=== PATIENT | female | born 1945 | race Caucasian/White ===

== ENCOUNTER 2017-04-29 | Outpatient (CLI) | payer MEDICARE, OTHER ==
[2017-04-29 18:55] LABS: BASOPHILS # (AUTO) 0.1 10^3/uL (0.0-0.1); BASOPHILS % (AUTO) 1.3 %; EOSINOPHILS # (AUTO) 0.2 10^3/uL (0.0-0.7); EOSINOPHILS % (AUTO) 1.4 %; HGB - HEMOGLOBIN 12.5 g/dL (12.0-16.0); LYMPHOCYTES # (AUTO) 2.3 10^3/uL (1.5-3.5); LYMPHOCYTES % (AUTO) 20.2 %; MEAN CORPUSCULAR HEMOGLOBIN 29.7 pg (27.0-31.0); MEAN CORPUSCULAR VOLUME 90.1 fL (81.0-99.0); MEAN PLATELET VOLUME 9.3 fL (7.9-10.8); MONOCYTES # (AUTO) 0.4 10^3/uL (0.0-1.0); MONOCYTES % (AUTO) 3.9 %; NEUTROPHILS # (AUTO) 8.3 10^3/uL (1.5-6.6); NEUTROPHILS % (AUTO) 73.2 %; RED BLOOD COUNT 4.22 10^6/uL (4.20-5.40); RED CELL DISTRIBUTION WIDTH 13.6 % (12.0-15.0); UNCORRECTED WHITE BLOOD COUNT 11.3 x10^3/uL; WHITE BLOOD COUNT 11.3 x10^3/uL (4.8-10.8)
[2017-04-29 19:56] LABS: ALBUMIN/GLOBULIN RATIO 1.3 (1.0-2.2); BILIRUBIN,TOTAL 0.2 mg/dL (0.2-1.0); BUN - BLOOD UREA NITROGEN 39 mg/dL (6-20); CALCIUM 9.5 mg/dL (8.5-10.3); CARBON DIOXIDE - CO2 23 mmol/L (21-32); CHLORIDE 101 mmol/L (101-111); CHOLESTEROL 291 mg/dL; CREATININE 1.3 mg/dL (0.4-1.0); GFR - MDRD 40 (>89); GLUCOSE 147 mg/dL (70-100); HDL CHOLESTEROL 29 mg/dL; IRON 50 ug/dL (28-170); LDL/HDL RATIO 6.4 (<4.4); POTASSIUM 3.9 mmol/L (3.5-5.0); SODIUM 135 mmol/L (135-145); TOTAL IRON BINDING CAPACITY 272 ug/dL (250-450); TOTAL PROTEIN 6.8 g/dL (6.7-8.2); TRANSFERRIN 194 mg/dL (192-382); TRIGLYCERIDES 375 mg/dL; VLDL CHOLESTEROL 75 mg/dL
[2017-04-29 20:22] LABS: HEMOGLOBIN A1C 0.62 g/dL
== END 2017-04-29 00:01 | disposition home or self-care (01) ==
LOC: LAB.WCP
PROVIDERS: ATTEND Family Medicine
DX: E11.9 Type 2 diabetes mellitus without complications (principal); D50.9 Iron deficiency anemia, unspecified
CPT/HCPCS: 36415; 80053; 80061; 82728; 83036; 83540; 84466; 85025

== ENCOUNTER 2017-05-03 12:52 | Outpatient (CLI) | payer MEDICARE, OTHER ==
--- NOTE | 2017-05-12 16:26 | Mammography Report ---
DIGITAL SCREENING MAMMOGRAM: 05/03/2017 CLINICAL INDICATION: A 71-year-old with history of benign biopsies for screening. COMPARISON: 02/2013, 10/2011, 08/2009, 08/2008, 03/2008, 08/2007. TECHNIQUE: Routine CC and MLO projections were obtained of the breasts. The breasts again demonstrate heterogeneously dense fibroglandular parenchyma bilaterally. Coarse an d punctate, typically benign calcifications are present. No suspicious masses, clustered microcalcif ications, or regions of architectural distortion are identified. IMPRESSION: BENIGN FINDINGS. RECOMMENDATION: ROUTINE ANNUAL SCREENING UNLESS OTHERWISE CLINICALLY INDICATED. BIRADS CATEGORY: 2, BENIGN FINDINGS. STANDARD QUALIFYING STATEMENTS 1. This examination was reviewed with the aid of Computed-Aided Detection (CAD). 2. A negative or benign imaging report should not delay biopsy if clinically suspicious findings are present. Consider surgical consultation if warranted. More than 5% of cancers are not identified b y imaging. 3. Dense breasts may obscure an underlying neoplasm. JOB #: [id number] EXT JOB #:[id number]
== END 2017-05-03 12:53 | disposition home or self-care (01) ==
LOC: DI 12:52
PROVIDERS: ATTEND Family Medicine
DX: Z12.31 Encounter for screening mammogram for malignant neoplasm of breast (principal)
CPT/HCPCS: 77067

== ENCOUNTER 2017-05-03 17:01 | Outpatient (CLI) | payer MEDICARE, OTHER ==
--- NOTE | 2017-05-03 17:08 | XRAY Report ---
THREE VIEW RIGHT KNEE: 05/03/2017 CLINICAL INDICATION: Pain. AP, lateral, sunrise views of the right knee demonstrate moderate osteoarthritis. There is no eviden ce of acute fracture. No effusion is present. IMPRESSION: MODERATE RIGHT KNEE OSTEOARTHRITIS. JOB #: [id number] EXT JOB #:[id number]
--- NOTE | 2017-05-04 06:49 | XRAY Report ---
RIGHT HIP AND PELVIS: 05/03/2017 CLINICAL INDICATION: Hip pain. FINDINGS: Frontal view of the hips and pelvis and frogleg lateral view of the right hip demonstrate severe right hip osteoarthritis, with remodeling of the femoral head and acetabulum. Subchondral scl erosis is present. No definite avascular necrosis is appreciated. There is no evidence of acute fra cture. IMPRESSION: SEVERE OSTEOARTHRITIS OF THE RIGHT HIP JOINT. JOB #: [id number] EXT JOB #:[id number]
== END 2017-05-03 17:02 | disposition home or self-care (01) ==
LOC: DI 17:01
PROVIDERS: ATTEND Family Medicine
DX: M17.11 Unilateral primary osteoarthritis, right knee (principal); M16.11 Unilateral primary osteoarthritis, right hip

== ENCOUNTER 2018-01-04 13:53 | Outpatient (CLI) | payer MEDICARE, OTHER ==
[2018-01-04 19:06] LABS: BASOPHILS # (AUTO) 0.1 10^3/uL (0.0-0.1); BASOPHILS % (AUTO) 0.9 %; EOSINOPHILS # (AUTO) 0.2 10^3/uL (0.0-0.7); EOSINOPHILS % (AUTO) 1.9 %; HGB - HEMOGLOBIN 12.6 g/dL (12.0-16.0); LYMPHOCYTES # (AUTO) 2.6 10^3/uL (1.5-3.5); LYMPHOCYTES % (AUTO) 23.3 %; MEAN CORPUSCULAR HEMOGLOBIN 29.4 pg (27.0-31.0); MEAN CORPUSCULAR HGB CONC 33.5 g/dL (32.0-36.0); MEAN CORPUSCULAR VOLUME 87.8 fL (81.0-99.0); MONOCYTES # (AUTO) 0.5 10^3/uL (0.0-1.0); MONOCYTES % (AUTO) 4.4 %; NEUTROPHILS # (AUTO) 7.7 10^3/uL (1.5-6.6); NEUTROPHILS % (AUTO) 69.5 %; PLT - PLATELET COUNT 391 10^3/uL (130-450); RED CELL DISTRIBUTION WIDTH 12.6 % (12.0-15.0); WHITE BLOOD COUNT 11.1 x10^3/uL (4.8-10.8)
[2018-01-04 19:34] LABS: ALBUMIN/GLOBULIN RATIO 1.4 (1.0-2.2); ALKALINE PHOSPHATASE 53 IU/L (42-121); ALT ALANINE AMINOTRANSFERASE 13 IU/L (10-60); AST ASPARTATE AMINOTRANSFERASE 17 IU/L (10-42); BILIRUBIN,TOTAL 0.4 mg/dL (0.2-1.0); BUN - BLOOD UREA NITROGEN 27 mg/dL (6-20); CALCIUM 9.3 mg/dL (8.5-10.3); CARBON DIOXIDE - CO2 26 mmol/L (21-32); CHLORIDE 99 mmol/L (101-111); CHOL/HDL RATIO 8.9 (<4.4); CHOLESTEROL 277 mg/dL; GFR - MDRD 54 (>89); GLUCOSE 109 mg/dL (70-100); HB2 TOTAL 13.6 g/dL; HDL CHOLESTEROL 31 mg/dL; HEMOGLOBIN A1C 0.58 g/dL; HEMOGLOBIN A1C % 6.1 % (4.6-6.2); LDL CHOLESTEROL,CALCULATED 172 mg/dL; LDL/HDL RATIO 5.5 (<4.4); SODIUM 134 mmol/L (135-145); TOTAL PROTEIN 6.9 g/dL (6.7-8.2); VLDL CHOLESTEROL 74 mg/dL
== END 2018-01-04 13:54 | disposition home or self-care (01) ==
LOC: LAB.WCP 13:53
PROVIDERS: ATTEND Family Medicine
DX: E11.9 Type 2 diabetes mellitus without complications (principal)
CPT/HCPCS: 36415; 80053; 80061; 83036; 83721; 85025

== ENCOUNTER 2018-10-26 07:20 | Day surgery (SDC) | payer MEDICARE, OTHER ==
[~2018-10-26 07:20] MED LIST: BRIMONIDINE 0.2% OPHTH DROPS 5 ML ONE; BSS/LIDOCAINE/EPINEPHRINE 1 ML SYRINGE ONE; EPINEPHrine 1 MG/ML AMP ONE; TIMOLOL 0.5% OPHTH DROPS ONE; TRIAMCIN/MOXIFLOX OPHTHALMIC 0.6 ML VIAL IO ONE; VANCOMYCIN OPHTHALMI 8MG/0.8ML 8 MG/0.8 ML SYRINGE IO ONE
[2018-10-26] MEDS ORDERED: PHENYLEPHRINE 2.5% OPHTH 2 ML DROPS ONE (07:51)
[2018-10-26] MEDS ORDERED: KETOROLAC 0.45% OPHTH DROPS ONE (07:51)
[2018-10-26] MEDS ORDERED: CYCLOPENTOLATE 1% OPHTH DROPS 2 ML ONE (07:51)
[2018-10-26] MEDS ORDERED: PROPARACAINE 0.5% OPHTH DROPS 15 ML ONE (07:51)
[2018-10-26] MEDS ORDERED: LACTATED RINGERS 500 ML IV ONE (07:52)
[2018-10-26] MEDS ORDERED: CYCLOPENTOLATE 1% OPHTH DROPS 2 ML RIGHTEYE ONE (08:06)
[2018-10-26] MEDS ORDERED: KETOROLAC 0.45% OPHTH DROPS RIGHTEYE ONE (08:06)
[2018-10-26] MEDS ORDERED: PHENYLEPHRINE 2.5% OPHTH 2 ML DROPS RIGHTEYE ONE (08:06)
[2018-10-26] MEDS ORDERED: PROPARACAINE 0.5% OPHTH DROPS 15 ML RIGHTEYE ONE ×2 (08:06→08:50)
--- NOTE | 2018-10-26 08:19 | ANESTHESIA ---
Pre-Anesthesia VS, & Labs - Diagnosis R senile combined cataract - Procedure R extraction cataract with IOL Vital Signs: Temp Pulse Resp BP Pulse Ox 36.8 C 102 H 16 150/79 H 99 10/26/18 07:56 10/26/18 07:56 10/26/18 07:56 10/26/18 07:56 10/26/18 07:56 Height 5 ft 3 in Weight (kg) 102 kg Body Mass Index 45.8 - Is Patient ?: No Home Medications and Allergies Cholecalciferol (Vitamin D3) [Vitamin D] 500 unit PO DAILY 06/27/15 Cyanocobalamin (Vitamin B-12) [B-12] 1,000 mcg PO DAILY 06/27/15 HYDROcod/ACETAM 5/325 [Vicodin 5/325] 1 ea PO Q6H PRN 06/27/15 Insulin Detemir [Levemir] 50 units SUBQ QPM 06/27/15 Iron,Carbonyl [Feosol] 65 mg PO DAILY 06/27/15 Latanoprost [Xalatan] 1 ml OP QPM 06/27/15 Levothyroxine Sodium [Synthroid] 125 mcg PO DAILY 06/27/15 Lisinopril 40 mg PO QPM 06/27/15 Metoprolol Succinate [Toprol Xl] 25 mg PO DAILY 06/27/15 Multivitamin [Multivitamins] 1 each PO DAILY 06/27/15 Nifedipine [Nifedipine ER] 60 mg PO DAILY 06/27/15 Omeprazole [PriLOSEC] 20 mg PO QPM 06/27/15 hydroCHLOROthiazide [Hydrochlorothiazide] 25 mg PO DAILY 06/27/15 metFORMIN [Glucophage] 1,000 mg PO BIDWM 06/27/15 Allergies/Adverse Reactions: Allergies Allergy/AdvReac Type Severity Reaction Status Date / Time adhesive Allergy Nausea Verified 06/27/15 10:14 niacin Allergy Rash Verified 06/27/15 10:14 Qxzuoby-Ihh-Sym Reductase AdvReac Cramps Verified 06/27/15 10:14 Inhibitor Anes History & Medical History - Anesthetic History Anesthesia Complications: reports: No previous complications Family history of Anesthesia Complications: Denies Family history of Malignant Hyperthermia: Denies - Medical History Cardiovascular: reports: Hypertension Pulmonary: reports: None Gastrointestinal: reports: GERD, Other Urinary: reports: None Musculoskeletal: reports: Osteoarthritis, Osteopenia Endocrine/Autoimmune: reports: Type 2 diabetes Skin: reports: None - Surgical History General: Colonoscopy Gynecologic:  Orthopedic: Hip replacement, Spine surgery Exam General: Alert, Oriented x3, Cooperative Dental: WNL Mouth Openin Fingerbreadth Neck Mobility: Normal Mallampati classification: II Thyromental Distance: 4-6 cm Respiratory: Lungs clear, Normal breath sounds Cardiovascular: Regular rate Neurological: Normal speech Mental/Cognitive Status: Alert/Oriented X3 Cognitive Status: Within normal limits Plan Anesthesia Type: MAC Consent for Procedure(s) Verified and Reviewed: Yes Code Status: Attempt Resuscitation ASA classification: 2-Mild systemic disease Is this case an emergency?: No
[2018-10-26] MEDS ORDERED: MIDAZOLAM 2 MG/2 ML VIAL IVP ONE (08:45)
[2018-10-26] MEDS ORDERED: BRIMONIDINE 0.2% OPHTH DROPS 5 ML OPTH ONE (08:49)
[2018-10-26] MEDS ORDERED: EPINEPHrine 1 MG/ML AMP IVP ONE (08:49)
[2018-10-26] MEDS ORDERED: CHONDR SULF/HYALURONATE SYRINGE IO ONE (08:50)
[2018-10-26] MEDS ORDERED: BSS/LIDOCAINE/EPINEPHRINE 1 ML SYRINGE IO ONE ×2 (08:50)
[2018-10-26] MEDS ORDERED: TIMOLOL 0.5% OPHTH DROPS OPTH ONE (08:50)
[2018-10-26] MEDS ORDERED: TRIAMCIN/MOXIFLOX OPHTHALMIC 0.6 ML VIAL IO ONE ×2 (08:51)
[2018-10-26 09:15] VITALS: BP 150/49
--- NOTE | 2018-10-26 10:37 | OPERATIVE REPORT ---
DATE OF SERVICE: 10/26/2018 Physician: Cornelio Grady MD PREOPERATIVE DIAGNOSIS: Visually significant cataract, right eye. This was her first cataract surgery. POSTOPERATIVE DIAGNOSIS: Visually significant cataract, right eye. PROCEDURE: Phacoemulsification with posterior chamber intraocular lens implant, right eye. SURGEON: Dr. Cornelio Grady. ANESTHESIA: Monitored anesthesia care. COMPLICATIONS: None. OPERATIVE INDICATIONS: This is a 72-year-old woman with progressive vision loss in the right eye due to 3-4+ nuclear sclerotic and 1+ cortical cataract. Best corrected visual acuity was 20/60 with gla re to count fingers vision at 8 feet. Indications for surgery were overall decrease in vision, difficulty seeing words, closed captions or games scores on TV, difficulty seeing street signs, difficulty driving in low light or at night, diff iculty driving at night because of headlights from other vehicles and/or street lights, and difficult y with glare or bright lights in any situation. She was consented at length concerning the risks and benefits of cataract surgery, after which she expressed a desire to proceed with surgery. OPERATIVE PROCEDURE: Patient was taken into OR #3 and placed under monitored anesthesia care. A anne marie gical timeout was conducted confirming correct patient, correct procedure, and correct surgical site. She was given topical anesthesia, then prepped and draped in the usual sterile fashion. The eye was entered at the 12 and 9 o'clock positions. Intracameral Shugarcaine was injected into th e anterior chamber, followed by Viscoat. A continuous-tear curvilinear capsulorrhexis was performed. The nucleus was hydrodissected and phacoemulsified. The cortex was evacuated using automated infus ion and aspiration. Provisc was injected in the capsular bag, and a 24.5 diopter intraocular lens in serted in the bag. Approximately 0.8 mL of a mixture of triamcinolone, moxifloxacin, and vancomycin was injected subconjunctivally in the superior quadrant for infection and inflammation prophylaxis. I and A was used to evacuate the viscoelastic materials. The eye was inflated to physiologic pressur e using a balanced salt solution and found to be watertight. Patient was taken from the operating ro om in good condition and given postoperative instructions. TD: 10/26/2018 09:45
== END 2018-10-26 07:21 | disposition home or self-care (01) ==
LOC: SDS 07:20
PROVIDERS: ATTEND Ophthalmology
PROC: 08RJ3JZ Replacement of Right Lens with Synthetic Substitute, Percutaneous Approach (ICD-10-PCS; principal; 2018-10-26 08:30)
DX: H25.811 Combined forms of age-related cataract, right eye (principal); I10 Essential (primary) hypertension; E11.9 Type 2 diabetes mellitus without complications; E03.9 Hypothyroidism, unspecified; E78.00 Pure hypercholesterolemia, unspecified; K21.9 Gastro-esophageal reflux disease without esophagitis
CPT/HCPCS: 66984; A9270; J3490; V2632

== ENCOUNTER 2018-11-30 06:09 | Day surgery (SDC) | payer MEDICARE, OTHER ==
[2018-11-30] MEDS ORDERED: PROPARACAINE 0.5% OPHTH DROPS 15 ML ONE (06:28)
[2018-11-30] MEDS ORDERED: CYCLOPENTOLATE 1% OPHTH DROPS 2 ML ONE (06:28)
[2018-11-30] MEDS ORDERED: KETOROLAC 0.45% OPHTH DROPS ONE (06:28)
[2018-11-30] MEDS ORDERED: PHENYLEPHRINE 2.5% OPHTH 2 ML DROPS ONE ×2 (06:28→06:51)
[2018-11-30] MEDS ORDERED: PHENYLEPHRINE 2.5% OPHTH 2 ML DROPS LEFTEYE ONE (06:50)
[2018-11-30] MEDS ORDERED: KETOROLAC 0.45% OPHTH DROPS LEFTEYE ONE (06:50)
[2018-11-30] MEDS ORDERED: PROPARACAINE 0.5% OPHTH DROPS 15 ML LEFTEYE ONE (06:50)
[2018-11-30] MEDS ORDERED: CYCLOPENTOLATE 1% OPHTH DROPS 2 ML LEFTEYE ONE (06:50)
[2018-11-30] MEDS ORDERED: EPINEPHrine 1 MG/ML AMP ONE (06:57)
[2018-11-30] MEDS ORDERED: TRIAMCIN/MOXIFLOX OPHTHALMIC 0.6 ML VIAL IO ONE ×2 (06:57→07:39)
[2018-11-30] MEDS ORDERED: BRIMONIDINE 0.2% OPHTH DROPS 5 ML ONE (06:57)
[2018-11-30] MEDS ORDERED: TIMOLOL 0.5% OPHTH DROPS ONE (06:57)
[2018-11-30] MEDS ORDERED: BSS/LIDOCAINE/EPINEPHRINE 1 ML SYRINGE ONE (06:58)
[2018-11-30] MEDS ORDERED: VANCOMYCIN OPHTHALMI 8MG/0.8ML 8 MG/0.8 ML SYRINGE IO ONE ×2 (06:59→07:39)
--- NOTE | 2018-11-30 07:08 | ANESTHESIA ---
Pre-Anesthesia VS, & Labs - Diagnosis left senile cataract - Procedure left cataract extraction with intraocular lens Vital Signs: Temp Pulse Resp BP Pulse Ox 36.9 C 69 16 184/75 H 98 11/30/18 06:33 11/30/18 06:33 11/30/18 06:33 11/30/18 06:33 11/30/18 06:33 Height 5 ft 3 in Weight (kg) 104.7 kg Body Mass Index 45.8 - NPO >8 hours - Is Patient ?: No - Lab Results Current Lab Results: Laboratory Tests 11/30/18 06:56: POC Whole Bld Glucose 99 Lab results reviewed: Yes Home Medications and Allergies Cholecalciferol (Vitamin D3) [Vitamin D] 500 unit PO DAILY 06/27/15 Cyanocobalamin (Vitamin B-12) [B-12] 1,000 mcg PO DAILY 06/27/15 HYDROcod/ACETAM 5/325 [Vicodin 5/325] 1 ea PO Q6H PRN 06/27/15 Insulin Detemir [Levemir] 50 units SUBQ QPM 06/27/15 Iron,Carbonyl [Feosol] 65 mg PO DAILY 06/27/15 Latanoprost [Xalatan] 1 ml OP QPM 06/27/15 Levothyroxine Sodium [Synthroid] 125 mcg PO DAILY 06/27/15 Lisinopril 40 mg PO QPM 06/27/15 Metoprolol Succinate [Toprol Xl] 25 mg PO DAILY 06/27/15 Multivitamin [Multivitamins] 1 each PO DAILY 06/27/15 Nifedipine [Nifedipine ER] 60 mg PO DAILY 06/27/15 Omeprazole [PriLOSEC] 20 mg PO QPM 06/27/15 hydroCHLOROthiazide [Hydrochlorothiazide] 25 mg PO DAILY 06/27/15 metFORMIN [Glucophage] 1,000 mg PO BIDWM 06/27/15 Allergies/Adverse Reactions: Allergies Allergy/AdvReac Type Severity Reaction Status Date / Time adhesive Allergy Rash Verified 11/30/18 06:38 niacin Allergy Rash Verified 06/27/15 10:14 Krvwydx-Ydn-Ipm Reductase AdvReac increased Verified 11/30/18 06:38 Inhibitor liver enzymes Anes History & Medical History - Anesthetic History Anesthesia Complications: reports: No previous complications Family history of Anesthesia Complications: Denies - Medical History Cardiovascular: reports: Hypertension Pulmonary: reports: None Gastrointestinal: reports: GERD, Other Urinary: reports: None Musculoskeletal: reports: Osteoarthritis, Osteopenia Endocrine/Autoimmune: reports: Type 2 diabetes Skin: reports: None - Surgical History General: Colonoscopy Gynecologic:  Orthopedic: Hip replacement, Spine surgery Exam General: Alert Dental: WNL Mouth Opening: Greater than 4 Fingerbreadths Neck Mobility: Normal Mallampati classification: II Thyromental Distance: greater than 6 cm Respiratory: Lungs clear Cardiovascular: Regular rate, Normal S1, Normal S2, No murmurs Mental/Cognitive Status: Alert/Oriented X3 Plan Anesthesia Type: MAC Consent for Procedure(s) Verified and Reviewed: No Code Status: Attempt Resuscitation ASA classification: 2-Mild systemic disease Is this case an emergency?: No
[2018-11-30] MEDS ORDERED: LACTATED RINGERS 500 ML IV ONE (07:16)
[2018-11-30] MEDS ORDERED: fentaNYL 100 MCG/2 ML VIAL IVP ONE (07:35)
[2018-11-30] MEDS ORDERED: MIDAZOLAM 2 MG/2 ML VIAL IVP ONE (07:35)
[2018-11-30] MEDS ORDERED: CHONDR SULF/HYALURONATE SYRINGE IO ONE (07:37)
[2018-11-30] MEDS ORDERED: EPINEPHrine 1 MG/ML AMP IVP ONE (07:37)
[2018-11-30] MEDS ORDERED: BRIMONIDINE 0.2% OPHTH DROPS 5 ML OPTH ONE (07:37)
[2018-11-30] MEDS ORDERED: TIMOLOL 0.5% OPHTH DROPS OPTH ONE (07:38)
[2018-11-30] MEDS ORDERED: BSS/LIDOCAINE/EPINEPHRINE 1 ML SYRINGE IO ONE (07:39)
[2018-11-30 08:17] VITALS: BP 187/63
--- NOTE | 2018-11-30 10:07 | OPERATIVE REPORT ---
DATE OF SERVICE: 11/30/2018 Physician: Cornelio Grady MD PREOPERATIVE DIAGNOSIS: Visually significant cataract, left eye. Cataract surgery was performed on the right eye on 10/26/2018. POSTOPERATIVE DIAGNOSIS: Visually significant cataract, left eye. Cataract surgery was performed on the right eye on 10/26/2018. PROCEDURE: Phacoemulsification with posterior chamber intraocular lens implant, left eye. SURGEON: Cornelio Grady MD ANESTHESIA: Monitored anesthesia care. COMPLICATIONS: None. OPERATIVE INDICATIONS: This is a 72-year-old woman with progressive vision loss in the left eye due to 3-4+ nuclear sclerotic and 1-2+ cortical cataract. Best corrected visual acuity was 20/40 with gl are to 26/30 in the left eye. Indications for surgery are overall decrease in vision, difficulty see ing words on a computer screen, difficulty reading, difficulty seeing words closed caption and game s cores on TV, difficulty seeing street signs, difficulty driving in low light or night, difficulty dri ving at night because of headlights from other vehicles, difficulty with glare or bright lights in an y situation, difficulty tracking a golf ball and decreased acuity with arms. She was consented at [facility] concerning risks and benefits of cataract surgery, after which Afterward she expressed a desire to proceed with surgery. OPERATIVE PROCEDURE: The patient was taken to OR #3 and placed under monitored anesthesia care. A s urgical timeout was conducted confirming correct patient, correct procedure, and correct surgical sit e. She was given topical anesthesia, then prepped and draped in the usual sterile fashion. The eye was entered at the 6 and 3 o'clock positions. Intracameral Shugarcaine was injected into the anterior chamber, followed by Viscoat. A continuous-tear curvilinear capsulorrhexis was performed. The nucleus was hydrodissected and phacoemulsified. The cortex was evacuated using automated infusi on and aspiration. Provisc was injected in the capsular bag, and a 24.5 diopter intraocular lens ins erted in the bag. Approximately 0.8 mL of a mixture of triamcinolone, moxifloxacin, and vancomycin w as injected subconjunctivally in the superior quadrant for infection and inflammation prophylaxis. I and A, was used to evacuate the viscoelastic materials. The eye was inflated to physiologic pressur e using balanced salt solution and found to be watertight. Patient was taken from the operating room in good condition and given postoperative instructions. TD: 11/30/2018 07:59
== END 2018-11-30 06:10 | disposition home or self-care (01) ==
LOC: SDS 06:09
PROVIDERS: ATTEND Ophthalmology
PROC: 08RK3JZ Replacement of Left Lens with Synthetic Substitute, Percutaneous Approach (ICD-10-PCS; principal; 2018-11-30 07:30)
DX: H25.812 Combined forms of age-related cataract, left eye (principal); E11.9 Type 2 diabetes mellitus without complications; I10 Essential (primary) hypertension; E78.5 Hyperlipidemia, unspecified; E03.9 Hypothyroidism, unspecified; Z79.84 Long term (current) use of oral hypoglycemic drugs
CPT/HCPCS: 66984; A9270; J3490; V2632

== ENCOUNTER 2021-01-16 12:04 | Outpatient (CLI) | payer MEDICARE, OTHER | END 2021-01-16 12:05 | disposition critical access hospital (66) | LOC: EMS 12:04 | DX: R53.1 Weakness (principal) | CPT/HCPCS: A0425; A0429 ==

== ENCOUNTER 2021-01-16 12:20 | Emergency (ER) | payer MEDICARE, OTHER ==
--- NOTE | 2021-01-16 12:46 | ED Physician Documentation ---
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 She also has a remote history of L4-L5 and L5-S1 laminectomies done at [facility]. Over the last week she has developed progressive low back pain with bilateral lower extremity weakness. It is not associate with incontinence or saddle anesthesia. No fevers. The weakness has been progressive and at this point she is unable to walk. She fell without injury last night due to this. Review of Systems Ten Systems: 10 systems reviewed and negative Constitutional: reports: Reviewed and negative Eyes: reports: Reviewed and negative Ears: reports: Reviewed and negative Nose: reports: Reviewed and negative Throat: reports: Reviewed and negative Cardiac: reports: Reviewed and negative Respiratory: reports: Reviewed and negative PD PAST MEDICAL HISTORY - Past Medical History Past Medical History: Yes Cardiovascular: Hypertension Respiratory: None Endocrine/Autoimmune: Type 2 diabetes GI: GERD, Other : None HEENT: None Psych: Depression Musculoskeletal: Osteoarthritis, Osteopenia Derm: None - Past Surgical History General: Colonoscopy Ortho: Hip replacement, Spine surgery /[employer]:  - Present Medications Home Medications: Ambulatory Orders Medication Instructions Recorded Confirmed Insulin Detemir [Levemir] 16 units SUBQ QPM 06/27/15 01/16/21 Latanoprost [Xalatan] 1 drops OP QPM 06/27/15 01/16/21 Levothyroxine Sodium [Synthroid] 125 mcg PO DAILY 06/27/15 01/16/21 Metoprolol Succinate [Toprol Xl] 50 mg PO DAILY 06/27/15 01/16/21 Multivitamin [Multivitamins] 1 each PO DAILY 06/27/15 01/16/21 NIFEdipine [Nifedipine ER] 60 mg PO DAILY 06/27/15 01/16/21 Omeprazole [PriLOSEC] 20 mg PO QPM 06/27/15 01/16/21 hydroCHLOROthiazide 25 mg PO DAILY 06/27/15 01/16/21 [Hydrochlorothiazide] lisinopriL [Lisinopril] 40 mg PO QPM 06/27/15 01/16/21 metFORMIN [Glucophage] 1,000 mg PO BIDWM 06/27/15 01/16/21 - Allergies Allergies/Adverse Reactions: Allergies Allergy/AdvReac Type Severity Reaction Status Date / Time adhesive Allergy Rash Verified 01/16/21 12:26 manganese Allergy Rash Verified 01/16/21 12:26 niacin Allergy Rash Verified 01/16/21 12:26 Ylrcadk-Tcw-Ann Reductase AdvReac increased Verified 01/16/21 12:26 Inhibitor liver enzymes - Social History Does the pt smoke?: No Smoking Status: Never smoker PD ED PE NORMAL - Vitals Vital signs reviewed: Yes - General General: Alert and oriented X 3, No acute distress - HEENT HEENT: PERRL, EOMI - Neck Neck: Supple, no meningeal sign, No bony TTP - Cardiac Cardiac: RRR, No murmur - Respiratory Respiratory: No respiratory distress, Clear bilaterally - Abdomen Abdomen: Normal bowel sounds, Soft, Non tender - Back Back: No CVA TTP, No spinal TTP - Derm Derm: Normal color, Warm and dry - Extremities Extremities: Other (She is quite weak in the lower extremities, especially in hip flexion. She cannot lift the right leg off the bed, she has some effort against gravity with the left leg. Flexion extension at the ankles is relatively normal as is sensation throughout the lower extremities.) - Neuro Neuro: Alert and oriented X 3, No sensory deficit, Normal speech Eye Opening: Spontaneous Motor: Obeys Commands Verbal: Oriented GCS Score: 15 Results - Vitals Vitals: Vital Signs - 24 hr 01/16/21 01/16/21 01/16/21 12:28 14:32 16:00 Temperature 36.7 C Heart Rate 95 94 89 Respiratory 18 20 22 Rate Blood Pressure 137/106 H 178/78 H 163/70 H O2 Saturation 100 98 97 Oxygen O2 Source Room air - EKG (time done) 1246 Rate: Rate (enter#) (87) Rhythm: NSR (w frequent PACs) Riley: Normal Intervals: Normal [place] QRS: Normal Ischemia: Non specific changes. No: ST elevation c/w ischemia Computer interpretation: Disagree with computer (computer reads flutter, but NSR with freq pacs) - Labs Labs: Laboratory Tests 01/16/21 01/16/21 01/16/21 12:55 12:55 14:15 WBC 10.4 RBC 3.91 L Hgb 11.1 L Hct 34.8 L MCV 89.0 MCH 28.4 MCHC 31.9 L RDW 13.2 Plt Count 408 MPV 10.0 Neut # (Auto) 8.1 H Lymph # (Auto) 1.6 [place] # (Auto) 0.5 Eos # (Auto) 0.1 Baso # (Auto) 0.1 Absolute Nucleated RBC 0.00 Nucleated RBC % 0.0 Sodium 137 Potassium 3.9 Chloride 101 Carbon Dioxide 23 Anion Gap 13.0 BUN 25 H Creatinine 1.0 Estimated GFR (MDRD) 54 L Glucose 142 H Calcium 9.6 Magnesium 1.6 L Total Bilirubin 0.4 AST 17 ALT 17 Alkaline Phosphatase 75 Total Protein 7.0 Albumin 4.0 Globulin 3.0 Albumin/Globulin Ratio 1.3 Nasal Adenovirus (PCR) NOT DETECTED Nasal B. parapertussis DNA (PCR) NOT DETECTED Nasal Coronavir 229E PCR NOT DETECTED Nasal Coronavir HKU1 PCR NOT DETECTED Nasal Coronavir NL63 PCR NOT DETECTED Nasal Coronavir OC43 PCR NOT DETECTED Nasal Enterovir/Rhinovir PCR NOT DETECTED Nasal Influenza B PCR NOT DETECTED Nasal Influenza A PCR NOT DETECTED Nasal Parainfluen 1 PCR NOT DETECTED Nasal Parainfluen 2 PCR NOT DETECTED Nasal Parainfluen 3 PCR NOT DETECTED Nasal Parainfluen 4 PCR NOT DETECTED Nasal RSV (PCR) NOT DETECTED Nasal B.pertussis DNA PCR NOT DETECTED Nasal C.pneumoniae (PCR) NOT DETECTED Willie Human Metapneumo PCR NOT DETECTED Nasal M.pneumoniae (PCR) NOT DETECTED Nasal SARS-CoV-2 (PCR) NOT DETECTED - Rads (name of study) CT L spine Radiology: EMP read contemporaneously (Acute comminuted inferior endplate compression fracture of L2 with mild bony retropulsion contributing to moderate multifactorial canal stenosis. Moderate stenosis at L3-L4, remote right hemilaminectomy at L4-L5 with moderate to severe left foraminal narrowing at that level. Also had multilevel fo) PD MEDICAL DECISION MAKING - ED course ED course: 75-year-old woman with an acute back pain and severe weakness especially of hip flexion which corresponds to CT findings of a compression fracture of L2 with retropulsion contributing to moderate multifactorial canal stenosis at that level with also severe right foraminal narrowing at that level. Given the profundity of her weakness will consult neurosurgery, previous surgery done by Dr. Reid at [facility] in [place] and they were called at approximately 1:45 PM for consultation. Approximately 2:30 PM I spoke with Dr. Antoine Ledesma, Ns[facility] at [facility], will consult but defers to medicine for xfer; but called back and notes their OR is closed over the weekend and recommends xfer to another facility. However there was miscommunication and it turned out that there OR is not going down this weekend, this was clarified with Dr. Ledesma and hospitalist was paged for admission. Subsequently a 4:14 PM I discussed the case by phone with Dr. Janay Grady, the on-call hospitalist in [place] and she accepts to her service and cobras were completed. She is stable for transport. Departure - Departure Disposition: 02 Transfer Acute Care Hosp Clinical Impression: Weakness Compression fracture of L2 Qualifiers: Encounter type: initial encounter Qualified Code(s): S32.020A - Wedge compression fracture of second lumbar vertebra, initial encounter for closed fracture Spinal stenosis Qualifiers: Spinal region: lumbar Neurogenic claudication status: with neurogenic claudication Qualified Code(s): M48.062 - Spinal stenosis, lumbar region with neurogenic claudication Condition: Stable
[2021-01-16 12:57] LABS: BASOPHILS # (AUTO) 0.1 10^3/uL (0.0-0.1); BASOPHILS % (AUTO) 0.6 %; EOSINOPHILS # (AUTO) 0.1 10^3/uL (0.0-0.7); HGB - HEMOGLOBIN 11.1 g/dL (12.0-16.0); LYMPHOCYTES # (AUTO) 1.6 10^3/uL (1.5-3.5); LYMPHOCYTES % (AUTO) 15.6 %; MEAN CORPUSCULAR HEMOGLOBIN 28.4 pg (27.0-31.0); MEAN CORPUSCULAR HGB CONC 31.9 g/dL (32.0-36.0); MONOCYTES # (AUTO) 0.5 10^3/uL (0.0-1.0); MONOCYTES % (AUTO) 4.4 %; NEUTROPHILS # (AUTO) 8.1 10^3/uL (1.5-6.6); NEUTROPHILS % (AUTO) 78.1 %; PLT - PLATELET COUNT 408 10^3/uL (130-450); RED BLOOD COUNT 3.91 10^6/uL (4.20-5.40); RED CELL DISTRIBUTION WIDTH 13.2 % (12.0-15.0); WHITE BLOOD COUNT 10.4 x10^3/uL (4.8-10.8)
[2021-01-16 13:10] LABS: ALBUMIN/GLOBULIN RATIO 1.3 (1.0-2.2); BILIRUBIN,TOTAL 0.4 mg/dL (0.2-1.0); CALCIUM 9.6 mg/dL (8.5-10.3); MAGNESIUM 1.6 mg/dL (1.7-2.8)
--- NOTE | 2021-01-16 13:40 | CT Report ---
PROCEDURE: LUMBAR SPINE WO INDICATIONS: back pain, weak TECHNIQUE: Noncontrast 3 mm thick sections acquired from the T12 level to the sacrum. Sagittal and coronal refo rmats were constructed. For radiation dose reduction, the following was used: automated exposure co ntrol, adjustment of mA and/or kV according to patient size. COMPARISON: None. FINDINGS: Image quality: Excellent. Bones: Remote right hemilaminectomy at L4-L5. Mild anterolisthesis of L4 on L5, measuring approximate ly 5 mm. The other vertebral bodies are normally aligned. There is an acute comminuted inferior endpl ate compression fracture of L2 with approximately 25% vertebral body height loss. There is mild poste rior bony retropulsion contributes to moderate canal stenosis. No other acute compression fractures. No suspicious lytic or blastic bony lesions. Central spinal caliber is of normal overall caliber. N o pars defects. T9-T10: No canal stenosis or foraminal stenosis. T10-T11: No canal stenosis or foraminal stenosis. T11-T12: No canal stenosis or foraminal stenosis. T12-L1: No canal stenosis or foraminal stenosis. L1-L2: Bilateral facet hypertrophy. Mild canal stenosis. Moderate right foraminal narrowing with f lattening deformity on the exiting right L1 nerve root. L2-L3: Comminuted inferior endplate compression of L2 with mild posterior bony retropulsion measur ing approximately 4 mm. There is moderate multifactorial canal stenosis. There is facet and ligament hypertrophy. There is severe right foraminal narrowing with right foraminal L2 nerve root impingement . L3-L4: Moderate multifactorial canal stenosis secondary to disc bulge and facet and ligament hypert rophy. Mild bilateral foraminal narrowing. L4-L5: There is large diffuse disc bulge. There is anterolisthesis of L4 on L5 measuring approximat javier 5 mm. There is evidence of remote right hemilaminectomy. There is mild right foraminal narrowing and moderate to severe left foraminal narrowing with flattening deformity on the exiting left L4 nerv e root. L5-S1: Disc bulge. Mild right and moderate left foraminal narrowing. Soft tissues: No retroperitoneal masses or hematomas. Visualized aorta is normal in caliber. IMPRESSION: 1. Acute comminuted inferior endplate compression fracture of L2. There is associated mild bony retro pulsion. This contributes to moderate multifactorial canal stenosis. 2. There is moderate canal stenosis at L3-L4. 3. Remote right hemilaminectomy at L4-L5. There is moderate to severe left foraminal narrowing at thi s level. 4. Multilevel foraminal narrowing as described above. Reviewed by: Cheikh Lux MD on 01/16/2021 1:39 PM PST Approved by: Cheikh Lux MD on 01/16/2021 1:39 PM PST Station ID: [id number]
[2021-01-16 15:15] LABS: C. PNEUMONIAE- RESP PCR PANEL NOT DETECTED
[2021-01-16] MEDS ORDERED: ACETAMINOPHEN 325 MG TABLET PO STA (17:14)
[2021-01-16] MEDS ORDERED: MORPHINE 2 MG/ML CARPUJECT IVP STA (17:48)
[2021-01-16 17:54] VITALS: BP 170/82
== END 2021-01-16 18:02 | disposition short-term general hospital (02) ==
LOC: EDUNIT# → ED 12:20
DX: S32.020A Wedge compression fracture of second lumbar vertebra, initial encounter for closed fracture (principal); W18.30XA Fall on same level, unspecified, initial encounter; M48.062 Spinal stenosis, lumbar region with neurogenic claudication; R53.1 Weakness; I10 Essential (primary) hypertension; E11.9 Type 2 diabetes mellitus without complications; Z79.84 Long term (current) use of oral hypoglycemic drugs; Z20.822 Contact with and (suspected) exposure to COVID-19
CPT/HCPCS: 72131; 80053; 83735; 85025; 87631; 93005; 96374; 99285; A9270; 0202U

== ENCOUNTER 2021-01-16 18:04 | Outpatient (CLI) | payer MEDICARE, OTHER | END 2021-01-16 18:05 | disposition short-term general hospital (02) | LOC: EMS 18:04 | DX: S32.020A Wedge compression fracture of second lumbar vertebra, initial encounter for closed fracture (principal); W18.30XA Fall on same level, unspecified, initial encounter | CPT/HCPCS: A0425; A0426 ==

== ENCOUNTER 2021-02-02 18:28 | Outpatient (CLI) | payer MEDICARE, OTHER | END 2021-02-02 18:29 | disposition critical access hospital (66) | LOC: EMS 18:28 | PROVIDERS: ATTEND Emergency Medicine | DX: M54.9 Dorsalgia, unspecified (principal); R53.1 Weakness | CPT/HCPCS: A0425; A0429 ==

== ENCOUNTER 2021-02-02 18:47 | Emergency (ER) | payer MEDICARE, OTHER ==
[2021-02-02] MEDS ORDERED: oxyCODONE 5 MG TABLET PO STA ×2 (18:56→21:45)
--- NOTE | 2021-02-02 18:59 | ED Physician Documentation ---
PD HPI BACK PAIN - Stated complaint Stated Complaint: LOW BACK PX - History obtained from History obtained from: Patient - Additional information Additional information: 75-year-old woman with chronic back problems. I saw her about a month ago, she had a lot of weakness in her hip flexors and subsequently went up to [place] where she says she was hospitalized for 5 days on bedrest but no intervention was done in her spine. After getting home she says she was doing pretty well with regard to her back. She would take Tylenol as needed and maybe an oxycodone at night. About 4 to 5 days ago she bent forward and started having increasing back pain which was getting better again but worse today. It is in the mid lumbar spine. She is weak in the legs but not as weak as when I saw her a month ago. 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:  - Present Medications Home Medications: Ambulatory Orders Medication Instructions Recorded Confirmed Insulin Detemir [Levemir] 16 units SUBQ QPM 06/27/15 02/02/21 Latanoprost [Xalatan] 1 drops OP QPM 06/27/15 02/02/21 Levothyroxine Sodium [Synthroid] 125 mcg PO DAILY 06/27/15 02/02/21 Metoprolol Succinate [Toprol Xl] 50 mg PO DAILY 06/27/15 02/02/21 Multivitamin [Multivitamins] 1 each PO DAILY 06/27/15 02/02/21 NIFEdipine [Nifedipine ER] 60 mg PO DAILY 06/27/15 02/02/21 Omeprazole [PriLOSEC] 20 mg PO QPM 06/27/15 02/02/21 hydroCHLOROthiazide 25 mg PO DAILY 06/27/15 02/02/21 [Hydrochlorothiazide] lisinopriL [Lisinopril] 40 mg PO QPM 06/27/15 02/02/21 metFORMIN [Glucophage] 1,000 mg PO BIDWM 06/27/15 02/02/21 Gabapentin [Neurontin] 200 mg PO DAILY 02/02/21 02/02/21 Oxycodone HCl/Acetaminophen 1 - 2 each PO Q6H PRN #20 tablet 02/02/21 [Percocet 5-325 mg Tablet] - Allergies Allergies/Adverse Reactions: Allergies Allergy/AdvReac Type Severity Reaction Status Date / Time adhesive Allergy Rash Verified 02/02/21 18:52 manganese Allergy Rash Verified 02/02/21 18:52 niacin Allergy Rash Verified 02/02/21 18:52 [id number] Reductase AdvReac increased Verified 02/02/21 18:52 Inhibitor liver enzymes - Social History Does the pt smoke?: No Smoking Status: Never smoker PD ED PE NORMAL - Vitals Vital signs reviewed: Yes - General General: Alert and oriented X 3, No acute distress - HEENT HEENT: PERRL, EOMI - Neck Neck: Supple, no meningeal sign, No bony TTP - Cardiac Cardiac: RRR, No murmur - Respiratory Respiratory: No respiratory distress, Clear bilaterally - Abdomen Abdomen: Normal bowel sounds, Soft, Non tender - Back Back: Other (She is tender in the mid lumbar spine, she is able to sit up unassisted.) - Derm Derm: Normal color, Warm and dry - Extremities Extremities: No edema, No calf tenderness / cord, Other (Mild weakness in hip flexion on the right. Otherwise sensation and strength throughout the legs is grossly normal.) - Neuro Neuro: Alert and oriented X 3, No motor deficit, No sensory deficit, Normal speech Results - Vitals Vitals: Vital Signs - 24 hr 02/02/21 02/02/21 02/02/21 18:53 19:04 21:12 Temperature 36.7 C Heart Rate 85 87 86 Respiratory 16 16 14 Rate Blood Pressure 194/81 H 162/94 H 157/83 H O2 Saturation 100 99 98 Oxygen O2 Source Room air - Rads (name of study) CT L Spine Radiology: EMP read contemporaneously PD MEDICAL DECISION MAKING - ED course Complexity details: reviewed old records ED course: She was able to pull up the MRI results from when she was hospitalized in [place]: 1. Inferior endplate compression fracture deformity with up to 50% height loss, no marrow edema suggesting it was subacute to chronic. 2. Progression of multilevel lumbar spondylosis. Increased disc height loss and new grade 1 anterolisthesis of L4 on L5 results in increased to moderate spinal canal stenosis along with increased moderate to severe left and mild to moderate right neuroforaminal narrowing. Disc osteophyte complex and ligamentum flavum hypertrophy at L2-L3 also moderately narrows the spinal canal. 3. Postoperative change status post right hemilaminectomies at L4-L5 and L5-S1 75-year-old woman recently seen for back pain and sent to [place], was told there is really no surgical option for her. Pain is not as bad today as it was then and her function is better but still not safe for her to go home alone. She will board in the emergency department pending her son's arrival from [place] tomorrow morning. Departure - Departure Clinical Impression: Weakness Compression fracture of L2 Qualifiers: Encounter type: initial encounter Qualified Code(s): S32.020A - Wedge compression fracture of second lumbar vertebra, initial encounter for closed fracture Spinal stenosis Qualifiers: Spinal region: lumbar Neurogenic claudication status: with neurogenic claudication Qualified Code(s): M48.062 - Spinal stenosis, lumbar region with neurogenic claudication Condition: Stable Record reviewed to determine appropriate education?: Yes Instructions: ED Fx Comp Vertebral Prescriptions: Oxycodone HCl/Acetaminophen [Percocet 5-325 mg Tablet] 1 - 2 each PO Q6H PRN #20 tablet PRN Reason: pain Comments: Call your doctor to arrange a follow-up appointment, make the next available appointment. In the interim, return anytime if worse or if new symptoms deve lop. Do not drink or drive while taking narcotic pain medication. Note that many narcotic pain relievers also contain Tylenol/acetaminophen. Please ensure that your total dose of acetaminophen from all sources does not exceed 3 g (3000 mg) per day. You may get constipated while on this medication. Take a stool softener such as Colace twice a day while you are on it. Also add an xowc-fci-[id number] laxative such as senna or MiraLAX on any day that you do not have a bowel movement. If you received a narcotic pain medication or sedative while in the emergency department, do not drive for the next 24 hours.
--- NOTE | 2021-02-02 20:13 | CT Report ---
PROCEDURE: LUMBAR SPINE WO INDICATIONS: back inj TECHNIQUE: Noncontrast 3 mm thick sections acquired from the T12 level to the sacrum. Sagittal and coronal refo rmats were constructed. For radiation dose reduction, the following was used: automated exposure co ntrol, adjustment of mA and/or kV according to patient size. COMPARISON: 01/16/2021. FINDINGS: Image quality: Excellent. Bones: Again noted is grade 1 anterolisthesis of L4 on L5, unchanged from previous study. Prior right hemilaminectomy at L4-5 level is again seen and unchanged from prior study. No acute vertebral body compression fractures. Subacute comminuted fracture involving inferior endplate of L2 vertebral body with up to 25% vertebral body height loss is seen, unchanged from 01/16/2021 study. No new compression fracture is seen. No suspicious lytic or blastic bony lesions. Central spinal caliber is of normal overall caliber. T12-L1: No significant canal stenosis or neural foraminal narrowing.. L1-L2: Degenerative endplate changes are seen. Bilateral facet arthrosis is noted. Mild central ca nal stenosis and right-sided neural foraminal narrowing is again noted unchanged from previous study. L2-L3: Vacuum disc phenomenon is noted. Mild posterior bony retropulsion involving inferior portio n of L2 vertebral body is again seen causing moderate central canal stenosis at this level unchanged from prior study. Bilateral facet arthrosis is also seen causing severe right neural foraminal narrow ing. This is also unchanged from previous study. L3-L4: Vacuum disc phenomenon and degenerative endplate changes are seen. Broad-based disc bulge an d bilateral facet arthrosis is again seen causing moderate central canal stenosis and mild bilateral neural foraminal narrowing unchanged from prior study. L4-L5: Vacuum disc phenomenon and loss of disc height is again seen. There is prior right laminecto my. Bilateral facet arthrosis is seen. No significant canal stenosis. Left worse than right bilateral neural foraminal narrowing is again seen and unchanged. L5-S1: Vacuum disc phenomenon and loss of disc height is again seen. Broad-based disc bulge and merle ateral facet arthrosis is seen, with mild bilateral neural foraminal narrowing. No significant centra l canal stenosis. Soft tissues: No retroperitoneal masses or hematomas. Visualized aorta is normal in caliber. Athero sclerotic calcifications throughout the abdominal aorta is seen. IMPRESSION: 1. Overall appearance of lumbar spine is not significantly changed from 01/16/2021 study. Subacute william earing compression comminuted fracture involving inferior endplate of L2 vertebral body and slight re tropulsion of inferior posterior wall is again seen at L2 level with up to 25% loss of L2 vertebral b shadi height. No acute compression fracture is seen. Stable 5 mm anterolisthesis of L4 on L5. 2. Degenerative disc disease and bilateral facet arthrosis throughout lumbar spine causing mild-to-mo derate central canal stenosis and bilateral neural foraminal narrowing unchanged from prior study. 3. Prior right hemilaminectomy at L4-5 level with post surgical changes. Reviewed by: Isma Carranza MD on 02/02/2021 8:12 PM PST Approved by: Isma Carranza MD on 02/02/2021 8:12 PM PST Station ID: [id number]
[2021-02-02] MEDS ORDERED: INSULIN GLARGINE 300 UNIT/3 ML PEN SUBQ SCH (21:00)
[2021-02-02] MEDS ORDERED: LATANOPROST 0.005% OPHTH DROPS EACHEYE SCH (21:00)
[2021-02-02] MEDS ORDERED: lisinopriL 5 MG TABLET PO SCH (21:00)
[2021-02-02] MEDS: metFORMIN 500 MG TABLET PO SCH (21:47)
[2021-02-02] MEDS: GABAPENTIN 100 MG CAPSULE PO SCH (21:47)
[2021-02-03] MEDS ORDERED: oxyCODONE 5 MG TABLET PO STA ×2 (06:11→12:57)
[2021-02-03] MEDS ORDERED: NIFEdipine ER 30 MG TABLET PO SCH (09:00)
[2021-02-03] MEDS ORDERED: METOPROLOL SUCCINATE 50 MG TABLET PO SCH (09:00)
[2021-02-03] MEDS ORDERED: PANTOPRAZOLE 40 MG TABLET PO SCH (09:00)
[2021-02-03] MEDS ORDERED: hydroCHLOROthiazide 25 MG TABLET PO SCH (09:00)
[2021-02-03] MEDS: metFORMIN 500 MG TABLET PO SCH (12:39)
[2021-02-03] MEDS: GABAPENTIN 100 MG CAPSULE PO SCH (12:42)
[2021-02-03 13:06] VITALS: BP 128/55
== END 2021-02-03 13:23 | disposition home or self-care (01) ==
LOC: EDUNIT# → ED 18:47
DX: S32.020A Wedge compression fracture of second lumbar vertebra, initial encounter for closed fracture (principal); X50.9XXA Other and unspecified overexertion or strenuous movements or postures, initial encounter; M48.062 Spinal stenosis, lumbar region with neurogenic claudication; M47.816 Spondylosis without myelopathy or radiculopathy, lumbar region; R53.1 Weakness; I10 Essential (primary) hypertension; E11.9 Type 2 diabetes mellitus without complications; Z79.4 Long term (current) use of insulin
CPT/HCPCS: 72131; 99284; A9270; J1815

== ENCOUNTER 2021-02-15 12:38 | Outpatient (CLI) | payer MEDICARE, OTHER | END 2021-02-15 12:39 | disposition critical access hospital (66) | LOC: EMS 12:38 | PROVIDERS: ATTEND Emergency Medicine | DX: R10.9 Unspecified abdominal pain (principal); R53.1 Weakness; R42 Dizziness and giddiness | CPT/HCPCS: A0425; A0427 ==

== ENCOUNTER 2021-02-15 12:54 | Inpatient (IN) | payer MEDICARE, OTHER ==
[2021-02-15] MEDS ORDERED: SODIUM CHLORIDE 0.9% 1,000 ML IV STA ×2 (13:03→15:24)
[2021-02-15] MEDS ORDERED: HYOSCYAMINE SL 0.125 MG TABLET SL STA ×2 (13:04→15:24)
--- NOTE | 2021-02-15 13:04 | ED Physician Documentation ---
PD HPI ABD PAIN - Stated complaint Stated Complaint: ABD PX - Chief complaint Chief Complaint: Abd Pain - History obtained from History obtained from: Patient - History of Present Illness Timing - onset: Yesterday Timing - duration: Days (2) Timing - details: Intermittant Pain level max: 5 Pain level now: 0 Quality: Cramping, Pain Location: All over / everywhere Radiation: No: Chest, , Lower back, Left flank, Left shoulder, Right flank, Right shoulder, Upper back Improved by: No: Eating, Laying still, Vomiting, BM, Position, Meds Worsened by: No: Eating, Moving, Breathing, Position, Palpation - Additional information Additional information: Patient is a 75-year-old female who presents to the emergency department with intermittent abdominal pain since yesterday. Last for 1 to 2 minutes at a time. Described as sharp and cramping. Generalized. Nothing seems to make it better or worse. She states she has been on narcotics for a compression fracture in her back. She states she has had diarrhea recently. Has had nausea, vomited x1. No fevers. No chills. No blood in the stool. Review of Systems Ten Systems: 10 systems reviewed and negative Constitutional: denies: Fever, Chills Throat: denies: Sore throat Cardiac: denies: Chest pain / pressure Respiratory: denies: Cough GI: denies: Hematemesis, Bloody / black stool : denies: Dysuria Skin: denies: Rash Musculoskeletal: denies: Neck pain, Back pain Neurologic: denies: Focal weakness, Numbness, Headache PD PAST MEDICAL HISTORY - Past Medical History Cardiovascular: Hypertension Respiratory: None Endocrine/Autoimmune: Type 2 diabetes GI: GERD, Other : None HEENT: None Psych: Depression Musculoskeletal: Osteoarthritis, Osteopenia Derm: None - Past Surgical History Past Surgical History: Yes General: Colonoscopy 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: Hip replacement, 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:  HEENT: Cataracts - Present Medications Home Medications: Ambulatory Orders Medication Instructions Recorded Confirmed Insulin Detemir [Levemir] 16 units SUBQ QPM 06/27/15 02/02/21 Latanoprost [Xalatan] 1 drops OP QPM 06/27/15 02/02/21 Levothyroxine Sodium [Synthroid] 125 mcg PO DAILY 06/27/15 02/02/21 Metoprolol Succinate [Toprol Xl] 50 mg PO DAILY 06/27/15 02/02/21 Multivitamin [Multivitamins] 1 each PO DAILY 06/27/15 02/02/21 NIFEdipine [Nifedipine ER] 60 mg PO DAILY 06/27/15 02/02/21 Omeprazole [PriLOSEC] 20 mg PO QPM 06/27/15 02/02/21 hydroCHLOROthiazide 25 mg PO DAILY 06/27/15 02/02/21 [Hydrochlorothiazide] lisinopriL [Lisinopril] 40 mg PO QPM 06/27/15 02/02/21 metFORMIN [Glucophage] 1,000 mg PO BIDWM 06/27/15 02/02/21 Gabapentin [Neurontin] 200 mg PO DAILY 02/02/21 02/02/21 Oxycodone HCl/Acetaminophen 1 - 2 each PO Q6H PRN #20 tablet 02/02/21 [Percocet 5-325 mg Tablet] - Allergies Allergies/Adverse Reactions: Allergies Allergy/AdvReac Type Severity Reaction Status Date / Time adhesive Allergy Rash Verified 02/02/21 18:52 manganese Allergy Rash Verified 02/02/21 18:52 niacin Allergy Rash Verified 02/02/21 18:52 [id number]-Mvm-[id number] Reductase AdvReac increased Verified 02/02/21 18:52 Inhibitor liver enzymes - Social History Does the pt smoke?: No Smoking Status: Never smoker Does the pt drink ETOH?: No Does the pt have substance abuse?: No - Immunizations Immunizations are current?: Yes - POLST Patient has POLST: No PD ED PE NORMAL - Vitals Vital signs reviewed: Yes - General General: Alert and oriented X 3, No acute distress - HEENT HEENT: Moist mucous membranes - Neck Neck: Supple, no meningeal sign - Cardiac Cardiac: RRR, Strong equal pulses - Respiratory Respiratory: No respiratory distress, Clear bilaterally - Abdomen Abdomen: Soft, Non tender, Other (Distended abdomen, nontender) - Back Back: No CVA TTP, No spinal TTP - Derm Derm: Warm and dry - Extremities Extremities: No edema - Neuro Neuro: Alert and oriented X 3 - Psych Psych: Normal mood, Normal affect Results - Vitals Vitals: Vital Signs - 24 hr 02/15/21 02/15/21 02/15/21 12:57 14:14 15:01 Temperature 36.6 C Heart Rate 83 85 84 Respiratory 15 18 15 Rate Blood Pressure 189/85 H 203/75 H 188/95 H O2 Saturation 97 99 100 02/15/21 17:24 Temperature Heart Rate 93 Respiratory 16 Rate Blood Pressure 186/71 H O2 Saturation 98 Oxygen O2 Source Room air - Labs Labs: Laboratory Tests 02/15/21 02/15/21 02/15/21 13:17 13:17 16:44 WBC 7.7 RBC 4.29 Hgb 12.3 Hct 37.8 MCV 88.1 MCH 28.7 MCHC 32.5 RDW 13.3 Plt Count 327 MPV 10.2 Neut # (Auto) 5.6 Lymph # (Auto) 1.6 Bibb # (Auto) 0.3 Eos # (Auto) 0.1 Baso # (Auto) 0.1 Absolute Nucleated RBC 0.00 Nucleated RBC % 0.0 Sodium 134 L Potassium 4.1 Chloride 97 L Carbon Dioxide 22 Anion Gap 15.0 H BUN 31 H Creatinine 1.3 H Estimated GFR (MDRD) 40 L Glucose 165 H Calcium 9.3 Total Bilirubin 0.8 AST 14 ALT 22 Alkaline Phosphatase 89 Total Protein 6.7 Albumin 3.8 Globulin 2.9 Albumin/Globulin Ratio 1.3 Lipase 22 Urine Color YELLOW Urine Clarity CLEAR Urine pH 5.0 Ur Specific [place] 1.010 Urine Protein NEGATIVE Urine Glucose (UA) NEGATIVE Urine Ketones 15 H Urine Occult Blood TRACE-LYSE Urine Nitrite NEGATIVE Urine Bilirubin NEGATIVE Urine Urobilinogen 0.2 (NORMAL) Ur Leukocyte Esterase NEGATIVE Ur Microscopic Review NOT INDICATED Urine Culture Comments NOT INDICATED Nasal Adenovirus (PCR) Nasal B. parapertussis DNA (PCR) Nasal Coronavir 229E PCR Nasal Coronavir HKU1 PCR Nasal Coronavir NL63 PCR Nasal Coronavir OC43 PCR Nasal Enterovir/Rhinovir PCR Nasal Influenza B PCR Nasal Influenza A PCR Nasal Parainfluen 1 PCR Nasal Parainfluen 2 PCR Nasal Parainfluen 3 PCR Nasal Parainfluen 4 PCR Nasal RSV (PCR) Nasal B.pertussis DNA PCR Nasal C.pneumoniae (PCR) Willie Human Metapneumo PCR Nasal M.pneumoniae (PCR) Nasal SARS-CoV-2 (PCR) 02/15/21 18:55 WBC RBC Hgb Hct MCV MCH MCHC RDW Plt Count MPV Neut # (Auto) Lymph # (Auto) Bibb # (Auto) Eos # (Auto) Baso # (Auto) Absolute Nucleated RBC Nucleated RBC % Sodium Potassium Chloride Carbon Dioxide Anion Gap BUN Creatinine Estimated GFR (MDRD) Glucose Calcium Total Bilirubin AST ALT Alkaline Phosphatase Total Protein Albumin Globulin Albumin/Globulin Ratio Lipase Urine Color Urine Clarity Urine pH Ur Specific [place] Urine Protein Urine Glucose (UA) Urine Ketones Urine Occult Blood Urine Nitrite Urine Bilirubin Urine Urobilinogen Ur Leukocyte Esterase Ur Microscopic Review Urine Culture Comments Nasal Adenovirus (PCR) NOT DETECTED Nasal B. parapertussis DNA (PCR) NOT DETECTED Nasal Coronavir 229E PCR NOT DETECTED Nasal Coronavir HKU1 PCR NOT DETECTED Nasal Coronavir NL63 PCR NOT DETECTED Nasal Coronavir OC43 PCR NOT DETECTED Nasal Enterovir/Rhinovir PCR NOT DETECTED Nasal Influenza B PCR NOT DETECTED Nasal Influenza A PCR NOT DETECTED Nasal Parainfluen 1 PCR NOT DETECTED Nasal Parainfluen 2 PCR NOT DETECTED Nasal Parainfluen 3 PCR NOT DETECTED Nasal Parainfluen 4 PCR NOT DETECTED Nasal RSV (PCR) NOT DETECTED Nasal B.pertussis DNA PCR NOT DETECTED Nasal C.pneumoniae (PCR) NOT DETECTED Willie Human Metapneumo PCR NOT DETECTED Nasal M.pneumoniae (PCR) NOT DETECTED Nasal SARS-CoV-2 (PCR) NOT DETECTED - Rads (name of study) CT abd/pelvis Radiology: Prelim report reviewed, EMP read contemporaneously, See rad report PD MEDICAL DECISION MAKING - ED course Complexity details: reviewed old records, reviewed results, re-evaluated patient, considered differential, d/w patient, d/w family, d/w portrait consultant ED course: 75-year-old female presents to the emergency department with abdominal pain today. Does have a possible mild colitis versus diverticulitis. No fever. No leukocytosis. Discussed antibiotics versus watchful waiting, we will monitor without antibiotics. Patient also has an L2 compression fracture. This is been making it difficult for her to take care of herself at home. She states that she does not have any family or friends willing to help take care of her anymore. Social work was consulted, social work spoke with the son as well as the patient. They do not feel that she is safe to go home at this time. She is unable to stand or walk by herself in the ED. The patient will be placed in observation. Discussed the case with Dr. Guo, hospitalist who accepts. This document was made in part using voice recognition software. While efforts are made to proofread this document, sound alike and grammatical errors may occur. IMPRESSION: 1. Question of mild inflammatory change adjacent to the ascending colon. There are a few scattered diverticuli nearby. Findings could be seen in diverticulitis or colitis. 2. Normal appendix. No small bowel obstruction. No free fluid. 3. Severely atrophic right kidney. Departure - Departure Disposition: ED Place in Observation Clinical Impression: Compression fracture, Colitis, Weakness Compression fracture of L2 Qualifiers: Encounter type: initial encounter Qualified Code(s): S32.020A - Wedge compression fracture of second lumbar vertebra, initial encounter for closed fracture Condition: Stable Discharge Date/Time: 02/15/21 19:36
[2021-02-15] MEDS ORDERED: IOVERSOL 320 100 ML VIAL IVP ONE ×2 (13:19→14:09)
[2021-02-15 13:22] LABS: BASOPHILS # (AUTO) 0.1 10^3/uL (0.0-0.1); BASOPHILS % (AUTO) 0.6 %; EOSINOPHILS # (AUTO) 0.1 10^3/uL (0.0-0.7); EOSINOPHILS % (AUTO) 0.9 %; HCT - HEMATOCRIT 37.8 % (37.0-47.0); HGB - HEMOGLOBIN 12.3 g/dL (12.0-16.0); LYMPHOCYTES # (AUTO) 1.6 10^3/uL (1.5-3.5); LYMPHOCYTES % (AUTO) 21.3 %; MEAN CORPUSCULAR HEMOGLOBIN 28.7 pg (27.0-31.0); MEAN CORPUSCULAR HGB CONC 32.5 g/dL (32.0-36.0); MEAN CORPUSCULAR VOLUME 88.1 fL (81.0-99.0); MEAN PLATELET VOLUME 10.2 fL (7.9-10.8); MONOCYTES # (AUTO) 0.3 10^3/uL (0.0-1.0); MONOCYTES % (AUTO) 3.9 %; NEUTROPHILS # (AUTO) 5.6 10^3/uL (1.5-6.6); PLT - PLATELET COUNT 327 10^3/uL (130-450); RED BLOOD COUNT 4.29 10^6/uL (4.20-5.40); RED CELL DISTRIBUTION WIDTH 13.3 % (12.0-15.0); WHITE BLOOD COUNT 7.7 x10^3/uL (4.8-10.8)
[2021-02-15 13:35] LABS: ALBUMIN 3.8 g/dL (3.2-5.5); ALBUMIN/GLOBULIN RATIO 1.3 (1.0-2.2); BILIRUBIN,TOTAL 0.8 mg/dL (0.2-1.0); CALCIUM 9.3 mg/dL (8.5-10.3); CREATININE 1.3 mg/dL (0.4-1.0); POTASSIUM 4.1 mmol/L (3.5-5.0); TOTAL PROTEIN 6.7 g/dL (6.7-8.2)
--- NOTE | 2021-02-15 14:30 | CT Report ---
PROCEDURE: Abdomen/Pelvis W INDICATIONS: Abdominal pain, acute, nonlocalized CONTRAST: IV CONTRAST: Optiray 320 ml: 100 PO CONTRAST: *NO PO CONTRAST TECHNIQUE: After the administration of intravenous contrast, 5 mm thick sections acquired from the diaphragms to the symphysis. 5 mm thick coronal and sagittal reformats were acquired. For radiation dose reducti on, the following was used: automated exposure control, adjustment of mA and/or kV according to ciara ent size. COMPARISON: None. FINDINGS: Image quality: Excellent. ABDOMEN: Lung bases: Right lower lobe pulmonary nodule measuring 4 mm, (4/6). Heart size is normal. Aortic sheyla vular calcification. Small hiatal hernia. Solid organs: Liver and spleen are normal in size and enhancement. Gallbladder is absent. CBD is wi thin normal limits in this postcholecystectomy patient. Pancreas is atrophic. No adrenal nodules. Ri ght kidney is severely atrophic. No hydronephrosis. Peritoneum and bowel: No bowel obstruction. Question of mild pericolonic stranding in adjacent to the ascending colon, (3/40). Appendix is normal. A few colonic diverticuli. No diverticulitis. No free fluid or air. Nodes and vessels: No retroperitoneal or mesenteric adenopathy by size criteria. Aorta and inferior vena cava are normal in size. Circumferential calcified metastatic plaque. Miscellaneous: Tiny fat-containing periumbilical hernia. PELVIS: Genitourinary: Bladder is unremarkable. Uterus is absent. Miscellaneous: No inguinal hernias or adenopathy. Bones: Right hip arthroplasty. No suspicious bony lesions. Multilevel degenerative change and DDD. P rominent Schmorl's nodes at L2. Anterolisthesis of L4 on L5 measuring 6 mm. IMPRESSION: 1. Question of mild inflammatory change adjacent to the ascending colon. There are a few scattered di verticuli nearby. Findings could be seen in diverticulitis or colitis. 2. Normal appendix. No small bowel obstruction. No free fluid. 3. Severely atrophic right kidney. Reviewed by: Zenon Faye MD on 02/15/2021 1:28 PM ARABELLA Approved by: Zenon Faye MD on 02/15/2021 1:28 PM ARABELLA Station ID: [id number]
[2021-02-15 16:53] LABS: BILIRUBIN,URINE NEGATIVE (NEGATIVE); GLUCOSE, URINE (UA) NEGATIVE (NEGATIVE); KETONES,URINE (UA) 15 mg/dL (NEGATIVE); LEUKOCYTE ESTERASE, URINE NEGATIVE (NEGATIVE); NITRITE,URINE NEGATIVE (NEGATIVE); OCCULT BLOOD,URINE TRACE-LYSE (NEGATIVE); PROTEIN,URINE NEGATIVE (NEGATIVE); UROBILINOGEN,URINE 0.2 (NORMAL) E.U./dL (NORMAL)
[2021-02-15 16:58] LABS: CLARITY,URINE CLEAR (CLEAR)
[2021-02-15] MEDS ORDERED: MORPHINE 2 MG/ML CARPUJECT IVP STA ×2 (18:38→21:23)
[2021-02-15] MEDS ORDERED: oxyCODONE 5 MG TABLET PO STA (18:53)
[2021-02-15] MEDS ORDERED: SODIUM CHLORIDE FLUSH 0.9% 10 ML SYRINGE IVP PRN (19:00)
--- NOTE | 2021-02-15 20:15 | HISTORY & PHYSICAL EXAMINATION ---
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 She has a history of L4-5 and L5 1 laminectomies in the past. In mid December she developed progressive low back pain and it made her legs tried to get weak. There was no incontinence, radicular component. She presented to the emergency room on January 16 and was diagnosed as having a vertebral compression fracture. She had already fallen once because of this pain. CT scan showed compression fracture of L2 with retropulsion contributing to moderate multifactorial canal stenosis at that level with severe right foraminal narrowing at that level. Because she was so weak, neurosurgery was melissa lu and they accepted her to [facility]. She was there for approximately 5 days. No procedure was done. She then returned February 02 to our emergency room. approximately January 28 she had bent forward and started having increasing back pain and her pain had increased to the point that she felt weak in her legs again. In the emergency room her pain was managed and she was discharged home. She has some home help. Her son is staying with her and she has a girl come in 1 hour, 4 times a week. She states that she is burning out her friends and family. She is unable to take care of herself because of the pain and immobility. She then started developing intermittent abdominal pain that was described as sharp and cramping and caused diarrhea at night. her son has had to wipe her down and he is emotionally overhwhelmed with that responsibility. So she came to the emergency room. No blood, no fever, no chills. She is very hungry and would like to eat something tonight because she hasn't eaten much in the last 3 days. Temperature was 36.6, heart rate 83, respirations 15, blood pressure 189/85. On examination the belly was soft, nontender but was slightly distended. A CT of abdomen and pelvis had a question of mild inflammatory changes in the ascending colon. Few scattered diverticuli. Normal appendix. Severely atrophic right kidney. Her white cell count was normal at 7.7. Hemoglobin stable at 12.3. Sodium slightly low at 134. Creatinine slightly elevated at 1.3. Baseline is 1.0 for her. Liver enzymes normal. She is now placed in observation for control of her back pain. She also is requesting help finding caregivers for her at home. History - Past Medical History Cardiovascular: reports: Hypertension, High cholesterol, Murmur (systolic) Respiratory: reports: None Endocrine/Autoimmune: reports: Type 2 diabetes (with fci use of insulin), HyPOthyroidism GI: reports: GERD (w Kitchen's esophagus on EGD 09/2010, 08/2018. Repeat 5 yrs.), Ulcers (Or gastritis with H. pylori on EGD September 2010), Other (FAtty liver disease) BILINGUAL HR GENERALIST: reports: Other ( w one adopted son as well) : reports: None HEENT: reports: Glaucoma ("only elevated eye pressure" but not nati glaucoma), Chronic sinusitis, Chronic hearing loss, Other (Chronic allergies with eustachian tube dysfunction, myringotomy June 2017) Psych: reports: Depression Musculoskeletal: reports: Osteoarthritis (hips), Osteopenia, Chronic back pain (lower back) Derm: reports: Other (Contact dermatitis with metals. Seen by allergy immunology January 2018) MRSA Hx?: Yes Other Past Medical History: Chronic iron deficiency anemia requiring transfus ions in spite of EGD confirming Kitchen's, C-scope negative, CT colonoscopy negative, pill endoscopy negative. - Past Surgical History General: reports: Cholecystectomy (1979), Colonoscopy (Virtual colonoscopy 09/2010. Pill endoscopy 12/2010.), EGD (2009, 2014) Ortho: reports: Hip replacement (03/15/2018 (R)), Spine surgery (Compression laminectomy 2015) /BILINGUAL HR GENERALIST: reports: Hysterectomy (1975), Other (Breast biopsy 2003) HEENT: reports: Cataracts, Myringotomy (tubes), Other (glaucoma) - Family & Social History Living arrangement: At home Living Situation: Alone Social History Notes: Lived in the [facility] for 73 years. Prior to that she lived in [place]. She is with her dying in 2019. Never smoked. Rarely drinks alcohol. - Substance History Use: Uses substance without health or social issues: NONE Abuse: Recurrent use of substance despite neg consequences: NONE Dependence: Experiences withdrawal or developed tolerances: NONE - POLST Patient has POLST: No POLST Status: DNR (While she wants all things done to treat reversible illness, if she is not responding to treatment and is at the moment of her , DO NOT RESUSCITATE) Meds/Allgy - Home Medications Home Medications: Ambulatory Orders Medication Instructions Recorded Confirmed Insulin Detemir [Levemir] 16 units SUBQ QPM 06/27/15 02/02/21 Latanoprost [Xalatan] 1 drops OP QPM 06/27/15 02/02/21 Levothyroxine Sodium [Synthroid] 125 mcg PO DAILY 06/27/15 02/02/21 Metoprolol Succinate [Toprol Xl] 50 mg PO DAILY 06/27/15 02/02/21 Multivitamin [Multivitamins] 1 each PO DAILY 06/27/15 02/02/21 NIFEdipine [Nifedipine ER] 60 mg PO DAILY 06/27/15 02/02/21 Omeprazole [PriLOSEC] 20 mg PO QPM 06/27/15 02/02/21 hydroCHLOROthiazide 25 mg PO DAILY 06/27/15 02/02/21 [Hydrochlorothiazide] lisinopriL [Lisinopril] 40 mg PO QPM 06/27/15 02/02/21 metFORMIN [Glucophage] 1,000 mg PO BIDWM 06/27/15 02/02/21 Gabapentin [Neurontin] 200 mg PO DAILY 02/02/21 02/02/21 Oxycodone HCl/Acetaminophen 1 - 2 each PO Q6H PRN #20 tablet 02/02/21 [Percocet 5-325 mg Tablet] - Allergies Allergies/Adverse Reactions: Allergies Allergy/AdvReac Type Severity Reaction Status Date / Time adhesive Allergy Rash Verified 02/02/21 18:52 manganese Allergy Rash Verified 02/02/21 18:52 niacin Allergy Rash Verified 02/02/21 18:52 Jkvfweg-Lcc-Qlh Reductase AdvReac increased Verified 02/02/21 18:52 Inhibitor liver enzymes Review of Systems - Constitutional Constitutional: reports: Poor appetite. denies: Fatigue, Fever, Chills, Ma laise, Weakness, Diaphoresis, Night sweats - Eyes Eyes: reports: Vision loss. denies: Pain, Irritation, Amaurosis, Blurred vision - Ears, Nose & Throat Ears, Nose & Throat: reports: Hearing loss, Nasal discharge, Nasal obstruction, Nasal congestion, Postnasal drainage. denies: Ear pain, Hearing aids, Tinnitus, Vertigo - Cardiovascular Cariovascular: denies: Irregular heart rate, Palpitations, Chest pain, Edema, Lightheadedness, Syncope, Exertional dyspnea, Decr. exercise tolerance - Respiratory Respiratory: denies: Cough, Sputum production, Wheezing, Snoring, Hemoptysis, Orthopnea, SOB at rest - Gastrointestinal Gastrointestinal: reports: Abdominal pain (more like cramping), Abdominal distention, Diarrhea (the last few nights), Nausea, Bloating. denies: Rectal bleeding, Black stools, Bloody stools, Vomiting, Bile emesis, Hesham blood emesis, Coffee grounds emesis, Reflux/heartburn - Genitourinary Genitourinary: reports: Incontinence. denies: Dysuria, Frequency, Urgency, Hematuria - Musculoskeletal Musculoskeletal: reports: Back pain, Joint pain. denies: Muscle pain, Muscle aches, Stiffness - Integumentary Integumentary: denies: Rash, Pruritis, Lesions, Dryness - Neurological Neurological: denies: General weakness, Focal weakness, Headache, Dizziness, Numbness, Memory problems, Pre-existing deficit - Psychiatric Psychiatric: reports: Depression (still grieving the loss of her who last year after close to 54 yrs of marriage) - Endocrine Endocrine: denies: Polyuria, Polydypsia, Polyphagia - Hematologic/Lymphatic Hematologic/Lymphatic: reports: Anemia. denies: Bruising, Petechiae Prior Level of Functionality: Before this incident with her back, she was completely independent with activities of daily living. She cleaned her house with light coverstitch binder. 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 She drove. She paid her own bills. She dressed herself, cook, grocery shop. Since her vertebral compression fracture she is dependent another people to help her do simple things. She now has a walker and a cane. In October of last year she did leave her house to move across the street to a single level "55 and over" [facility] Exam - Vital Signs Reviewed Vital Signs: Yes Vital Signs: Vital Signs x48h Temp Pulse Pulse Resp BP BP Pulse Ox 02/15/21 19:49 36.7 C 74 16 168/64 H 100 02/15/21 19:00 75 16 177/85 H 99 02/15/21 17:24 93 16 186/71 H 98 02/15/21 15:01 84 15 188/95 H 100 02/15/21 14:14 85 18 203/75 H 99 02/15/21 12:57 36.6 C 83 15 189/85 H 97 - Physical Exam General Appearance: positive: No acute distress, Alert, Other (Fatigued appearing, pleasant white female who is comfortable as long she does not have to sit up or move) Eyes Bilateral: positive: PERRL, EOMI ENT: positive: Dry mucous membranes Neck: positive: No JVD. negative: Stiff neck Respiratory: positive: No respiratory distress. negative: Wheezes, Rales, Rho nchi Cardiovascular: positive: Regular rate & rhythm, Systolic murmur. negative: Gallop/S4, Friction rub Peripheral Pulses: positive: 1+ Abdomen: positive: No organomegaly, Nml bowel sounds, Tenderness (with mild distension). negative: Guarding, Rebound Skin: positive: Warm, Dry, Pallor Extremities: positive: Full ROM, No pedal edema. negative: Sascha's sign/cords Neurologic/Psychiatric: positive: Oriented x3, CN's nml (2-12), Motor nml Conclusion/Plan - Problem List (1) Colitis Conclusion/Plan: Nonspecific. Mild diarrhea as a result of it. Resulting in increasing need to get up out of bed, increasing her back pain. Even though she has some minimal caregivers in place, those resources are currently overwhelmed with her care. Plan: Regular diet. I do not think any to put her on clears. Kaopectate or Imodium C. difficile not needed since stool is described as brown, runny, normal IV hydration (2) Acute kidney injury Conclusion/Plan: Mild, due to dehydration. I anticipate that her creatinine will go back to normal by tomorrow with aggressive IV fluid hydration tonight. (3) Acute low back pain due to spinal disorder Conclusion/Plan: Pain is controlled with Tylenol or oxycodone. However her mobility continues to be limited. We have ordered Tylenol for mild pain, oxycodone for moderate pain, and morphine for severe pain. Gabapentin 100 mg p.o. 3 times daily will be resumed. Plan: Her son that lives on [address] [place] will be coming here tomorrow morning. She and that son will discuss her options. She hopes that social work will be there. The son that currently is staying with her may be out of the picture since he is overwhelmed with her care. The intimate nature of taking care of his mom's stool incontinence is too much for him. (4) Vertebral compression fracture Conclusion/Plan: Her previous diagnosis was that of osteopenia. However with confirmed fracture, she now slides into the diagnosis of osteoporosis. She has Kitchen's esophagus and would not be a candidate for Fosamax, Actonel, or Boniva. She is already on calcitonin nose spray. Plan: IV zoledronic acid once a year Calcium 500 mg p.o. 3 times daily with vitamin D 1000 units daily Check vitamin D levels in a.m. Qualifiers: Encounter type: subsequent encounter Lumbar vertebra fracture level: L2 (5) Type 2 diabetes mellitus without complication, with supervisor intermediates current use of insulin pump Conclusion/Plan: She states that her A1c's were excellently controlled until her 's . Between the grief of losing her , and the isolation from [place] [id number], she is gained about 20 pounds in the last year. Plan: A1c in the morning Lantus 10 units tonight Sliding scale insulin Consider stopping Metformin since it may be contributing to her diarrhea She is really hungry tonight so we will speak to her cutting room supervisor about finding her some sandwich food, pudding, Jell-O, etc. (6) HTN (hypertension) Conclusion/Plan: Resume metoprolol. Right now we will hold off on lisinopril and hydrochlorothiazide so she has been hydrated. I just want to avoid rebound tachycardia. Qualifiers: Hypertension type: essential hypertension Qualified Code(s): I10 - Essential (primary) hypertension - Lab Results Lab results reviewed: Yes Fish Bones: 02/15/21 13:17 02/15/21 13:17 - Diagnostic Imaging Results Diagnostic Imaging Results: positive: Final report reviewed Core Measures - Anticipated LOS I expect patient to be DC'd or transferred within 96 hours.: Yes - DVT/VTE - Prophylaxis VTE/DVT Device ordered at admit?: Yes
[2021-02-15 20:22] LABS: B. PARAPERTUSSIS- RESP PCR PAN NOT DETECTED; B. PERTUSSIS- RESP PCR PANEL NOT DETECTED; C. PNEUMONIAE- RESP PCR PANEL NOT DETECTED; CORONAVIRUS 229E-RESP PCR NOT DETECTED; CORONAVIRUS HKU1-RESP PCR NOT DETECTED; CORONAVIRUS NL63-RESP PCR NOT DETECTED; CORONAVIRUS OC43-RESP PCR NOT DETECTED; HUMAN METAPNEUMOVIRUS NOT DETECTED; INFLUENZA A- RESP PCR PANEL NOT DETECTED; INFLUENZA B - RESP PCR PANEL NOT DETECTED; M. PNEUMONIAE- RESP PCR PANEL NOT DETECTED; PARAINFLUENZA VIRUS 1 NOT DETECTED; PARAINFLUENZA VIRUS 2 NOT DETECTED; PARAINFLUENZA VIRUS 3 NOT DETECTED; PARAINFLUENZA VIRUS 4 NOT DETECTED; RHINOVIRUS/ENTEROVIRUS NOT DETECTED; RSV- RESP PCR PANEL NOT DETECTED; SARS-CoV-2 -RESP PCR PANEL NOT DETECTED
[2021-02-15] MEDS: ACETAMINOPHEN 500 MG TABLET PO SCH (22:13)
[2021-02-15] MEDS ORDERED: INSULIN GLARGINE 300 UNIT/3 ML PEN SUBQ SCH (22:19)
[2021-02-15] MEDS ORDERED: GABAPENTIN 100 MG CAPSULE PO SCH (23:00)
[2021-02-15] MEDS: INSULIN ASPART 300 UNIT/3 ML PEN SUBQ SCH (23:06)
[2021-02-16] MEDS: oxyCODONE 5 MG TABLET PO PRN ×4 (00:34→16:02)
[2021-02-16] MEDS: SODIUM CHLORIDE FLUSH 0.9% 10 ML SYRINGE IVP SCH ×3 (00:34→17:07)
[2021-02-16 06:34] LABS: CALCIUM 8.6 mg/dL (8.5-10.3); CREATININE 1.1 mg/dL (0.4-1.0); POTASSIUM 3.5 mmol/L (3.5-5.0)
[2021-02-16] MEDS: ACETAMINOPHEN 500 MG TABLET PO SCH ×3 (06:49→21:42)
[2021-02-16] MEDS ORDERED: INSULIN ASPART 300 UNIT/3 ML PEN SUBQ SCH (08:00)
[2021-02-16] MEDS: INSULIN ASPART 300 UNIT/3 ML PEN SUBQ SCH ×4 (08:07→21:50)
[2021-02-16] MEDS: ENOXAPARIN 40 MG/0.4 ML SYRINGE SUBQ SCH (08:57)
[2021-02-16] MEDS ORDERED: METOPROLOL SUCCINATE 25 MG TABLET PO SCH ×2 (09:00→21:00)
--- NOTE | 2021-02-16 10:15 | Discharge Plan ---
Discharge Plan Problem Reviewed?: Yes Disposition: Home, Self Care Condition: Stable Diet: Diabetic Activity Restrictions: Activity as Tolerated Assistance Devices: Walker Health Concerns: You were seen in the hospital because of abdominal pain. A CT scan of your abdomen suggested the possibility of mild colitis although clinically you not appear to have this diagnosis. You have had no further diarrhea since you have been hospitalized. We gave you some IV fluids for hydration. You were seen by the oncology social work to help provide you with resources for caregivers at home. Plan of Treatment: I recommend taking 1000 mg of Tylenol 3 times a day and continue with the oxycodone 5 mg as needed for your back pain. Is recommended that you drink plenty of fluids to stay hydrated. Continue with physical therapy. If you develop worsening diarrhea or abdominal pain then please contact your primary care provider or return to the emergency department. It is recommended that you follow-up with your primary care provider and possibly neurosurgery with regards to your compression fracture. Care Goals: The goal is to treat your back pain and increase your activity/mobility. Assessment: The patient expressed understanding of the treatment plan. Additional Instructions or Follow Up instructions: Please follow-up with your primary care provider in about 1 week. No Smoking: If you smoke, Please STOP! Call for help. Follow-up with: Rivera Freitas DO [Primary Care Provider] -
--- NOTE | 2021-02-16 11:36 | PHARMACY PROGRESS NOTE ---
- Best Possible Medication History Admit Date and Time: 02/15/21 1900 Processed by: Pharmacy Medication History completed: Yes Patient Interview: Completed Secondary Source(s): Pharmacy records, Insurance records As the person ultimately responsible for medication therapy, providers are able to order a medication from an existing home medication list in [facility] via the "Reconcile Routine" prior to Confirmation of that medication by account support rep. Such practice is discouraged except when the physician, in their clinical judgment, deems that a medical need exists for a medication without regard to previous use.
[2021-02-16 11:57] LABS: ESTIMATED AVERAGE GLUCOSE 169 mg/dL (70-100); HEMOGLOBIN A1c% 7.5 % (4.27-6.07)
--- NOTE | 2021-02-16 18:47 | PROVIDER PROGRESS NOTE ---
Subjective - Prog Note Date Prog Note Date: 02/16/21 - Subjective Subjective: No further diarrhea since being hospitalized. She reports minimal abdominal pain at this point in time. She is agreeable to going to a penitentiary facility. Current Medications - Current Medications Current Medications: Active Medications Acetaminophen (Acetaminophen 500 Mg Tablet) 1,000 mg PO TID [facility], [facility] Last Admin: 02/16/21 14:24 Dose: 1,000 mg Documented by: Enoxaparin Sodium (Enoxaparin 40 Mg/0.4 Ml Syringe) 40 mg SUBQ DAILY [facility], [facility] Last Admin: 02/16/21 08:57 Dose: 40 mg Documented by: Insulin Aspart (Insulin Aspart 300 Unit/3 Ml Pen) 1 - 5 unit SUBQ 0800,1200,1700,2100 [facility], [facility]; Protocol Last Admin: 02/16/21 17:07 Dose: 1 unit Documented by: Insulin Glargine (Insulin Glargine 300 Unit/3 Ml Pen) 20 unit SUBQ QPM [facility], [facility] Latanoprost (Latanoprost 0.005% Ophth Drops) 1 drops EACHEYE QPM [facility] Levothyroxine Sodium (Levothyroxine 125 Mcg Tablet) 125 mcg PO QDAC [facility]1983 Lisinopril (Lisinopril 20 Mg Tablet) 40 mg PO QPM [facility] Metoprolol Succinate (Metoprolol Succinate 25 Mg Tablet) 50 mg PO QPM [facility] Multivitamins (Multivitamin Tablet) 1 tab PO DAILYWM [facility] Nifedipine (Nifedipine Er 30 Mg Tablet) 60 mg PO DAILY [facility] Oxycodone HCl (Oxycodone 5 Mg Tablet) 5 mg PO Q4HR PRN PRN Reason: Pain 8 to 10 Last Admin: 02/16/21 16:02 Dose: 5 mg Documented by: Pantoprazole Sodium (Pantoprazole 40 Mg Tablet) 40 mg PO QPM [facility] Sodium Chloride (Sodium Chloride Flush 0.9% 10 Ml Syringe) 10 ml IVP PRN PRN PRN Reason: NEEDED PER PROVIDER ORDERS Sodium Chloride (Sodium Chloride Flush 0.9% 10 Ml Syringe) 10 ml IVP 0100,0900,1700 [facility] Last Admin: 02/16/21 17:07 Dose: 10 ml Documented by: Insulin Detemir [Levemir] 20 units SUBQ QPM 06/27/15 Latanoprost [Xalatan] 1 drops EACHEYE QPM 06/27/15 Levothyroxine Sodium [Synthroid] 125 mcg PO QDAC 06/27/15 Metoprolol Succinate [Toprol Xl] 50 mg PO QPM 06/27/15 Multivitamin [Multivitamins] 1 each PO DAILY 06/27/15 NIFEdipine [Nifedipine ER] 60 mg PO DAILY 06/27/15 Omeprazole [PriLOSEC] 20 mg PO QPM 06/27/15 lisinopriL [Lisinopril] 40 mg PO QPM 06/27/15 metFORMIN [Glucophage] 1,000 mg PO BIDWM 06/27/15 oxyCODONE [Roxicodone] 5 mg PO Q4-6H PRN 02/16/21 Objective - Vital Signs/Intake & Output Reviewed Vital Signs: Yes Vital Signs: Vital Signs x48h Temp Pulse Resp BP Pulse Ox 02/16/21 15:43 36.9 C 63 16 152/59 H 98 Intake & Output: Intake & Output 02/13/21 02/14/21 02/15/21 02/16/21 23:59 23:59 23:59 23:59 Intake Total 2500 480 Output Total 600 Balance 2500 -120 - Objective General Appearance: positive: No acute distress, Alert Eyes Bilateral: positive: Normal inspection, Conjunctivae nml ENT: positive: ENT inspection nml Neck: positive: Nml inspection Respiratory: positive: No respiratory distress. negative: Wheezes, Rales Cardiovascular: positive: Regular rate & rhythm. negative: Tachycardia Abdomen: positive: Non-tender, No distention. negative: Tenderness, Guarding, Rebound Back: positive: Other (She does have lumbar spine tenderness.) Skin: positive: Warm, Dry Extremities: positive: No pedal edema Neurologic/Psychiatric: negative: Disoriented to person, Disoriented to place - Lab Results Fish Bones: 02/15/21 13:17 02/16/21 05:04 Other Labs: Lab Results x24hrs 02/16/21 02/16/21 02/15/21 Range/Units 05:04 05:01 18:55 Sodium 133 L (135-145) mmol/L Potassium 3.5 (3.5-5.0) mmol/L Chloride 102 (101-111) mmol/L Carbon Dioxide 23 (21-32) mmol/L Anion Gap 8.0 (6-13) BUN 24 H (6-20) mg/dL Creatinine 1.1 H (0.4-1.0) mg/dL Estimated GFR (MDRD) 48 L (>89) Glucose 179 H (70-100) mg/dL Estimat Average Glucose 169 H (70-100) mg/dL Hemoglobin A1c % 7.5 H (4.27-6.07) % Calcium 8.6 (8.5-10.3) mg/dL Nasal Adenovirus (PCR) NOT DETECTED Nasal B. parapertussis DNA (PCR) NOT DETECTED Nasal Coronavir 229E PCR NOT DETECTED Nasal Coronavir HKU1 PCR NOT DETECTED Nasal Coronavir NL63 PCR NOT DETECTED Nasal Coronavir OC43 PCR NOT DETECTED Nasal Enterovir/Rhinovir PCR NOT DETECTED Nasal Influenza B PCR NOT DETECTED Nasal Influenza A PCR NOT DETECTED Nasal Parainfluen 1 PCR NOT DETECTED Nasal Parainfluen 2 PCR NOT DETECTED Nasal Parainfluen 3 PCR NOT DETECTED Nasal Parainfluen 4 PCR NOT DETECTED Nasal RSV (PCR) NOT DETECTED Nasal B.pertussis DNA PCR NOT DETECTED Nasal C.pneumoniae (PCR) NOT DETECTED Willie Human Metapneumo PCR NOT DETECTED Nasal M.pneumoniae (PCR) NOT DETECTED Nasal SARS-CoV-2 (PCR) NOT DETECTED Assessment/Plan - Problem List (1) Compression fracture of L2 Impression: This is a cause of her back pain which has limited her mobility. She does not feel safe at home and her family is unable to care for her. She was evaluated by physical therapy today and a skilled nurse facility is recommended. The patient is agreeable to this and has been accepted to SNF in [place] tomorrow. The plan is to discharge her tomorrow to a penitentiary facility. We will continue current pain management with oxycodone as needed. Continue standing Tylenol 1000 mg 3 times daily. Qualifiers: Encounter type: initial encounter Qualified Code(s): S32.020A - Wedge compression fracture of second lumbar vertebra, initial encounter for closed fracture (2) Colitis Impression: CT was suggestive of possible colitis but clinically this does not appear to be evident. She has no abdominal pain and splinting time and no further episodes of diarrhea. IV fluids have been discontinued. (3) HTN (hypertension) Impression: She is hypertensive today with systolic in the 150s. We have resumed her home antihypertensives. Qualifiers: Hypertension type: essential hypertension Qualified Code(s): I10 - Essential (primary) hypertension (4) Type 2 diabetes mellitus without complication, with retirement current use of insulin pump Impression: Her blood glucose has been well controlled. We will continue her home insulin regimen. Carb controlled diet. (5) Acute kidney injury Impression: This has resolved after receiving IV fluids.
[2021-02-16] MEDS ORDERED: PANTOPRAZOLE 40 MG TABLET PO SCH (21:00)
[2021-02-16] MEDS ORDERED: lisinopriL 20 MG TABLET PO SCH (21:00)
[2021-02-16] MEDS ORDERED: INSULIN GLARGINE 300 UNIT/3 ML PEN SUBQ SCH (21:00)
[2021-02-16] MEDS ORDERED: LATANOPROST 0.005% OPHTH DROPS EACHEYE SCH (21:00)
[2021-02-17] MEDS: SODIUM CHLORIDE FLUSH 0.9% 10 ML SYRINGE IVP SCH ×2 (00:27→08:55)
[2021-02-17] MEDS: oxyCODONE 5 MG TABLET PO PRN ×2 (00:38→09:19)
[2021-02-17] MEDS ORDERED: LEVOTHYROXINE 125 MCG TABLET PO SCH (07:00)
[2021-02-17 07:57] LABS: BASOPHILS # (AUTO) 0.1 10^3/uL (0.0-0.1); BASOPHILS % (AUTO) 0.8 %; EOSINOPHILS # (AUTO) 0.2 10^3/uL (0.0-0.7); EOSINOPHILS % (AUTO) 2.6 %; HCT - HEMATOCRIT 33.8 % (37.0-47.0); LYMPHOCYTES # (AUTO) 1.5 10^3/uL (1.5-3.5); LYMPHOCYTES % (AUTO) 18.7 %; MEAN CORPUSCULAR HEMOGLOBIN 28.6 pg (27.0-31.0); MEAN CORPUSCULAR HGB CONC 32.5 g/dL (32.0-36.0); MEAN PLATELET VOLUME 10.1 fL (7.9-10.8); MONOCYTES # (AUTO) 0.4 10^3/uL (0.0-1.0); NEUTROPHILS # (AUTO) 5.6 10^3/uL (1.5-6.6); NEUTROPHILS % (AUTO) 72.6 %; PLT - PLATELET COUNT 283 10^3/uL (130-450); RED BLOOD COUNT 3.84 10^6/uL (4.20-5.40); RED CELL DISTRIBUTION WIDTH 13.5 % (12.0-15.0); WHITE BLOOD COUNT 7.8 x10^3/uL (4.8-10.8)
[2021-02-17] MEDS ORDERED: MULTIVITAMIN TABLET PO SCH (08:00)
[2021-02-17 08:06] LABS: POTASSIUM 3.6 mmol/L (3.5-5.0)
[2021-02-17] MEDS ORDERED: ONDANSETRON 4 MG/2 ML VIAL IVP PRN (08:44)
[2021-02-17] MEDS: INSULIN ASPART 300 UNIT/3 ML PEN SUBQ SCH ×2 (08:55→11:42)
[2021-02-17] MEDS ORDERED: NIFEdipine ER 30 MG TABLET PO SCH (09:00)
[2021-02-17] MEDS: ACETAMINOPHEN 500 MG TABLET PO SCH (09:23)
[2021-02-17] MEDS: ENOXAPARIN 40 MG/0.4 ML SYRINGE SUBQ SCH (09:24)
[2021-02-17 09:25] VITALS: BP 150/73
--- NOTE | 2021-02-17 10:32 | Discharge Plan ---
"Discharge Plan for SNF / JUANITA - Discharge Plan And Transition Orders Problem Reviewed?: Yes Disposition: 03 [facility] DC/Xfer Condition: Stable Allergies and Adverse Reactions: Allergies Allergy/AdvReac Type Severity Reaction Status Date / Time adhesive Allergy Rash Verified 02/02/21 18:52 manganese Allergy Rash Verified 02/02/21 18:52 niacin Allergy Rash Verified 02/02/21 18:52 Fvhucgv-Qpo-Zny Reductase AdvReac increased Verified 02/02/21 18:52 Inhibitor liver enzymes Health Concerns: You were seen in the hospital because of abdominal pain. A CT scan of your abdomen suggested the possibility of mild colitis although clinically you not appear to have this diagnosis. You have had no further diarrhea since you have been hospitalized. We gave you some IV fluids for hydration. You were seen by the social service agency director to help provide you with discharge to [facility]. Discussed the pain management with you, you believe your home pain medication Oxycodon Plus Tylenol are good for your pain control. Plan of Treatment: I recommend taking 1000 mg of Tylenol 3 times a day PRN and continue with the oxycodone 5 mg as needed for your back pain. Is recommended that you drink plenty of fluids to stay hydrated. Continue with physical therapy. If you develop worsening diarrhea or abdominal pain then please contact your primary care provider or return to the emergency department. It is recommended that you follow-up with your primary care provider and possibly neurosurgery with regards to your compression fracture. Care Goals: The goal is to treat your back pain and increase your activity/mobility. Assessment: The patient expressed understanding of the treatment plan. - SNF / LONG TERM Transition Orders Admit to (Facility): [facility] Under the care of (Name): Dr. Shaq Brewer Discharge Diagnosis: compression fracture of L2, colitis, HTN, DM2, ROSLYN Medicare Certification Statement: I certify that [facility] halfway care is medically necessary on a continuing basis for any of the conditions for which she/he is receiving care during hospitalization. Notify PCP of admission and forward orders to primary provider for signature. Weight on admission and: Daily Call PCP immediately if weight increases by: 2 kg Other Notification Orders: Call PCP immediately if patient develops dyspnea, chest pain/tightness or edema. House Bowel Program: Yes Additional Bowel Program Orders: If no BM after 2 days, nurse may give M.O.M. 30ml PO PRN and/or ducolax Supp 1 OK and/or NIRANJAN 250mg P.O., and/or senna 1-2 tabs PO. On day 3 nurse may give repeat above order until residents constipation is resolved. Annual Influenza Vaccine (between Jul 29 and February 25): Yes Two-step PPD per [employer] [id number] or approved exception documents: Yes Treatments & Other Orders: I recommend taking 1000 mg of Tylenol 3 times a day PRN and continue with the oxycodone 5 mg as needed for your back pain. Is recommended that you drink plenty of fluids to stay hydrated. Continue with physical therapy. If you develop worsening diarrhea or abdominal pain then please contact your primary care provider or return to the emergency department. It is recommended that you follow-up with your primary care provider and possibly neurosurgery with regards to your compression fracture. Medication Orders: PLEASE REFER TO THE DISCHARGE MEDICATION LIST. Insulin Orders?: No - Medications New Prescriptions: Acetaminophen [Tylenol] 1,000 mg PO TID PRN #60 tablet PRN Reason: Pain - Diet Type: Geriatric Texture: Regular (pt is diabetes with carb-controlled diet) Liquids: Thin May have monthly special meal: Yes - Therapies | Activity Therapy: Evaluation | Treat if indicated: PT, OT Rehabilitation Potential: Maximize functional status Activity: Activity as Tolerated Additional Instructions: Please follow-up with your primary care provider in 1-2 weeks."
--- NOTE | 2021-02-17 10:52 | DISCHARGE SUMMARY ---
Discharge Summary Admit Date: 02/15/21 Discharge Date: 02/17/21 Discharging Provider: Anders Lee Primary Care Provider: Dr. Sloane Freitas Condition at Discharge: Stable Discharge Disposition: SNF DC/Xfer Discharge Facility Name: [facility] - DIAGNOSES Discharge Diagnoses with Status of Each Condition: (1) Compression fracture of L2 pt was evaluated by physical therapy, a skilled nurse facility is recommended. The patient is agreeable to the plan, and D/C to [facility] today. pt agreed the pain management with oxycodone as needed and Tylenol 1000 mg 3 times daily PRN, continue PT in SNF. pt has no incontinence issue at this time. (2) Colitis CT was suggestive of possible colitis but clinically this does not appear to be evident. She has no abdominal pain and splinting time and no further episodes of diarrhea. pt tolerated the diet as well. 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 - HPI History of Present Illness: refer from Dr. 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 She has a history of L4-5 and L5 1 laminectomies in the past. In mid December she developed progressive low back pain and it made her legs tried to get weak. There was no incontinence, radicular component. She presented to the emergency room on January 16 and was diagnosed as having a vertebral compression fracture. She had already fallen once because of this pain. CT scan showed compression fracture of L2 with retropulsion contributing to moderate multifactorial canal stenosis at that level with severe right foraminal narrowing at that level. Because she was so weak, neurosurgery was called and they accepted her to [facility]. She was there for approximately 5 days. No procedure was done. She then returned February 02 to our emergency room. approximately January 28 she had bent forward and started having increasing back pain and her pain had increased to the point that she felt weak in her legs again. In the emergency room her pain was managed and she was discharged home. She has some home help. Her son is staying with her and she has a girl come in 1 hour, 4 times a week. She states that she is burning out her friends and family. She is unable to take care of herself because of the pain and immobility. She then started developing intermittent abdominal pain that was described as sharp and cramping and caused diarrhea at night. her son has had to wipe her down and he is emotionally overhwhelmed with that responsibility. So she came to the emergency room. No blood, no fever, no chills. She is very hungry and would like to eat something tonight because she hasn't eaten much in the last 3 days. Temperature was 36.6, heart rate 83, respirations 15, blood pressure 189/85. On examination the belly was soft, nontender but was slightly distended. A CT of abdomen and pelvis had a question of mild inflammatory changes in the ascending colon. Few scattered diverticuli. Normal appendix. Severely atrophic right kidney. Her white cell count was normal at 7.7. Hemoglobin stable at 12.3. Sodium slightly low at 134. Creatinine slightly elevated at 1.3. Baseline is 1.0 for her. Liver enzymes normal. She is now placed in observation for control of her back pain. She also is requesting help finding caregivers for her at home. - HOSPITAL COURSE Hospital Course: pt was admitted for She is unable to take care of herself because of the pain and immobility, also she started developing intermittent abdominal pain. CT of abdomen/pelvis found she had mild inflammatory change to Ascending colon, but clinic she did not present evidence to indicate colitis or diverticulitis. pt tolerate diet without diarrhea, or any more abdominal pain. pt has no fever, and WBC is at normal arrange. PT evaluated and treated the patient, recommend patient DC to SNF, patient agreed The discharge plan. She also agree to pain management With home Oxygen PRN and Tylenol 1 gram 3 times per day as needed - ALLERGIES Allergies/Adverse Reactions: Allergies Allergy/AdvReac Type Severity Reaction Status Date / Time adhesive Allergy Rash Verified 02/02/21 18:52 manganese Allergy Rash Verified 02/02/21 18:52 niacin Allergy Rash Verified 02/02/21 18:52 Qzjgonr-Fot-Oil Reductase AdvReac increased Verified 02/02/21 18:52 Inhibitor liver enzymes - MEDICATIONS Home Medications: Ambulatory Orders Medication Instructions Recorded Confirmed Insulin Detemir [Levemir] 20 units SUBQ QPM 06/27/15 02/16/21 Latanoprost [Xalatan] 1 drops EACHEYE QPM 06/27/15 02/16/21 Levothyroxine Sodium [Synthroid] 125 mcg PO QDAC 06/27/15 02/16/21 Metoprolol Succinate [Toprol Xl] 50 mg PO QPM 06/27/15 02/16/21 Multivitamin [Multivitamins] 1 each PO DAILY 06/27/15 02/16/21 NIFEdipine [Nifedipine ER] 60 mg PO DAILY 06/27/15 02/16/21 Omeprazole [PriLOSEC] 20 mg PO QPM 06/27/15 02/16/21 lisinopriL [Lisinopril] 40 mg PO QPM 06/27/15 02/16/21 metFORMIN [Glucophage] 1,000 mg PO BIDWM 06/27/15 02/16/21 oxyCODONE [Roxicodone] 5 mg PO Q4-6H PRN 02/16/21 02/16/21 Acetaminophen [Tylenol] 1,000 mg PO TID PRN #60 tablet 02/17/21 - PHYSICAL EXAM AT DISCHARGE General Appearance: positive: No acute distress, Alert. negative: Lethargic Eyes Bilateral: positive: Normal inspection, PERRL, No lid inflammation ENT: positive: ENT inspection nml, No signs of dehydration. negative: Purulent nasal drainage Neck: positive: Nml inspection, Trachea midline. negative: Thyromegaly, Tracheal deviation Respiratory: positive: Chest non-tender, No respiratory distress, Breath sounds nml. negative: Wheezes, Rales, Rhonchi Cardiovascular: positive: Regular rate & rhythm, No murmur. negative: Tachycardia, Bradycardia, Systolic murmur, Diastolic murmur Peripheral Pulses: positive: 2+ Abdomen: positive: Non-tender, Nml bowel sounds, No distention. negative: Tenderness, Guarding, Rebound Back: positive: Nml inspection. negative: CVA tenderness (R), CVA tenderness (L) Skin: positive: Color nml, Warm, Dry. negative: Cyanosis, Diaphoresis, Pallor Extremities: positive: Non-tender, Full ROM, Nml appearance. negative: Calf tenderness Neurologic/Psychiatric: positive: Oriented x3, Sensation nml, Mood/affect nml. negative: Weakness, Sensory loss, Facial droop, Slurred/abnml speech, Depressed mood/affect - LABS Result Diagrams: 02/17/21 07:54 02/17/21 07:54 - FOLLOW UP Follow Up: I recommend taking 1000 mg of Tylenol 3 times a day PRN and continue with the oxycodone 5 mg as needed for your back pain. Is recommended that you drink plenty of fluids to stay hydrated. Continue with physical therapy. If you develop worsening diarrhea or abdominal pain then please contact your primary care provider or return to the emergency department. It is recommended that you follow-up with your primary care provider and possib ly neurosurgery with regards to your compression fracture. - TIME SPENT Time Spent in Discharge (Minutes): 30
--- OUTSIDE RECORDS SUMMARY | 2021-03-03 14:35 | EXTERNAL MEDICAL SUMMARY RPT | Continuity of Care Document ---
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 [facility] [id number] Essential (primary) hypertension [facility] [id number] Hyperlipidemia, unspecified [facility] [id number] Hypothyroidism, unspecified [facility] [id number] Morbid (severe) obesity due to excess [facility] calories [id number] Type 2 diabetes mellitus without [facility] complications [id number] Unspecified osteoarthritis, unspecified [facility] site [id number] Unspecified sprain of left foot, [facility] subsequent encounter [id number] Wedge compression fracture of second [facility] lumbar vertebra, subsequent encounter for fracture with routine healing Social History date description facility [id number]
== END 2021-02-17 12:00 | DRG 552 ==
LOC: EDUNIT# → ED 12:54 → MS2 19:00 → OBSVTOIN 02-16 16:22
PROVIDERS: ADMIT Internal Medicine; ATTEND Nurse Practitioner Gerontology
DX: M54.5 Low back pain (principal); M80.88XD Other osteoporosis with current pathological fracture, vertebra(e), subsequent encounter for fracture with routine healing; N17.9 Acute kidney failure, unspecified; R53.1 Weakness; K52.9 Noninfective gastroenteritis and colitis, unspecified; M48.56XD Collapsed vertebra, not elsewhere classified, lumbar region, subsequent encounter for fracture with routine healing; I10 Essential (primary) hypertension; E11.9 Type 2 diabetes mellitus without complications; Z79.4 Long term (current) use of insulin; Z91.81 History of falling; M81.0 Age-related osteoporosis without current pathological fracture; E03.9 Hypothyroidism, unspecified; Z66 Do not resuscitate; K22.70 Barrett's esophagus without dysplasia; F32.9 Major depressive disorder, single episode, unspecified; Z20.822 Contact with and (suspected) exposure to COVID-19
CPT/HCPCS: 36415; 51701; 74177; 80048; 80053; 81003; 83036; 83690; 84443; 85025; 87631; 96372; 97161; 99284; 99285; A9270; G0378; J1650; J1815; Q9967; 0202U; 81001; 87086

== ENCOUNTER 2021-03-10 07:50 | Outpatient (CLI) | payer MEDICARE, OTHER ==
[2021-03-10 10:59] LABS: CALCIUM 9.5 mg/dL (8.5-10.3); CREATININE 0.9 mg/dL (0.4-1.0); POTASSIUM 4.5 mmol/L (3.5-5.0)
== END 2021-03-10 23:59 | disposition home or self-care (01) ==
LOC: LAB.R 07:50
PROVIDERS: ATTEND Family Medicine
DX: I10 Essential (primary) hypertension (principal)
CPT/HCPCS: 80048

== ENCOUNTER 2021-04-01 12:42 | Outpatient (CLI) | payer MEDICARE, OTHER | END 2021-04-01 12:43 | disposition critical access hospital (66) | LOC: EMS 12:42 | DX: R42 Dizziness and giddiness (principal); R51.9 Headache, unspecified | CPT/HCPCS: A0425; A0429 ==

== ENCOUNTER 2021-04-01 12:59 | Inpatient (IN) | payer MEDICARE, OTHER ==
[2021-04-01] MEDS ORDERED: lisinopriL 5 MG TABLET PO STA (13:15)
--- OUTSIDE RECORDS SUMMARY | 2021-04-01 13:38 | EXTERNAL MEDICAL SUMMARY RPT | Continuity of Care Document ---
:1945 Demographics Phone Unavailable Preferred Language Unknown Marital Status Unknown Scientology Affiliation Unknown Race Unknown Ethnic Group Unknown Author Organization [place] Address [address] [phone] Phone Problems date description facility [id number] Wedge compression fracture of second [facility] lumbar vertebra, subsequent encounter for fracture with routine healing [id number] Unspecified sprain of left foot, [facility] subsequent encounter [id number] Unspecified osteoarthritis, unspecified [facility] site [id number] Type 2 diabetes mellitus without [facility] complications [id number] Morbid (severe) obesity due to excess [facility] calories [id number] Hypothyroidism, unspecified [facility] [id number] Hyperlipidemia, unspecified [facility] [id number] Essential (primary) hypertension [facility] [id number] 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
--- NOTE | 2021-04-01 13:44 | XRAY Report ---
PROCEDURE: Chest 1 View X-Ray INDICATIONS: Chest Pain TECHNIQUE: One view of the chest was acquired. COMPARISON: 03/21/2017 FINDINGS: Surgical changes and devices: None. Lungs and pleura: No pleural effusions or pneumothorax. Lungs are clear. Mediastinum: Mediastinal contours appear normal. Heart size is normal. Bones and chest wall: No suspicious bony lesions. Overlying soft tissues appear unremarkable. IMPRESSION: No acute cardiopulmonary disease process. Reviewed by: Mara Nelson MD, PhD on 04/01/2021 1:42 PM PDT Approved by: Mara Nelson MD, PhD on 04/01/2021 1:42 PM PDT Station ID: [id number]
[2021-04-01 14:18] LABS: ALBUMIN 4.4 g/dL (3.2-5.5); ALBUMIN/GLOBULIN RATIO 1.5 (1.0-2.2); BILIRUBIN,TOTAL 0.7 mg/dL (0.2-1.0); CALCIUM 9.7 mg/dL (8.5-10.3); POTASSIUM 4.2 mmol/L (3.5-5.0); TOTAL PROTEIN 7.4 g/dL (6.7-8.2)
[2021-04-01] MEDS ORDERED: METOPROLOL SUCCINATE 50 MG TABLET PO SCH (14:40)
[2021-04-01 14:41] LABS: HCT - HEMATOCRIT 39.8 % (37.0-47.0); HGB - HEMOGLOBIN 12.8 g/dL (12.0-16.0); MEAN CORPUSCULAR HEMOGLOBIN 28.3 pg (27.0-31.0); MEAN CORPUSCULAR HGB CONC 32.2 g/dL (32.0-36.0); MEAN CORPUSCULAR VOLUME 87.9 fL (81.0-99.0); MEAN PLATELET VOLUME 10.1 fL (7.9-10.8); NEUTROPHILS % (AUTO) 79.2 %; PLT - PLATELET COUNT 498 10^3/uL (130-450); RED BLOOD COUNT 4.53 10^6/uL (4.20-5.40); RED CELL DISTRIBUTION WIDTH 14.1 % (12.0-15.0); WHITE BLOOD COUNT 10.8 x10^3/uL (4.8-10.8)
[2021-04-01 14:42] LABS: BASOPHILS # (AUTO) 0.1 10^3/uL (0.0-0.1); BASOPHILS % (AUTO) 0.7 %; EOSINOPHILS % (AUTO) 0.3 %; LYMPHOCYTES # (AUTO) 1.8 10^3/uL (1.5-3.5); LYMPHOCYTES % (AUTO) 16.5 %; MONOCYTES # (AUTO) 0.3 10^3/uL (0.0-1.0); MONOCYTES % (AUTO) 2.7 %; NEUTROPHILS # (AUTO) 8.5 10^3/uL (1.5-6.6)
[2021-04-01] MEDS ORDERED: LACTATED RINGERS 1,000 ML IV STA (15:08)
--- NOTE | 2021-04-01 17:17 | ED Physician Documentation ---
History of Present Illness - Stated complaint Stated Complaint: DIZZY - Chief complaint Chief Complaint: Neuro - History obtained from History obtained from: Patient - Additonal information Additional information: 75-year-old woman with history of high blood pressure, hyperlipidemia, diabetes, and 1 episode of isolated A. fib, not on medications presents with lightheadedness starting around 7:20 AM when she woke up and sat up suddenly, having sensation of the room spinning. She went about her day and then slowly developed a gradual onset bilateral frontal headache around 9 AM that has progressed throughout the day. She is getting physical therapy and became dizzy again when getting out of her wheelchair, so her PT sent her to the ED. denies CP, SOB, vomiting, back pain. +nausea. patient did take her AM BP meds. Review of Systems Ten Systems: 10 systems reviewed and negative Constitutional: denies: Fever, Chills Cardiac: denies: Chest pain / pressure Respiratory: denies: Dyspnea GI: reports: Nausea. denies: Abdominal Pain, Vomiting Neurologic: reports: Headache PD PAST MEDICAL HISTORY - Past Medical History Past Medical History: Yes Cardiovascular: Hypertension, High cholesterol, Murmur Respiratory: None Endocrine/Autoimmune: Type 2 diabetes, HyPOthyroidism GI: GERD, Ulcers, Other VP ORGANIZATIONAL DEVELOPMENT: Other : None HEENT: Glaucoma, Chronic sinusitis, Chronic hearing loss, Other Psych: Depression Musculoskeletal: Osteoarthritis, Osteoporosis, Osteopenia, Chronic back pain Derm: Other - Past Surgical History Past Surgical History: Yes General: Cholecystectomy, Colonoscopy, EGD Ortho: Hip replacement, Spine surgery /VP ORGANIZATIONAL DEVELOPMENT: Hysterectomy, Other HEENT: Cataracts, Myringotomy (tubes), Other - Present Medications Home Medications: Ambulatory Orders Medication Instructions Recorded Confirmed Insulin Detemir [Levemir] 20 units SUBQ QPM 06/27/15 02/16/21 Latanoprost [Xalatan] 1 drops EACHEYE QPM 06/27/15 02/16/21 Levothyroxine Sodium [Synthroid] 125 mcg PO QDAC 06/27/15 02/16/21 Metoprolol Succinate [Toprol Xl] 50 mg PO QPM 06/27/15 02/16/21 Multivitamin [Multivitamins] 1 each PO DAILY 06/27/15 02/16/21 NIFEdipine [Nifedipine ER] 60 mg PO DAILY 06/27/15 02/16/21 Omeprazole [PriLOSEC] 20 mg PO QPM 06/27/15 02/16/21 lisinopriL [Lisinopril] 40 mg PO QPM 06/27/15 02/16/21 metFORMIN [Glucophage] 1,000 mg PO BIDWM 06/27/15 02/16/21 oxyCODONE [Roxicodone] 5 mg PO Q4-6H PRN 02/16/21 02/16/21 Acetaminophen [Tylenol] 1,000 mg PO TID PRN #60 tablet 02/17/21 - Allergies Allergies/Adverse Reactions: Allergies Allergy/AdvReac Type Severity Reaction Status Date / Time adhesive Allergy Rash Verified 04/01/21 13:07 manganese Allergy Rash Verified 04/01/21 13:07 niacin Allergy Rash Verified 04/01/21 13:07 Imcjhse-Fmx-Ugg Reductase AdvReac increased Verified 04/01/21 13:07 Inhibitor liver enzymes - Social History Does the pt smoke?: No Smoking Status: Never smoker Does the pt drink ETOH?: No Does the pt have substance abuse?: No - Immunizations Immunizations are current?: Yes - POLST Patient has POLST: No POLST Status: DNR PD ED PE NORMAL - Vitals Vital signs reviewed: Yes - General General: Alert and oriented X 3, No acute distress, Well developed/nourished - HEENT HEENT: Atraumatic, PERRL, EOMI - Neck Neck: Supple, no meningeal sign - Cardiac Cardiac: RRR - Respiratory Respiratory: No respiratory distress, Clear bilaterally - Abdomen Abdomen: Non tender, Non distended - Derm Derm: Normal color, Warm and dry - Extremities Extremities: No deformity - Neuro Neuro: Alert and oriented X 3, technical administrator 2-12 intact, No motor deficit, No sensory deficit, Normal speech, Other (dizzy when sitting up in bed. unable to ambulate 2/2 dizziness) - Psych Psych: Normal mood, Normal affect Results - Vitals Vitals: Vital Signs - 24 hr 04/01/21 04/01/21 04/01/21 13:09 13:36 15:00 Temperature 36.8 C Heart Rate 80 93 96 Respiratory 19 20 18 Rate Blood Pressure 159/101 H 166/88 H 169/82 H O2 Saturation 100 97 96 04/01/21 16:40 Temperature Heart Rate 91 Respiratory 20 Rate Blood Pressure 204/94 H O2 Saturation 97 Oxygen O2 Source Room air - Labs Labs: Laboratory Tests 04/01/21 04/01/21 04/01/21 13:25 13:25 13:25 WBC 10.8 RBC 4.53 Hgb 12.8 Hct 39.8 MCV 87.9 MCH 28.3 MCHC 32.2 RDW 14.1 Plt Count 498 H MPV 10.1 Neut # (Auto) 8.5 H Lymph # (Auto) 1.8 [place] # (Auto) 0.3 Eos # (Auto) 0.0 Baso # (Auto) 0.1 Absolute Nucleated RBC 0.00 Nucleated RBC % 0.0 Sodium 135 Potassium 4.2 Chloride 100 L Carbon Dioxide 23 Anion Gap 12.0 BUN 34 H Creatinine 1.0 Estimated GFR (MDRD) 54 L Glucose 246 H Calcium 9.7 Total Bilirubin 0.7 AST 16 ALT 15 Alkaline Phosphatase 80 Troponin I High Sens 6.9 Total Protein 7.4 Albumin 4.4 Globulin 3.0 Albumin/Globulin Ratio 1.5 Lipase 32 PD MEDICAL DECISION MAKING - ED course ED course: 75yF p/w dizziness, nausea, LYNCH, and elevated BP refractory to oral antihypertensives. endorsed to Dr. Bonilla for further management and care.
[2021-04-01] MEDS ORDERED: MECLIZINE 12.5 MG TABLET PO STA (17:19)
[2021-04-01] MEDS ORDERED: IOPAMIDOL-300 100 ML VIAL ONE (17:41)
--- NOTE | 2021-04-01 19:03 | CT Report ---
PROCEDURE: ANGIO HEAD W/WO INDICATIONS: dizziness, trouble walking CONTRAST: IV CONTRAST: Isovue 300 ml: 80 PO CONTRAST: *NO PO CONTRAST TECHNIQUE: Precontrast 4.5 mm thick angled axial sections acquired from the foramen magnum to the vertex. Afte r the administration of intravenous contrast, 1 mm thick sections acquired through the [place] of Will is. Postcontrast 4.5 mm thick sections then re-acquired from the foramen magnum to the vertex. 3-di mensional uzwkibz-igqisjxvh-lethumhkmb (MIP) and/or volume rendering reformats were acquired of the c entral intracranial vasculature. For radiation dose reduction, the following was used: automated ex posure control, adjustment of mA and/or kV according to patient size. COMPARISON: None FINDINGS: Image quality: Excellent. Anterior circulation: Intracranial internal carotid arteries are normal in size and flow. The descr ibed vascular calcification noted involving the cavernous portions of both internal carotid arteries. The flow within the paired anterior cerebral arteries is normal and symmetric. The flow within the middle cerebral arteries is normal and symmetric. The anterior communicating artery is seen. No ane urysms are seen. Posterior circulation: Visualized portions of the vertebral arteries demonstrate normal caliber, and join to form a normal appearing basilar artery. 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 The P2 segment is supplied by a widely patent posterior communicating artery. Remainder of the distal vascul ature unremarkable. Flow within the posterior cerebral arteries is normal and symmetric. No aneurysm s are seen. CSF spaces: Ventricles are normal in size and shape. Basal cisterns are patent. No extra-axial flu id collections. Brain: No midline shift. No intracranial bleeds or masses. Nunez-white matter interface appears int act. Moderate atrophy and multifocal chronic ischemic change noted. Enlarged perivascular space noted adjacent to the left anterior commissure Skull and face: Calvarium and facial bones appear intact, without suspicious lesions. Sinuses: Visualized sinuses and mastoids are clear. IMPRESSION: 1. Unremarkable intracranial CTA without evidence of large vessel occlusion, aneurysm or vascular mal formation. 2. Moderate atrophy and chronic ischemic change. No intracranial hemorrhage. Reviewed by: Emile Zaldivar MD on 04/01/2021 6:02 PM [id number] Approved by: Emile Zaldivar MD on 04/01/2021 6:02 PM AKDT Station ID: [id number]
[2021-04-01 19:10] LABS: BILIRUBIN,URINE NEGATIVE (NEGATIVE); GLUCOSE, URINE (UA) 100 mg/dL (NEGATIVE); KETONES,URINE (UA) NEGATIVE (NEGATIVE); LEUKOCYTE ESTERASE, URINE TRACE (NEGATIVE); NITRITE,URINE NEGATIVE (NEGATIVE); OCCULT BLOOD,URINE NEGATIVE (NEGATIVE); PROTEIN,URINE NEGATIVE (NEGATIVE); UROBILINOGEN,URINE 0.2 (NORMAL) E.U./dL (NORMAL)
--- NOTE | 2021-04-01 19:12 | CT Report ---
PROCEDURE: ANGIO NECK W INDICATIONS: dizziness, trouble walking CONTRAST: IV CONTRAST: Isovue 300 ml: 80 PO CONTRAST: *NO PO CONTRAST TECHNIQUE: After the administration of intravenous contrast, 1.5 mm axial sections acquired from the aortic arch to the [place]. Coronal 3-D maximum intensity projection (MIP) and/or volume rendering ref ormats were then performed. For radiation dose reduction, the following was used: automated exposur e control, adjustment of mA and/or kV according to patient size. COMPARISON: None. FINDINGS: Image quality: Excellent. Carotid system: The great vessels demonstrate a conventional anatomy as they arise from the aortic a [facility]. The origins of the common carotid arteries appear patent. The common carotid arteries demonstr ate normal calibers and courses. The bifurcation regions appear normal bilaterally. Both internal ca rotid arteries are tortuous, and there is calcified and noncalcified sclerotic plaque in both proxima l internal carotid arteries resulting in 40% stenosis on the left and no stenosis on the right utiliz ing NASCET criteria Posterior circulation: The origins of the vertebral arteries appear patent. The more superior porti ons of the vertebral arteries demonstrate normal course and caliber. They join to form a normal appe aring basilar artery. Soft tissues: Visualized neck soft tissues demonstrate no suspicious abnormalities. The thyroid gla nd is normal in size. Bones: No suspicious bony lesions. Visualized cervical spine appears normally aligned. There is s traightening of the normal cervical lordosis as well as multilevel degenerative disc disease and arth ropathy noted particularly lower cervical spine. IMPRESSION: 1. Calcified and noncalcified screw plaque results in 40% left proximal ICA stenosis utilizing NASCET criteria. 2. Multilevel degenerative disc disease and arthropathy predominantly in the lower cervical spine spi ne The estimate of stenosis included in the report of the imaging study was calculated using the NASCET method Reviewed by: Emile Zaldivar MD on 04/01/2021 6:11 PM ARABELLA Approved by: Emile Zaldivar MD on 04/01/2021 6:11 PM AKIVETT Station ID: [id number]
[2021-04-01 19:13] LABS: CLARITY,URINE CLEAR (CLEAR)
[2021-04-01 19:27] LABS: BACTERIA,URINE Few /HPF (None Seen); RBC,URINE 0-5 /HPF (0-5); SQUAMOUS EPITHELIAL CELL,UR FEW Squamous (<= Few)
[2021-04-01] MEDS ORDERED: ACETAMINOPHEN 325 MG TABLET PO STA ×2 (19:54→20:03)
--- NOTE | 2021-04-01 19:57 | ED Physician Documentation ---
ED Addendum - Addendum Addendum: 04/01/21 22:54 75-year-old female was signed out to me by Dr. Barragan. Please see her note for full history and physical. The patient appears to have vertigo. She does feel better after Zofran and meclizine. Less dizzy, but is still ataxic and unable to walk. Given her age and comorbidities, concern for possible cerebellar infarct. No significant findings on CT angiogram of the head and/or neck. We will place her in observation for further care and MRI of the cerebellum in the morning. discussed the case with the hospitalist, Dr. Gutierrez who accepts. This document was made in part using voice recognition software. While efforts are made to proofread this document, sound alike and grammatical errors may occur. Departure - Departure Disposition: ED Place in Observation Clinical Impression: Vertigo, Ataxia Compression fracture of L2 Qualifiers: Encounter type: initial encounter Qualified Code(s): S32.020A - Wedge compression fracture of second lumbar vertebra, initial encounter for closed fracture Condition: Stable Discharge Date/Time: 04/01/21 21:20
[2021-04-01] MEDS ORDERED: ACETAMINOPHEN 325 MG TABLET PO PRN (20:22)
[2021-04-01] MEDS ORDERED: SODIUM CHLORIDE FLUSH 0.9% 10 ML SYRINGE IVP PRN (20:22)
[2021-04-01] MEDS ORDERED: PROCHLORPERAZINE 10 MG/2 ML VIAL IVP PRN (20:22)
[2021-04-01] MEDS ORDERED: ONDANSETRON 4 MG/2 ML VIAL IVP PRN (20:22)
[2021-04-01] MEDS ORDERED: hydrALAZINE INJ 20 MG/ML VIAL IVP PRN (20:29)
--- NOTE | 2021-04-01 20:38 | HISTORY & PHYSICAL EXAMINATION ---
Chief Complaint - Chief Complaint Chief Complaint: Dizziness History of Present Illness - Admitted From Admitted From:: ED - History Obtained From Records Reviewed: ED History obtained from: Patient and Dr Joseph Exam Limitations: None - History of Present Illness HPI Comment/Other: Loly lackey 75-year-old female with a history of type 2 diabetes mellitus, hypertension, compression fracture of lumbar spine December 2020, hypothyroidism, obesity, who presents to the emergency room having had sudden onset of significant dizziness when she woke up this morning. Patient was in her usual state of health up until this morning when she woke up and got out of bed and suddenly started to feel very dizzy. A few hours later after trying to ambulate and resume her normal activities at home she also developed significant headache. This persisted so she decided to come to the ER for further evaluation. ED course: In the ED she was evaluated appropriately for the symptoms, with lab work being relatively unremarkable with no evidence of infection or other metabolic disturbance to explain the symptoms. Her vital signs however did demonstrate significant hypertension with blood pressures in the 160s to 110 range, and partially responded to resuming her home medications. CT angiogram of head and neck were performed without evidence of acute abnormality though did show 40% stenosis of the MCA. Given that the patient's symptoms were most likely suggestive of BPV, attempt was made to ambulate the patient for possible discharge home however she was unable to ambulate and was demonstrating ataxia prompting concerns for the unlikely but not impossible concern for a cerebellar stroke so hospitalist admission was requested. 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: Other : reports: None HEENT: reports: Glaucoma, Chronic sinusitis, Chronic hearing loss, Other Psych: reports: Depression Musculoskeletal: reports: Osteoarthritis, Osteoporosis, Osteopenia, Chronic back pain Derm: reports: Other MRSA Hx?: Yes - Past Surgical History General: reports: Cholecystectomy, Colonoscopy, EGD Ortho: reports: Hip replacement, Spine surgery /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 Prior to that she lived in [place]. She is with her dying in 2019. Never smoked. Rarely drinks alcohol. - Substance History Use: Uses substance without health or social issues: NONE - POLST Patient has POLST: No POLST Status: DNR Meds/Allgy - Home Medications Home Medications: Ambulatory Orders Medication Instructions Recorded Confirmed Insulin Detemir [Levemir] 20 units SUBQ QPM 06/27/15 02/16/21 Latanoprost [Xalatan] 1 drops EACHEYE QPM 06/27/15 02/16/21 Levothyroxine Sodium [Synthroid] 125 mcg PO QDAC 06/27/15 02/16/21 Metoprolol Succinate [Toprol Xl] 50 mg PO QPM 06/27/15 02/16/21 Multivitamin [Multivitamins] 1 each PO DAILY 06/27/15 02/16/21 NIFEdipine [Nifedipine ER] 60 mg PO DAILY 06/27/15 02/16/21 Omeprazole [PriLOSEC] 20 mg PO QPM 06/27/15 02/16/21 lisinopriL [Lisinopril] 40 mg PO QPM 06/27/15 02/16/21 metFORMIN [Glucophage] 1,000 mg PO BIDWM 06/27/15 02/16/21 oxyCODONE [Roxicodone] 5 mg PO Q4-6H PRN 02/16/21 02/16/21 Acetaminophen [Tylenol] 1,000 mg PO TID PRN #60 tablet 02/17/21 - Allergies Allergies/Adverse Reactions: Allergies Allergy/AdvReac Type Severity Reaction Status Date / Time adhesive Allergy Rash Verified 04/01/21 13:07 manganese Allergy Rash Verified 04/01/21 13:07 niacin Allergy Rash Verified 04/01/21 13:07 [id number] Reductase AdvReac increased Verified 04/01/21 13:07 Inhibitor liver enzymes Review of Systems - Constitutional Constitutional: denies: Fatigue, Fever, Chills, Malaise, Weakness, Poor a ppetite, Diaphoresis - Eyes Eyes: denies: Pain, Blurred vision, Spots in vision, Dipolpia - Cardiovascular Cariovascular: reports: Lightheadedness. denies: Irregular heart rate, Palpitations, Chest pain, Syncope, Exertional dyspnea - Respiratory Respiratory: denies: Cough, SOB at rest - Gastrointestinal Gastrointestinal: denies: Abdominal pain - Genitourinary Genitourinary: denies: Dysuria, Frequency - Musculoskeletal Musculoskeletal: reports: Back pain - Neurological Neurological: reports: Headache, Dizziness, Abnormal gait. denies: General weakness, Focal weakness, Numbness, Pre-existing deficit, Incoordination, Slu rred speech - Psychiatric Psychiatric: denies: Depression, Anxiety - All Other Systems All Other Systems: reports: Reviewed and negative Prior Level of Functionality: Independent Exam - Vital Signs Reviewed Vital Signs: Yes Vital Signs: Vital Signs x48h Temp Pulse Resp BP Pulse Ox 04/01/21 19:20 100 145/114 H 97 04/01/21 17:00 86 16 129/88 H 98 04/01/21 16:40 91 20 204/94 H 97 04/01/21 15:00 96 18 169/82 H 96 04/01/21 13:36 93 20 166/88 H 97 04/01/21 13:09 36.8 C 80 19 159/101 H 100 - Physical Exam General Appearance: positive: No acute distress, Alert Eyes Bilateral: positive: Normal inspection, PERRL, EOMI (Bilateral Saccade at midline) Neck: positive: Nml inspection, Thyroid nml, No JVD Respiratory: positive: Chest non-tender, No respiratory distress, Wheezes Cardiovascular: positive: Regular rate & rhythm, No gallop, Systolic murmur Peripheral Pulses: positive: 1+ Abdomen: positive: Non-tender, No organomegaly, Nml bowel sounds, No distention. negative: Guarding, Rebound, Hepatomegaly, Splenomegaly, Abnml bowel sounds, Bruit Back: positive: Nml inspection Skin: positive: Color nml Extremities: positive: Full ROM (No weakness) Neurologic/Psychiatric: positive: Oriented x3, CN's nml (2-12), Motor nml, Sensation nml, Mood/affect nml. negative: Facial droop, Slurred/abnml speech Conclusion/Plan - Problem List (1) Ataxia Conclusion/Plan: Symptoms are most consistent with BPV Given patient's risk factors, cannot rule out cerebellar stroke Placed in observation with telemetry overnight Have reviewed imaging Check Echocardiogram We will check MRI tomorrow We will request PT/OT eval's in the morning If MRI negative, can likely discharge home with outpatient referrals if she can ambulate (2) Vertigo Conclusion/Plan: As above symptoms likely represents BPV Did not respond to Cherise maneuver Plan as above (3) HTN (hypertension) Conclusion/Plan: Blood pressure not well controlled At the time of admission, blood pressure is 150/110 Resume home medications Add hydralazine as needed Increase home medications as needed Qualifiers: Hypertension type: essential hypertension (4) Type 2 diabetes mellitus without complication, 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 Conclusion/Plan: No evidence of DKA or acute hyperglycemia Patient states our medical record is inaccurate and that she does not take 20 but rather 35 units of Levemir at home We will resume Basal insulin at slightly reduced dose Diabetic diet Sliding-scale (5) Hypothyroidism Conclusion/Plan: Resume home levothyroxine - Lab Results Fish Bones: 04/01/21 13:25 04/01/21 13:25 - Diagnostic Imaging Results Diagnostic Imaging Results: positive: Prelim report reviewed, Final report revi ewed - EKG Results EKG Interpreted Independently: Yes EKG Comparison: Unchanged from prior EKG Core Measures - Anticipated LOS I expect patient to be DC'd or transferred within 96 hours.: Yes - DVT/VTE - Prophylaxis VTE/DVT Device ordered at admit?: Yes - Stroke - Rehab Assessment Rehab services assessment to be ordered?: Yes
[2021-04-01 20:42] LABS: B. PARAPERTUSSIS- RESP PCR PAN NOT DETECTED; B. PERTUSSIS- RESP PCR PANEL NOT DETECTED; C. PNEUMONIAE- RESP PCR PANEL NOT DETECTED; CORONAVIRUS 229E-RESP PCR NOT DETECTED; CORONAVIRUS HKU1-RESP PCR NOT DETECTED; CORONAVIRUS NL63-RESP PCR NOT DETECTED; CORONAVIRUS OC43-RESP PCR NOT DETECTED; HUMAN METAPNEUMOVIRUS NOT DETECTED; INFLUENZA A- RESP PCR PANEL NOT DETECTED; INFLUENZA B - RESP PCR PANEL NOT DETECTED; M. PNEUMONIAE- RESP PCR PANEL NOT DETECTED; PARAINFLUENZA VIRUS 1 NOT DETECTED; PARAINFLUENZA VIRUS 2 NOT DETECTED; PARAINFLUENZA VIRUS 3 NOT DETECTED; PARAINFLUENZA VIRUS 4 NOT DETECTED; RHINOVIRUS/ENTEROVIRUS NOT DETECTED; RSV- RESP PCR PANEL NOT DETECTED; SARS-CoV-2 -RESP PCR PANEL NOT DETECTED
--- OUTSIDE RECORDS SUMMARY | 2021-04-01 20:59 | EXTERNAL MEDICAL SUMMARY RPT | Continuity of Care Document ---
:1945 Demographics Phone Unavailable Preferred Language Unknown Marital Status Unknown Yazidi Affiliation Unknown Race Unknown Ethnic Group Unknown Author Organization [place] Address [address] [phone] Phone Problems date description facility [id number] Wedge compression fracture of second [facility] lumbar vertebra, subsequent encounter for fracture with routine healing [id number] Unspecified sprain of left foot, [facility] subsequent encounter [id number] Unspecified osteoarthritis, unspecified [facility] site [id number] Type 2 diabetes mellitus without [facility] complications [id number] Morbid (severe) obesity due to excess [facility] calories [id number] Hypothyroidism, unspecified [facility] [id number] Hyperlipidemia, unspecified [facility] [id number] Essential (primary) hypertension [facility] [id number] 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
[2021-04-01] MEDS ORDERED: IOPAMIDOL-300 100 ML VIAL IVP ONE (21:23)
[2021-04-01] MEDS: METOPROLOL SUCCINATE 25 MG TABLET PO SCH (21:47)
[2021-04-01] MEDS: LATANOPROST 0.005% OPHTH DROPS EACHEYE SCH (21:49)
[2021-04-01] MEDS: INSULIN ASPART 300 UNIT/3 ML PEN SUBQ SCH (21:49)
[2021-04-01] MEDS: oxyCODONE 5 MG TABLET PO PRN (21:49)
[2021-04-01] MEDS ORDERED: LORazepam 1 MG TABLET PO PRN (22:48)
[2021-04-01] MEDS: SODIUM CHLORIDE FLUSH 0.9% 10 ML SYRINGE IVP SCH (23:38)
[2021-04-02] MEDS: IBUPROFEN 400 MG TABLET PO PRN ×3 (00:44→21:51)
[2021-04-02] MEDS: oxyCODONE 5 MG TABLET PO PRN ×3 (03:04→19:58)
[2021-04-02] MEDS: PANTOPRAZOLE 40 MG TABLET PO SCH (06:08)
[2021-04-02] MEDS: LEVOTHYROXINE 125 MCG TABLET PO SCH (06:08)
[2021-04-02] MEDS: INSULIN ASPART 300 UNIT/3 ML PEN SUBQ SCH ×4 (07:39→21:40)
[2021-04-02] MEDS: SODIUM CHLORIDE FLUSH 0.9% 10 ML SYRINGE IVP SCH ×3 (08:27→23:24)
[2021-04-02 08:46] LABS: BASOPHILS # (AUTO) 0.1 10^3/uL (0.0-0.1); BASOPHILS % (AUTO) 0.7 %; EOSINOPHILS # (AUTO) 0.1 10^3/uL (0.0-0.7); EOSINOPHILS % (AUTO) 1.2 %; HCT - HEMATOCRIT 34.6 % (37.0-47.0); HGB - HEMOGLOBIN 11.3 g/dL (12.0-16.0); LYMPHOCYTES # (AUTO) 2.3 10^3/uL (1.5-3.5); LYMPHOCYTES % (AUTO) 20.8 %; MEAN CORPUSCULAR HEMOGLOBIN 28.5 pg (27.0-31.0); MEAN CORPUSCULAR HGB CONC 32.7 g/dL (32.0-36.0); MEAN CORPUSCULAR VOLUME 87.2 fL (81.0-99.0); MEAN PLATELET VOLUME 9.2 fL (7.9-10.8); MONOCYTES # (AUTO) 0.6 10^3/uL (0.0-1.0); MONOCYTES % (AUTO) 5.6 %; NEUTROPHILS # (AUTO) 7.7 10^3/uL (1.5-6.6); NEUTROPHILS % (AUTO) 71.4 %; PLT - PLATELET COUNT 394 10^3/uL (130-450); RED BLOOD COUNT 3.97 10^6/uL (4.20-5.40); RED CELL DISTRIBUTION WIDTH 13.9 % (12.0-15.0); WHITE BLOOD COUNT 10.8 x10^3/uL (4.8-10.8)
[2021-04-02 08:55] LABS: CALCIUM 9.3 mg/dL (8.5-10.3); CREATININE 0.9 mg/dL (0.4-1.0); POTASSIUM 3.7 mmol/L (3.5-5.0)
[2021-04-02] MEDS ORDERED: NIFEdipine ER 30 MG TABLET PO SCH (09:00)
[2021-04-02] MEDS ORDERED: METOPROLOL SUCCINATE 50 MG TABLET PO SCH (09:00)
[2021-04-02 09:44] LABS: ESTIMATED AVERAGE GLUCOSE 166 mg/dL (70-100); HEMOGLOBIN A1c% 7.4 % (4.27-6.07)
[2021-04-02] MEDS ORDERED: INSULIN GLARGINE 300 UNIT/3 ML PEN SUBQ SCH ×3 (10:00→21:00)
--- NOTE | 2021-04-02 10:19 | MRI Report ---
PROCEDURE: Brain W/O INDICATIONS: Dizziness, HTN, r/o cerebellar stroke TECHNIQUE: Noncontrast axial T1 spin echo, axial T2 fast spin echo, sagittal and axial FLAIR, coronal T2 fast sp in echo, axial gradient echo, axial diffusion and ADC through the brain. COMPARISON: CT examinations dated 04/01/2021 FINDINGS: Image quality: Excellent. CSF Spaces: Basal cisterns are patent. No extra-axial fluid collections. Ventricles are normal in size and shape. Brain: No intracranial masses or hemorrhage. Mild diffuse cerebral volume loss. Mild degree of patch y high FLAIR signal within the periventricular and subcortical white matter.Nunez/white matter interfa ce is normal. Brainstem appears normal. Diffusion-weighted images demonstrate no acute ischemic ins ult. No chronic ischemic insults. Normal intravascular flow voids are present. Skull and face: Calvarium has normal marrow signal. Orbits appear normal. Sinuses: Sinuses and mastoids are clear. IMPRESSION: 1. No acute process. No recent infarct. 2. Mild volume loss and small vessel ischemic disease. Reviewed by: Patrice Recinos MD on 04/02/2021 10:17 AM PDT Approved by: Patrice Recinos MD on 04/02/2021 10:17 AM PDT Station ID: [id number]
--- NOTE | 2021-04-02 11:20 | PHARMACY PROGRESS NOTE ---
- Best Possible Medication History Admit Date and Time: 04/01/212021 Processed by: Pharmacy Medication History completed: Yes Patient Interview: Completed Secondary Source(s): Pharmacy records, Insurance records As the person ultimately responsible for medication therapy, providers are able to order a medication from an existing home medication list in [facility] via the "Reconcile Routine" prior to Confirmation of that medication by senior office support assistant sosa. Such practice is discouraged except when the physician, in their clinical judgment, deems that a medical need exists for a medication without regard to previous use.
[2021-04-02] MEDS: MECLIZINE 12.5 MG TABLET PO PRN (12:06)
[2021-04-02] MEDS: SODIUM CHLORIDE 0.9% 1,000 ML IV SCH (12:07)
--- NOTE | 2021-04-02 13:58 | PROVIDER PROGRESS NOTE ---
Assessment/Plan - Problem List (1) Ataxia Assessment/Plan: MRI reveals No acute process, no recent infarct. Patient denying shortness breathing, patient had 97% on room air. We will hold echo at this point. We will continue physical therapist and occupational therapist for evaluation and treatment. Symptoms are most consistent with BPV Given patient's risk factors, cannot rule out cerebellar stroke Placed in observation with telemetry overnight Have reviewed imaging Check Echocardiogram We will check MRI tomorrow We will request PT/OT eval's in the morning If MRI negative, can likely discharge home with outpatient referrals if she can ambulate (2)orthostatic intolerance Patient show orthostatic intolerance, Patient blood pressure drop after she stand up. order for patient hydration, Fall precaution, Continue PT and OT (3)UTI Patient Complain burning sensation and urgency on urination. UA culture show positive for Proteus, will order Rocephin and probiotics for pt, Follow-up with UA sensitivity study. (4) Vertigo Patient still complaining vertigo and the feeling of spinning in the room. CTA a of the head, neck and MRI of the brain were unremarkable. We will order Antivert PRN for pt. Resume home medication HCTZ. Fall precautions. 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 We will check A1c, give patient Lantus, sliding scale for short acting insult (7) Hypothyroidism We will check TSH, continue home levothyroxine - Current Meds Current Meds: Current Medications Generic Name Dose Route Start Last Admin Trade Name Freq PRN Reason Stop Dose Admin Sodium Chloride 1,000 mls @ 75 mls/hr 04/02/21 12:00 04/02/21 12:07 Normal Saline 0.9% IV 75 mls/hr .[id number] ADELA Administration Ibuprofen 400 mg 04/01/21 20:22 04/02/21 12:06 Ibuprofen 400 Mg Tablet PO 400 mg Q4HR PRN Administration Pain 1 to 4 Insulin Aspart 1 - 9 unit 04/01/21 21:00 04/02/21 12:04 Insulin Aspart 300 Unit/3 Ml Pen SUBQ 5 unit 0800,1200,1700,2100 ADELA Administration Protocol Latanoprost 1 drops 04/01/21 21:00 04/01/21 21:49 Latanoprost 0.005% Ophth Drops EACHEYE 1 drops QPM ADELA Administration Levothyroxine Sodium 125 mcg 04/02/21 07:00 04/02/21 06:08 Levothyroxine 125 Mcg Tablet PO 125 mcg QDAC ADELA Administration Lorazepam 1 mg 04/01/21 22:48 04/02/21 08:33 Lorazepam 1 Mg Tablet PO 04/02/21 22:47 1 mg ONCE PRN Administration Anxiety Meclizine HCl 12.5 mg 04/02/21 11:10 04/02/21 12:06 Meclizine 12.5 Mg Tablet PO 12.5 mg Q6HR PRN Administration Dizziness Metoprolol Succinate 50 mg 04/01/21 21:00 04/01/21 21:47 Metoprolol Succinate 25 Mg Tablet PO Not Given QPM ADELA Nifedipine 60 mg 04/02/21 09:00 04/02/21 08:27 Nifedipine Er 30 Mg Tablet PO 60 mg DAILY ADELA Administration Oxycodone HCl 5 mg 04/01/21 20:22 04/02/21 07:47 Oxycodone 5 Mg Tablet PO 5 mg Q4HR PRN Administration Pain 5 to 7 Pantoprazole Sodium 40 mg 04/02/21 07:00 04/02/21 06:08 Pantoprazole 40 Mg Tablet PO 40 mg QDAC ADELA Administration Sodium Chloride 10 ml 04/02/21 01:00 04/02/21 08:27 Sodium Chloride Flush 0.9% 10 Ml Syringe IVP 10 ml 0100,0900,1700 ADELA Administration - Lab Result Fish Bone Diagrams: 04/02/21 08:39 04/02/21 08:39 - Additional Planning My Orders: My Active Orders 04/02/21 10:21 Orthostatic [Vital Signs - Orthostatic] [RC] DAILY 04/02/21 11:10 Meclizine [Antivert] 12.5 mg PO Q6HR PRN 04/02/21 12:00 Sodium Chloride 0.9% [Normal Saline 0.9%] 1,000 ml IV 75 mls/hr 04/02/21 21:00 Insulin Glargine [Lantus Solostar] 20 unit SUBQ QPM 04/03/21 05:00 BMP - BASIC METABOLIC PANEL [CHEM] DAILYLAB CBC - COMP BLD CT W/AUTO DIFF [HEME] DAILYLAB 04/04/21 05:00 BMP - BASIC METABOLIC PANEL [CHEM] DAILYLAB CBC - COMP BLD CT W/AUTO DIFF [HEME] DAILYLAB 04/05/21 05:00 BMP - BASIC METABOLIC PANEL [CHEM] DAILYLAB CBC - COMP BLD CT W/AUTO DIFF [HEME] DAILYLAB 04/06/21 05:00 BMP - BASIC METABOLIC PANEL [CHEM] DAILYLAB CBC - COMP BLD CT W/AUTO DIFF [HEME] DAILYLAB Subjective - Subjective Patient Reports: Other (pt report she feeling of vertigo) Objective Vital Signs: Vital Signs - 24 hr 04/01/21 04/01/21 04/01/21 15:00 16:40 17:00 Temperature Heart Rate 96 91 86 Heart Rate [ Radial] Respiratory 18 20 16 Rate Blood Pressure 169/82 H 204/94 H 129/88 H Blood Pressure [Left Radial artery] Blood Pressure [Right Radial artery] O2 Saturation 96 97 98 04/01/21 04/01/21 04/01/21 19:20 21:15 23:43 Temperature 36.8 C 37.1 C Heart Rate 100 Heart Rate [ 93 Radial] Respiratory 16 16 Rate Blood Pressure 145/114 H Blood Pressure [Left Radial artery] Blood Pressure 152/75 H 176/76 H [Right Radial artery] O2 Saturation 97 98 96 04/02/21 04/02/21 04/02/21 04:27 08:16 09:59 Temperature 37.1 C 36.5 C 36.6 C Heart Rate Heart Rate [ 89 90 90 Radial] Respiratory 20 18 16 Rate Blood Pressure Blood Pressure 143/60 H [Left Radial artery] Blood Pressure 164/60 H 149/47 H [Right Radial artery] O2 Saturation 98 98 97 04/02/21 12:10 Temperature Heart Rate Heart Rate [ 91 Radial] Respiratory 16 Rate Blood Pressure Blood Pressure 152/70 H [Left Radial artery] Blood Pressure [Right Radial artery] O2 Saturation 97 Oxygen O2 Source Room air I&O (Last 24 Hrs): Intake and Output Totals x24h 03/31/21 04/01/21 04/02/21 23:59 23:59 23:59 Intake Total 1100 480 Balance 1100 480 General: Alert, Cooperative, No acute distress HEENT: Atraumatic Neck: Supple Lymphatic: no adenopathy Neuro: Alert, Non Focal Cardiovascular: Regular rate, Normal S1, Normal S2 Respiratory: Chest non-tender, No respiratory distress Abdomen: Normal bowel sounds, Soft, No tenderness Extremities: Normal pulses - Results Results: Laboratory Results WBC 10.8 x10^3/uL (4.8-10.8) 04/02/21 08:39 RBC 3.97 10^6/uL (4.20-5.40) L 04/02/21 08:39 Hgb 11.3 g/dL (12.0-16.0) L 04/02/21 08:39 Hct 34.6 % (37.0-47.0) L 04/02/21 08:39 MCV 87.2 fL (81.0-99.0) 04/02/21 08:39 MCH 28.5 pg (27.0-31.0) 04/02/21 08:39 MCHC 32.7 g/dL (32.0-36.0) 04/02/21 08:39 RDW 13.9 % (12.0-15.0) 04/02/21 08:39 Plt Count 394 10^3/uL (130-450) 04/02/21 08:39 MPV 9.2 fL (7.9-10.8) 04/02/21 08:39 Neut # (Auto) 7.7 10^3/uL (1.5-6.6) H 04/02/21 08:39 Lymph # (Auto) 2.3 10^3/uL (1.5-3.5) 04/02/21 08:39 [place] # (Auto) 0.6 10^3/uL (0.0-1.0) 04/02/21 08:39 Eos # (Auto) 0.1 10^3/uL (0.0-0.7) 04/02/21 08:39 Baso # (Auto) 0.1 10^3/uL (0.0-0.1) 04/02/21 08:39 Absolute Nucleated RBC 0.00 x10^3/uL 04/02/21 08:39 Nucleated RBC % 0.0 /100WBC 04/02/21 08:39 Sodium 134 mmol/L (135-145) L 04/02/21 08:39 Potassium 3.7 mmol/L (3.5-5.0) 04/02/21 08:39 Chloride 98 mmol/L (101-111) L 04/02/21 08:39 Carbon Dioxide 25 mmol/L (21-32) 04/02/21 08:39 Anion Gap 11.0 (6-13) 04/02/21 08:39 BUN 26 mg/dL (6-20) H 04/02/21 08:39 Creatinine 0.9 mg/dL (0.4-1.0) 04/02/21 08:39 Estimated GFR (MDRD) 61 (>89) L 04/02/21 08:39 Glucose 213 mg/dL (70-100) H 04/02/21 08:39 Estimat Average Glucose 166 mg/dL (70-100) H 04/02/21 08:39 Hemoglobin A1c % 7.4 % (4.27-6.07) H 04/02/21 08:39 Calcium 9.3 mg/dL (8.5-10.3) 04/02/21 08:39 Total Bilirubin 0.7 mg/dL (0.2-1.0) 04/01/21 13:25 AST 16 IU/L (10-42) 04/01/21 13:25 ALT 15 IU/L (10-60) 04/01/21 13:25 Alkaline Phosphatase 80 IU/L (42-121) 04/01/21 13:25 Troponin I High Sens 6.9 ng/L (2.3-14.8) 04/01/21 13:25 Total Protein 7.4 g/dL (6.7-8.2) 04/01/21 13:25 Albumin 4.4 g/dL (3.2-5.5) 04/01/21 13:25 Globulin 3.0 g/dL (2.1-4.2) 04/01/21 13:25 Albumin/Globulin Ratio 1.5 (1.0-2.2) 04/01/21 13:25 Lipase 32 U/L (22-51) 04/01/21 13:25 TSH 1.34 uIU/mL (0.34-5.60) 04/02/21 08:39 Urine Color YELLOW 04/01/21 17:45 Urine Clarity CLEAR (CLEAR) 04/01/21 17:45 Urine pH 7.0 PH (5.0-7.5) 04/01/21 17:45 Ur Specific [place] 1.015 (1.002-1.030) 04/01/21 17:45 Urine Protein NEGATIVE mg/dL (NEGATIVE) 04/01/21 17:45 Urine Glucose (UA) 100 mg/dL (NEGATIVE) H 04/01/21 17:45 Urine Ketones NEGATIVE mg/dL (NEGATIVE) 04/01/21 17:45 Urine Occult Blood NEGATIVE (NEGATIVE) 04/01/21 17:45 Urine Nitrite NEGATIVE (NEGATIVE) 04/01/21 17:45 Urine Bilirubin NEGATIVE (NEGATIVE) 04/01/21 17:45 Urine Urobilinogen 0.2 (NORMAL) E.U./dL (NORMAL) 04/01/21 17:45 Ur Leukocyte Esterase TRACE (NEGATIVE) H 04/01/21 17:45 Urine RBC 0-5 /HPF (0-5) 04/01/21 17:45 Urine WBC 6-10 /HPF (0-5) H 04/01/21 17:45 Ur Squamous Epith Cells FEW Squamous (<= Few) 04/01/21 17:45 Urine Bacteria Few /HPF (None Seen) 04/01/21 17:45 Ur Microscopic Review INDICATED 04/01/21 17:45 Urine Culture Comments INDICATED 04/01/21 17:45 Nasal Adenovirus (PCR) NOT DETECTED 04/01/21 19:25 Nasal B. parapertussis DNA (PCR) NOT DETECTED 04/01/21 19:25 Nasal Coronavir 229E PCR NOT DETECTED 04/01/21 19:25 Nasal Coronavir HKU1 PCR NOT DETECTED 04/01/21 19:25 Nasal Coronavir NL63 PCR NOT DETECTED 04/01/21 19:25 Nasal Coronavir OC43 PCR NOT DETECTED 04/01/21 19:25 Nasal Enterovir/Rhinovir PCR NOT DETECTED 04/01/21 19:25 Nasal Influenza B PCR NOT DETECTED 04/01/21 19:25 Nasal Influenza A PCR NOT DETECTED 04/01/21 19:25 Nasal Parainfluen 1 PCR NOT DETECTED 04/01/21 19:25 Nasal Parainfluen 2 PCR NOT DETECTED 04/01/21 19:25 Nasal Parainfluen 3 PCR NOT DETECTED 04/01/21 19:25 Nasal Parainfluen 4 PCR NOT DETECTED 04/01/21 19:25 Nasal RSV (PCR) NOT DETECTED 04/01/21 19:25 Nasal B.pertussis DNA PCR NOT DETECTED 04/01/21 19:25 Nasal C.pneumoniae (PCR) NOT DETECTED 04/01/21 19:25 Arik Human Metapneumo PCR NOT DETECTED 04/01/21 19:25 Nasal M.pneumoniae (PCR) NOT DETECTED 04/01/21 19:25 Nasal SARS-CoV-2 (PCR) NOT DETECTED 04/01/21 19:25 - Procedures Procedures: Procedures REPLACEMENT OF LEFT LENS WITH SYNTH SUB, PERC APPROACH (11/30/18) REPLACEMENT OF RIGHT LENS WITH SYNTH SUB, PERC APPROACH (10/26/18) ABX Reporting Has patient been on IV antibiotics over the past 48 hours?: Yes Current Medications - Current Medications Current Medications: Active Medications Acetaminophen (Acetaminophen 325 Mg Tablet) 650 mg PO Q4HR PRN PRN Reason: Pain 1 to 4 Hydralazine HCl (Hydralazine Inj 20 Mg/Ml Vial) 10 mg IVP Q3H PRN PRN Reason: Hypertensive Emergency Hydrochlorothiazide (Hydrochlorothiazide 25 Mg Tablet) 25 mg PO DAILY [facility] Sodium Chloride (Normal Saline 0.9%) 1,000 mls @ 75 mls/hr IV .[id number] [facility] Last Admin: 04/02/21 12:07 Dose: 75 mls/hr Documented by: Ceftriaxone Sodium 1 gm/ (Sodium Chloride) 100 mls @ 200 mls/hr IV DAILY [facility] Ibuprofen (Ibuprofen 400 Mg Tablet) 400 mg PO Q4HR PRN PRN Reason: Pain 1 to 4 Last Admin: 04/02/21 12:06 Dose: 400 mg Documented by: Insulin Aspart (Insulin Aspart 300 Unit/3 Ml Pen) 1 - 9 unit SUBQ 0800,1200,1700,2100 [facility]; Protocol Last Admin: 04/02/21 12:04 Dose: 5 unit Documented by: Insulin Glargine (Insulin Glargine 300 Unit/3 Ml Pen) 20 unit SUBQ QPM [facility] Latanoprost (Latanoprost 0.005% Ophth Drops) 1 drops EACHEYE QPM [facility] Last Admin: 04/01/21 21:49 Dose: 1 drops Documented by: Levothyroxine Sodium (Levothyroxine 125 Mcg Tablet) 125 mcg PO QDAC [facility] Last Admin: 04/02/21 06:08 Dose: 125 mcg Documented by: Lisinopril (Lisinopril 20 Mg Tablet) 40 mg PO QPM [facility] Lorazepam (Lorazepam 1 Mg Tablet) 1 mg PO ONCE PRN PRN Reason: Anxiety Stop: 04/02/21 22:47 Last Admin: 04/02/21 08:33 Dose: 1 mg Documented by: Meclizine HCl (Meclizine 12.5 Mg Tablet) 12.5 mg PO Q6HR PRN PRN Reason: Dizziness Last Admin: 04/02/21 12:06 Dose: 12.5 mg Documented by: Metoprolol Succinate (Metoprolol Succinate 25 Mg Tablet) 50 mg PO QPM [facility] Last Admin: 04/01/21 21:47 Dose: Not Given Documented by: Ondansetron HCl (Ondansetron 4 Mg/2 Ml Vial) 4 mg IVP Q6HR PRN PRN Reason: Nausea / Vomiting Oxycodone HCl (Oxycodone 5 Mg Tablet) 5 mg PO Q4HR PRN PRN Reason: Pain 5 to 7 Last Admin: 04/02/21 07:47 Dose: 5 mg Documented by: Pantoprazole Sodium (Pantoprazole 40 Mg Tablet) 40 mg PO QDAC [facility] Last Admin: 04/02/21 06:08 Dose: 40 mg Documented by: Prochlorperazine Edisylate (Prochlorperazine 10 Mg/2 Ml Vial) 10 mg IVP Q6HR PRN PRN Reason: Nausea / Vomiting Saccharomyces Boulardii (Saccharomyces Boulardii 250 Mg Capsule) 250 mg PO BIDWM [facility] Sodium Chloride (Sodium Chloride Flush 0.9% 10 Ml Syringe) 10 ml IVP PRN PRN PRN Reason: NEEDED PER PROVIDER ORDERS Sodium Chloride (Sodium Chloride Flush 0.9% 10 Ml Syringe) 10 ml IVP 0100,0900, 1700 [facility] Last Admin: 04/02/21 08:27 Dose: 10 ml Documented by: Insulin Detemir [Levemir] 45 - 50 units SUBQ QPM 06/27/15 Latanoprost [Xalatan] 1 drops EACHEYE QPM 06/27/15 Levothyroxine Sodium [Synthroid] 125 mcg PO QDAC 06/27/15 Metoprolol Succinate [Toprol Xl] 50 mg PO QPM 06/27/15 Multivitamin [Multivitamins] 1 cap PO DAILY 06/27/15 Omeprazole [PriLOSEC] 20 mg PO QPM 06/27/15 lisinopriL [Lisinopril] 40 mg PO QPM 06/27/15 metFORMIN [Glucophage] 1,000 mg PO BIDWM 06/27/15 oxyCODONE [Roxicodone] 5 mg PO Q4-6H PRN 02/16/21 Calcitonin [Fortical] 1 spray ARIK DAILY 04/02/21 hydroCHLOROthiazide [Hydrodiuril] 25 mg PO DAILY 04/02/21
[2021-04-02] MEDS: cefTRIAXone 1 GM in SODIUM CHLORIDE 0.9% MINIBAG 100 ML IV SCH (14:42)
[2021-04-02] MEDS: hydroCHLOROthiazide 25 MG TABLET PO SCH (14:42)
[2021-04-02] MEDS: SACCHAROMYCES BOULARDII 250 MG CAPSULE PO SCH (17:16)
[2021-04-02] MEDS ORDERED: lisinopriL 20 MG TABLET PO SCH (21:00)
[2021-04-02] MEDS: LATANOPROST 0.005% OPHTH DROPS EACHEYE SCH (21:40)
[2021-04-02] MEDS: METOPROLOL SUCCINATE 25 MG TABLET PO SCH (21:40)
[2021-04-03] MEDS: SODIUM CHLORIDE 0.9% 1,000 ML IV SCH (00:45)
[2021-04-03] MEDS: IBUPROFEN 400 MG TABLET PO PRN ×3 (04:35→18:36)
[2021-04-03 05:02] LABS: BASOPHILS # (AUTO) 0.1 10^3/uL (0.0-0.1); BASOPHILS % (AUTO) 0.8 %; EOSINOPHILS # (AUTO) 0.2 10^3/uL (0.0-0.7); EOSINOPHILS % (AUTO) 2.1 %; HCT - HEMATOCRIT 34.1 % (37.0-47.0); LYMPHOCYTES # (AUTO) 2.8 10^3/uL (1.5-3.5); LYMPHOCYTES % (AUTO) 31.9 %; MEAN CORPUSCULAR HEMOGLOBIN 28.6 pg (27.0-31.0); MEAN CORPUSCULAR HGB CONC 32.3 g/dL (32.0-36.0); MEAN CORPUSCULAR VOLUME 88.6 fL (81.0-99.0); MEAN PLATELET VOLUME 9.6 fL (7.9-10.8); MONOCYTES # (AUTO) 0.5 10^3/uL (0.0-1.0); MONOCYTES % (AUTO) 5.5 %; NEUTROPHILS # (AUTO) 5.1 10^3/uL (1.5-6.6); NEUTROPHILS % (AUTO) 59.5 %; PLT - PLATELET COUNT 405 10^3/uL (130-450); RED BLOOD COUNT 3.85 10^6/uL (4.20-5.40); RED CELL DISTRIBUTION WIDTH 14.2 % (12.0-15.0); WHITE BLOOD COUNT 8.6 x10^3/uL (4.8-10.8)
[2021-04-03 05:09] LABS: CALCIUM 8.9 mg/dL (8.5-10.3); CREATININE 0.9 mg/dL (0.4-1.0)
[2021-04-03] MEDS: PANTOPRAZOLE 40 MG TABLET PO SCH (06:58)
[2021-04-03] MEDS: LEVOTHYROXINE 125 MCG TABLET PO SCH (06:58)
[2021-04-03] MEDS: oxyCODONE 5 MG TABLET PO PRN ×2 (07:59→14:14)
[2021-04-03] MEDS: SACCHAROMYCES BOULARDII 250 MG CAPSULE PO SCH ×2 (07:59→16:58)
[2021-04-03] MEDS: INSULIN ASPART 300 UNIT/3 ML PEN SUBQ SCH ×3 (08:01→16:58)
[2021-04-03] MEDS: hydroCHLOROthiazide 25 MG TABLET PO SCH (08:47)
[2021-04-03] MEDS: cefTRIAXone 1 GM in SODIUM CHLORIDE 0.9% MINIBAG 100 ML IV SCH (08:47)
[2021-04-03] MEDS: SODIUM CHLORIDE FLUSH 0.9% 10 ML SYRINGE IVP SCH (08:48)
--- NOTE | 2021-04-03 12:38 | Discharge Plan ---
Discharge Plan Problem Reviewed?: Yes Disposition: Home Health Service Condition: Stable Prescriptions: Meclizine [Antivert] 12.5 mg PO Q6HR PRN #20 tablet PRN Reason: Dizziness Ciprofloxacin HCl [Cipro] 500 mg PO BID #10 tablet Saccharomyces Boulardii [Florastor] 250 mg PO BIDWM #10 cap Diet: Diabetic Activity Restrictions: Activity as Tolerated Shower Restrictions: No (fall precaution) Instruction Topics: Dizziness Balance Probs Fainting, Dizziness Fainting Poss Causes, Dizziness Vertigo Balance Safety, Dizziness Fainting Ch, ED Dizziness Syncope Fainting W Pre, UTI, Meclizine tablets or capsules, Ciprofloxacin tablets Health Concerns: dizziness/vertigo/fall precaution, UTI Plan of Treatment: your vertigo and dizziness has significant improved after two PT and me to have BPPV treatment for you. you are arranged to have home health PT/OT treatment and Aid, and continue BPPV management, and Meclizine is prescribed for your symptom control. you have education for how to prevention of fall. You were found to have UTI, and antibiotics Cipro is prescribed for you to finish the treatment course. Care Goals: stabilization and improvement of your medical conditions. Assessment: discussed the care plan with you, answered your questions, you understood and agreed. Additional Instructions or Follow Up instructions: You may followup with your PCP in one week. Should your symptoms return or worsen, you may present ER or call 911 for help. Follow-Up Care: Home Health - PT, Home Health - OT No Smoking: If you smoke, Please STOP! Call for help. Follow-up with: Rivera Freitas DO [Primary Care Provider] -
[2021-04-03] MEDS: MECLIZINE 12.5 MG TABLET PO PRN ×2 (12:54→18:36)
--- NOTE | 2021-04-03 13:03 | DISCHARGE SUMMARY ---
Discharge Summary Admit Date: 04/01/21 Discharge Date: 04/03/21 Discharging Provider: Anders Lee Primary Care Provider: Dr. Sloane Freitas Condition at Discharge: Stable Discharge Disposition: Home Health Service Discharge Facility Name: home - DIAGNOSES Discharge Diagnoses with Status of Each Condition: (1)vertigo two PT and I evaluated and treated for pt. pt is found to have BPPV on the left with mild nystagmus. After two PT did BPPV maneuvers, pt feel her vertigo is much better controlled. pt walks in the nurse hallway with good balance and without difficult or distress. pt is scheduled to followup PT to have continue BPPV treatment on next week Tuesday04/06/21. pt is also arranged home health PT/OT and Aid. Pt is also prescribed meclizine PRN. (2)orthostatic intolerance resolved. pt walks in the nurse hallway with good balance and without difficult or distress. (3)UTI UA culture show positive for Proteus, pt is prescribed Cipro to finish the treatment course. 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 Gutierrez's HPI on 04/01/21 Loly horne pleasant 75-year-old female with a history of type 2 diabetes mellitus, hypertension, compression fracture of lumbar spine December 2020, hypothyroidism, obesity, who presents to the emergency room having had sudden onset of significant dizziness when she woke up this morning. Patient was in her usual state of health up until this morning when she woke up and got out of bed and suddenly started to feel very dizzy. A few hours later after trying to ambulate and resume her normal activities at home she also developed significant headache. This persisted so she decided to come to the ER for further evaluation. ED course: In the ED she was evaluated appropriately for the symptoms, with lab work being relatively unremarkable with no evidence of infection or other metabolic dis turbance to explain the symptoms. Her vital signs however did demonstrate significant hypertension with blood pressures in the 160s to 110 range, and partially responded to resuming her home medications. CT angiogram of head and neck were performed without evidence of acute abnormality though did show 40% stenosis of the MCA. Given that the patient's symptoms were most likely suggestive of BPV, attempt was made to ambulate the patient for possible discharge home however she was unable to ambulate and was demonstrating ataxia prompting concerns for the unlikely but not impossible concern for a cerebellar stroke so hospitalist admission was requested. - HOSPITAL COURSE Hospital Course: Patient Was admitted for vertigo, dizziness. pt was found to have BPPV left nystagmus. pt was treated by PT with bppv maneuvers. pt's symptoms were significant improved. Patient is scheduled to have physical therapist treatment in Next week 04/06/21. Patient's image study CTA of the neck, head, MRI of the brain were unremarkable. Patient's orthostatic intolerance was resolved. Patient walk in the hallway without difficult or distress. pt present good balance to walk. Orthostatic blood pressure check show orthostatic intolerance BP is resolved as well. Patient was found to have urinary symptoms and in the urinalysis pt show positive for Proteus. Patient is prescribed antibiotics to finish the treatment course. - ALLERGIES Allergies/Adverse Reactions: Allergies Allergy/AdvReac Type Severity Reaction Status Date / Time adhesive Allergy Rash Verified 04/01/21 13:07 manganese Allergy Rash Verified 04/01/21 13:07 niacin Allergy Rash Verified 04/01/21 13:07 [id number] Reductase AdvReac increased Verified 04/01/21 13:07 Inhibitor liver enzymes - MEDICATIONS Home Medications: Ambulatory Orders Medication Instructions Recorded Confirmed Insulin Detemir [Levemir] 45 - 50 units SUBQ QPM 06/27/15 04/02/21 Latanoprost [Xalatan] 1 drops EACHEYE QPM 06/27/15 04/02/21 Levothyroxine Sodium [Synthroid] 125 mcg PO QDAC 06/27/15 04/02/21 Metoprolol Succinate [Toprol Xl] 50 mg PO QPM 06/27/15 04/02/21 Multivitamin [Multivitamins] 1 cap PO DAILY 06/27/15 04/02/21 Omeprazole [PriLOSEC] 20 mg PO QPM 06/27/15 04/02/21 lisinopriL [Lisinopril] 40 mg PO QPM 06/27/15 04/02/21 metFORMIN [Glucophage] 1,000 mg PO BIDWM 06/27/15 04/02/21 oxyCODONE [Roxicodone] 5 mg PO Q4-6H PRN 02/16/21 04/02/21 Acetaminophen [Tylenol] 1,000 mg PO TID PRN #60 tablet 02/17/21 04/02/21 Calcitonin [Fortical] 1 spray ARIK DAILY 04/02/21 04/02/21 hydroCHLOROthiazide [Hydrodiuril] 25 mg PO DAILY 04/02/21 04/02/21 Ciprofloxacin HCl [Cipro] 500 mg PO BID #10 tablet 04/03/21 Meclizine [Antivert] 12.5 mg PO Q6HR PRN #20 tablet 04/03/21 Saccharomyces Boulardii [Florastor] 250 mg PO BIDWM #10 cap 04/03/21 - PHYSICAL EXAM AT DISCHARGE General Appearance: positive: No acute distress, Alert. negative: Lethargic Eyes Bilateral: positive: Normal inspection, PERRL, No lid inflammation ENT: positive: ENT inspection nml, No signs of dehydration. negative: Purulent nasal drainage Neck: positive: Nml inspection. negative: Thyromegaly, Stiff neck, Kernig's sign Respiratory: positive: Chest non-tender, No respiratory distress, Breath sounds nml. negative: Wheezes, Rales Cardiovascular: positive: Regular rate & rhythm, No murmur. negative: Tachycardia, Bradycardia, Systolic murmur, Diastolic murmur Peripheral Pulses: positive: 2+ Abdomen: positive: Non-tender, Nml bowel sounds, No distention. negative: Tenderness Back: positive: Nml inspection. negative: CVA tenderness (R), CVA tenderness (L) Skin: positive: Color nml, Warm, Dry. negative: Cyanosis, Diaphoresis Extremities: positive: Non-tender, Full ROM, Nml appearance. negative: Calf tenderness Neurologic/Psychiatric: positive: Oriented x3, Motor nml, Sensation nml, Mood/affect nml. negative: Weakness, Sensory loss, Facial droop, Slurred/abnml speech, Depressed mood/affect - LABS Result Diagrams: 04/03/21 04:30 04/03/21 04:30 - FOLLOW UP Follow Up: your vertigo and dizziness has significant improved after two PT and me to have BPPV treatment for you. you are arranged to have home health PT/OT treatment and Aid, and continue BPPV management, and Meclizine is prescribed for your symptom control. you have education for how to prevention of fall. You were found to have UTI, and antibiotics Cipro is prescribed for you to finish the treatment course. You may followup with your PCP in one week. Should your symptoms return or worsen, you may present ER or call 911 for help. - TIME SPENT Time Spent in Discharge (Minutes): 30
[2021-04-03 16:32] VITALS: BP 158/64
== END 2021-04-03 19:05 | disposition home health service (06) | DRG 149 ==
LOC: EDUNIT# → ED 12:59 → MS2 20:22 → OBSVTOIN 04-02 11:14
PROVIDERS: ADMIT Family Medicine Sports Medicine; ATTEND Nurse Practitioner Gerontology
DX: R42 Dizziness and giddiness (principal); S32.020A Wedge compression fracture of second lumbar vertebra, initial encounter for closed fracture; H81.12 Benign paroxysmal vertigo, left ear; N39.0 Urinary tract infection, site not specified; E78.00 Pure hypercholesterolemia, unspecified; H81.4 Vertigo of central origin; I95.1 Orthostatic hypotension; Z20.822 Contact with and (suspected) exposure to COVID-19; I65.23 Occlusion and stenosis of bilateral carotid arteries; B96.4 Proteus (mirabilis) (morganii) as the cause of diseases classified elsewhere; E11.9 Type 2 diabetes mellitus without complications; E03.9 Hypothyroidism, unspecified; E66.9 Obesity, unspecified; Z66 Do not resuscitate; I10 Essential (primary) hypertension; K21.9 Gastro-esophageal reflux disease without esophagitis; Z79.899 Other long term (current) drug therapy; Z79.4 Long term (current) use of insulin; Z68.41 Body mass index [BMI] 40.0-44.9, adult
CPT/HCPCS: 36415; 70496; 70498; 70551; 71045; 80048; 80053; 81001; 83036; 83690; 84443; 84484; 85025; 87077; 87086; 87181; 87631; 93005; 93306; 97112; 97161; 97164; 97165; 97530; 99284; 99285; A9270; G0378; J1815; J7120; J8499; Q9967; 0202U; 81003

== ENCOUNTER 2021-12-21 08:00 | Outpatient (CLI) | payer MEDICARE, OTHER ==
[2021-12-21 18:40] LABS: BASOPHILS # (AUTO) 0.1 10^3/uL (0.0-0.1); EOSINOPHILS # (AUTO) 0.2 10^3/uL (0.0-0.7); EOSINOPHILS % (AUTO) 1.9 %; HGB - HEMOGLOBIN 11.8 g/dL (12.0-16.0); LYMPHOCYTES # (AUTO) 1.9 10^3/uL (1.5-3.5); LYMPHOCYTES % (AUTO) 20.4 %; MEAN CORPUSCULAR HEMOGLOBIN 28.5 pg (27.0-31.0); MEAN CORPUSCULAR HGB CONC 31.9 g/dL (32.0-36.0); MEAN CORPUSCULAR VOLUME 89.4 fL (81.0-99.0); MONOCYTES # (AUTO) 0.3 10^3/uL (0.0-1.0); MONOCYTES % (AUTO) 3.7 %; NEUTROPHILS # (AUTO) 6.6 10^3/uL (1.5-6.6); NEUTROPHILS % (AUTO) 72.6 %; PLT - PLATELET COUNT 403 10^3/uL (130-450); RED BLOOD COUNT 4.14 10^6/uL (4.20-5.40); RED CELL DISTRIBUTION WIDTH 12.6 % (12.0-15.0); WHITE BLOOD COUNT 9.1 x10^3/uL (4.8-10.8)
[2021-12-21 19:21] LABS: ALBUMIN 3.6 g/dL (3.2-5.5); ALBUMIN/GLOBULIN RATIO 1.2 (1.0-2.2); ALKALINE PHOSPHATASE 93 IU/L (42-121); ALT ALANINE AMINOTRANSFERASE 21 IU/L (10-60); AST ASPARTATE AMINOTRANSFERASE 21 IU/L (10-42); BILIRUBIN,TOTAL 0.6 mg/dL (0.2-1.0); BUN - BLOOD UREA NITROGEN 26 mg/dL (6-20); CALCIUM 9.2 mg/dL (8.5-10.3); CARBON DIOXIDE - CO2 24 mmol/L (21-32); CHLORIDE 100 mmol/L (101-111); CHOL/HDL RATIO 9.3 (<4.4); CHOLESTEROL 327 mg/dL; CREATININE 1.1 mg/dL (0.4-1.0); GFR - MDRD 48 (>89); GLUCOSE 220 mg/dL (70-100); HDL CHOLESTEROL 35 mg/dL; POTASSIUM 4.4 mmol/L (3.5-5.0); SODIUM 135 mmol/L (135-145); TOTAL PROTEIN 6.7 g/dL (6.7-8.2); TRIGLYCERIDES 489 mg/dL
[2021-12-21 19:24] LABS: THYROID STIMULATING HORMONE 4.25 uIU/mL (0.34-5.60)
[2021-12-21 20:01] LABS: LDL CHOLESTEROL,DIRECT 192 mg/dL; LDLD/HDL RATIO 5.5 (<4.4)
[2021-12-21 20:46] LABS: ESTIMATED AVERAGE GLUCOSE 220 mg/dL (70-100); HEMOGLOBIN A1c% 9.3 % (4.27-6.07)
== END 2021-12-21 23:59 | disposition home or self-care (01) ==
LOC: LAB.WCP 08:00
PROVIDERS: ATTEND Family Medicine
DX: E11.8 Type 2 diabetes mellitus with unspecified complications (principal); E03.9 Hypothyroidism, unspecified
CPT/HCPCS: 36415; 80053; 80061; 83036; 83721; 84443; 85025

== ENCOUNTER 2022-12-13 14:16 | Outpatient (CLI) | payer MEDICARE, OTHER ==
[2022-12-13 17:45] LABS: BASOPHILS # (AUTO) 0.1 10^3/uL (0.0-0.1); BASOPHILS % (AUTO) 0.7 %; EOSINOPHILS # (AUTO) 0.1 10^3/uL (0.0-0.7); EOSINOPHILS % (AUTO) 1.1 %; HCT - HEMATOCRIT 33.1 % (37.0-47.0); LYMPHOCYTES # (AUTO) 2.2 10^3/uL (1.5-3.5); LYMPHOCYTES % (AUTO) 19.2 %; MEAN CORPUSCULAR HEMOGLOBIN 26.3 pg (27.0-31.0); MEAN CORPUSCULAR HGB CONC 30.2 g/dL (32.0-36.0); MEAN CORPUSCULAR VOLUME 87.1 fL (81.0-99.0); MEAN PLATELET VOLUME 10.1 fL (7.9-10.8); MONOCYTES # (AUTO) 0.5 10^3/uL (0.0-1.0); NEUTROPHILS # (AUTO) 8.5 10^3/uL (1.5-6.6); NEUTROPHILS % (AUTO) 74.6 %; PLT - PLATELET COUNT 445 10^3/uL (130-450); RED CELL DISTRIBUTION WIDTH 15.2 % (12.0-15.0); WHITE BLOOD COUNT 11.4 x10^3/uL (4.8-10.8)
[2022-12-13 18:22] LABS: ALBUMIN 3.6 g/dL (3.2-5.5); ALBUMIN/GLOBULIN RATIO 1.2 (1.0-2.2); ALKALINE PHOSPHATASE 75 IU/L (42-121); ALT ALANINE AMINOTRANSFERASE 17 IU/L (10-60); AST ASPARTATE AMINOTRANSFERASE 18 IU/L (10-42); BILIRUBIN,TOTAL 0.8 mg/dL (0.2-1.0); BUN - BLOOD UREA NITROGEN 22 mg/dL (6-20); CALCIUM 9.1 mg/dL (8.5-10.3); CARBON DIOXIDE - CO2 28 mmol/L (21-32); CHLORIDE 95 mmol/L (101-111); CHOL/HDL RATIO 6.1 (<4.4); CHOLESTEROL 230 mg/dL; GFR - MDRD 54 (>89); GLUCOSE 222 mg/dL (70-100); HDL CHOLESTEROL 38 mg/dL; LDL CHOLESTEROL,CALCULATED 143 mg/dL; LDL/HDL RATIO 3.8 (<4.4); POTASSIUM 4.2 mmol/L (3.5-5.0); SODIUM 132 mmol/L (135-145); TOTAL PROTEIN 6.7 g/dL (6.7-8.2); TRIGLYCERIDES 244 mg/dL; VLDL CHOLESTEROL 49 mg/dL
[2022-12-13 18:31] LABS: THYROID STIMULATING HORMONE 3.28 uIU/mL (0.34-5.60)
[2022-12-13 18:33] LABS: FREE T4 (FREE THYROXINE) 1.24 ng/dL (0.58-1.64)
[2022-12-14 12:29] LABS: ESTIMATED AVERAGE GLUCOSE 226 mg/dL (70-100); HEMOGLOBIN A1c% 9.5 % (4.27-6.07)
== END 2022-12-13 14:17 | disposition home or self-care (01) ==
LOC: LAB.N 14:16
PROVIDERS: ATTEND Physician Assistant
DX: E11.8 Type 2 diabetes mellitus with unspecified complications (principal); E03.9 Hypothyroidism, unspecified; R06.02 Shortness of breath
CPT/HCPCS: 36415; 80053; 80061; 82043; 82570; 82607; 83036; 83721; 83880; 84153; 84439; 84443; 85025

== ENCOUNTER 2022-12-30 11:32 | Outpatient (CLI) | payer MEDICARE, OTHER | END 2022-12-30 11:33 | disposition critical access hospital (66) | LOC: EMS 11:32 | DX: M25.532 Pain in left wrist (principal); R07.81 Pleurodynia; M54.50 Low back pain, unspecified; M54.2 Cervicalgia; S50.12XA Contusion of left forearm, initial encounter; S00.81XA Abrasion of other part of head, initial encounter; W19.XXXA Unspecified fall, initial encounter; Y92.009 Unspecified place in unspecified non-institutional (private) residence as the place of occurrence of the external cause | CPT/HCPCS: A0425; A0427 ==

== ENCOUNTER 2022-12-30 11:53 | Inpatient (IN) | payer MEDICARE, OTHER ==
[2022-12-30] MEDS ORDERED: MORPHINE 2 MG/ML CARPUJECT IVP STA ×2 (12:03→18:23)
--- NOTE | 2022-12-30 12:07 | ED Physician Documentation ---
PD HPI Fall - Stated complaint Stated Complaint: GLF - History obtained from History obtained from: Patient, EMS - History of Present Illness Mechanism of injury: Lost balance Where injury occurred: Home Injury(ies) location: Head, Face, Left Uppper Extremity Quality of pain: Pain Associated symptoms: No: LOC, AMS, Amnesia, Neck pain, Weakness, Paresthesias, Dyspnea, Nausea / vomiting, Hematemesis, Abdominal distension Contributing factors: No: Anticoagulated, Intoxicated - Additional information Additional information: This is a 77-year-old female who lives alone and was brought in by EMS after a fall. She states that she got up to use the bathroom the night before last and fell. She felt dizzy before her fall and fell to the ground but did not lose consciousness. Unfortunately she was not able to get up from the ground for the last 2 days. She was able to scoot herself along the ground and tried to get to her computer but it was not charged and she could not get to her phone which was in her bed. It was not until today when her focuser came and tried to reach her by phone and was not able to reach her when she called EMS and they were able to see her from the window on the ground. On arrival there, she was awake alert with stable vital signs though mild sinus tachycardia. She states she did not lose consciousness but did hit her head and her left shoulder and left wrist. She also states some soreness in both knees from scooting around. She reports chronic lower back pain but denies any acute new pain. She States she was in her usualState of health prior to the fall, denies any recent fever chills, cough or URI symptoms, chest pain or difficulty breathing, abdominal pain, nausea, vomiting, diarrhea, dysuria or other urinary symptoms.At this time, she is complaining only of left wrist pain and right rib pain but no other acute concerns, she currently denies any chest pain abdominal pain, or difficulty breathing.Patient states that she and her PCP were doing work-up for possible congestive heart failure as patient had an elevated BNP outpatient and she was started on Lasix, potassium and also a beta-tacos for which she has not been able to take the last couple of days. 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 Review of Systems Constitutional: reports: Reviewed and negative Eyes: reports: Reviewed and negative Ears: reports: Reviewed and negative Nose: reports: Reviewed and negative Throat: reports: Reviewed and negative Cardiac: reports: Reviewed and negative Respiratory: reports: Reviewed and negative GI: reports: Reviewed and negative : reports: Incontinent. denies: Dysuria, Frequency, Hesitancy, Unable to Void Skin: reports: Rash, Abrasion (s) Musculoskeletal: reports: Extremity pain, Joint pain. denies: Neck pain, Back pain, Extremity swelling Neurologic: reports: Generalized weakness. 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 HEENT: Glaucoma, Chronic sinusitis, Chronic hearing loss, Other Psych: Depression Musculoskeletal: Osteoarthritis, Osteoporosis, Osteopenia, Chronic back pain Derm: Other - Past Surgical History Past Surgical History: Yes General: Cholecystectomy, Colonoscopy, EGD Ortho: Hip replacement, Spine surgery /CAFE 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: Hysterectomy, Other HEENT: Cataracts, Myringotomy (tubes), Other - Present Medications Home Medications: Ambulatory Orders Medication Instructions Recorded Confirmed Insulin Detemir [Levemir] 45 - 50 units SUBQ QPM 06/27/15 04/02/21 Latanoprost [Xalatan] 1 drops EACHEYE QPM 06/27/15 04/02/21 Levothyroxine Sodium [Synthroid] 125 mcg PO QDAC 06/27/15 04/02/21 Metoprolol Succinate [Toprol Xl] 50 mg PO QPM 06/27/15 04/02/21 Multivitamin [Multivitamins] 1 cap PO DAILY 06/27/15 04/02/21 Omeprazole [PriLOSEC] 20 mg PO QPM 06/27/15 04/02/21 lisinopriL [Lisinopril] 40 mg PO QPM 06/27/15 04/02/21 metFORMIN [Glucophage] 1,000 mg PO BIDWM 06/27/15 04/02/21 oxyCODONE [Roxicodone] 5 mg PO Q4-6H PRN 02/16/21 04/02/21 Acetaminophen [Tylenol] 1,000 mg PO TID PRN #60 tablet 02/17/21 04/02/21 Calcitonin [Fortical] 1 spray ARIK DAILY 04/02/21 04/02/21 hydroCHLOROthiazide [Hydrodiuril] 25 mg PO DAILY 04/02/21 04/02/21 Ciprofloxacin HCl [Cipro] 500 mg PO BID #10 tablet 04/03/21 Meclizine [Antivert] 12.5 mg PO Q6HR PRN #20 tablet 04/03/21 Saccharomyces Boulardii [Florastor] 250 mg PO BIDWM #10 cap 04/03/21 - Allergies Allergies/Adverse Reactions: Allergies Allergy/AdvReac Type Severity Reaction Status Date / Time adhesive Allergy Rash Verified 04/01/21 13:07 manganese Allergy Rash Verified 04/01/21 13:07 niacin Allergy Rash Verified 04/01/21 13:07 [id number]-[id number] Reductase AdvReac increased Verified 04/01/21 13:07 Inhibitor liver [Hiavzyy-Dpr-Vll Reductase enzymes Inhibitor] - Social History Does the pt smoke?: No Smoking Status: Never smoker Does the pt drink ETOH?: No Does the pt have substance abuse?: No - Immunizations Immunizations are current?: Yes - POLST Patient has POLST: No POLST Status: DNR PD ED PE NORMAL - Vitals Vital signs reviewed: Yes - General General: Alert and oriented X 3, No acute distress, Well developed/nourished, Other (Morbidly obese and soiled clothing) - HEENT HEENT: Atraumatic, PERRL, EOMI, Ears normal, Moist mucous membranes, Pharynx benign, Dentition benign - Neck Neck: Supple, no meningeal sign, No JVD, No bruit - Cardiac Cardiac: No murmur, No gallop, No rub, Strong equal pulses, Other (Tachycardia) - Respiratory Respiratory: No respiratory distress, Clear bilaterally, Other (Diminished bilateral bases) - Abdomen Abdomen: Normal bowel sounds, Soft, Non tender, Non distended, No organomegaly - Female Female : Other (Severe excoriation in the folds of the groin perivaginal area) - Back Back: No CVA TTP, No spinal TTP - Derm Derm: Normal color, Other (Perivaginal excoriation and redness, bilateral elbow abrasions) - Extremities Extremities: No edema, No calf tenderness / cord, Other (There is tenderness and bruising of the left forearm and to the left wrist with tenderness particular at the left wrist and in the left hand. Mild swelling of this area, no erythema. Tenderness over the left shoulder and left clavicle. No scapular tenderness, no right upper arm or shoulder tender) - Neuro Neuro: Alert and oriented X 3, boarding specialist 2-12 intact, No motor deficit, No sensory deficit, Normal speech Eye Opening: Spontaneous Motor: Obeys Commands Verbal: Oriented GCS Score: 15 - Psych Psych: Normal mood, Normal affect Results - Vitals Vitals: Vital Signs - 24 hr 12/30/22 12/30/22 12/30/22 12:09 14:09 16:07 Temperature 36.7 C Heart Rate 115 H 118 H 113 H Respiratory 20 30 H 16 Rate Blood Pressure 178/87 H 145/78 H 163/93 H O2 Saturation 98 95 96 Oxygen O2 Source Room air - EKG (time done) No standard instances Rate: Rate (enter#) (113) Rhythm: Sinus tachycardia [place]: Normal Intervals: Normal IA QRS: Normal Ischemia: Non specific changes Compare to prior EKG: Changed from prior EKG Computer interpretation: Agree with computer - Labs Labs: Laboratory Tests 12/30/22 12/30/22 12/30/22 12:13 12:13 12:13 WBC 14.6 H RBC 4.05 L Hgb 10.7 L Hct 35.1 L MCV 86.7 MCH 26.4 L MCHC 30.5 L RDW 14.7 Plt Count 477 H MPV 9.5 Neut # (Auto) 13.3 H Lymph # (Auto) 0.7 L [place] # (Auto) 0.5 Eos # (Auto) 0.0 Baso # (Auto) 0.0 Absolute Nucleated RBC 0.00 Nucleated RBC % 0.0 Sodium 132 L Potassium 4.1 Chloride 92 L Carbon Dioxide 23 Anion Gap 17.0 H BUN 27 H Creatinine 0.9 Estimated GFR (MDRD) 60 L Glucose 360 H Calcium 8.9 Total Bilirubin 1.5 H AST 37 ALT 25 Alkaline Phosphatase 82 CK-MB (CK-2) 32.5 H Troponin I High Sens 454.2 H* Total Protein 6.8 Albumin 3.5 Globulin 3.3 Albumin/Globulin Ratio 1.1 Lipase 24 Urine Color Urine Clarity Urine pH Ur Specific [place] Urine Protein Urine Glucose (UA) Urine Ketones Urine Occult Blood Urine Nitrite Urine Bilirubin Urine Urobilinogen Ur Leukocyte Esterase Urine RBC Urine WBC Ur Squamous Epith Cells Urine Bacteria Ur Microscopic Review Urine Culture Comments 12/30/22 12/30/22 13:34 13:46 WBC RBC Hgb Hct MCV MCH MCHC RDW Plt Count MPV Neut # (Auto) Lymph # (Auto) [place] # (Auto) Eos # (Auto) Baso # (Auto) Absolute Nucleated RBC Nucleated RBC % Sodium Potassium Chloride Carbon Dioxide Anion Gap BUN Creatinine Estimated GFR (MDRD) Glucose Calcium Total Bilirubin AST ALT Alkaline Phosphatase CK-MB (CK-2) Troponin I High Sens 533.4 H* Total Protein Albumin Globulin Albumin/Globulin Ratio Lipase Urine Color YELLOW Urine Clarity CLOUDY Urine pH 6.0 Ur Specific [place] 1.025 Urine Protein 30 H Urine Glucose (UA) >=1000 H Urine Ketones 40 H Urine Occult Blood MODERATE H Urine Nitrite NEGATIVE Urine Bilirubin NEGATIVE Urine Urobilinogen 0.2 (NORMAL) Ur Leukocyte Esterase MODERATE H Urine RBC 0-5 Urine WBC >25 H Ur Squamous Epith Cells NONE SEEN Urine Bacteria Moderate H Ur Microscopic Review INDICATED Urine Culture Comments INDICATED - Rads (name of study) No standard instances Radiology: Final report received PD Medical Decision Making - ED course Complexity details: reviewed old records, reviewed results, re-evaluated patient, considered differential, d/w patient, d/w family, d/w [employer] manufacturing consultant ED course: This is a 77-year-old female with a history of diabetes as well as possible CHF, on Lasix and metoprolol as an outpatient who presented after a fall at home 2 nights ago after which she was on the ground for a couple of days. She did have dizziness prior to the fall, no chest pain or difficulty breathing. On arrival here, the patient is awake and alert, mildly tachycardic which I suspect is secondary to being without her beta-tacos for the last 2 days as well as mild dehydration. Her physical exam reveals a swelling and tenderness of the left wrist and left shoulder, some small abrasions on the elbows and knees, and excoriation of the perivaginal area due to incontinence. Her exam is otherwise reassuring. We obtained x-rays which show a left distal radius and scaphoid fracture, no other bony injuries. Head CT and chest CT are stable. Her EKG initially showed a lot of artifact with some possible ST changes however repeat shows sinus tachycardia, no acute ST changes. Her initial troponin is in the 400s rising to 533 however patient has no acute findings on EKG per my read and no chest pain. I I have reached out to cardiology at this [place] and I am waiting for callback however at this time, we will start the patient on daily aspirin, twice daily Lovenox, and her metoprolol and lisinopril were resumed. She has allergy to statins. She also has signs of UTI on her urinalysis and was started on Ceftriaxone. The patient will need admission to the hospital for her NSTEMI as well as UTI, poor mobility, recurrent falls. She will need PT evaluation. Boarding orders placed as I do not anticipate transfer but I am waiting to hear from cardiology. There are no beds in the hospital at this time however therefore patient will stay in the ER. Departure - Departure Disposition: 66 [facility] DC/Xfer Condition: Good
[2022-12-30 12:19] LABS: BASOPHILS % (AUTO) 0.3 %; HCT - HEMATOCRIT 35.1 % (37.0-47.0); HGB - HEMOGLOBIN 10.7 g/dL (12.0-16.0); LYMPHOCYTES # (AUTO) 0.7 10^3/uL (1.5-3.5); LYMPHOCYTES % (AUTO) 4.9 %; MEAN CORPUSCULAR HEMOGLOBIN 26.4 pg (27.0-31.0); MEAN CORPUSCULAR HGB CONC 30.5 g/dL (32.0-36.0); MEAN CORPUSCULAR VOLUME 86.7 fL (81.0-99.0); MEAN PLATELET VOLUME 9.5 fL (7.9-10.8); MONOCYTES # (AUTO) 0.5 10^3/uL (0.0-1.0); MONOCYTES % (AUTO) 3.4 %; NEUTROPHILS # (AUTO) 13.3 10^3/uL (1.5-6.6); PLT - PLATELET COUNT 477 10^3/uL (130-450); RED BLOOD COUNT 4.05 10^6/uL (4.20-5.40); RED CELL DISTRIBUTION WIDTH 14.7 % (12.0-15.0); WHITE BLOOD COUNT 14.6 x10^3/uL (4.8-10.8)
[2022-12-30 12:33] LABS: ALBUMIN 3.5 g/dL (3.2-5.5); ALBUMIN/GLOBULIN RATIO 1.1 (1.0-2.2); BILIRUBIN,TOTAL 1.5 mg/dL (0.2-1.0); CALCIUM 8.9 mg/dL (8.5-10.3); CREATININE 0.9 mg/dL (0.4-1.0); POTASSIUM 4.1 mmol/L (3.5-5.0); TOTAL PROTEIN 6.8 g/dL (6.7-8.2)
[2022-12-30 12:37] LABS: CREATINE KINASE MB 32.5 ng/mL (0.6-6.3)
[2022-12-30 12:50] LABS: TROPONIN I HIGH SENSITIVITY 454.2 ng/L (2.3-14.8)
--- NOTE | 2022-12-30 13:18 | CT Report ---
PROCEDURE: CT brain without contrast INDICATIONS: fall TECHNIQUE: Noncontrast 4.5 mm thick angled axial sections acquired from the foramen magnum to the vertex. For r adiation dose reduction, the following was used: automated exposure control, adjustment of mA and/or kV according to patient size. COMPARISON: None. FINDINGS: Image quality: Excellent. CSF spaces: Basal cisterns are patent. No extra-axial fluid collections. Ventricles are normal in size and shape. Brain: No midline shift. No intracranial masses or hemorrhage. Nunez-white matter interface is norm al. Moderate atrophy and multifocal white matter chronic ischemic change noted. Atherosclerotic vasc ular calcification noted in the cavernous segments of both internal carotid arteries as well as the i ntradural vertebral arteries. Skull and face: Calvarium and visualized facial bones are intact, without suspicious lesions. Bilat eral intraocular lens replacements noted. Sinuses: Visualized sinuses and mastoids are clear. IMPRESSION: Atrophy and chronic ischemic change without intracranial hemorrhage or mass effect Reviewed by: Emile Zaldivar MD on 12/30/2022 12:16 PM [place] Approved by: Emile Zaldivar MD on 12/30/2022 12:16 PM AKST Station ID: [id number]
--- NOTE | 2022-12-30 13:18 | XRAY Report ---
PROCEDURE: Chest 1 View X-Ray INDICATIONS: chest pain TECHNIQUE: One view of the chest was acquired. COMPARISON: 04/01/2021 FINDINGS: Surgical changes and devices: None. Lungs and pleura: No pleural effusions or pneumothorax. Lungs are clear. Mediastinum: Mediastinal contours appear normal. Heart size is normal. Bones and chest wall: No suspicious bony lesions. Overlying soft tissues appear unremarkable. IMPRESSION: No acute process. Reviewed by: Patrice Recinos MD on 12/30/2022 1:17 PM PST Approved by: Patrice Recinos MD on 12/30/2022 1:17 PM [facility] Station ID: [id number]
--- NOTE | 2022-12-30 13:20 | XRAY Report ---
PROCEDURE: Shoulder 3 View LT INDICATIONS: fall/pain TECHNIQUE: 4 views of the shoulder were acquired. COMPARISON: None. FINDINGS: Bones: No fractures or dislocations. No suspicious bony lesions. Visualized ribs appear intact. P eriarticular osteophyte formation at the acromioclavicular and glenohumeral joints. Soft tissues: No suspicious soft tissue calcifications. IMPRESSION: Osteoarthritis. No acute fracture. No osseous lesion. If symptoms and/or clinical suspic ion for pathology continue, further assessment with repeat plain films, or advanced imaging (e.g., CT , MRI, or bone scan) is recommended for further assessment. Reviewed by: Patrice Recinos MD on 12/30/2022 1:19 PM PST Approved by: Patrice Recinos MD on 12/30/2022 1:19 PM PST Station ID: [id number]
--- NOTE | 2022-12-30 13:22 | XRAY Report ---
PROCEDURE: Ribs 2 View RT INDICATIONS: fall w/ rib pain TECHNIQUE: 2 views of the right ribs were acquired. COMPARISON: Chest radiograph on the same day and chest radiograph dated 04/01/2021 FINDINGS: Surgical changes and devices: Surgical clips are seen in right breast and right axilla. Bones and chest wall: No fractures or dislocations. No suspicious bony lesions. Overlying soft tis sues appear unremarkable. Lungs and pleura: The visualized lung appears clear. No pleural effusions or pneumothorax are visib le. IMPRESSION: No obvious displaced right rib fracture is seen. No acute cardiopulmonary pathology. Reviewed by: Isma Carranza MD on 12/30/2022 1:21 PM PST Approved by: Isma Carranza MD on 12/30/2022 1:21 PM PST Station ID: [id number]
--- NOTE | 2022-12-30 13:23 | XRAY Report ---
PROCEDURE: Wrist 3 View LT INDICATIONS: fall w/ pain TECHNIQUE: 3 views of the wrist were acquired. COMPARISON: None FINDINGS: Bones: There is a comminuted impacted, moderately displaced fracture the distal radius with articular surface extension to the radiocarpal joint. Mildly displaced ulnar styloid fracture. Widening of the scapholunate interval. Small bony fragment at the proximal aspect of the scaphoid. Scaphoid view: Not requested Soft tissues: No suspicious soft tissue calcifications. IMPRESSION: 1. Distal radial and ulnar fractures. 2. Proximal scaphoid fracture. Reviewed by: Patrice Recinos MD on 12/30/2022 1:21 PM PST Approved by: Patrice Recinos MD on 12/30/2022 1:21 PM PST Station ID: [id number]
[2022-12-30] MEDS ORDERED: SODIUM CHLORIDE 0.9% 500 ML IV STA (13:32)
--- NOTE | 2022-12-30 13:45 | CT Report ---
PROCEDURE: CHEST WO INDICATIONS: CHEST PAIN, FALL TECHNIQUE: Noncontrast 1mm axial images were acquired from the pulmonary apices to the posterior costophrenic an gles. Axial 5 mm soft tissue kernel reconstructions were performed as well as 8 mm axial MIP and cor onal and sagittal 5 mm reformations. For radiation dose reduction, the following was used: automate d exposure control, adjustment of mA and/or kV according to patient size. COMPARISON: Chest radiograph on the same day. CT of abdomen and pelvis dated 02/15/2021. FINDINGS: Image quality: Excellent. Lungs and pleura: Dependent atelectasis in posterior aspect of bilateral lower lung vera are seen. Finding is slightly more prominent on the right side. Trace amount of right pleural effusion is also likely present. No pneumothorax. Central and peripheral airways are patent and normal in caliber. Mediastinum: Heart size is mildly enlarged. No pericardial effusion. No mediastinal hematoma. Mild to moderate atherosclerotic calcifications are seen in coronary vessels and thoracic aorta. No media stinal adenopathy by size criteria. Thoracic aorta and central pulmonary arteries are normal in size . Esophagus is normal in caliber. No hiatal hernia. Bones and chest wall: No suspicious bony lesions. No vertebral body compression fractures. Degener ative disc disease throughout thoracic spine is seen. No gross rib fracture. No axillary or supraclav icular adenopathy by size criteria. The thyroid is normal in size and there are no incidental findin gs. Abdomen: Visualized upper abdominal solid organs and bowel loops appear normal in the absence of con trast. IMPRESSION: 1. Dependent atelectasis in posterior aspect of bilateral lower lobes. Trace right pleural effusion. No pleural or pneumothorax. Airway is patent. 2. No gross acute rib fracture. No acute compression fracture in thoracic spine. 3. No mediastinal hematoma. Mild cardiomegaly, no pericardial effusion. CLINICAL RECOMMENDATION STATEMENTS: In patients <35 years with an ITN detected on CT, MRI, or extrathyroidal ultrasound, the Committee re commends further evaluation with dedicated thyroid ultrasound if the nodule is "e1 cm and has no susp icious imaging features, and if the patient has normal life expectancy. In patients "e35 years with an ITN detected on CT, MRI, or extrathyroidal ultrasound, the Committee r ecommends further evaluation with dedicated thyroid ultrasound if the nodule is "e1.5 cm and has no s uspicious imaging features, and if the patient has normal life expectancy. (ACR, 2014) Reviewed by: Isma Carranza MD on 12/30/2022 1:44 PM PST Approved by: Isma Carranza MD on 12/30/2022 1:44 PM PST Station ID: [id number]
[2022-12-30] MEDS ORDERED: ASPIRIN CHEW 81 MG TABLET PO STA (14:14)
[2022-12-30 14:20] LABS: BILIRUBIN,URINE NEGATIVE (NEGATIVE); GLUCOSE, URINE (UA) >=1000 mg/dL (NEGATIVE); KETONES,URINE (UA) 40 mg/dL (NEGATIVE); LEUKOCYTE ESTERASE, URINE MODERATE (NEGATIVE); NITRITE,URINE NEGATIVE (NEGATIVE); OCCULT BLOOD,URINE MODERATE (NEGATIVE); PROTEIN,URINE 30 mg/dL (NEGATIVE); UROBILINOGEN,URINE 0.2 (NORMAL) E.U./dL (NORMAL)
[2022-12-30 14:22] LABS: CLARITY,URINE CLOUDY (CLEAR)
[2022-12-30 14:30] LABS: BACTERIA,URINE Moderate /HPF (None Seen); RBC,URINE 0-5 /HPF (0-5); SQUAMOUS EPITHELIAL CELL,UR NONE SEEN (<= Few); WBC,URINE >25 /HPF (0-5)
[2022-12-30] MEDS ORDERED: ENOXAPARIN 100 MG/ML SYRINGE SUBQ SCH (14:41)
[2022-12-30] MEDS ORDERED: ACETAMINOPHEN 500 MG TABLET PO PRN (14:42)
[2022-12-30] MEDS ORDERED: ONDANSETRON 4 MG/2 ML VIAL IVP PRN ×2 (14:42→20:01)
[2022-12-30] MEDS ORDERED: cefTRIAXone 2 GM in SODIUM CHLORIDE 0.9% MINIBAG 100 ML IV STA (14:45)
[2022-12-30] MEDS ORDERED: cefTRIAXone 2 GM VIAL ONE (15:13)
[2022-12-30] MEDS: ENOXAPARIN 150 MG/ML SYRINGE SUBQ SCH ×2 (15:28→22:47)
[2022-12-30] MEDS ORDERED: oxyCODONE 5 MG TABLET PO PRN (16:08)
[2022-12-30] MEDS: METOPROLOL SUCCINATE 50 MG TABLET PO SCH (16:17)
[2022-12-30] MEDS: INSULIN LISPRO 300 UNIT/3 ML PEN SUBQ SCH ×2 (17:16→22:48)
[2022-12-30] MEDS: lisinopriL 20 MG TABLET PO SCH (18:44)
--- NOTE | 2022-12-30 19:45 | HISTORY & PHYSICAL EXAMINATION ---
Chief Complaint - Chief Complaint Chief Complaint: Fall at home History of Present Illness - Admitted From Admitted From:: Home via EMS - History Obtained From Records Reviewed: [employer] and [employer] History obtained from: Patient and IMPROVEMENT RN Mono Exam Limitations: None - History of Present Illness HPI Comment/Other: This is a 77-year-old morbidly obese female who lives alone. She fell on Tuesday and was unable to call for help (December 28) and lay in her house. She had gotten up to go to the bathroom, felt dizzy right before fall, and landed on the bathroom floor. No loss of consciousness. No blow to the head. She scooted herself on the bathroom floor to try and get her computer but it was not charged. She could not get to her phone. Fishing Vessel Operator came today to try and reach her by phone and was not able to reach her so EMS was called. EMS saw her through the window in her house. She had past medical history of type 2 diabetes mellitus with neuropathy. Morbid obesity. Chronic shortness of breath that she is being evaluated for for congestive heart failure and has an echocardiogram scheduled for January. She feels like she is not sleeping well, having more breathing problems, and gained 5 pounds of weight over 1 month. A felt like her legs and belly were swollen when she saw her PCP on December 13. She sees Dr. Jimenez of [facility] cardiology in [place]. She had a BNP in the office of 159 when she was seen for these complaints on December 13. Today's BNP is 885. Hyperlipidemia. Fatty liver disease. But no hypertension, no smoking. In the emergency room temperature was 36.7. Heart rate 115. Blood pressure 178/87. Respirations 20. 98% on room air. She is 5 feet 2 inches tall, and weighs 140 kg. Physical exam was unremarkable other than for generalized weakness, and the suggestion that she is a very sedentary person to begin with. She denies syncope, chest pain, cough, and has her chronic shortness of breath that she always does. Troponin #1 was 454, troponin #2 was 533, and troponin #3 is 712. EKG has atrial fibrillation/flutter as read by the computer. However I am seeing this is normal sinus rhythm. She has nonspecific ST-T wave changes in the lateral leads but no diagnostic criteria of an AL. Cardiology was consulted. It was the on-call commercial housekeeper from [facility]. He recommends Lovenox, aspirin, statin. He also recommends an echo. Unfortunately it is evening. There is no echo available until next Tuesday. As such the ER provider has discussed the case with me. We discussed possible syncope. Her work-up today. In the recommendations of cardiology. History - Past Medical History Cardiovascular: reports: Hypertension, High cholesterol, Murmur Respiratory: reports: None Neuro: reports: Peripheral neuropathy Endocrine/Autoimmune: reports: Type 2 diabetes (Chronically uncontrolled with peripheral neuropathy), HyPOthyroidism, Other (Morbid obesity) GI: reports: GERD, Ulcers (H. pylori gastritis September 2010), Other (Kitchen's esophagus , EGD 2009, and 2017. 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 Right now just being observed), Glaucoma, Chronic sinusitis, Chronic hearing loss, Other. denies: Macular degeneration Psych: reports: Depression Musculoskeletal: reports: Osteoarthritis, Osteoporosis, Osteopenia, Chronic back pain Derm: reports: Eczema (With dermatitis left wrist for decades, possible metal allergy. Seen by allergy immunology to make sure she could tolerate hip orthotic January 2018), Other MRSA Hx?: Yes Other Past Medical History: Iron deficiency anemia. - Past Surgical History General: reports: Cholecystectomy (1979), Colonoscopy, EGD (August 2018. Recommend repeat endoscopy August 2023) Ortho: reports: Hip replacement (May [address] Littlejohn), Spine surgery (Minimal axis bilateral decompression L4-5, L5-S1 January 2016) /ELECTRIC METER INSTALLER: reports: Hysterectomy (1975), Other HEENT: reports: Cataracts, Myringotomy (tubes) (2016), Other - Family & Social History Family History: Mother: CVA/TIA (Aneurysm) Family History Comment/Other: Mom at age 68 of a cerebral aneurysm. Dad at age 62 of lung cancer. 1 brother has coronary artery disease and is . 2 children healthy Living arrangement: At home Living Situation: Alone Social History Notes: Lived in the [facility] for 73 years. Prior to that she lived in [place]. She is with her dying in 2019. Never smoked. Rarely drinks alcohol.No recreational substance abuse. 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 - Substance History Use: Uses substance without health or social issues: NONE - POLST Patient has POLST: No POLST Status: DNR Meds/Allgy - Home Medications Home Medications: Ambulatory Orders Medication Instructions Recorded Confirmed Insulin Detemir [Levemir] 45 - 50 units SUBQ QPM 06/27/15 04/02/21 Latanoprost [Xalatan] 1 drops EACHEYE QPM 06/27/15 04/02/21 Levothyroxine Sodium [Synthroid] 125 mcg PO QDAC 06/27/15 04/02/21 Metoprolol Succinate [Toprol Xl] 50 mg PO QPM 06/27/15 04/02/21 Multivitamin [Multivitamins] 1 cap PO DAILY 06/27/15 04/02/21 Omeprazole [PriLOSEC] 20 mg PO QPM 06/27/15 04/02/21 lisinopriL [Lisinopril] 40 mg PO QPM 06/27/15 04/02/21 metFORMIN [Glucophage] 1,000 mg PO BIDWM 06/27/15 04/02/21 oxyCODONE [Roxicodone] 5 mg PO Q4-6H PRN 02/16/21 04/02/21 Acetaminophen [Tylenol] 1,000 mg PO TID PRN #60 tablet 02/17/21 04/02/21 Calcitonin [Fortical] 1 spray ARIK DAILY 04/02/21 04/02/21 hydroCHLOROthiazide [Hydrodiuril] 25 mg PO DAILY 04/02/21 04/02/21 Ciprofloxacin HCl [Cipro] 500 mg PO BID #10 tablet 04/03/21 Meclizine [Antivert] 12.5 mg PO Q6HR PRN #20 tablet 04/03/21 Saccharomyces Boulardii [Florastor] 250 mg PO BIDWM #10 cap 04/03/21 - Allergies Allergies/Adverse Reactions: Allergies Allergy/AdvReac Type Severity Reaction Status Date / Time adhesive Allergy Rash Verified 04/01/21 13:07 manganese Allergy Rash Verified 04/01/21 13:07 niacin Allergy Rash Verified 04/01/21 13:07 Zemljsk-UHA-GgC Reductase AdvReac increased Verified 04/01/21 13:07 Inhibitor liver [Ydzoypq-Jfp-Jvl Reductase enzymes Inhibitor] Review of Systems - Musculoskeletal Musculoskeletal: reports: Other (Chronic right leg and hip pain. Evaluated by Ortho in 2019 and felt to have possible trochanteric bursitis) Prior Level of Functionality: Slowing down, but still independent in her own home. Her weight and arthritis are limiting her mobility. Lately she has been getting more short of breath Exam - Vital Signs Reviewed Vital Signs: Yes Vital Signs: Vital Signs x48h Temp Pulse Resp BP Pulse Ox 12/30/22 19:14 54 L 15 151/88 H 96 12/30/22 16:07 113 H 16 163/93 H 96 12/30/22 14:09 118 H 30 H 145/78 H 95 12/30/22 12:09 36.7 C 115 H 20 178/87 H 98 - Physical Exam General Appearance: positive: No acute distress, Mild distress (Laying at about 20 degrees, using her abdominal muscles to breathe), Other (Morbidly obese female who looks younger than stated age. Complaining of thirst) Eyes Bilateral: positive: PERRL, EOMI ENT: positive: Dry mucous membranes, Other (The skin of her nose has been scraped, upper lip is with abrasion) Neck: positive: No JVD. negative: Stiff neck Respiratory: positive: Other (Mild respiratory distress. Can speak but gas. And using her abdominal wall muscles to help her breathe). negative: Wheezes, Rales, Rhonchi Cardiovascular: positive: Regular rate & rhythm, Systolic murmur, Other (Very big chest wall, I do not feel her PMI) Peripheral Pulses: positive: 1+ Abdomen: positive: Non-tender, No organomegaly, Nml bowel sounds, No distention, Other (Hugely obese, large pannus) Skin: positive: Warm, Dry, Other (Distal shins are tinged with red, toes are red with rubor) Extremities: positive: Full ROM (Except for the left wrist which is now wrapped in a soft cast), Pedal edema (Toes particularly pulm. Edema lessens is go up her ankles and her legs but it still present) Neurologic/Psychiatric: positive: Oriented x3, CN's nml (2-12). negative: Motor nml (The fall has really bruised her body all over. Difficult for her to sit up, rollover, and be mobile but no focal deficits) Conclusion/Plan - Problem List (1) NSTEMI (non-ST elevated myocardial infarction) Conclusion/Plan: Patient presents as a fall in the bathroom. She seems to have orthopedic problems that are resulted in the fall. There is antecedent dizziness but no complaints of chest pain or palpitations.She says she really just cannot remember. She was half asleep when she got up to go to the bathroom and the next and she knows she is on the floor. She knew she was falling. She is definite that there is no syncope. She gives a history of being short of breath with increasing leg edema over the last few weeks. She may have had an anginal equivalent with her congestive heart failure. In any case she is presenting with an NSTEMI by labs. Case is already been discussed with cardiology. [facility] cardiology was called. Tomorrow I will probably call her own commercial housekeeper with [facility]. Plan: NSTEMI protocol. She is already received statin, aspirin, Lovenox. I will continue same. She on beta-tacos and lisinopril at home. Those have been resumed. We will continue to trend troponins. Watch for signs and symptoms of worsening congestive heart failure or arrhythmia. At that point she would need a repeat EKG. (2) HTN (hypertension) Conclusion/Plan: Hypertensive in the emergency room. At home she takes Lasix, lisinopril 40, nifedipine 60. Nifedipine and of itself a pelvic contribute to more pedal edema than not. Will not be resuming nifedipine and continue lisinopril and beta- tacos tomorrow. Tonight she will receive Lopressor 25 4 times daily according to the NSTEMI protocol Qualifiers: Hypertension type: primary hypertension Qualified Code(s): I10 - Essential (primary) hypertension (3) Hyperlipidemia Conclusion/Plan: Not on a statin and her primary care office. Cholesterol was 327 December 21, 2021. 230 December 13, 2022. Triglycerides were 489, 244 respectively. Statin was given in the ER as part of the NSTEMI protocol. it will be continued during her stay . If she tolerates it. Statins are listed as an allergy. She states that it gives her myalgias. Niacin gives her hives. And Zetia elevated her liver enzymes. Qualifiers: Hyperlipidemia type: mixed hyperlipidemia Qualified Code(s): E78.2 - Mixed hyperlipidemia (4) Shortness of breath Conclusion/Plan: Possibly due to angina in the last few weeks, versus new congestive heart failure. Unfortunately we do not have an medical service technician tomorrow. We only have echoes Tuesday, Tuesday, and . I will discussed the case with the commercial housekeeper tomorrow. See if I can get her into his office expeditiously after discharge next week. Hopefully she can get a stress test to stage her, and get the echocardiogram then. (5) Hypothyroidism Conclusion/Plan: TSH was 3.26 2 weeks ago. Usual Synthroid dose will be resumed here. No changes Qualifiers: Hypothyroidism type: acquired Qualified Code(s): E03.9 - Hypothyroidism, unspecified (6) Fall at home Conclusion/Plan: She describes being dizzy but no discrete arrhythmia. There is no syncope. No blow to the head. She also has orthopedic complaints that could have contributed to this. She will be placed on telemetry, echo will be obtained, and once she is stable, evaluate with PT and OT. Qualifiers: Encounter type: initial encounter Qualified Code(s): W19.XXXA - Unspecified fall, initial encounter; Y92.009 - Unspecified place in unspecified non- institutional (private) residence as the place of occurrence of the external cause (7) Anemia Conclusion/Plan: Anemia panel in a.m. 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 She is on Prilosec at home. I will substitute Protonix here. Qualifiers: Anemia type: unspecified type Qualified Code(s): D64.9 - Anemia, unspecified (8) Leukocytosis Conclusion/Plan: Urinalysis has moderate bacteria, leukocyte Estrace, white cells. No squamous epithelial cells. Chest x-ray is without pneumonia Belly exam is benign. Treat her as a UTI. Rocephin ordered Qualifiers: Leukocytosis type: bandemia Qualified Code(s): D72.825 - Bandemia (9) Radius with ulna, distal end fracture Conclusion/Plan: Patient is in a splint. Orthopedic surgery will be consulted. Pain medicines written for in the form of Tylenol, oxycodone, or morphine Qualifiers: Encounter type: initial encounter Fracture type: closed Laterality: left Qualified Code(s): S52.502A - Unspecified fracture of the lower end of left radius, initial encounter for closed fracture; S52.602A - Unspecified fracture of lower end of left ulna, initial encounter for closed fracture (10) Glaucoma Conclusion/Plan: I will make sure that pharmacy knows that she can take her own drops from home Qualifiers: Glaucoma type: open-angle Open angle glaucoma type: unspecified type Laterality: bilateral Glaucoma stage: mild stage Qualified Code(s): H40.10X1 - Unspecified open-angle glaucoma, mild stage - Lab Results Lab results reviewed: Yes Fish Bones: 12/30/22 12:13 12/30/22 12:13 - Diagnostic Imaging Results Diagnostic Imaging Results: positive: Final report reviewed Diagnostic Imaging Results Comments: Head CT with atrophy and chronic ischemic changes without intracranial hemorrhage or affect. Chest x-ray without an acute process Shoulder x-ray with osteoarthritis, no acute fracture. Rib x-rays with no displaced right rib fractures seen. Wrist x-ray with distal radial and ulnar fractures and, proximal scaphoid fracture of the left wrist Chest CT has dependent atelectasis in the posterior aspect of the bilateral lowe r lobes. Trace right pleural effusion. No pleural or pneumothorax. Airways patent. No gross rib fractures. No mediastinal hematoma. Mild cardiomegaly no pericardial effusion. - EKG Results EKG Interpreted Independently: No Core Measures - Anticipated LOS I expect patient to be DC'd or transferred within 96 hours.: Yes - DVT/VTE - Prophylaxis VTE/DVT Prophylaxis med ordered at admit?: Yes
[2022-12-30] MEDS ORDERED: ONDANSETRON ODT 4 MG TABLET TL PRN (20:01)
[2022-12-30] MEDS ORDERED: SODIUM CHLORIDE FLUSH 0.9% 10 ML SYRINGE IVP PRN (20:01)
[2022-12-30] MEDS ORDERED: ACETAMINOPHEN 325 MG TABLET PO PRN (20:01)
[2022-12-30] MEDS ORDERED: NITROGLYCERIN SL 0.4 MG TABLET SL PRN (20:04)
[2022-12-30] MEDS ORDERED: MORPHINE 2 MG/ML CARPUJECT IVP PRN (20:04)
[2022-12-30 20:19] LABS: ESTIMATED AVERAGE GLUCOSE 235 mg/dL (70-100); HEMOGLOBIN A1c% 9.8 % (4.27-6.07)
[2022-12-30] MEDS ORDERED: ATORVASTATIN 40 MG TABLET PO SCH (21:00)
[2022-12-30] MEDS: INSULIN GLARGINE-YFGN 300 UNIT/3 ML PEN SUBQ SCH (22:47)
[2022-12-30] MEDS: oxyCODONE 5 MG TABLET PO PRN (22:49)
[2022-12-30] MEDS: SODIUM CHLORIDE 0.9% 1,000 ML IV SCH (22:49)
[2022-12-31] MEDS: SODIUM CHLORIDE FLUSH 0.9% 10 ML SYRINGE IVP SCH ×3 (02:29→17:17)
[2022-12-31] MEDS: oxyCODONE 5 MG TABLET PO PRN ×2 (02:51→19:04)
[2022-12-31 05:37] LABS: BASOPHILS # (AUTO) 0.1 10^3/uL (0.0-0.1); BASOPHILS % (AUTO) 0.5 %; EOSINOPHILS # (AUTO) 0.1 10^3/uL (0.0-0.7); EOSINOPHILS % (AUTO) 0.9 %; HCT - HEMATOCRIT 32.6 % (37.0-47.0); HGB - HEMOGLOBIN 9.7 g/dL (12.0-16.0); LYMPHOCYTES # (AUTO) 1.8 10^3/uL (1.5-3.5); LYMPHOCYTES % (AUTO) 15.6 %; MEAN CORPUSCULAR HEMOGLOBIN 26.5 pg (27.0-31.0); MEAN CORPUSCULAR HGB CONC 29.8 g/dL (32.0-36.0); MEAN CORPUSCULAR VOLUME 89.1 fL (81.0-99.0); MEAN PLATELET VOLUME 9.9 fL (7.9-10.8); MONOCYTES # (AUTO) 0.7 10^3/uL (0.0-1.0); MONOCYTES % (AUTO) 6.4 %; NEUTROPHILS # (AUTO) 8.8 10^3/uL (1.5-6.6); NEUTROPHILS % (AUTO) 76.2 %; PLT - PLATELET COUNT 395 10^3/uL (130-450); RED BLOOD COUNT 3.66 10^6/uL (4.20-5.40); RED CELL DISTRIBUTION WIDTH 15.1 % (12.0-15.0); WHITE BLOOD COUNT 11.5 x10^3/uL (4.8-10.8)
[2022-12-31] MEDS: MORPHINE 2 MG/ML CARPUJECT IVP PRN ×2 (05:49→22:51)
[2022-12-31 06:00] LABS: CALCIUM 8.8 mg/dL (8.5-10.3); POTASSIUM 3.7 mmol/L (3.5-5.0)
[2022-12-31 06:25] LABS: FERRITIN 44.4 ng/mL (11.0-306.8)
[2022-12-31 06:33] LABS: CHOL/HDL RATIO 6.5 (<4.4); CHOLESTEROL 239 mg/dL; HDL CHOLESTEROL 37 mg/dL; LDL CHOLESTEROL,CALCULATED 142 mg/dL; LDL/HDL RATIO 3.8 (<4.4); TRIGLYCERIDES 298 mg/dL; VLDL CHOLESTEROL 60 mg/dL
[2022-12-31] MEDS: PANTOPRAZOLE 40 MG TABLET PO SCH (06:44)
[2022-12-31] MEDS ORDERED: LEVOTHYROXINE 125 MCG TABLET PO SCH (07:00)
[2022-12-31 07:45] LABS: ABSOLUTE RETICS # AUTO 0.128 10^6/uL (0.020-0.110); RED BLOOD COUNT 4.72 10^6/uL (4.20-5.40); RETICULOCYTE COUNT % (AUTO) 2.72 % (0.5-2.3)
[2022-12-31 08:01] LABS: % IRON SATURATION 14 % (20-50); IRON 48 ug/dL (28-170); TOTAL IRON BINDING CAPACITY 333 ug/dL (250-450); TRANSFERRIN 238 mg/dL (192-382)
[2022-12-31] MEDS: ENOXAPARIN 150 MG/ML SYRINGE SUBQ SCH ×2 (08:17→22:04)
[2022-12-31] MEDS: lisinopriL 20 MG TABLET PO SCH ×2 (08:18→21:50)
[2022-12-31] MEDS: METOPROLOL SUCCINATE 50 MG TABLET PO SCH (08:18)
[2022-12-31] MEDS: ASPIRIN CHEW 81 MG TABLET PO SCH (08:19)
[2022-12-31] MEDS: INSULIN LISPRO 300 UNIT/3 ML PEN SUBQ SCH ×7 (08:19→22:04)
[2022-12-31] MEDS ORDERED: KETOROLAC 30 MG/ML VIAL IVP STA (08:29)
[2022-12-31] MEDS ORDERED: cefTRIAXone 2 GM in SODIUM CHLORIDE 0.9% MINIBAG 100 ML IV SCH (09:00)
[2022-12-31] MEDS ORDERED: FUROSEMIDE 40 MG/4 ML VIAL IVP SCH (09:00)
[2022-12-31] MEDS: HYDROcod/ACETAM 5/325 MG TABLET PO SCH ×3 (09:28→21:49)
--- NOTE | 2022-12-31 11:59 | PHARMACY PROGRESS NOTE ---
- Best Possible Medication History Admit Date and Time: 12/30/222000 Processed by: Pharmacy Medication History completed: Yes Patient Interview: Completed Secondary Source(s): Pharmacy records, Insurance records As the person ultimately responsible for medication therapy, providers are able to order a medication from an existing home medication list in [facility] via the "Reconcile Routine" prior to Confirmation of that medication by family support coordinator. Such practice is discouraged except when the physician, in their clinical judgment, deems that a medical need exists for a medication without regard to previous use.
[2022-12-31] MEDS: SODIUM CHLORIDE 0.9% 1,000 ML IV SCH (13:39)
--- NOTE | 2022-12-31 14:44 | PROVIDER PROGRESS NOTE ---
Subjective - Prog Note Date Prog Note Date: 12/31/22 Prog Note Time: 14:42 - Subjective Subjective: She hurts all over. "I feel like a truck hit me". She denies any specific anginal chest pain. Continues to be short of breath. Wonders if she can get a dose of Lasix to see if that would help. No nausea, neck pain, left arm pain. No diaphoresis. No palpitations. Has no appetite. She is worried about her glaucoma drops. She was supposed to get some from her criminal legal assistant but she has not been able to make it into the office. Wonders if we could resume that was here. Current Medications - Current Medications Current Medications: Active Medications Acetaminophen (Acetaminophen 325 Mg Tablet) 650 mg PO Q4HR PRN PRN Reason: Pain 1 to 4, or Fever Hydrocodone Bitart/Acetaminophen (Hydrocod/Acetam 5/325 Mg Tablet) 1 tab PO TID [facility] Last Admin: 12/31/22 13:40 Dose: 1 tab Aspirin (Aspirin Chew 81 Mg Tablet) 81 mg PO DAILY [facility] Last Admin: 12/31/22 08:19 Dose: 81 mg Atorvastatin Calcium (Atorvastatin 40 Mg Tablet) 80 mg PO QPM [facility] Calcium Citrate (Calcium Citrate 250 Mg Tablet) 250 mg PO DAILY [facility] Cholecalciferol (Cholecalciferol 25 Mcg Tablet) 50 mcg PO DAILY [facility] Enoxaparin Sodium (Enoxaparin 150 Mg/Ml Syringe) 140 mg SUBQ BID [facility] Last Admin: 12/31/22 08:17 Dose: 140 mg Furosemide (Furosemide 40 Mg/4 Ml Vial) 40 mg IVP DAILY [facility] Last Admin: 12/31/22 09:10 Dose: 40 mg Ceftriaxone Sodium 2 gm/ (Sodium Chloride) 100 mls @ 200 mls/hr IV DAILY [facility] Last Admin: 12/31/22 08:19 Dose: 200 mls/hr Sodium Chloride (Normal Saline 0.9%) 1,000 mls @ 85 mls/hr IV .[id number] [facility] Last Admin: 12/31/22 13:39 Dose: 85 mls/hr Insulin Glargine-yfgn (Insulin Glargine-Yfgn 300 Unit/3 Ml Pen) 40 unit SUBQ QPM [facility] Last Admin: 12/30/22 22:47 Dose: 40 unit Insulin Human Lispro (Insulin Lispro 300 Unit/3 Ml Pen) 1 - 5 unit SUBQ 0800,1200,1700,2100 [facility]; Protocol Last Admin: 12/31/22 12:01 Dose: 3 unit Insulin Human Lispro (Insulin Lispro 300 Unit/3 Ml Pen) 5 unit SUBQ TIDWM [facility]; Protocol Last Admin: 12/31/22 12:02 Dose: 5 unit Latanoprost (Latanoprost 0.005% Ophth Drops) 1 drops EACHEYE QPM [facility] Levothyroxine Sodium (Levothyroxine 125 Mcg Tablet) 125 mcg PO QDAC [facility] Last Admin: 12/31/22 06:44 Dose: 125 mcg Lisinopril (Lisinopril 20 Mg Tablet) 40 mg PO DAILY [facility] Last Admin: 12/31/22 08:18 Dose: 40 mg Metoprolol Succinate (Metoprolol Succinate 50 Mg Tablet) 50 mg PO DAILY [facility] Last Admin: 12/31/22 08:18 Dose: 50 mg Morphine Sulfate (Morphine 2 Mg/Ml Carpuject) 2 mg IVP Q2HR PRN PRN Reason: Pain 8 to 10 Last Admin: 12/31/22 05:49 Dose: 2 mg Nitroglycerin (Nitroglycerin Sl 0.4 Mg Tablet) 0.4 mg SL Q5MIN PRN PRN Reason: Chest Pain Ondansetron HCl (Ondansetron Odt 4 Mg Tablet) 4 mg TL Q6HR PRN PRN Reason: Nausea / Vomiting Ondansetron HCl (Ondansetron 4 Mg/2 Ml Vial) 4 mg IVP Q6HR PRN PRN Reason: Nausea / Vomiting Oxycodone HCl (Oxycodone 5 Mg Tablet) 5 mg PO Q4HR PRN PRN Reason: Pain 5 to 7 Last Admin: 12/31/22 02:51 Dose: 5 mg Pantoprazole Sodium (Pantoprazole 40 Mg Tablet) 40 mg PO QDAC [facility] Last Admin: 12/31/22 06:44 Dose: 40 mg Sodium Chloride (Sodium Chloride Flush 0.9% 10 Ml Syringe) 10 ml IVP PRN PRN PRN Reason: NEEDED PER PROVIDER ORDERS Sodium Chloride (Sodium Chloride Flush 0.9% 10 Ml Syringe) 10 ml IVP 0100,0900,1700 [facility] Last Admin: 12/31/22 11:51 Dose: Not Given Latanoprost [Xalatan] 1 drops EACHEYE QPM 06/27/15 Levothyroxine Sodium [Synthroid] 125 mcg PO QDAC 06/27/15 Metoprolol Succinate [Toprol Xl] 50 mg PO QPM 06/27/15 Multivitamin [Multivitamins] 1 cap PO DAILY 06/27/15 Omeprazole [PriLOSEC] 20 mg PO QPM 06/27/15 lisinopriL [Lisinopril] 40 mg PO QPM 06/27/15 metFORMIN [Glucophage] 1,000 mg PO BIDWM 06/27/15 hydroCHLOROthiazide [Hydrodiuril] 25 mg PO DAILY 04/02/21 Calcium Carb (Oyster Shell) [Oysco-500] 500 mg PO DAILY 12/31/22 Cholecalciferol (Vitamin D3) [D3-5000] 125 mcg PO DAILY 12/31/22 Furosemide [Lasix] 20 mg PO DAILY 12/31/22 Insulin Detemir [Levemir Flextouch] 50 units SUBQ QPM 12/31/22 Nifedipine [Procardia Xl] 60 mg PO DAILY 12/31/22 Potassium Chloride [Micro-K] 10 meq PO DAILY 12/31/22 Objective - Vital Signs/Intake & Output Reviewed Vital Signs: Yes Vital Signs: Vital Signs x48h Temp Pulse Resp BP Pulse Ox 12/31/22 11:23 36.7 C 91 22 149/76 H 93 12/31/22 07:35 36.4 C L 102 H 24 141/76 H 93 Intake & Output: Intake & Output 12/28/22 12/29/22 12/30/22 12/31/22 23:59 23:59 23:59 23:59 Intake Total 600 2920 Output Total 300 Balance 600 2620 - Objective General Appearance: positive: Alert (Sitting upright in bed. Has orthopnea. The almost grunting respiration and use of abdominal muscles from yesterday has gone away), Mild distress, Other (Super obese female at 5 feet 2 inches tall, 132.5 kg) Eyes Bilateral: positive: PERRL, EOMI ENT: positive: No signs of dehydration, Other (Abrasions on her nose and upper lip are drying and peeling off) Neck: positive: No JVD. negative: Stiff neck Respiratory: positive: Other (Diffusely quiet lung sounds, diminished at the bases, mild increased respiratory effort with talking to me. But she really is improved from yesterday's exam today). negative: Wheezes, Rales, Rhonchi Cardiovascular: positive: Regular rate & rhythm, Other (Distant cardiac tones, I cannot feel her PMI) Abdomen: positive: Non-tender, Nml bowel sounds, No distention, Other (Intertriginous folds under breast and groin have Alisson. Huge obese pannus.) Skin: positive: Warm, Dry, Other (Legs are dry slightly flaking. There is rubor and redness over her shins that is scattered, and over her toes) Extremities: positive: Full ROM, Pedal edema Neurologic/Psychiatric: positive: Oriented x3, CN's nml (2-12), Motor nml (No focal deficits, but moderate generalized weakness. She struggles to even try and sit up and needs a two-person assist to do so) - Lab Results Fish Bones: 12/31/22 05:20 12/31/22 05:20 Other Labs: Lab Results x24hrs 12/31/22 12/31/22 12/31/22 Range/Units 12:02 07:16 05:20 WBC (4.8-10.8) x10^3/uL RBC (4.20-5.40) 10^6/uL Hgb (12.0-16.0) g/dL Hct (37.0-47.0) % MCV (81.0-99.0) fL MCH (27.0-31.0) pg MCHC (32.0-36.0) g/dL RDW (12.0-15.0) % Plt Count (130-450) 10^3/uL MPV (7.9-10.8) fL Reticulocyte % (Auto) (0.5-2.3) % Neut # (Auto) (1.5-6.6) 10^3/uL Lymph # (Auto) (1.5-3.5) 10^3/uL [place] # (Auto) (0.0-1.0) 10^3/uL Eos # (Auto) (0.0-0.7) 10^3/uL Baso # (Auto) (0.0-0.1) 10^3/uL Absolute Nucleated RBC x10^3/uL Nucleated RBC % /100WBC Absolute Retic (0.020-0.110) 10^6/uL D-Dimer (200.0-255.0) ng/mL Sodium (135-145) mmol/L Potassium (3.5-5.0) mmol/L Chloride (101-111) mmol/L Carbon Dioxide (21-32) mmol/L Anion Gap (6-13) BUN (6-20) mg/dL Creatinine (0.4-1.0) mg/dL Estimated GFR (MDRD) (>89) Glucose (70-100) mg/dL Estimat Average Glucose (70-100) mg/dL Hemoglobin A1c % (4.27-6.07) % Calcium (8.5-10.3) mg/dL Iron 48 (28-170) ug/dL TIBC 333 (250-450) ug/dL % Saturation 14 L (20-50) % Transferrin 238 (192-382) mg/dL Ferritin (11.0-306.8) ng/mL Lactate Dehydrogenase (91-225) IU/L Troponin I High Sens 646.9 H* 743.6 H* (2.3-14.8) ng/L B-Natriuretic Peptide (5-100) pg/mL Triglycerides ( - 149) mg/dL Cholesterol ( - 199) mg/dL LDL Cholesterol, Calc ( - 129) mg/dL VLDL Cholesterol mg/dL HDL Cholesterol (60 - ) mg/dL LDL/HDL Ratio (<4.4) Cholesterol/HDL Ratio (<4.4) Vitamin B12 (180-914) pg/mL 12/31/22 12/31/22 12/31/22 Range/Units 05:20 05:20 05:20 WBC (4.8-10.8) x10^3/uL RBC 4.72 (4.20-5.40) 10^6/uL Hgb (12.0-16.0) g/dL Hct (37.0-47.0) % MCV (81.0-99.0) fL MCH (27.0-31.0) pg MCHC (32.0-36.0) g/dL RDW (12.0-15.0) % Plt Count (130-450) 10^3/uL MPV (7.9-10.8) fL Reticulocyte % (Auto) 2.72 H (0.5-2.3) % Neut # (Auto) (1.5-6.6) 10^3/uL Lymph # (Auto) (1.5-3.5) 10^3/uL [place] # (Auto) (0.0-1.0) 10^3/uL Eos # (Auto) (0.0-0.7) 10^3/uL Baso # (Auto) (0.0-0.1) 10^3/uL Absolute Nucleated RBC x10^3/uL Nucleated RBC % /100WBC Absolute Retic 0.128 H (0.020-0.110) 10^6/uL D-Dimer (200.0-255.0) ng/mL Sodium (135-145) mmol/L Potassium (3.5-5.0) mmol/L Chloride (101-111) mmol/L Carbon Dioxide (21-32) mmol/L Anion Gap (6-13) BUN (6-20) mg/dL Creatinine (0.4-1.0) mg/dL Estimated GFR (MDRD) (>89) Glucose (70-100) mg/dL Estimat Average Glucose (70-100) mg/dL Hemoglobin A1c % (4.27-6.07) % Calcium (8.5-10.3) mg/dL Iron (28-170) ug/dL TIBC (250-450) ug/dL % Saturation (20-50) % Transferrin (192-382) mg/dL Ferritin 44.4 (11.0-306.8) ng/mL Lactate Dehydrogenase 183 (91-225) IU/L Troponin I High Sens (2.3-14.8) ng/L B-Natriuretic Peptide (5-100) pg/mL Triglycerides ( - 149) mg/dL Cholesterol ( - 199) mg/dL LDL Cholesterol, Calc ( - 129) mg/dL VLDL Cholesterol mg/dL HDL Cholesterol (60 - ) mg/dL LDL/HDL Ratio (<4.4) Cholesterol/HDL Ratio (<4.4) Vitamin B12 385 (180-914) pg/mL 12/31/22 12/31/22 12/31/22 Range/Units 05:20 05:20 05:20 WBC (4.8-10.8) x10^3/uL RBC (4.20-5.40) 10^6/uL Hgb (12.0-16.0) g/dL Hct (37.0-47.0) % MCV (81.0-99.0) fL MCH (27.0-31.0) pg MCHC (32.0-36.0) g/dL RDW (12.0-15.0) % Plt Count (130-450) 10^3/uL MPV (7.9-10.8) fL Reticulocyte % (Auto) (0.5-2.3) % Neut # (Auto) (1.5-6.6) 10^3/uL Lymph # (Auto) (1.5-3.5) 10^3/uL [place] # (Auto) (0.0-1.0) 10^3/uL Eos # (Auto) (0.0-0.7) 10^3/uL Baso # (Auto) (0.0-0.1) 10^3/uL Absolute Nucleated RBC x10^3/uL Nucleated RBC % /100WBC Absolute Retic (0.020-0.110) 10^6/uL D-Dimer (200.0-255.0) ng/mL Sodium 136 (135-145) mmol/L Potassium 3.7 (3.5-5.0) mmol/L Chloride 96 L (101-111) mmol/L Carbon Dioxide 28 (21-32) mmol/L Anion Gap 12.0 (6-13) BUN 29 H (6-20) mg/dL Creatinine 1.0 (0.4-1.0) mg/dL Estimated GFR (MDRD) 53 L (>89) Glucose 283 H (70-100) mg/dL Estimat Average Glucose (70-100) mg/dL Hemoglobin A1c % (4.27-6.07) % Calcium 8.8 (8.5-10.3) mg/dL Iron (28-170) ug/dL TIBC (250-450) ug/dL % Saturation (20-50) % Transferrin (192-382) mg/dL Ferritin (11.0-306.8) ng/mL Lactate Dehydrogenase (91-225) IU/L Troponin I High Sens (2.3-14.8) ng/L B-Natriuretic Peptide 456 H (5-100) pg/mL Triglycerides 298 H ( - 149) mg/dL Cholesterol 239 H ( - 199) mg/dL LDL Cholesterol, Calc 142 H ( - 129) mg/dL VLDL Cholesterol 60 mg/dL HDL Cholesterol 37 L (60 - ) mg/dL LDL/HDL Ratio 3.8 (<4.4) Cholesterol/HDL Ratio 6.5 (<4.4) Vitamin B12 (180-914) pg/mL 12/31/22 12/31/22 12/30/22 Range/Units 05:20 01:19 19:30 WBC 11.5 H (4.8-10.8) x10^3/uL RBC 3.66 L (4.20-5.40) 10^6/uL Hgb 9.7 L (12.0-16.0) g/dL Hct 32.6 L (37.0-47.0) % MCV 89.1 (81.0-99.0) fL MCH 26.5 L (27.0-31.0) pg MCHC 29.8 L (32.0-36.0) g/dL RDW 15.1 H (12.0-15.0) % Plt Count 395 (130-450) 10^3/uL MPV 9.9 (7.9-10.8) fL Reticulocyte % (Auto) (0.5-2.3) % Neut # (Auto) 8.8 H (1.5-6.6) 10^3/uL Lymph # (Auto) 1.8 (1.5-3.5) 10^3/uL [place] # (Auto) 0.7 (0.0-1.0) 10^3/uL Eos # (Auto) 0.1 (0.0-0.7) 10^3/uL Baso # (Auto) 0.1 (0.0-0.1) 10^3/uL Absolute Nucleated RBC 0.00 x10^3/uL Nucleated RBC % 0.0 /100WBC Absolute Retic (0.020-0.110) 10^6/uL D-Dimer 438.3 H (200.0-255.0) ng/mL Sodium (135-145) mmol/L Potassium (3.5-5.0) mmol/L Chloride (101-111) mmol/L Carbon Dioxide (21-32) mmol/L Anion Gap (6-13) BUN (6-20) mg/dL Creatinine (0.4-1.0) mg/dL Estimated GFR (MDRD) (>89) Glucose (70-100) mg/dL Estimat Average Glucose (70-100) mg/dL Hemoglobin A1c % (4.27-6.07) % Calcium (8.5-10.3) mg/dL Iron (28-170) ug/dL TIBC (250-450) ug/dL % Saturation (20-50) % Transferrin (192-382) mg/dL Ferritin (11.0-306.8) ng/mL Lactate Dehydrogenase (91-225) IU/L Troponin I High Sens 750.6 H* (2.3-14.8) ng/L B-Natriuretic Peptide (5-100) pg/mL Triglycerides ( - 149) mg/dL Cholesterol ( - 199) mg/dL LDL Cholesterol, Calc ( - 129) mg/dL VLDL Cholesterol mg/dL HDL Cholesterol (60 - ) mg/dL LDL/HDL Ratio (<4.4) Cholesterol/HDL Ratio (<4.4) Vitamin B12 (180-914) pg/mL 12/30/22 12/30/22 12/30/22 Range/Units 17:15 16:31 16:31 WBC (4.8-10.8) x10^3/uL RBC (4.20-5.40) 10^6/uL Hgb (12.0-16.0) g/dL Hct (37.0-47.0) % MCV (81.0-99.0) fL MCH (27.0-31.0) pg MCHC (32.0-36.0) g/dL RDW (12.0-15.0) % Plt Count (130-450) 10^3/uL MPV (7.9-10.8) fL Reticulocyte % (Auto) (0.5-2.3) % Neut # (Auto) (1.5-6.6) 10^3/uL Lymph # (Auto) (1.5-3.5) 10^3/uL [place] # (Auto) (0.0-1.0) 10^3/uL Eos # (Auto) (0.0-0.7) 10^3/uL Baso # (Auto) (0.0-0.1) 10^3/uL Absolute Nucleated RBC x10^3/uL Nucleated RBC % /100WBC Absolute Retic (0.020-0.110) 10^6/uL D-Dimer (200.0-255.0) ng/mL Sodium (135-145) mmol/L Potassium (3.5-5.0) mmol/L Chloride (101-111) mmol/L Carbon Dioxide (21-32) mmol/L Anion Gap (6-13) BUN (6-20) mg/dL Creatinine (0.4-1.0) mg/dL Estimated GFR (MDRD) (>89) Glucose (70-100) mg/dL Estimat Average Glucose 235 H (70-100) mg/dL Hemoglobin A1c % 9.8 H (4.27-6.07) % Calcium (8.5-10.3) mg/dL Iron (28-170) ug/dL TIBC (250-450) ug/dL % Saturation (20-50) % Transferrin (192-382) mg/dL Ferritin (11.0-306.8) ng/mL Lactate Dehydrogenase (91-225) IU/L Troponin I High Sens 712.2 H* (2.3-14.8) ng/L B-Natriuretic Peptide 885 H (5-100) pg/mL Triglycerides ( - 149) mg/dL Cholesterol ( - 199) mg/dL LDL Cholesterol, Calc ( - 129) mg/dL VLDL Cholesterol mg/dL HDL Cholesterol (60 - ) mg/dL LDL/HDL Ratio (<4.4) Cholesterol/HDL Ratio (<4.4) Vitamin B12 (180-914) pg/mL Urine culture with E. coli ABX Reporting Has patient been on IV antibiotics over the past 48 hours?: Yes Assessment/Plan - Problem List (1) NSTEMI (non-ST elevated myocardial infarction) Impression: Patient presents as a fall in the bathroom and she lay on the floor for two days. She seems to have orthopedic hip, back and knee problems that resulted in the fall. There is antecedent dizziness but no complaints of chest pain or palpitations.She says she really just cannot remember. She was half asleep when she got up to go to the bathroom and the next and she knows she is on the floor. She knew she was falling. She is definite that there is no syncope. She gives a history of being short of breath/orthopnea with increasing leg edema over the last few weeks. She may have had an anginal equivalent with her congestive heart failure. In any case she is presenting with an NSTEMI by labs. Case was discussed with [facility] cardiology when she was in the ER. They felt she could stay here and get an outpatient stress test after dc. He had advised an Echo while here but our obstetrics technician is only here , Tue, . She has not had worse sob, and she has not had arrhythmia. She is still sob and asks for lasix. I called Dr. Jimenez at [facility] in [place] @ [phone]. She stated he was a production expert. But when I spoke to him, he says that he has no record of her in [facility] or the clinic charts. What he can see in care everywhere is that she was hospitalized at [facility] in December of last year for severe back pain and a fall at home. As such, he is regretful and that he echoed the advice given to me by the [facility] cardiology on-call physician. If she wants to see him she will have to make an appointment after she gets out. Troponins 452>> [phone]>> [phone] >> 750 >>[phone]>>[phone] Plan: NSTEMI protocol. She received and was continued on statin, aspirin, Lovenox. She on beta-tacos and lisinopril at home. Those have been resumed. All this will be continued for minimum of 72 hours. Recheck EKG Lasix 40 mg IVP once (2) HTN (hypertension) Conclusion/Plan: Hypertensive in the emergency room. At home she takes Lasix, lisinopril 40, nifedipine 60. Nifedipine in of itself can contribute to more pedal edema than not. Will not be resuming nifedipine and continue lisinopril and beta-tacos today. I did not end up ordering the Lopressor 25 mg, 4 times daily. She is only on her usual beta-tacos dose. Today blood pressure is 141, 150, 149 systo lic. Goal will be less than 130 systolic. We will see what her blood pressure does once medicines are given on a regular basis. She was without her meds for probably 2 or 3 days. Qualifiers: Hypertension type: primary hypertension Qualified Code(s): I10 - Essential (primary) hypertension (3) Hyperlipidemia Conclusion/Plan: Not on a statin and her primary care office. Cholesterol was 327 December 21, 2021. 230 December 13, 2022. Triglycerides were 489, 244 respectively. Statin was given in the ER as part of the NSTEMI protocol. it will be continued during her stay . If she tolerates it. Statins are listed as an allergy. She states that it gives her myalgias. Niacin gives her hives. And Zetia elevated her liver enzymes. She says that she is willing to take the statin. And that has been continued as a nightly dose. This morning's cholesterol was 239. Triglycerides 298. LDL 142. HDL 37. LDL goal will be less than 70. Qualifiers: Hyperlipidemia type: mixed hyperlipidemia Qualified Code(s): E78.2 - Mixed hyperlipidemia (4) Shortness of breath Conclusion/Plan: Possibly due to angina in the last few weeks, versus new congestive heart failure. Unfortunately we do not have an headend technician. We only have echoes Tuesday, Tuesday, and . I was hoping that in speaking to Dr. Jimenez she could get in expeditiously for an echo and a stress test. But she will be a new patient to him. We will see which production expert can see her fastest. (5) Hypothyroidism Conclusion/Plan: TSH was 3.26 2 weeks ago. Usual Synthroid dose will be resumed here. No changes Qualifiers: Hypothyroidism type: acquired Qualified Code(s): E03.9 - Hypothyroidism, unspecified (6) Fall at home Conclusion/Plan: She describes being dizzy but no discrete arrhythmia. There is no syncope. No blow to the head. She also has orthopedic complaints that could have contributed to this. And now, and speaking to Dr. Jimenez, she had a fall in December 2021 as well. She will be placed on telemetry, echo will be obtained. PT and OT did try and work with her today. They said that she is horrifically deconditioned. And diffuse pain from myalgias and arthralgias from laying on that bathroom floor. They are recommending a [facility] facility for physical rehab. Qualifiers: Encounter type: initial encounter Qualified Code(s): W19.XXXA - Unspecified fall, initial encounter; Y92.009 - Unspecified place in unspecified non- institutional (private) residence as the place of occurrence of the external c ause (7) Anemia Conclusion/Plan: Anemia panel in a.m. 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 She is on Prilosec at home. I will substitute Protonix here. Iron is 48 and low normal, TIBC 333. Percent saturation 14. Transferrin 238. Ferritin 44.4. LDH 183. Vitamin B12 385. Retake count is 2.72% and high. Absolute reticulocyte count is 0.128 and also high. Qualifiers: Anemia type: unspecified type Qualified Code(s): D64.9 - Anemia, unspecified (8) Leukocytosis Conclusion/Plan: On admission she was 14.6 and today she is 11.5. She is being treated as UTI, and urine culture is positive for E. coli. I will switch her over to Macrodantin p.o. from IV Rocephin Qualifiers: Leukocytosis type: bandemia Qualified Code(s): D72.825 - Bandemia (9) Radius with ulna, distal end fracture Conclusion/Plan: Patient is in a splint. Pain medicines written for in the form of Tylenol, oxycodone, or morphine. I will try 1 dose of Toradol and see how she does. I did speak to orthopedic surgery. Dr. Olivo, who looked at her films and reviewed them over the phone with me. He said that she has severe osteoporosis just on plain films. Surgery is not an option at this time considering her NSTEMI. He recommends a splint and that he could see her in the office after she is discharged. Qualifiers: Encounter type: initial encounter Fracture type: closed Laterality: left Qualified Code(s): S52.502A - Unspecified fracture of the lower end of left radius, initial encounter for closed fracture; S52.602A - Unspecified fracture of lower end of left ulna, initial encounter for closed fracture (10) Glaucoma Conclusion/Plan: Xalatan ordered. Pharmacy says it is in our formulary. I also had her criminal legal assistant call in a prescription for her to [facility]. Qualifiers: Glaucoma type: open-angle Open angle glaucoma type: unspecified type Laterality: bilateral Glaucoma stage: mild stage Qualified Code(s): H40.10X1 - Unspecified open-angle glaucoma, mild stage
[2022-12-31] MEDS: KETOROLAC 30 MG/ML VIAL IVP PRN (17:21)
[2022-12-31] MEDS ORDERED: LISINOPRIL 40 MG PO SCH (21:00)
[2022-12-31] MEDS: ATORVASTATIN 40 MG TABLET PO SCH (21:50)
[2022-12-31] MEDS: METOPROLOL SUCCINATE 25 MG TABLET PO SCH (21:51)
[2022-12-31] MEDS: NITROFURANTOIN MACRO 100 MG CAPSULE PO SCH (21:52)
[2022-12-31] MEDS: NYSTATIN CREAM 15 GM TUBE TOP SCH (21:53)
[2022-12-31] MEDS: LATANOPROST 0.005% OPHTH DROPS EACHEYE SCH (22:00)
[2022-12-31] MEDS: INSULIN GLARGINE-YFGN 300 UNIT/3 ML PEN SUBQ SCH (22:03)
[2023-01-01] MEDS: SODIUM CHLORIDE FLUSH 0.9% 10 ML SYRINGE IVP SCH ×3 (00:48→17:02)
[2023-01-01] MEDS: KETOROLAC 30 MG/ML VIAL IVP PRN ×2 (00:48→07:56)
[2023-01-01] MEDS: SODIUM CHLORIDE 0.9% 1,000 ML IV SCH ×4 (00:48→22:29)
[2023-01-01] MEDS: MORPHINE 2 MG/ML CARPUJECT IVP PRN ×5 (03:36→23:40)
[2023-01-01 05:06] LABS: BASOPHILS # (AUTO) 0.1 10^3/uL (0.0-0.1); BASOPHILS % (AUTO) 0.9 %; EOSINOPHILS # (AUTO) 0.2 10^3/uL (0.0-0.7); EOSINOPHILS % (AUTO) 3.1 %; HCT - HEMATOCRIT 28.5 % (37.0-47.0); HGB - HEMOGLOBIN 8.4 g/dL (12.0-16.0); LYMPHOCYTES % (AUTO) 25.7 %; MEAN CORPUSCULAR HEMOGLOBIN 26.7 pg (27.0-31.0); MEAN CORPUSCULAR HGB CONC 29.5 g/dL (32.0-36.0); MEAN CORPUSCULAR VOLUME 90.5 fL (81.0-99.0); MONOCYTES # (AUTO) 0.4 10^3/uL (0.0-1.0); MONOCYTES % (AUTO) 5.7 %; NEUTROPHILS # (AUTO) 4.9 10^3/uL (1.5-6.6); NEUTROPHILS % (AUTO) 64.1 %; PLT - PLATELET COUNT 377 10^3/uL (130-450); RED BLOOD COUNT 3.15 10^6/uL (4.20-5.40); RED CELL DISTRIBUTION WIDTH 15.3 % (12.0-15.0); WHITE BLOOD COUNT 7.7 x10^3/uL (4.8-10.8)
[2023-01-01 05:08] LABS: CALCIUM 8.3 mg/dL (8.5-10.3); POTASSIUM 3.6 mmol/L (3.5-5.0)
[2023-01-01] MEDS: HYDROcod/ACETAM 5/325 MG TABLET PO SCH ×3 (05:29→21:15)
[2023-01-01] MEDS: LEVOTHYROXINE 125 MCG TABLET PO SCH (07:55)
[2023-01-01] MEDS: PANTOPRAZOLE 40 MG TABLET PO SCH (07:55)
[2023-01-01] MEDS: NITROFURANTOIN MACRO 100 MG CAPSULE PO SCH ×2 (08:22→21:11)
[2023-01-01] MEDS: ASPIRIN CHEW 81 MG TABLET PO SCH (08:22)
[2023-01-01] MEDS: CHOLECALCIFEROL 5,000 UNIT CAPSULE PO SCH (08:22)
[2023-01-01] MEDS: CALCIUM CITRATE 250 MG TABLET PO SCH (08:22)
[2023-01-01] MEDS: INSULIN GLARGINE-YFGN 300 UNIT/3 ML PEN SUBQ SCH ×2 (08:23→21:09)
[2023-01-01] MEDS: INSULIN LISPRO 300 UNIT/3 ML PEN SUBQ SCH ×7 (08:23→21:10)
[2023-01-01] MEDS: NYSTATIN CREAM 15 GM TUBE TOP SCH ×2 (08:31→21:12)
[2023-01-01] MEDS ORDERED: CALCIUM CARB (OYSTER SHELL) 500 MG TABLET PO SCH (09:00)
[2023-01-01] MEDS ORDERED: CHOLECALCIFEROL 25 MCG TABLET PO SCH (09:00)
--- NOTE | 2023-01-01 17:06 | PROVIDER PROGRESS NOTE ---
Progress Note January 01, 2023 4:45 PM She continues to feel just terrible with diffuse myalgias and arthralgias. She really does not want a get out of bed. Shortness of breath is better. I let her know that her BNP was 456 yesterday, and 102 today. With the Lasix I gave her her creatinine came up to 2.0 from 0.9. To we need to be careful about her diuresis and diagnosis of CHF. She denies chest pain, nausea, jaw pain, neck pain. Her back hurts from laying in the bed. But then she laughs and says "I could not get out of bed if I wanted to ". Telemetry overnight did not have any arrhythmias. Active Medications Acetaminophen (Acetaminophen 325 Mg Tablet) 650 mg PO Q4HR PRN PRN Reason: Pain 1 to 4, or Fever Last Admin: 12/31/22 19:04 Dose: 650 mg Hydrocodone Bitart/Acetaminophen (Hydrocod/Acetam 5/325 Mg Tablet) 1 tab PO TID [facility] Last Admin: 01/01/23 14:18 Dose: 1 tab Aspirin (Aspirin Chew 81 Mg Tablet) 81 mg PO DAILY [facility] Last Admin: 01/01/23 08:22 Dose: 81 mg Atorvastatin Calcium (Atorvastatin 40 Mg Tablet) 80 mg PO QPM [facility] Last Admin: 12/31/22 21:50 Dose: Not Given Calcium Citrate (Calcium Citrate 250 Mg Tablet) 250 mg PO DAILY [facility] Last Admin: 01/01/23 08:22 Dose: 250 mg Cholecalciferol (Cholecalciferol 5,000 Unit Capsule) 5,000 unit PO DAILY [facility] Last Admin: 01/01/23 08:22 Dose: 5,000 unit Enoxaparin Sodium (Enoxaparin 150 Mg/Ml Syringe) 140 mg SUBQ QPM [facility] Sodium Chloride (Normal Saline 0.9%) 1,000 mls @ 100 mls/hr IV .Q10H [facility] Last Admin: 01/01/23 12:13 Dose: 100 mls/hr Insulin Glargine-yfgn (Insulin Glargine-Yfgn 300 Unit/3 Ml Pen) 40 unit SUBQ QPM [facility] Last Admin: 12/31/22 22:03 Dose: 40 unit Insulin Glargine-yfgn (Insulin Glargine-Yfgn 300 Unit/3 Ml Pen) 10 unit SUBQ QDBREAKFAST [facility] Last Admin: 01/01/23 08:23 Dose: 10 unit Insulin Human Lispro (Insulin Lispro 300 Unit/3 Ml Pen) 1 - 5 unit SUBQ 0800,1200,1700,2100 [facility]; Protocol Last Admin: 01/01/23 16:59 Dose: Not Given Insulin Human Lispro (Insulin Lispro 300 Unit/3 Ml Pen) 5 unit SUBQ TIDWM [facility]; Protocol Last Admin: 01/01/23 17:02 Dose: 5 unit Ketorolac Tromethamine (Ketorolac 30 Mg/Ml Vial) 30 mg IVP Q6HR PRN PRN Reason: PAIN Last Admin: 01/01/23 07:56 Dose: 30 mg Latanoprost (Latanoprost 0.005% Ophth Drops) 1 drops EACHEYE QPM [facility] Last Admin: 12/31/22 22:00 Dose: 1 drops Levothyroxine Sodium (Levothyroxine 125 Mcg Tablet) 125 mcg PO QDAC [facility] Last Admin: 01/01/23 07:55 Dose: 125 mcg Lisinopril (Lisinopril 20 Mg Tablet) 40 mg PO QPM [facility] Last Admin: 12/31/22 21:50 Dose: 40 mg Metoprolol Succinate (Metoprolol Succinate 25 Mg Tablet) 50 mg PO QPM [facility] Last Admin: 12/31/22 21:51 Dose: 50 mg Morphine Sulfate (Morphine 2 Mg/Ml Carpuject) 2 mg IVP Q2HR PRN PRN Reason: Pain 8 to 10 Last Admin: 01/01/23 12:45 Dose: 2 mg Nitrofurantoin (Nitrofurantoin Macro 100 Mg Capsule) 100 mg PO BID [facility] Last Admin: 01/01/23 08:22 Dose: 100 mg Nitroglycerin (Nitroglycerin Sl 0.4 Mg Tablet) 0.4 mg SL Q5MIN PRN PRN Reason: Chest Pain Nystatin (Nystatin Cream 15 Gm Tube) 1 applic TOP BID [facility] Last Admin: 01/01/23 08:31 Dose: 1 applic Ondansetron HCl (Ondansetron Odt 4 Mg Tablet) 4 mg TL Q6HR PRN PRN Reason: Nausea / Vomiting Ondansetron HCl (Ondansetron 4 Mg/2 Ml Vial) 4 mg IVP Q6HR PRN PRN Reason: Nausea / Vomiting Oxycodone HCl (Oxycodone 5 Mg Tablet) 5 mg PO Q4HR PRN PRN Reason: Pain 5 to 7 Last Admin: 12/31/22 19:04 Dose: 5 mg Pantoprazole Sodium (Pantoprazole 40 Mg Tablet) 40 mg PO QDAC [facility] Last Admin: 01/01/23 07:55 Dose: 40 mg Sodium Chloride (Sodium Chloride Flush 0.9% 10 Ml Syringe) 10 ml IVP PRN PRN PRN Reason: NEEDED PER PROVIDER ORDERS Sodium Chloride (Sodium Chloride Flush 0.9% 10 Ml Syringe) 10 ml IVP 0100,0900,1700 [facility] Last Admin: 01/01/23 17:02 Dose: Not Given Latanoprost [Xalatan] 1 drops EACHEYE QPM 06/27/15 Levothyroxine Sodium [Synthroid] 125 mcg PO QDAC 06/27/15 Metoprolol Succinate [Toprol Xl] 50 mg PO QPM 06/27/15 Multivitamin [Multivitamins] 1 cap PO DAILY 06/27/15 Omeprazole [PriLOSEC] 20 mg PO QPM 06/27/15 lisinopriL [Lisinopril] 40 mg PO QPM 06/27/15 metFORMIN [Glucophage] 1,000 mg PO BIDWM 06/27/15 hydroCHLOROthiazide [Hydrodiuril] 25 mg PO DAILY 04/02/21 Calcium Carb (Oyster Shell) [Oysco-500] 500 mg PO DAILY 12/31/22 Cholecalciferol (Vitamin D3) [D3-5000] 125 mcg PO DAILY 12/31/22 Furosemide [Lasix] 20 mg PO DAILY 12/31/22 Insulin Detemir [Levemir Flextouch] 50 units SUBQ QPM 12/31/22 Nifedipine [Procardia Xl] 60 mg PO DAILY 12/31/22 Potassium Chloride [Micro-K] 10 meq PO DAILY 12/31/22 Exam: Temperature is 36.3. Heart rate 70. Blood pressure 117/56. Respirations 20. 96% on room air 5 foot 2 inch severely obese female at 132.5 kg Lying at about 25 degrees. Comfortable. The abrasions on her nose and upper lip are healing I cannot really assess for JVD because of neck size, but it supple Coarse upper airway sounds in the upper lobes, diminished breath sounds at the bases. I point out to her that she is no longer panting or tachypneic or struggling to breathe the way she does the first day. She seems surprised by that because she says that she feels like she is still short of breath Regular rate and rhythm with distant cardiac tones. Abdomen is soft, obese, nontender, normal bowel sounds. Last bowel movement was December 29. The skin underneath her abdominal pannus, intertriginous folds, and underneath her breast has Alisson. Extremities have about the same edema that she has had on admission. Her toes are discolored with rubor. The skin of her shins is also sporadically mottled with redness and dry flaking skin. But there is no skin breakdown. Sodium 134, potassium 3.6, BUN 43, creatinine 2.0. She is up from 0.9 on admission. Random glucose 165. BNP 102. White cell count 7.7. Hemoglobin 8.4. Hematocrit 28.5. Platelets 377 Urine culture has E. coli that is resistant to ampicillin, ciprofloxacin, Leva radha. Negative for ESBL Assessment/plan 1. NSTEMI. Patient is to be managed with statin, Lovenox, aspirin, beta- tacos while here. We are unable to do an echo until January 04. I do not know if she will be here at that point. But after discharge she will need staging with an echo and a stress test. When I spoke to her about the Dr. Jimenez conversation I had yesterday she smiled and said that he is a supervisor fryer farm she "wants to see". She says that she may have misled me when she said Dr. Jimenez was her supervisor fryer farm. I will check troponins tomorrow. So far there is been no complaints of ongoing angina. A repeat EKG done on December 31 to compare to December 30 shows sinus rhythm. Repolarization abnormalities that are anterolateral but nonspecific for a STEMI. She has inverted T waves in V4 through V6. No changes from both EKGs. 2. Hypertension. Currently on Zestril 40 mg, metoprolol XL 50 mg. And she did receive Lasix yesterday but I am discontinuing it today. Blood pressure today is 114/52, 109/46, 117/56. Other than discontinuing Lasix because of the creatinine, no changes. 3. Hyperlipidemia. LDL goal is less than 70. She is 142. She has been start ed on a statin. She says she was allergic and her side effect was sore legs. So far she is tolerating the statin I started her on. 4. Shortness of breath. Possibly congestive heart failure. I really cannot tell by physical exam. Her neck is too thick, I do not hear crackles, but she could certainly have an anginal equivalent or reduction in ejection fraction because of coronary artery disease. I will have to wait for an echo on Tuesday if she still here. She does not have a history of COPD. Chest CT shows her heart to be mildly enlarged but no pericardial effusions or evidence of edema. The CT was done because of chest trauma. 5. Hypothyroidism. TSH was normal recently, and I have not changed her medication 6. Fall at home. She fell once before in December 2021. Lives alone. Physical therapy does not recommend returning to home at this time. She is amenable to a detention facility for rehab. When she is completed therapy for her NSTEMI she would like to go to [facility].I did give her Toradol for pain. This could also contributed to the rise in the creatinine will so we will have to stop it. She is on oxycodone, and Tylenol. 7. Anemia. Iron studies are relatively normal. MCV is normal. Check stool for fecal occult blood. Consider outpatient EGD and colonoscopy when she is ready. 8. E. coli UTI. Leukocytosis has resolved. Changed to Macrobid 100 mg p.o. twice daily on December 31. However with a creatinine coming up, we may have to stop this antibiotic and go to a different 1. She may have to go back to [facility]. 9. Radius with ulna, distal and fracture. Orthopedic surgery reviewed the film from yesterday on December 31. They said no difference in the current recommendation of a splint. They will see her in the outpatient setting when she is out of the hospital. 10. Glaucoma. We were able to start Xalatan drops for her. She does have a refill called into would be community pharmacy and will pick it up there. 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 Nystatin cream. 12. Acute kidney injury. BNP is definitely down to an acceptable level. Her IV fluids were at 85 cc an hour. I have increased her to 100 cc an hour. Recheck BMP tomorrow.Stop Toradol. May have to adjust antibiotic for UTI. 13. Type 2 diabetes mellitus, without complication, without long-term use of insulin. At home she is on metformin and I have not renewed that while here. I have her on Lantus 40 units in the evening. Glucose yesterday was 246, 262, 178, 249. With this morning's glucose being high I have added 10 units of Lantus in the morning since her glucose is 151. She continues on lispro 1 to 5 units sliding scale before meals. I will also add 5 units before meals. By this afternoon glucose was 176 and 126.
[2023-01-01] MEDS: ATORVASTATIN 40 MG TABLET PO SCH (21:08)
[2023-01-01] MEDS: ENOXAPARIN 150 MG/ML SYRINGE SUBQ SCH (21:09)
[2023-01-01] MEDS: LATANOPROST 0.005% OPHTH DROPS EACHEYE SCH (21:10)
[2023-01-01] MEDS: METOPROLOL SUCCINATE 25 MG TABLET PO SCH (21:11)
[2023-01-01] MEDS: lisinopriL 20 MG TABLET PO SCH (21:11)
[2023-01-02] MEDS: oxyCODONE 5 MG TABLET PO PRN (00:50)
[2023-01-02] MEDS: SODIUM CHLORIDE FLUSH 0.9% 10 ML SYRINGE IVP SCH ×4 (00:50→23:56)
[2023-01-02] MEDS: HYDROcod/ACETAM 5/325 MG TABLET PO SCH (05:14)
[2023-01-02] MEDS: PANTOPRAZOLE 40 MG TABLET PO SCH (06:50)
[2023-01-02] MEDS: LEVOTHYROXINE 125 MCG TABLET PO SCH (06:50)
[2023-01-02 08:09] LABS: CALCIUM 8.2 mg/dL (8.5-10.3); CREATININE 1.9 mg/dL (0.4-1.0); POTASSIUM 3.9 mmol/L (3.5-5.0)
[2023-01-02] MEDS: ASPIRIN CHEW 81 MG TABLET PO SCH (08:35)
[2023-01-02] MEDS: CALCIUM CITRATE 250 MG TABLET PO SCH (08:35)
[2023-01-02] MEDS: NITROFURANTOIN MACRO 100 MG CAPSULE PO SCH ×2 (08:35→21:10)
[2023-01-02] MEDS: CHOLECALCIFEROL 5,000 UNIT CAPSULE PO SCH (08:35)
[2023-01-02] MEDS: NYSTATIN CREAM 15 GM TUBE TOP SCH ×2 (08:36→21:13)
[2023-01-02] MEDS: MORPHINE 2 MG/ML CARPUJECT IVP PRN ×5 (08:36→23:54)
[2023-01-02] MEDS: INSULIN LISPRO 300 UNIT/3 ML PEN SUBQ SCH ×7 (08:36→21:11)
[2023-01-02] MEDS: INSULIN GLARGINE-YFGN 300 UNIT/3 ML PEN SUBQ SCH ×2 (08:44→21:11)
[2023-01-02] MEDS: methocarbamoL 500 MG TABLET PO PRN (09:35)
[2023-01-02] MEDS: traMADol 50 MG TABLET PO PRN ×2 (09:35→13:21)
[2023-01-02 10:16] LABS: BASOPHILS # (AUTO) 0.1 10^3/uL (0.0-0.1); BASOPHILS % (AUTO) 0.7 %; EOSINOPHILS # (AUTO) 0.3 10^3/uL (0.0-0.7); HGB - HEMOGLOBIN 8.6 g/dL (12.0-16.0); LYMPHOCYTES # (AUTO) 1.5 10^3/uL (1.5-3.5); LYMPHOCYTES % (AUTO) 15.3 %; MEAN CORPUSCULAR HEMOGLOBIN 26.9 pg (27.0-31.0); MEAN CORPUSCULAR HGB CONC 29.7 g/dL (32.0-36.0); MEAN CORPUSCULAR VOLUME 90.6 fL (81.0-99.0); MEAN PLATELET VOLUME 10.1 fL (7.9-10.8); MONOCYTES # (AUTO) 0.5 10^3/uL (0.0-1.0); MONOCYTES % (AUTO) 5.2 %; NEUTROPHILS # (AUTO) 7.5 10^3/uL (1.5-6.6); NEUTROPHILS % (AUTO) 75.3 %; PLT - PLATELET COUNT 400 10^3/uL (130-450); RED CELL DISTRIBUTION WIDTH 15.2 % (12.0-15.0); WHITE BLOOD COUNT 9.9 x10^3/uL (4.8-10.8)
[2023-01-02] MEDS: SODIUM CHLORIDE 0.9% 1,000 ML IV SCH ×2 (11:40→23:56)
--- NOTE | 2023-01-02 15:58 | PROVIDER PROGRESS NOTE ---
Progress Note January 02, 2023 3:45 PM No change in myalgias and arthralgias. This leaves her really unmotivated to get up out of bed. Shortness of breath is definitely better she tells me. No chest pain, nausea, jaw pain, palpitations. Telemetry without any arrhythmias. Active Medications Acetaminophen (Acetaminophen 325 Mg Tablet) 650 mg PO Q4HR PRN PRN Reason: Pain 1 to 4, or Fever Last Admin: 12/31/22 19:04 Dose: 650 mg Aspirin (Aspirin Chew 81 Mg Tablet) 81 mg PO DAILY [facility] Last Admin: 01/02/23 08:35 Dose: 81 mg Atorvastatin Calcium (Atorvastatin 40 Mg Tablet) 80 mg PO QPM [facility] Last Admin: 01/01/23 21:08 Dose: 80 mg Calcium Citrate (Calcium Citrate 250 Mg Tablet) 250 mg PO DAILY [facility] Last Admin: 01/02/23 08:35 Dose: 250 mg Cholecalciferol (Cholecalciferol 5,000 Unit Capsule) 5,000 unit PO DAILY [facility] Last Admin: 01/02/23 08:35 Dose: 5,000 unit Enoxaparin Sodium (Enoxaparin 150 Mg/Ml Syringe) 140 mg SUBQ QPM [facility] Stop: 01/03/23 10:57 Last Admin: 01/01/23 21:09 Dose: 140 mg Sodium Chloride (Normal Saline 0.9%) 1,000 mls @ 100 mls/hr IV .Q10H [facility] Last Admin: 01/02/23 11:40 Dose: 100 mls/hr Insulin Glargine-yfgn (Insulin Glargine-Yfgn 300 Unit/3 Ml Pen) 40 unit SUBQ QPM [facility] Last Admin: 01/01/23 21:09 Dose: 40 unit Insulin Glargine-yfgn (Insulin Glargine-Yfgn 300 Unit/3 Ml Pen) 10 unit SUBQ QDBREAKFAST [facility] Last Admin: 01/02/23 08:44 Dose: 10 unit Insulin Human Lispro (Insulin Lispro 300 Unit/3 Ml Pen) 1 - 5 unit SUBQ 0800,1200,1700,2100 [facility]; Protocol Last Admin: 01/02/23 11:40 Dose: Not Given Insulin Human Lispro (Insulin Lispro 300 Unit/3 Ml Pen) 5 unit SUBQ TIDWM [facility]; Protocol Last Admin: 01/02/23 11:39 Dose: 5 unit Latanoprost (Latanoprost 0.005% Ophth Drops) 1 drops EACHEYE QPM [facility] Last Admin: 01/01/23 21:10 Dose: 1 drops Levothyroxine Sodium (Levothyroxine 125 Mcg Tablet) 125 mcg PO QDAC [facility] Last Admin: 01/02/23 06:50 Dose: 125 mcg Lisinopril (Lisinopril 20 Mg Tablet) 40 mg PO QPM [facility] Last Admin: 01/01/23 21:11 Dose: 40 mg Methocarbamol (Methocarbamol 500 Mg Tablet) 500 mg PO Q6HR PRN PRN Reason: Spasms Last Admin: 01/02/23 09:35 Dose: 500 mg Metoprolol Succinate (Metoprolol Succinate 25 Mg Tablet) 50 mg PO QPM [facility] Last Admin: 01/01/23 21:11 Dose: 50 mg Morphine Sulfate (Morphine 2 Mg/Ml Carpuject) 2 mg IVP Q2HR PRN PRN Reason: Pain 8 to 10 Last Admin: 01/02/23 13:21 Dose: 2 mg Nitrofurantoin (Nitrofurantoin Macro 100 Mg Capsule) 100 mg PO BID [facility] Last Admin: 01/02/23 08:35 Dose: 100 mg Nitroglycerin (Nitroglycerin Sl 0.4 Mg Tablet) 0.4 mg SL Q5MIN PRN PRN Reason: Chest Pain Nystatin (Nystatin Cream 15 Gm Tube) 1 applic TOP BID [facility] Last Admin: 01/02/23 08:36 Dose: 1 applic Ondansetron HCl (Ondansetron Odt 4 Mg Tablet) 4 mg TL Q6HR PRN PRN Reason: Nausea / Vomiting Ondansetron HCl (Ondansetron 4 Mg/2 Ml Vial) 4 mg IVP Q6HR PRN PRN Reason: Nausea / Vomiting Oxycodone HCl (Oxycodone 5 Mg Tablet) 5 mg PO Q4HR PRN PRN Reason: Pain 5 to 7 Last Admin: 01/02/23 00:50 Dose: 5 mg Pantoprazole Sodium (Pantoprazole 40 Mg Tablet) 40 mg PO QDAC [facility] Last Admin: 01/02/23 06:50 Dose: 40 mg Sodium Chloride (Sodium Chloride Flush 0.9% 10 Ml Syringe) 10 ml IVP PRN PRN PRN Reason: NEEDED PER PROVIDER ORDERS Sodium Chloride (Sodium Chloride Flush 0.9% 10 Ml Syringe) 10 ml IVP 0100,0900,1700 [facility] Last Admin: 01/02/23 08:43 Dose: 10 ml Tramadol HCl (Tramadol 50 Mg Tablet) 50 mg PO Q4HR PRN PRN Reason: PAIN Last Admin: 01/02/23 13:21 Dose: 50 mg Home Meds: Latanoprost [Xalatan] 1 drops EACHEYE QPM 06/27/15 Levothyroxine Sodium [Synthroid] 125 mcg PO QDAC 06/27/15 Metoprolol Succinate [Toprol Xl] 50 mg PO QPM 06/27/15 Multivitamin [Multivitamins] 1 cap PO DAILY 06/27/15 Omeprazole [PriLOSEC] 20 mg PO QPM 06/27/15 lisinopriL [Lisinopril] 40 mg PO QPM 06/27/15 metFORMIN [Glucophage] 1,000 mg PO BIDWM 06/27/15 hydroCHLOROthiazide [Hydrodiuril] 25 mg PO DAILY 04/02/21 Calcium Carb (Oyster Shell) [Oysco-500] 500 mg PO DAILY 12/31/22 Cholecalciferol (Vitamin D3) [D3-5000] 125 mcg PO DAILY 12/31/22 Furosemide [Lasix] 20 mg PO DAILY 12/31/22 Insulin Detemir [Levemir Flextouch] 50 units SUBQ QPM 12/31/22 Nifedipine [Procardia Xl] 60 mg PO DAILY 12/31/22 Potassium Chloride [Micro-K] 10 meq PO DAILY 12/31/22 Exam: Temperature 36.5. Heart rate 62. Blood pressure 110/58. Neck is supple. Unable to be assessed for JVD Diminished breath sounds at the bases of her lungs, but no respiratory effort. No grunting. No tachypnea. She is able to speak in complete sentences. Distant cardiac tones with a regular rate and rhythm. No S3 or S4 Abdomen is obese, protuberant, soft, nontender. Hyperactive bowel sounds. Extremities are large, edema is resolving. You can see where her skin is shrinking and around her ankles, calves. The rubor around the skin of shins and calves is gone. Toes still have a slight increased pinkness than usual. Alert, oriented, no cranial nerve deficits. No focal strength deficits. She has moderate to severe generalized weakness. She cannot get up on her own even if it is just to go from supine to sitting. Everything just hurts and she is too weak. Labs: Sodium 132, potassium 3.9, BUN 50, creatinine 1.9, fasting glucose 126. Troponin was 647 yesterday and is 317 today. BNP was 102 yesterday, 80 today. White cell count 9.9. Hemoglobin 8.6. On admission she was 10.7. MCV 90.6. Platelets 400. Iron studies were normal. B12 and folate studies were normal. Assessment/plan: 1. NSTEMI. Medical management with statin, Lovenox, aspirin, beta-tacos. Unable to do echo until January 04. We figured out that Dr. Jimenez is not a filling winder but she would like to see him. Troponins are definitely trending down. EKG is remained stable. Lovenox had to be adjusted because of creatinine. Today is day #4 of Lovenox. Plan: Lovenox is stopped today Telemetry to continue Statin, aspirin, beta-tacos to continue Outpatient stress test. Hopefully echo if she is still here January 04. 2. Fall at home. She says that she fell with tripping in December 2021 and was at [facility] for for 5 days. From there she went home. Physical therapy evaluated her on December 31 and does not recommend returning to home. She will need to go to longterm facility because she is severely, severely deconditioned. She has [facility] and I have let discharge planning note today. She is now medically stable from an ME perspective and can be discharged tomorrow 3. Hypertension. Currently on Zestril 40 mg a day, metoprolol XL 50 mg a day. Blood pressure stable at 110/58, 131/53 today. Plan: No changes in medication 4. Hyperlipidemia. On a statin. LDL goal less than 70. Tolerating statin so far. She has a "allergy" to it where it gives her leg pain. Hopefully she will be able to stay on it indefinitely. 5. Normocytic anemia. Consider outpatient EGD and colonoscopy when ready. Iron studies normal. B12 and folate normal. If EGD and colonoscopy are negative and she continues to have normocytic anemia, consider oncology referral. 6. E. coli UTI. Changed to Macrobid 100 mg p.o. twice daily on December 31 from [facility]. I was worried that I would have to stop the Macrobid because of creat inine. Creatinine has remained stable today as has GFR. She is day #4 of antibiotic treatment today. Because of leukocytosis history and immobility history, plan for 7 days total. 7. Fracture of distal radius and ulna. Left arm. Keep in splint, elevate arm, or keep it on a pillow. Evaluate with orthopedics in the outpatient setting. If she goes to a longterm facility in the next few days, an appointment will need to be made with orthopedics. She will need to get to that office and back. 8. Glaucoma. On Xalatan drops. 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 10. Shortness of breath. Probably most likely due to morbid obesity, deconditioning, and possibly congestive heart failure. No crackles, unable to assess for JVD, responded to Lasix and that leg edema is sharply reduced. But creatinine came back up. I have stopped Lasix since January 01. If she is still in our facility we can get an echo on January 04. However it would be technically difficult to do considering her obesity. Most likely will be referred to cardiology in the outpatient setting. 11. Acute kidney injury secondary to Toradol and Lasix. Both have been stopped. On 100 cc an hour of IV fluids. Baseline creatinine 0.9 and went up to 2.0 with my intervention. She is now 1.9. Plan: Encourage p.o. water intake. Stop IV fluids tomorrow. 12. Type 2 diabetes mellitus, without complication, without long-term use of insulin. At home she is on metformin and I have not renewed that while here. She is on 40 units of Lantus in the evening. 10 units of Lantus in the morning. Sliding scale lispro 1 to 5 units before meals. 5 units of lispro before each meal. January 01 glucose during changes were 151, 176, then 5 units to each meal added and subsequent glucose 126, 138. Today glucose is 120, 125 no changes on management.
[2023-01-02] MEDS: LATANOPROST 0.005% OPHTH DROPS EACHEYE SCH (21:08)
[2023-01-02] MEDS: lisinopriL 20 MG TABLET PO SCH (21:10)
[2023-01-02] MEDS: METOPROLOL SUCCINATE 25 MG TABLET PO SCH (21:10)
[2023-01-02] MEDS: ATORVASTATIN 40 MG TABLET PO SCH (21:10)
[2023-01-02] MEDS: ENOXAPARIN 150 MG/ML SYRINGE SUBQ SCH (21:12)
[2023-01-03] MEDS: methocarbamoL 500 MG TABLET PO PRN (00:43)
[2023-01-03 05:13] LABS: BASOPHILS # (AUTO) 0.1 10^3/uL (0.0-0.1); BASOPHILS % (AUTO) 0.6 %; EOSINOPHILS # (AUTO) 0.3 10^3/uL (0.0-0.7); HCT - HEMATOCRIT 29.5 % (37.0-47.0); HGB - HEMOGLOBIN 8.7 g/dL (12.0-16.0); LYMPHOCYTES # (AUTO) 1.8 10^3/uL (1.5-3.5); LYMPHOCYTES % (AUTO) 20.5 %; MEAN CORPUSCULAR HEMOGLOBIN 26.6 pg (27.0-31.0); MEAN CORPUSCULAR HGB CONC 29.5 g/dL (32.0-36.0); MEAN CORPUSCULAR VOLUME 90.2 fL (81.0-99.0); MEAN PLATELET VOLUME 9.8 fL (7.9-10.8); MONOCYTES # (AUTO) 0.6 10^3/uL (0.0-1.0); MONOCYTES % (AUTO) 6.8 %; NEUTROPHILS % (AUTO) 68.8 %; PLT - PLATELET COUNT 394 10^3/uL (130-450); RED BLOOD COUNT 3.27 10^6/uL (4.20-5.40); RED CELL DISTRIBUTION WIDTH 15.7 % (12.0-15.0); WHITE BLOOD COUNT 8.7 x10^3/uL (4.8-10.8)
[2023-01-03 05:18] LABS: CALCIUM 8.7 mg/dL (8.5-10.3); CREATININE 1.8 mg/dL (0.4-1.0); POTASSIUM 4.3 mmol/L (3.5-5.0)
[2023-01-03] MEDS: PANTOPRAZOLE 40 MG TABLET PO SCH (06:35)
[2023-01-03] MEDS: LEVOTHYROXINE 125 MCG TABLET PO SCH (06:35)
[2023-01-03] MEDS: INSULIN GLARGINE-YFGN 300 UNIT/3 ML PEN SUBQ SCH ×2 (08:26→20:37)
[2023-01-03] MEDS: INSULIN LISPRO 300 UNIT/3 ML PEN SUBQ SCH ×7 (08:26→20:37)
[2023-01-03] MEDS: MORPHINE 2 MG/ML CARPUJECT IVP PRN ×3 (08:28→18:39)
[2023-01-03] MEDS: SODIUM CHLORIDE FLUSH 0.9% 10 ML SYRINGE IVP SCH ×2 (08:42→17:20)
[2023-01-03] MEDS: NITROFURANTOIN MACRO 100 MG CAPSULE PO SCH ×2 (08:42→20:36)
[2023-01-03] MEDS: ASPIRIN CHEW 81 MG TABLET PO SCH (08:42)
[2023-01-03] MEDS: CHOLECALCIFEROL 5,000 UNIT CAPSULE PO SCH (08:42)
[2023-01-03] MEDS: CALCIUM CITRATE 250 MG TABLET PO SCH (08:42)
[2023-01-03] MEDS: NYSTATIN CREAM 15 GM TUBE TOP SCH ×2 (11:22→20:38)
--- NOTE | 2023-01-03 11:39 | PROVIDER PROGRESS NOTE ---
Progress Note January 03, 2023 11:08 PM Completely miserable with left wrist pain. She says it is just wiping her out. More than her back pain and more than her all over body pain. She shrunken up in her bed, covered up, eyes closed, and near tears because of the left wrist pain. I explained to her that she has finished her Lovenox therapy for her NSTEMI. Her troponins are trending down. If she is can be medical management. Next step would be for her [place] [facility] [place] and she is amenable to that. Social work and case management are working out the details of her to be placed at [facility]. If she stays until tomorrow she gets an echocardiogram. That way she will need a stress test in the outpatient setting to complete her NSTEMI work-up. One of our issues was her tolerating a statin. She stated she was allergic to statins. The allergy response was leg aching. She is aching somewhat from laying on the bathroom floor for 2 days that she cannot tell a difference between what she was like on admission and what she has today. She says that her legs ache but they have been aching. She is not attributing it to the statin. Active Medications Acetaminophen (Acetaminophen 325 Mg Tablet) 650 mg PO Q4HR PRN PRN Reason: Pain 1 to 4, or Fever Last Admin: 12/31/22 19:04 Dose: 650 mg Aspirin (Aspirin Chew 81 Mg Tablet) 81 mg PO DAILY [facility] Last Admin: 01/03/23 08:42 Dose: 81 mg Atorvastatin Calcium (Atorvastatin 40 Mg Tablet) 80 mg PO QPM [facility] Last Admin: 01/02/23 21:10 Dose: 80 mg Calcium Citrate (Calcium Citrate 250 Mg Tablet) 250 mg PO DAILY [facility] Last Admin: 01/03/23 08:42 Dose: 250 mg Cholecalciferol (Cholecalciferol 5,000 Unit Capsule) 5,000 unit PO DAILY [facility] Last Admin: 01/03/23 08:42 Dose: 5,000 unit Sodium Chloride (Normal Saline 0.9%) 1,000 mls @ 100 mls/hr IV .Q10H [facility] Last Admin: 01/02/23 23:56 Dose: 100 mls/hr Insulin Glargine-yfgn (Insulin Glargine-Yfgn 300 Unit/3 Ml Pen) 40 unit SUBQ QPM [facility] Last Admin: 01/02/23 21:11 Dose: 40 unit Insulin Glargine-yfgn (Insulin Glargine-Yfgn 300 Unit/3 Ml Pen) 10 unit SUBQ QDBREAKFAST [facility] Last Admin: 01/03/23 08:26 Dose: 10 unit Insulin Human Lispro (Insulin Lispro 300 Unit/3 Ml Pen) 1 - 5 unit SUBQ 0800,1200,1700,2100 [facility]; Protocol Last Admin: 01/03/23 08:26 Dose: Not Given Insulin Human Lispro (Insulin Lispro 300 Unit/3 Ml Pen) 5 unit SUBQ TIDWM [facility]; Protocol Last Admin: 01/03/23 08:28 Dose: 5 unit Latanoprost (Latanoprost 0.005% Ophth Drops) 1 drops EACHEYE QPM [facility] Last Admin: 01/02/23 21:08 Dose: 1 drops Levothyroxine Sodium (Levothyroxine 125 Mcg Tablet) 125 mcg PO QDAC [facility] Last Admin: 01/03/23 06:35 Dose: 125 mcg Lisinopril (Lisinopril 20 Mg Tablet) 40 mg PO QPM [facility] Last Admin: 01/02/23 21:10 Dose: 40 mg Methocarbamol (Methocarbamol 500 Mg Tablet) 500 mg PO Q6HR PRN PRN Reason: Spasms Last Admin: 01/03/23 00:43 Dose: 500 mg Metoprolol Succinate (Metoprolol Succinate 25 Mg Tablet) 50 mg PO QPM [facility] Last Admin: 01/02/23 21:10 Dose: 50 mg Morphine Sulfate (Morphine 2 Mg/Ml Carpuject) 2 mg IVP Q2HR PRN PRN Reason: Pain 8 to 10 Last Admin: 01/03/23 08:28 Dose: 2 mg Nitrofurantoin (Nitrofurantoin Macro 100 Mg Capsule) 100 mg PO BID [facility] Stop: 01/03/23 23:30 Last Admin: 01/03/23 08:42 Dose: 100 mg Nitroglycerin (Nitroglycerin Sl 0.4 Mg Tablet) 0.4 mg SL Q5MIN PRN PRN Reason: Chest Pain Nystatin (Nystatin Cream 15 Gm Tube) 1 applic TOP BID [facility] Last Admin: 01/03/23 11:22 Dose: Not Given Ondansetron HCl (Ondansetron Odt 4 Mg Tablet) 4 mg TL Q6HR PRN PRN Reason: Nausea / Vomiting Ondansetron HCl (Ondansetron 4 Mg/2 Ml Vial) 4 mg IVP Q6HR PRN PRN Reason: Nausea / Vomiting Oxycodone HCl (Oxycodone 5 Mg Tablet) 5 mg PO Q4HR PRN PRN Reason: Pain 5 to 7 Last Admin: 01/02/23 00:50 Dose: 5 mg Pantoprazole Sodium (Pantoprazole 40 Mg Tablet) 40 mg PO QDAC [facility] Last Admin: 01/03/23 06:35 Dose: 40 mg Sodium Chloride (Sodium Chloride Flush 0.9% 10 Ml Syringe) 10 ml IVP PRN PRN PRN Reason: NEEDED PER PROVIDER ORDERS Sodium Chloride (Sodium Chloride Flush 0.9% 10 Ml Syringe) 10 ml IVP 0100,0 900,1700 [facility] Last Admin: 01/03/23 08:42 Dose: Not Given Tramadol HCl (Tramadol 50 Mg Tablet) 50 mg PO Q4HR PRN PRN Reason: PAIN Last Admin: 01/02/23 13:21 Dose: 50 mg Home Meds: Latanoprost [Xalatan] 1 drops EACHEYE QPM 06/27/15 Levothyroxine Sodium [Synthroid] 125 mcg PO QDAC 06/27/15 Metoprolol Succinate [Toprol Xl] 50 mg PO QPM 06/27/15 Multivitamin [Multivitamins] 1 cap PO DAILY 06/27/15 Omeprazole [PriLOSEC] 20 mg PO QPM 06/27/15 lisinopriL [Lisinopril] 40 mg PO QPM 06/27/15 metFORMIN [Glucophage] 1,000 mg PO BIDWM 06/27/15 hydroCHLOROthiazide [Hydrodiuril] 25 mg PO DAILY 04/02/21 Calcium Carb (Oyster Shell) [Oysco-500] 500 mg PO DAILY 12/31/22 Cholecalciferol (Vitamin D3) [D3-5000] 125 mcg PO DAILY 12/31/22 Furosemide [Lasix] 20 mg PO DAILY 12/31/22 Insulin Detemir [Levemir Flextouch] 50 units SUBQ QPM 12/31/22 Nifedipine [Procardia Xl] 60 mg PO DAILY 12/31/22 Potassium Chloride [Micro-K] 10 meq PO DAILY 12/31/22 Exam: Temperature is 36.7. Heart rate 78. Blood pressure 139/58. Respirations 18. 95% on room air. 5 feet 2 inch tall female, 132.5 kg, BMI 53.4 Slightly depressed, tearful, obese female. Does not want anybody to touch her left wrist because it hurts so badly. Neck is short stature, unable to be assessed for JVD but supple Lungs have diminished breath sounds at the bases but are clear. No respiratory distress. No increased respiratory effort with talking to me. The grunting respiration present on admission is gone. Regular rate and rhythm with distant cardiac tones Abdomen is obese, soft, nontender She had edema on her legs on admission. Probably about 1+. Scattered redness over her shins and calves and definitely rubor of the toes. The edema is gone. Skin is shrunken over calves, shins, ankles. Toes are still slightly a little red with rubor. The left arm is in a splint that starts at the wrist and goes up the forearm. Neuro: Alert and oriented to person place and time. Has always been a lucid historian. Her main barrier to mobility has been her weight and arthritis. Labs: Sodium 135, potassium 4.3, BUN 54, creatinine 1.8. Her BUN has been climbing but her creatinine is coming down. White cell count 8.7, hemoglobin 8.7, hematocrit 29.5. Platelet count 339. Anemia has been worked up in the reticulocyte count is mildly elevated.. LDH normal. Iron is normal. B12 and folate is normal. Cholesterol 239, LDL 142, HDL 37, triglycerides 298 A1c is 9.8% Assessment/plan: 1. NSTEMI. Being unable to ambulate after her fall, and this diagnosis was the reason for admission. She has completed 4 days of Lovenox. Is medically managed with statin, aspirin, beta-tacos. Echocardiogram tomorrow. Will need outpatient stress test with Dr. Jimenez after she finishes rehab. She has not had any arrhythmias. I did treat for possible congestive heart failure because of shortness of breath and all it did was abruptly increase her creatinine. BNP was 885 on admission, an 80 yesterday. 2. Fall at home. Admitted at [facility] for 5 days in December 2021 for a fall where she tripped. She is adamant there is no syncope or arrhythmia. This is now her second admission for a fall where she fell in her bathroom. She lay on the floor for 2 days and is very deconditioned and has diffuse pain because of it. She also broke her left wrist. Physical therapy is seeing her. Recommendation is for care home facility for rehab. She will be going to [facility] most likely tomorrow. Hopefully she will get the echocardiogram before she leaves. From rehab at [facility] she will go back to living in her own home. I have asked her to stop planning for down the road in case she can no longer live at home by herself. 3. Hypertension. Blood pressure stable on Zestril and metoprolol home medications. 4. Hyperlipidemia. In the past tried on statins but they give her leg aching so she stopped taking them. She is on a statin now because of her NSTEMI. Will need repeat lipid panel and liver panel in 4 weeks. 5. Normocytic anemia with normal iron, B12, folate. Will need outpatient EGD and colonoscopy. If continues to have anemia, consider oncology referral. 6. E. coli UTI. Started on Rocephin and had urine culture grew out E. coli. Switched over to Macrodantin. Today is day 5 of antibiotic treatment. I had thought to continue her for 7 days, but since it is an uncomplicated UTI, and leukocytosis has resolved, I will stop as of tonight. I also do worry about her creatinine and BUN. Macrobid would have to be dose adjusted. Or changed to a different antibiotic. 7. Fracture of distal radius and ulna on the left side. Tremendous pain today. I needed to work with physical therapy but at the same time understand how much pain she is in. I will recheck plain film of left wrist. Orthopedics advised me over the phone, reviewing her films. He has never seen her. I will ask if he has time to see her today. I do not know if orthopedics is available today. 8. Glaucoma. On her Xalatan eyedrops. 9. Alisson intertrigo on admission. Started on nystatin. 10. Shortness of breath. Most likely due to morbid obesity, deconditioning and she feels congestive heart failure. But she is never had crackles on exam. I have been unable to assess her for JVD because of her short neck. BNP was elevated on admission to 800, and she is now 80 today. I did give her Lasix on for every second, and for every third but stopped it on January 01. The combination of Lasix and Toradol caused her creatinine to abruptly rise. On its own the BNP has drifted downward without further Lasix. Echocardiogram is tomorrow. 11. Acute kidney injury. Secondary to Toradol and Lasix. Both have been stopped. On 100 cc an hour of IV fluids. BNP is 80 with that IV fluids. BUN continues to rise. She is a big person. I will see if I can get retroperitoneal ultrasound to look at her kidneys. I want to avoid more radiation. But if her kidneys cannot be visualized, she may need a CT. 12. Type 2 diabetes mellitus, without complication, without long-term use of insulin. A1c is 9.8% so she has been uncontrolled at home. She usually takes 50 units of Levemir at home as well as metformin. Here I have her on 40 units of Semglee at night, 10 units of Semglee in the morning. 5 units of short acting insulin with each meal. Plus sliding scale with each meal. With that glucose is very well controlled. Yesterday she was 125, 144, 179. This morning she is 139. I [place] [facility].
[2023-01-03] MEDS: SODIUM CHLORIDE 0.9% 1,000 ML IV SCH ×2 (11:40→22:00)
[2023-01-03] MEDS: oxyCODONE 5 MG TABLET PO PRN ×2 (11:47→20:36)
--- NOTE | 2023-01-03 13:21 | CONSULTATION NOTE ---
Referring Provider Name of Referring Provider:: Dr. Guo Consult Date: 01/03/23 History of Present Illness - Admitted From Admitted From:: ED - History Obtained From History obtained from: patient - History of Present Illness HPI Comment/Other: This is a 77-year-old woman who apparently became faint, fell onto her outstretched left hand and brought to the hospital where she was found to have evidence of a myocardial infarction and a left wrist fracture. She has a history of arthritis to her left wrist before the fall. She has localized pain to her left wrist. She was placed in a splint in the emergency room for her left wrist fracture. She seems to be recovering well from her cardiac issues. History - Past Medical History Cardiovascular: reports: None (Diabetes GERD hypertension obesity neuropathy), Hypertension, High cholesterol, Murmur Respiratory: reports: None Neuro: reports: Peripheral neuropathy Endocrine/Autoimmune: reports: Type 2 diabetes, HyPOthyroidism, Other GI: reports: GERD, Ulcers, Other PARTS INTERPRETER: reports: Other : reports: Incontinence, Frequency HEENT: reports: Chronic vision loss (With cataracts. Right now just being observed), Glaucoma, Chronic sinusitis, Chronic hearing loss, Other. denies: Macular degeneration Psych: reports: Depression Musculoskeletal: reports: Osteoarthritis, Osteoporosis, Osteopenia, Chronic back pain Derm: reports: Eczema, Other MRSA Hx?: No Other Past Medical History: Iron deficiency anemia. - Past Surgical History General: reports: Cholecystectomy, Colonoscopy, EGD Ortho: reports: Hip replacement, Spine surgery /PARTS INTERPRETER: reports: Hysterectomy, Other HEENT: reports: Cataracts, Myringotomy (tubes), Other - Family & Social History Family History: Mother: CVA/TIA (Aneurysm) Family History Comment/Other: Mom at age 68 of a cerebral aneurysm. Dad at age 62 of lung cancer. 1 brother has coronary artery disease and is . 2 children healthy Living arrangement: At home Living Situation: Alone Social History Notes: Lived in the [facility] for 73 years. Prior to that she lived in [place]. She is with her dying in 2019. Never smoked. Rarely drinks alcohol.No recreational substance abuse. 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 - Substance History Use: Uses substance without health or social issues: NONE - POLST Patient has POLST: No POLST Status: DNR Meds/Allgy - Home Medications Home Medications: Ambulatory Orders Medication Instructions Recorded Confirmed Latanoprost [Xalatan] 1 drops EACHEYE QPM 06/27/15 12/31/22 Levothyroxine Sodium [Synthroid] 125 mcg PO QDAC 06/27/15 12/31/22 Metoprolol Succinate [Toprol Xl] 50 mg PO QPM 06/27/15 12/31/22 Multivitamin [Multivitamins] 1 cap PO DAILY 06/27/15 12/31/22 Omeprazole [PriLOSEC] 20 mg PO QPM 06/27/15 12/31/22 lisinopriL [Lisinopril] 40 mg PO QPM 06/27/15 12/31/22 metFORMIN [Glucophage] 1,000 mg PO BIDWM 06/27/15 12/31/22 hydroCHLOROthiazide [Hydrodiuril] 25 mg PO DAILY 04/02/21 12/31/22 Calcium Carb (Oyster Shell) 500 mg PO DAILY 12/31/22 12/31/22 [Oysco-500] Cholecalciferol (Vitamin D3) 125 mcg PO DAILY 12/31/22 12/31/22 [D3-5000] Furosemide [Lasix] 20 mg PO DAILY 12/31/22 12/31/22 Insulin Detemir [Levemir Flextouch] 50 units SUBQ QPM 12/31/22 12/31/22 Nifedipine [Procardia Xl] 60 mg PO DAILY 12/31/22 12/31/22 Potassium Chloride [Micro-K] 10 meq PO DAILY 12/31/22 12/31/22 - Allergies Allergies/Adverse Reactions: Allergies Allergy/AdvReac Type Severity Reaction Status Date / Time adhesive Allergy Rash Verified 04/01/21 13:07 manganese Allergy Rash Verified 04/01/21 13:07 niacin Allergy Rash Verified 04/01/21 13:07 Mnnvbsg-TPA-YhF Reductase AdvReac increased Verified 04/01/21 13:07 Inhibitor liver [Pkdndmo-Gsm-Xcq Reductase enzymes Inhibitor] Exam - Vital Signs Reviewed Vital Signs: Yes Vital Signs: Vital Signs x48h Temp Pulse Resp BP Pulse Ox 01/03/23 08:00 36.7 C 78 18 139/58 H 95 - Physical Exam General Appearance: positive: No acute distress, Alert Neurologic/Psychiatric: positive: Oriented x3, Motor nml, Sensation nml, Mood/affect nml Comments/Other: She is alert, oriented, increased body mass index. She moves her shoulder and elbow well on the left side but does have pain and limited motion left wrist with deformity. The left distal radius is tender, mild swelling, skin intact, neurovascular intact, tendon function intact Conclusion and Plan - Lab Results Microbiology Results 12/30/22 13:34 Urine,Catheterized Urine Culture - Final Escherichia Coli Laboratory Results 01/03/23 05:02: Sodium 135, Potassium 4.3, Chloride 103, Carbon Dioxide 22, Anion Gap 10.0, BUN 54 H, Creatinine 1.8 H, Estimated GFR (MDRD) 27 L, Glucose 140 H, Calcium 8.7 01/03/23 05:02: WBC 8.7, RBC 3.27 L, Hgb 8.7 L, Hct 29.5 L, MCV 90.2, MCH 26.6 L, MCHC 29.5 L, RDW 15.7 H, Plt Count 394, MPV 9.8, Neut # (Auto) 6.0, Lymph # (Auto) 1.8, [place] # (Auto) 0.6, Eos # (Auto) 0.3, Baso # (Auto) 0.1, Absolute Nucleated RBC 0.00, Nucleated RBC % 0.0 01/02/23 04:21: Troponin I High Sens 317.7 H* 01/02/23 04:21: Sodium 132 L, Potassium 3.9, Chloride 99 L, Carbon Dioxide 23, Anion Gap 10.0, BUN 50 H, Creatinine 1.9 H, Estimated GFR (MDRD) 26 L, Glucose 126 H, Calcium 8.2 L 01/02/23 04:21: WBC 9.9, RBC 3.20 L, Hgb 8.6 L, Hct 29.0 L, MCV 90.6, MCH 26.9 L, MCHC 29.7 L, RDW 15.2 H, Plt Count 400, MPV 10.1, Neut # (Auto) 7.5 H, Lymph # (Auto) 1.5, [place] # (Auto) 0.5, Eos # (Auto) 0.3, Baso # (Auto) 0.1, Absolute Nucleated RBC 0.00, Nucleated RBC % 0.0 01/02/23 04:21: B-Natriuretic Peptide 80 - Diagnostic Imaging Results Diagnostic Imaging Results: positive: Read independently (Closed, displaced intra-articular fracture left distal radius, osteopenia, slack wrist, radiocarpal arthrosis) - Diagnosis Diagnosis: Displaced, articular fracture left distal radius with 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 A new short arm volar fiberglass padded splint was applied placing the wrist in neutral flexion and mild ulnar deviation. She tolerated this well, stated that it feels much better than the previous splint. She is best treated nonoperatively with splinting and most likely a fracture brace in a week. She has multiple comorbidities that places her at a high risk for any surgical treatment. Discharge instructions: . She can discontinue the sling, elevate hand above heart when she can, work on active motion of the fingers of left hand, elbow and shoulder, recheck in the orthopedic office in about a week. She is to keep the splint splint applied to the left forearm clean and dry.
--- NOTE | 2023-01-03 17:05 | XRAY Report ---
PROCEDURE: Wrist 3 View LT INDICATIONS: FX AND has increased pain TECHNIQUE: 3 views of the wrist were acquired. COMPARISON: Wrist radiograph dated 12/30/2022 FINDINGS: Bones: Again noted is slightly comminuted and impacted distal radial fracture with fracture line exte nding to radiocarpal joint space. Slightly displaced ulnar styloid fracture is also seen. Wrist align ment is not significantly changed from prior study. Age-indeterminate deformity involving proximal po rtion of scaphoid is also noted unchanged from prior study. No new fracture or dislocation. Osteoarth ritic changes are noted throughout wrist joints. No suspicious bony lesions. Soft tissues: No suspicious soft tissue calcifications. IMPRESSION: Comminuted and impacted distal radial fracture, minimally displaced ulnar styloid fracture and age-in determinate proximal scaphoid fracture on unchanged from prior study. No new fracture or dislocation. Wrist alignment is unchanged. Left wrist joint osteoarthritis. Reviewed by: Isma Carranza MD on 01/03/2023 5:04 PM PST Approved by: Isma Carranza MD on 01/03/2023 5:04 PM PST Station ID: [id number]
[2023-01-03 20:05] LABS: ALBUMIN 2.6 g/dL (3.2-5.5); BILIRUBIN,DIRECT 0.1 mg/dL (0.1-0.5); BILIRUBIN,TOTAL 0.8 mg/dL (0.2-1.0); TOTAL PROTEIN 5.5 g/dL (6.7-8.2)
[2023-01-03] MEDS: METOPROLOL SUCCINATE 25 MG TABLET PO SCH (20:35)
[2023-01-03] MEDS: lisinopriL 20 MG TABLET PO SCH (20:35)
[2023-01-03] MEDS: LATANOPROST 0.005% OPHTH DROPS EACHEYE SCH (20:35)
[2023-01-03] MEDS: ATORVASTATIN 40 MG TABLET PO SCH (20:36)
--- NOTE | 2023-01-03 20:55 | CT Report ---
PROCEDURE: ABDOMEN/PELVIS WO INDICATIONS: urine is brown, painful R flank after fall TECHNIQUE: Noncontrast 5 mm thick sections acquired from the diaphragms to the symphysis. 5 mm coronal and sagi ttal reformats were then performed. For radiation dose reduction, the following was used: automated exposure control, adjustment of mA and/or kV according to patient size. COMPARISON: CT abdomen pelvis 02/15/2021 FINDINGS: Image quality: Prominent artifact is present particularly along the periphery of the image within the subcutaneous tissues. There is limited visualization of the pelvis secondary to artifact from hip ar throplasty. ABDOMEN: Lung bases: Lung bases demonstrate mild right and minimal left pleural effusions.. Heart size is no rmal. Solid organs: Liver and spleen are normal in size. Gallbladder has been removed. Pancreas is ivana l in contours. No adrenal nodules. Kidneys are markedly atrophic, right greater than left., without hydronephrosis or nephrolithiasis. Peritoneum and bowel: Unenhanced bowel loops demonstrate normal wall thickness and caliber. No free fluid or air. Nodes and vessels: No retroperitoneal or mesenteric adenopathy by size criteria. Aorta and inferior vena cava are normal in caliber. Miscellaneous: No ventral hernias. There is potentially a subcutaneous hematoma within the region o f the subcutaneous fat of the right flank. However, significant artifact is present, limiting evaluat ion. PELVIS: Genitourinary: Bladder wall thickness is normal. Miscellaneous: No inguinal hernias or adenopathy. Bones: No suspicious bony lesions. No vertebral body compression fractures. IMPRESSION: Limited exam secondary to artifact. Minimal to mild bilateral pleural effusions. Possible hematoma within the subcutaneous fat of the right flank. This area is poorly visualized seco ndary to artifact. Reviewed by: Melisa Erwin MD on 01/03/2023 8:53 PM PST Approved by: Melisa Erwin MD on 01/03/2023 8:53 PM PST Station ID: [id number]
--- NOTE | 2023-01-03 20:59 | CT Report ---
PROCEDURE: THORACIC SPINE WO INDICATIONS: fall w spinal pain TECHNIQUE: Noncontrast 3 mm thick sections acquired through the region of interest in the thoracic spine. Sagit catracho and coronal reformats were then constructed. For radiation dose reduction, the following was used : automated exposure control, adjustment of mA and/or kV according to patient size. COMPARISON: None. FINDINGS: Image quality: Prominent artifact is present. Bones: There is normal overall bony alignment. No acute vertebral body compression fractures. No s uspicious sclerotic or lytic bony lesions. Central spinal canal is of normal overall caliber. There is appearance of mild irregularity within the posterior left ninth,, 7, 6 posterior medial ribs. Soft tissues: No paravertebral masses or hematomas. Minimal to mild bilateral pleural effusions. IMPRESSION: Prominent artifact limiting evaluation. Minimal mild bilateral effusions. Mild irregularity along the medial posterior left sixth, seventh and ninth ribs. Recommend correlatio n point tenderness as fracture cannot be definitively excluded. However, artifact may account for irr egular appearance. Reviewed by: Melisa Erwin MD on 01/03/2023 8:57 PM PST Approved by: Melisa Erwin MD on 01/03/2023 8:57 PM PST Station ID: [id number]
[2023-01-04] MEDS: MORPHINE 2 MG/ML CARPUJECT IVP PRN ×3 (04:50→20:59)
[2023-01-04] MEDS: SODIUM CHLORIDE FLUSH 0.9% 10 ML SYRINGE IVP SCH ×3 (04:52→16:33)
[2023-01-04 05:42] LABS: BASOPHILS % (AUTO) 0.5 %; EOSINOPHILS # (AUTO) 0.3 10^3/uL (0.0-0.7); EOSINOPHILS % (AUTO) 3.1 %; HCT - HEMATOCRIT 29.6 % (37.0-47.0); HGB - HEMOGLOBIN 8.9 g/dL (12.0-16.0); LYMPHOCYTES # (AUTO) 1.6 10^3/uL (1.5-3.5); LYMPHOCYTES % (AUTO) 19.7 %; MEAN CORPUSCULAR HEMOGLOBIN 26.8 pg (27.0-31.0); MEAN CORPUSCULAR HGB CONC 30.1 g/dL (32.0-36.0); MEAN CORPUSCULAR VOLUME 89.2 fL (81.0-99.0); MEAN PLATELET VOLUME 9.8 fL (7.9-10.8); MONOCYTES # (AUTO) 0.6 10^3/uL (0.0-1.0); MONOCYTES % (AUTO) 6.8 %; NEUTROPHILS # (AUTO) 5.7 10^3/uL (1.5-6.6); NEUTROPHILS % (AUTO) 69.7 %; PLT - PLATELET COUNT 390 10^3/uL (130-450); RED BLOOD COUNT 3.32 10^6/uL (4.20-5.40); RED CELL DISTRIBUTION WIDTH 15.9 % (12.0-15.0); WHITE BLOOD COUNT 8.2 x10^3/uL (4.8-10.8)
[2023-01-04 05:50] LABS: CALCIUM 8.9 mg/dL (8.5-10.3); CREATININE 1.4 mg/dL (0.4-1.0); POTASSIUM 4.4 mmol/L (3.5-5.0)
[2023-01-04] MEDS: PANTOPRAZOLE 40 MG TABLET PO SCH (06:21)
[2023-01-04] MEDS: oxyCODONE 5 MG TABLET PO PRN ×4 (06:21→23:57)
[2023-01-04] MEDS: LEVOTHYROXINE 125 MCG TABLET PO SCH (06:22)
[2023-01-04] MEDS: INSULIN GLARGINE-YFGN 300 UNIT/3 ML PEN SUBQ SCH ×2 (07:51→21:13)
[2023-01-04] MEDS: INSULIN LISPRO 300 UNIT/3 ML PEN SUBQ SCH ×7 (07:51→21:12)
[2023-01-04] MEDS: SODIUM CHLORIDE 0.9% 1,000 ML IV SCH ×2 (07:52→18:15)
[2023-01-04] MEDS: ASPIRIN CHEW 81 MG TABLET PO SCH (09:28)
[2023-01-04] MEDS: CHOLECALCIFEROL 5,000 UNIT CAPSULE PO SCH (09:28)
[2023-01-04] MEDS: NYSTATIN CREAM 15 GM TUBE TOP SCH ×2 (09:31→21:16)
[2023-01-04] MEDS: CALCIUM CITRATE 250 MG TABLET PO SCH ×2 (09:31→11:47)
[2023-01-04] MEDS ORDERED: ATORVASTATIN 40 MG TABLET PO SCH (09:55)
--- NOTE | 2023-01-04 17:20 | PROVIDER PROGRESS NOTE ---
Assessment/Plan - Problem List (1) NSTEMI (non-ST elevated myocardial infarction) Assessment/Plan: Her hs-trop peaked at 750. She has completed 4 days of therapeutic Lovenox BID. She is now medically managed with statin, aspirin, beta-tacos. Echocardiogram was done today and showed an LVEF of 50%, suggesting it was a small (subendocardial) NE. I discussed this with the patient today. She has not had any arrhythmias. Several days ago, she got Lasix for congestive heart failure because of shortness of breath and it abruptly increased her creatinine. BNP was 885 on admission, decreased since then Plan: The plan has been to get an outpatient stress test with Dr. Jimenez after she finishes rehab. However to do rehab is a stress on the heart and usually stress testing is done before discharge, however, her activity is negligible: she only sits at edge of bed and dangles and does in bed exercises, because of her morbid obesity and her L wrist pain. 2. Fall at home. She was admitted at [facility] for 5 days in December 2021 for a fall where she tripped. She was adamant there was no syncope or arrhythmia then. This is now her second admission for a fall where she fell in her bathroom. She layed on the floor for 2 days and has diffuse pain and many bruises because of it. She also broke her left wrist. Physical therapy is seeing her. Recommendation is for correction facility for rehab. She will be going to [facility] soon. From rehab at [facility] she will go back to living in her own home. I have asked her to start planning for down the road in case she can no longer live at home by herself. Plan: We will order orthostatic vital sign checks now that she will be working with PT and OT 3. Rhabdomyolysis She laid on the ground for 2 days. There was no CK done at admission. CK was done yesterday and was 500. Plan: We will repeat and follow her CK to assure it is improving Avoid nephrotoxins 4. Fracture of distal radius and ulna on the left side. She still has pain today. Orthopedics saw the patient and applied a splint Plan: Continue with pain meds Continue with OT 5. Acute kidney injury. This is likely secondary to Toradol and Lasix. Both have been stopped and she got 100 cc an hour of IV fluids. BNP is 80 even with those IV fluids. BUN and creat are now starting to improve. Plan: Continue present meds and plan Avoid nephrotoxins Follow BMP daily. 6. Morbid Obesity, BMI 50-59.9 As per Hx. This complicates her care 7. Type 2 diabetes mellitus, without complication, without long-term use of insulin. A1c is 9.8% so she has been uncontrolled diabetic at home. She usually takes 50 units of Levemir at home as well as metformin. Here we have her on 40 units of Semglee at night, 10 units of Semglee in the morning. 5 units of short acting insulin with each meal. Plus sliding scale with each meal. With that glucose is very well controlled. Plan: We will continue that at the retirement. 8. E. coli UTI. She was started on empiric Rocephin and had urine culture grew out E. coli. We switched her over to oral Macrodantin. Since it was an uncomplicated UTI, and leukocytosis has resolved,Macrodantin stopped. We also do worry about her creatinine and BUN. Macrobid would have to be dose adjusted,l or changed to a d ifferent antibiotic. 9. Hypertension. She is on Zestril and metoprolol home medications. Here BP here has been labile: as high as 230 systolic today (01/04/23). Plan: She is not yet ready for [facility], as I am adjusting meds 10. Normocytic anemia She has normal iron, B12, folate. Plan: Will need outpatient EGD and colonoscopy. If continues to have anemia, consider oncology referral. 11. Glaucoma. Plan: Continue on her Xalatan eyedrops. 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 Plan: She was started on nystatin powder. 13. Hyperlipidemia. In the past, she says she was tried on statins but they give her leg aching so she stopped taking them. She is on a statin now because of her NSTEMI. Plan: Will need repeat lipid panel and liver panel in 4 weeks. 14. Hypothyroid Plan: Continue her usual meds 15. Shortness of breath. Most likely this is due to morbid obesity, deconditioning and she feels she has "congestive heart failure". She does have leg edema and BNP was elevated on admission to 800, but last BNP was 80. She did get Lasix here. The combination of Lasix and Toradol caused her creatinine to abruptly rise. On its own the BNP has drifted downward without further Lasix. Echocardiogram was done today and showed normal LVEF, but Cor pulmonale was seen. I suspect the patient has obesity hypoventilation syndrome which would explain her shortness of breath with activity and her cor pulmonale findings. Plan: As she increases activity with PT, will monitor O2 sats. - Current Meds Current Meds: Current Medications Generic Name Dose Route Start Last Admin Trade Name Freq PRN Reason Stop Dose Admin Acetaminophen 650 mg 12/30/22 20:01 12/31/22 19:04 Acetaminophen 325 Mg Tablet PO 650 mg Q4HR PRN Administration Pain 1 to 4, or Fever Aspirin 81 mg 12/31/22 09:00 01/04/23 09:28 Aspirin Chew 81 Mg Tablet PO 81 mg DAILY ADELA Administration Calcium Citrate 250 mg 01/01/23 09:00 01/04/23 11:47 Calcium Citrate 250 Mg Tablet PO 250 mg DAILY ADELA Administration Cholecalciferol 5,000 unit 01/01/23 09:00 01/04/23 09:28 Cholecalciferol 5,000 Unit Capsule PO 5,000 unit DAILY ADELA Administration Sodium Chloride 1,000 mls @ 100 mls/hr 01/01/23 07:57 01/04/23 07:52 Normal Saline 0.9% IV 100 mls/hr .Q10H ADELA Administration Insulin Glargine-yfgn 40 unit 12/30/22 21:00 01/03/23 20:37 Insulin Glargine-Yfgn 300 Unit/3 Ml Pen SUBQ 40 unit QPM ADELA Administration Insulin Glargine-yfgn 10 unit 01/01/23 08:00 01/04/23 07:51 Insulin Glargine-Yfgn 300 Unit/3 Ml Pen SUBQ 10 unit QDBREAKFAST ADELA Administration Insulin Human Lispro 1 - 5 unit 12/30/22 17:00 01/04/23 17:03 Insulin Lispro 300 Unit/3 Ml Pen SUBQ 2 unit 0800,1200,1700,2100 ADELA Administration Protocol Insulin Human Lispro 5 unit 12/31/22 08:00 01/04/23 17:03 Insulin Lispro 300 Unit/3 Ml Pen SUBQ 5 unit TIDWM ADELA Administration Protocol Latanoprost 1 drops 12/31/22 21:00 01/03/23 20:35 Latanoprost 0.005% Ophth Drops EACHEYE 1 drops QPM ADELA Administration Levothyroxine Sodium 125 mcg 01/01/23 07:00 01/04/23 06:22 Levothyroxine 125 Mcg Tablet PO 125 mcg QDAC ADELA Administration Lisinopril 40 mg 12/31/22 21:00 01/03/23 20:35 Lisinopril 20 Mg Tablet PO 40 mg QPM ADELA Administration Methocarbamol 500 mg 01/02/23 08:45 01/03/23 00:43 Methocarbamol 500 Mg Tablet PO 500 mg Q6HR PRN Administration Spasms Metoprolol Succinate 50 mg 12/31/22 21:00 01/03/23 20:35 Metoprolol Succinate 25 Mg Tablet PO 50 mg QPM ADELA Administration Morphine Sulfate 2 mg 12/30/22 20:01 01/04/23 14:07 Morphine 2 Mg/Ml Carpuject IVP 2 mg Q2HR PRN Administration Pain 8 to 10 Nystatin 1 applic 12/31/22 21:00 01/04/23 09:31 Nystatin Cream 15 Gm Tube TOP Not Given BID [facility] Oxycodone HCl 5 mg 12/30/22 20:01 01/04/23 17:01 Oxycodone 5 Mg Tablet PO 5 mg Q4HR PRN Administration Pain 5 to 7 Pantoprazole Sodium 40 mg 12/31/22 07:00 01/04/23 06:21 Pantoprazole 40 Mg Tablet PO 40 mg QDAC ADELA Administration Sodium Chloride 10 ml 12/30/22 20:01 01/04/23 04:50 Sodium Chloride Flush 0.9% 10 Ml Syringe IVP 10 ml PRN PRN Administration NEEDED PER PROVIDER ORDERS Sodium Chloride 10 ml 12/31/22 01:00 01/04/23 16:33 Sodium Chloride Flush 0.9% 10 Ml Syringe IVP Not Given 0100,0900,1700 [facility] Tramadol HCl 50 mg 01/02/23 08:45 01/02/23 13:21 Tramadol 50 Mg Tablet PO 50 mg Q4HR PRN Administration PAIN - Lab Result Fish Bone Diagrams: 01/05/23 07:20 01/05/23 07:20 - Additional Planning My Orders: My Active Orders 01/04/23 08:26 Vital Signs - Orthostatic [RC] QSHIFT 01/05/23 09:00 NIFEdipine [Procardia Xl] 60 mg PO DAILY Subjective - Subjective Patient Reports: Resting Comfortably, Pain (Has pain in multiple areas of her body, the worst is the left wrist but this is in his plans today and is somewhat better, she reported) Objective Vital Signs: Vital Signs - 24 hr 01/04/23 01/04/23 01/04/23 00:48 07:45 16:00 Temperature 36.5 C 36.3 C L 36.4 C L Heart Rate [ 75 67 76 Radial] Respiratory 18 18 18 Rate Blood Pressure 132/56 H 151/48 H 150/58 H [Right Radial artery] O2 Saturation 94 93 95 Oxygen O2 Source Room air I&O (Last 24 Hrs): Intake and Output Totals x24h 01/02/23 01/03/23 01/04/23 23:59 23:59 23:59 Intake Total 3540 2683.333 1823.333 Output Total 200 600 700 Balance 3340 2083.333 1123.333 General: Alert, Oriented x3 HEENT: Mucous membr. moist/pink, Other (several bruises on face) Neck: Supple, Other (Cannot eval JVP due to morbid obesity) Neuro: Alert, Non Focal Cardiovascular: No murmurs (Distant heart sounds due to morbid obesity) Respiratory: No respiratory distress, Breath sounds nml Abdomen: Normal bowel sounds, Soft, Other (Obese with pannus) Extremities: Other (1+ edema to the mid shins. Left arm has a wrist splint) - Results Results: Laboratory Results WBC 8.2 x10^3/uL (4.8-10.8) 01/04/23 05:36 RBC 3.32 10^6/uL (4.20-5.40) L 01/04/23 05:36 Hgb 8.9 g/dL (12.0-16.0) L 01/04/23 05:36 Hct 29.6 % (37.0-47.0) L 01/04/23 05:36 MCV 89.2 fL (81.0-99.0) 01/04/23 05:36 MCH 26.8 pg (27.0-31.0) L 01/04/23 05:36 MCHC 30.1 g/dL (32.0-36.0) L 01/04/23 05:36 RDW 15.9 % (12.0-15.0) H 01/04/23 05:36 Plt Count 390 10^3/uL (130-450) 01/04/23 05:36 MPV 9.8 fL (7.9-10.8) 01/04/23 05:36 Reticulocyte % (Auto) 2.72 % (0.5-2.3) H 12/31/22 05:20 Neut # (Auto) 5.7 10^3/uL (1.5-6.6) 01/04/23 05:36 Lymph # (Auto) 1.6 10^3/uL (1.5-3.5) 01/04/23 05:36 Barbour # (Auto) 0.6 10^3/uL (0.0-1.0) 01/04/23 05:36 Eos # (Auto) 0.3 10^3/uL (0.0-0.7) 01/04/23 05:36 Baso # (Auto) 0.0 10^3/uL (0.0-0.1) 01/04/23 05:36 Absolute Nucleated RBC 0.00 x10^3/uL 01/04/23 05:36 Nucleated RBC % 0.0 /100WBC 01/04/23 05:36 Absolute Retic 0.128 10^6/uL (0.020-0.110) H 12/31/22 05:20 D-Dimer 438.3 ng/mL (200.0-255.0) H 12/30/22 19:30 Sodium 136 mmol/L (135-145) 01/04/23 05:36 Potassium 4.4 mmol/L (3.5-5.0) 01/04/23 05:36 Chloride 103 mmol/L (101-111) 01/04/23 05:36 Carbon Dioxide 21 mmol/L (21-32) 01/04/23 05:36 Anion Gap 12.0 (6-13) 01/04/23 05:36 BUN 46 mg/dL (6-20) H 01/04/23 05:36 Creatinine 1.4 mg/dL (0.4-1.0) H 01/04/23 05:36 Estimated GFR (MDRD) 36 (>89) L 01/04/23 05:36 Glucose 152 mg/dL (70-100) H 01/04/23 05:36 Estimat Average Glucose 235 mg/dL (70-100) H 12/30/22 16:31 Hemoglobin A1c % 9.8 % (4.27-6.07) H 12/30/22 16:31 Calcium 8.9 mg/dL (8.5-10.3) 01/04/23 05:36 Iron 48 ug/dL (28-170) 12/31/22 05:20 TIBC 333 ug/dL (250-450) 12/31/22 05:20 % Saturation 14 % (20-50) L 12/31/22 05:20 Transferrin 238 mg/dL (192-382) 12/31/22 05:20 Ferritin 44.4 ng/mL (11.0-306.8) 12/31/22 05:20 Total Bilirubin 0.8 mg/dL (0.2-1.0) 01/03/23 05:02 Direct Bilirubin 0.1 mg/dL (0.1-0.5) 01/03/23 05:02 AST 65 IU/L (10-42) H 01/03/23 05:02 ALT 104 IU/L (10-60) H 01/03/23 05:02 Alkaline Phosphatase 171 IU/L (42-121) H 01/03/23 05:02 Lactate Dehydrogenase 183 IU/L (91-225) 12/31/22 05:20 Total Creatine Kinase 594 IU/L (22-269) H 01/04/23 05:36 CK-MB (CK-2) 32.5 ng/mL (0.6-6.3) H 12/30/22 12:13 Troponin I High Sens 317.7 ng/L (2.3-14.8) H* 01/02/23 04:21 B-Natriuretic Peptide 80 pg/mL (5-100) 01/02/23 04:21 Total Protein 5.5 g/dL (6.7-8.2) L 01/03/23 05:02 Albumin 2.6 g/dL (3.2-5.5) L 01/03/23 05:02 Globulin 2.9 g/dL (2.1-4.2) 01/03/23 05:02 Albumin/Globulin Ratio 1.1 (1.0-2.2) 12/30/22 12:13 Triglycerides 298 mg/dL (-149) H 12/31/22 05:20 Cholesterol 239 mg/dL (-199) H 12/31/22 05:20 LDL Cholesterol, Calc 142 mg/dL (-129) H 12/31/22 05:20 VLDL Cholesterol 60 mg/dL 12/31/22 05:20 HDL Cholesterol 37 mg/dL (60-) L 12/31/22 05:20 LDL/HDL Ratio 3.8 (<4.4) 12/31/22 05:20 Cholesterol/HDL Ratio 6.5 (<4.4) 12/31/22 05:20 Lipase 24 U/L (22-51) 12/30/22 12:13 Vitamin B12 385 pg/mL (180-914) 12/31/22 05:20 Urine Color YELLOW 12/30/22 13:34 Urine Clarity CLOUDY (CLEAR) 12/30/22 13:34 Urine pH 6.0 PH (5.0-7.5) 12/30/22 13:34 Ur Specific Pyatt 1.025 (1.002-1.030) 12/30/22 13:34 Urine Protein 30 mg/dL (NEGATIVE) H 12/30/22 13:34 Urine Glucose (UA) >=1000 mg/dL (NEGATIVE) H 12/30/22 13:34 Urine Ketones 40 mg/dL (NEGATIVE) H 12/30/22 13:34 Urine Occult Blood MODERATE (NEGATIVE) H 12/30/22 13:34 Urine Nitrite NEGATIVE (NEGATIVE) 12/30/22 13:34 Urine Bilirubin NEGATIVE (NEGATIVE) 12/30/22 13:34 Urine Urobilinogen 0.2 (NORMAL) E.U./dL (NORMAL) 12/30/22 13:34 Ur Leukocyte Esterase MODERATE (NEGATIVE) H 12/30/22 13:34 Urine RBC 0-5 /HPF (0-5) 12/30/22 13:34 Urine WBC >25 /HPF (0-5) H 12/30/22 13:34 Ur Squamous Epith Cells NONE SEEN (<= Few) 12/30/22 13:34 Urine Bacteria Moderate /HPF (None Seen) H 12/30/22 13:34 Ur Microscopic Review INDICATED 12/30/22 13:34 Urine Culture Comments INDICATED 12/30/22 13:34 SARS-CoV-2 (PCR) NOT DETECTED 12/31/22 18:10 - Procedures Procedures: Procedures REPLACEMENT OF LEFT LENS WITH SYNTH SUB, PERC APPROACH (11/30/18) REPLACEMENT OF RIGHT LENS WITH SYNTH SUB, PERC APPROACH (10/26/18)
[2023-01-04] MEDS: METOPROLOL SUCCINATE 25 MG TABLET PO SCH (20:58)
[2023-01-04] MEDS: lisinopriL 20 MG TABLET PO SCH (20:58)
[2023-01-04] MEDS: LATANOPROST 0.005% OPHTH DROPS EACHEYE SCH (21:13)
[2023-01-05] MEDS: SODIUM CHLORIDE FLUSH 0.9% 10 ML SYRINGE IVP SCH ×2 (00:19→09:10)
[2023-01-05] MEDS: traMADol 50 MG TABLET PO PRN (02:14)
[2023-01-05] MEDS: MORPHINE 2 MG/ML CARPUJECT IVP PRN (03:45)
[2023-01-05] MEDS: SODIUM CHLORIDE 0.9% 1,000 ML IV SCH (04:49)
[2023-01-05] MEDS: oxyCODONE 5 MG TABLET PO PRN ×3 (05:28→14:01)
[2023-01-05] MEDS: LEVOTHYROXINE 125 MCG TABLET PO SCH (05:28)
[2023-01-05] MEDS: PANTOPRAZOLE 40 MG TABLET PO SCH (05:28)
[2023-01-05 07:39] LABS: BASOPHILS # (AUTO) 0.1 10^3/uL (0.0-0.1); BASOPHILS % (AUTO) 0.7 %; EOSINOPHILS # (AUTO) 0.3 10^3/uL (0.0-0.7); EOSINOPHILS % (AUTO) 3.1 %; HCT - HEMATOCRIT 32.8 % (37.0-47.0); HGB - HEMOGLOBIN 9.4 g/dL (12.0-16.0); LYMPHOCYTES # (AUTO) 1.8 10^3/uL (1.5-3.5); LYMPHOCYTES % (AUTO) 19.1 %; MEAN CORPUSCULAR HEMOGLOBIN 26.3 pg (27.0-31.0); MEAN CORPUSCULAR HGB CONC 28.7 g/dL (32.0-36.0); MEAN CORPUSCULAR VOLUME 91.6 fL (81.0-99.0); MEAN PLATELET VOLUME 9.9 fL (7.9-10.8); MONOCYTES # (AUTO) 0.8 10^3/uL (0.0-1.0); MONOCYTES % (AUTO) 8.4 %; NEUTROPHILS # (AUTO) 6.3 10^3/uL (1.5-6.6); NEUTROPHILS % (AUTO) 68.4 %; PLT - PLATELET COUNT 429 10^3/uL (130-450); RED BLOOD COUNT 3.58 10^6/uL (4.20-5.40); RED CELL DISTRIBUTION WIDTH 15.9 % (12.0-15.0); WHITE BLOOD COUNT 9.2 x10^3/uL (4.8-10.8)
[2023-01-05] MEDS: INSULIN LISPRO 300 UNIT/3 ML PEN SUBQ SCH ×3 (07:47→14:23)
[2023-01-05] MEDS: INSULIN GLARGINE-YFGN 300 UNIT/3 ML PEN SUBQ SCH (07:48)
[2023-01-05 08:00] LABS: CALCIUM 8.6 mg/dL (8.5-10.3); CREATININE 1.2 mg/dL (0.4-1.0); POTASSIUM 4.3 mmol/L (3.5-5.0)
[2023-01-05] MEDS ORDERED: NIFEdipine ER 30 MG TABLET PO SCH (09:00)
[2023-01-05] MEDS: CHOLECALCIFEROL 5,000 UNIT CAPSULE PO SCH (09:10)
[2023-01-05] MEDS: CALCIUM CITRATE 250 MG TABLET PO SCH (09:10)
[2023-01-05] MEDS: ASPIRIN CHEW 81 MG TABLET PO SCH (09:10)
[2023-01-05] MEDS: NYSTATIN CREAM 15 GM TUBE TOP SCH (09:10)
--- NOTE | 2023-01-05 12:04 | Discharge Plan ---
"Discharge Plan for SNF / [facility] - Discharge Plan And Transition Orders Problem Reviewed?: Yes Disposition: 03 SNF DC/Xfer Condition: Good Allergies and Adverse Reactions: Allergies Allergy/AdvReac Type Severity Reaction Status Date / Time adhesive Allergy Rash Verified 04/01/21 13:07 manganese Allergy Rash Verified 04/01/21 13:07 niacin Allergy Rash Verified 04/01/21 13:07 Roobull-UXI-YiU Reductase AdvReac increased Verified 04/01/21 13:07 Inhibitor liver [Dbcvfpm-Zxa-Ojn Reductase enzymes Inhibitor] Health Concerns: You were hospitalized after being found on the floor in your home where you laid for several days. This caused you to have dehydration, breakdown of muscle (called rhabdomyolysis) and you had a heart attack with it. We also found that you have poorly controlled diabetes since your A1c is 9.8. From the fall you also sustained bruises and skin tears and a left wrist fracture. You have been seen by Orthopedics and advised to wear the splint. You need to have Physical Therapy and Occupational Therapy for strengthening and you are being discharged to a [facility] facility for this. After rehab at the SNF, it is no longer advised that you live alone, because a dangerous fall has happened to you now twice in the past 2 years. In addition, further evaluation of your heart is needed because of the heart attack, and you mentioned that you would like to see Dr. Jimenez for stress test. An appointment to Dr Hillman needs to be arranged by your primary care provider. Please see your primary care provider in the next 1 to 2 weeks for hospital follow-up visit. Plan of Treatment: As above. You are now on several new medications because of the heart attack. Care Goals: Improvement in symptoms and stabilization of the goals. Assessment: The patient understands. Orders are provided for the SNF. - SNF / LONGTERM Transition Orders Admit to (Facility): [facility] Under the care of (Name): Daphnie Conti NP Discharge Diagnosis: 1. NSTEMI (non-ST elevated myocardial infarction) Echocardiogram showed an LVEF of 50%. She is on new cardiac meds. The plan is to get an outpatient stress test, she has chosen Dr. Jimenez 2. Fall at home. She was not orthostatic here. Recommendation is for [facility] facility for PT and OT rehab. We have asked her to start planning for the future, in case she can no longer live at home by herself. 3. Rhabdomyolysis She laid on the ground for 2 days. There was no CK done at admission. CK was later checked and was 500 and has improved. 4. Fracture of distal radius and ulna on the left side. This was a result of that fall. Orthopedics saw the patient and applied a splint. We also have her on pain meds. 5. Morbid Obesity, BMI 50-59.9 This complicates her care 6. Shortness of breath. Most likely this is due to morbid obesity, deconditioning and possible CAD. 7. Cor pulmonale She does have leg edema, improved with elevation. The RV was enlarged by Echo. I suspect the patient may have obesity hypoventilation syndrome causing this Cor Pulmonale. 8. Type 2 diabetes mellitus, without complication, without long-term use of insulin. A1c is 9.8% so she has been uncontrolled diabetic at home. She took 50 units of Levemir at home as well as metformin. Here we had her on 40 units of Semglee at night, 10 units of Semglee in the morning. 5 units of short acting insulin with each meal. Plus sliding scale with each meal. With that glucose is very well controlled. 9. E. coli UTI. She finished a course of antibiotics and her urine culture grew out E. coli. 10. Hypertension. She is on several new cardiac meds. Her BP here was labile but not orthostatic 11. Normocytic anemia She has normal iron, B12, folate. She may need outpatient EGD and colonoscopy, or if continues to have anemia, consider oncology referral. 12. Glaucoma. Continue on her Xalatan eyedrops. 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 Continue on Nystatin powder. 14. Hyperlipidemia. She is on a statin now because of her NSTEMI. She has a Hx of abnormal LFTs on statins. She will need repeat lipid panel and liver panel in 2-4 weeks. 15. Hypothyroid We continued her usual meds 16. Acute kidney injury. This was likely secondary to her rhabdo and occurred after getting Lasix x1. BUN/creat are improving. Medicare Certification Statement: I certify that [facility] care is medically necessary on a continuing basis for any of the conditions for which she/he is receiving care during hospitalization. Notify PCP of admission and forward orders to primary provider for signature. Weight on admission and: Daily Call PCP immediately if weight increases by: 5 kg Other Notification Orders: Call PCP immediately if patient develops dyspnea, chest pain/tightness or edema. House Bowel Program: Yes Additional Bowel Program Orders: If no BM after 2 days, nurse may give M.O.M. 30ml PO PRN and/or ducolax Supp 1 NV and/or NIRANJAN 250mg P.O., and/or senna 1-2 tabs PO. On day 3 nurse may give repeat above order until residents constipation is resolved. Annual Influenza Vaccine (between Jul 29 and February 25): Yes Two-step PPD per [facility] [phone] or approved exception documents: Yes Treatments & Other Orders: Daily PT and OT Orthopedic Orders: L wrist splint in place Medication Orders: PLEASE REFER TO THE DISCHARGE MEDICATION LIST. Insulin Orders?: Yes - Medications New Prescriptions: oxyCODONE [Roxicodone] 5 mg PO Q4HR PRN #12 tab PRN Reason: Pain 5 to 7 traMADol [Ultram] 50 mg PO Q4HR PRN #12 tab PRN Reason: Severe Pain Nitroglycerin [Nitrostat] 0.4 mg SL Q5MIN PRN #100 tab PRN Reason: Chest Pain methocarbamoL [Robaxin] 500 mg PO Q6HR PRN #12 tab PRN Reason: Spasms LORazepam [Ativan] 0.5 mg PO Q6H PRN #60 tablet PRN Reason: Anxiety Insulin Lispro [Humalog Kwikpen U-100] 5 unit SUBQ TIDWM #1 ea Insulin Lispro [Humalog Kwikpen U-100] 1 - 5 unit SUBQ 0800,1200,1700,2100 #1 ea Furosemide [Lasix] 20 mg PO DAILY PRN #15 tab PRN Reason: As Needed Per Provider Orders Atorvastatin [Lipitor] 40 mg PO QPM #30 tab Nystatin Cream [Mycostatin Cream] 1 applic TOP BID #1 each Insulin Glargine-Yfgn [Semglee] 10 unit SUBQ QDBREAKFAST #1 ea Insulin Glargine-Yfgn [Semglee] 40 unit SUBQ QPM #1 ea Aspirin Chewable [[facility] [place] [facility] Aspirin] 81 mg PO DAILY #30 tab Metoprolol Succinate [Toprol Xl] 50 mg PO BID #60 tab - Diet Type: Diabetic Texture: Regular Liquids: Thin May have monthly special meal: Yes - Therapies | Activity Therapy: Evaluation | Treat if indicated: PT, OT Rehabilitation Potential: Maximize functional status Activity: Activity as Tolerated Weight Bearing: Full Weight Assistance Devices: Walker Follow Up: See PCP in the next 1 to 2 weeks for hospital follow-up visit. Appointment with Dr. Jimenez of Cardiology for stress test. Insulin Orders - SNF Basal | Correction | Custom Orders: Diagnosis: Diabetes Initiate hypo and hyperglycemia protocols for BG <70 and BG >375. May check BG PRN for signs/symptoms of dysglycemia. Frequency of BG checks: [AC/HS] Basal Insulin: [X] Simglee inject subq as follows: 10 U every morning, and 40 U every night [X] Humalog injection sq as follows: 5U with each meal Correction Insulin: - Humalog 100 units /ml insulin inject subq per orders indicate below: [X] LOW DOSE [] MODERATE DOSE [] MODERATE/HIGH DOSE [] HIGH DOSE GB UNITS GB UNITS GB UNITS GB UNITS 61-140 0 UNITS 61-140 0 UNITS 61-140 0 UNITS 61-140 0 UNITS 141-175 1 UNITS 141-175 1 UNITS 141-175 2 UNITS 141-175 3 UNITS 176-225 2 UNITS 176-225 3 UNITS 176-225 4 UNITS 176-225 5 UNITS 226-275 3 UNITS 226-275 5 UNITS 226-275 6 UNITS 226-275 7 UNITS 276-325 4 UNITS 276-325 7 UNITS 276-325 8 UNITS 276-325 9 UNITS 326-375 5 UNITS 326-375 9 UNITS 326-375 10 UNITS 326-375 11 UNITS >375 CONTACT MD >375 CONTACT MD >375 CONTACT MD >375 CONTACT MD"
[2023-01-05] MEDS ORDERED: LORazepam 0.5 MG TABLET PO PRN (13:12)
--- NOTE | 2023-01-05 13:20 | DISCHARGE SUMMARY ---
Discharge Summary Admit Date: 12/30/22 Discharge Date: 01/05/23 Discharging Provider: Dr Bibiana Powell Primary Care Provider: CHUCK Conti Condition at Discharge: Fair Discharge Disposition: 03 SNF DC/Xfer - HPI History of Present Illness: This is a 77-year-old morbidly obese female who lives alone. She had gotten up to go to the bathroom, felt dizzy right before fall, and landed on the bathroom floor. No loss of consciousness. No blow to the head. She scooted herself on the bathroom floor to try and get her computer but it was not charged. She could not get to her phone. She fell on Tuesday (December 28) and was unable to call for help and lay in her house. Concrete Placement Equipment Operator came today after trying to reach her by phone and was not able to reach her. EMS was called. EMS saw her through the window in her house. She has a past medical history of type 2 diabetes mellitus with neuropathy. Morbid obesity. Hyperlipidemia. Fatty liver disease. But no hypertension, no smoking. Chronic shortness of breath that she is being evaluated for for congestive heart failure and has an Echocardiogram scheduled for January. She feels like she is not sleeping well, having more breathing problems, and gained 5 pounds of weight over 1 month. She felt like her legs and belly were swollen when she saw her PCP on December 13. (She also sees Dr. Jimenez of [facility] in [place]). She had a BNP in the office of 159 when she was seen for these complaints on December 13. Today's BNP is 885. In the emergency room temperature was 36.7. Heart rate 115. Blood pressure 178/87. Respirations 20. 98% on room air. She is 5 feet 2 inches tall, and weighs 140 kg. Physical exam was unremarkable other than for generalized weakness, and the suggestion that she is a very sedentary person to begin with. She denies syncope, chest pain, cough, and has her chronic shortness of breath that she always does. Troponin #1 was 454, troponin #2 was 533, and troponin #3 is 712. EKG shows atrial fibrillation/flutter as read by the computer. However I am seeing her EKG having normal sinus rhythm. She has nonspecific ST-T wave changes in the lateral leads but no diagnostic criteria of an DE. Cardiology was consulted. It was the on-call railway signal operator from [facility]. He recommended to give Lovenox, aspirin, statin. He also recommended to get an Echo. Unfortunately it is evening, and there is no Echo service available here until next Tuesday. The ER provider has discussed the case with me. We discussed possible syncope, her work-up and results, and the recommendations of Cardiology. - HOSPITAL COURSE Hospital Course: 1. NSTEMI (non-ST elevated myocardial infarction) Echocardiogram showed an LVEF of 50%. She is on new cardiac meds. The plan is to get an outpatient stress test, she has chosen Dr. Jimenez 2. Fall at home. She was not orthostatic here. Recommendation is for [facility] for PT and OT rehab. We have asked her to start planning for the future, in case she can no longer live at home by herself. 3. Rhabdomyolysis She laid on the ground for 2 days. There was no CK done at admission. CK was later checked and was 500, which then improved. 4. Closed fracture of distal radius and ulna on the left side. This was a result of that fall. Orthopedics saw the patient and applied a splint. We also have her on pain meds. 5. Morbid Obesity, BMI 50-59.9 This complicates her care 6. Shortness of breath. Most likely this is due to morbid obesity, deconditioning and possible CAD. 7. Cor pulmonale She does have leg edema, improved with elevation. The RV was enlarged by Echo. I suspect the patient may have obesity hypoventilation syndrome causing this Cor Pulmonale. 8. Type 2 diabetes mellitus, without complication, without long-term use of insulin. A1c was 9.8% so she has been an uncontrolled diabetic at home. She took 50 units of Levemir at home as well as metformin. Here we had her on 40 units of Semglee Lantus at night, 10 units of Semglee in the morning and 5 units of short acting insulin with each meal, plus sliding scale with each meal. With that treatment, glucose is very well controlled. 9. E. coli UTI. She finished a course of antibiotics and her urine culture grew out E. coli. 10. Hypertension. She is on several new cardiac meds. Her BP here was labile but not orthostatic 11. Anemia She has normal iron, B12, folate. She may need outpatient EGD and colonoscopy, or if continues to have anemia, and consider oncology referral. 12. Glaucoma. Continued on her Xalatan eyedrops. 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 Continue on Nystatin powder. 14. Hyperlipidemia. She is on a statin now because of her NSTEMI. She has a Hx of abnormal LFTs on statins. She will need repeat lipid panel and liver panel in 2-4 weeks. 15. Hypothyroid We continued her usual meds 16. Acute kidney injury. This was likely secondary to her rhabdo and occurred after getting Lasix x1. BUN/creat are improving. - ALLERGIES Allergies/Adverse Reactions: Allergies Allergy/AdvReac Type Severity Reaction Status Date / Time adhesive Allergy Rash Verified 04/01/21 13:07 manganese Allergy Rash Verified 04/01/21 13:07 niacin Allergy Rash Verified 04/01/21 13:07 Hgcyqpe-LQI-YaR Reductase AdvReac increased Verified 04/01/21 13:07 Inhibitor liver [Jyhddgd-Sqo-Zws Reductase enzymes Inhibitor] - MEDICATIONS Home Medications: Ambulatory Orders Medication Instructions Recorded Confirmed Latanoprost [Xalatan] 1 drops EACHEYE QPM 06/27/15 12/31/22 Levothyroxine Sodium [Synthroid] 125 mcg PO QDAC 06/27/15 12/31/22 Multivitamin [Multivitamins] 1 cap PO DAILY 06/27/15 12/31/22 Omeprazole [PriLOSEC] 20 mg PO QPM 06/27/15 12/31/22 lisinopriL [Lisinopril] 40 mg PO QPM 06/27/15 12/31/22 metFORMIN [Glucophage] 1,000 mg PO BIDWM 06/27/15 12/31/22 Calcium Carb (Oyster Shell) 500 mg PO DAILY 12/31/22 12/31/22 [Oysco-500] Cholecalciferol (Vitamin D3) 125 mcg PO DAILY 12/31/22 12/31/22 [D3-5000] Nifedipine [Procardia Xl] 60 mg PO DAILY 12/31/22 12/31/22 Acetaminophen [Tylenol] 650 mg PO Q4HR PRN tab 01/05/23 Aspirin Chewable [St Jose J 81 mg PO DAILY #30 tab 01/05/23 Aspirin] Atorvastatin [Lipitor] 40 mg PO QPM #30 tab 01/05/23 Furosemide [Lasix] 20 mg PO DAILY PRN #15 tab 01/05/23 Insulin Glargine-Yfgn [Semglee] 10 unit SUBQ QDBREAKFAST #1 ea 01/05/23 Insulin Glargine-Yfgn [Semglee] 40 unit SUBQ QPM #1 ea 01/05/23 Insulin Lispro [Humalog Kwikpen 1 - 5 unit SUBQ 01/05/23 U-100] 0800,1200,1700,2100 #1 ea Insulin Lispro [Humalog Kwikpen 5 unit SUBQ TIDWM #1 ea 01/05/23 U-100] LORazepam [Ativan] 0.5 mg PO Q6H PRN #60 tablet 01/05/23 Latanoprost 0.005% Ophth Drops 1 drops EACHEYE QPM each 01/05/23 [Xalatan Ophth Drops] Metoprolol Succinate [Toprol Xl] 50 mg PO BID #60 tab 01/05/23 Nitroglycerin [Nitrostat] 0.4 mg SL Q5MIN PRN #100 tab 01/05/23 Nystatin Cream [Mycostatin Cream] 1 applic TOP BID #1 each 01/05/23 methocarbamoL [Robaxin] 500 mg PO Q6HR PRN #12 tab 01/05/23 oxyCODONE [Roxicodone] 5 mg PO Q4HR PRN #12 tab 01/05/23 traMADol [Ultram] 50 mg PO Q4HR PRN #12 tab 01/05/23 - PHYSICAL EXAM AT DISCHARGE General Appearance: positive: No acute distress, Alert, Other (Morbidly obese, laying in bed.) Eyes Bilateral: positive: Normal inspection, No lid inflammation ENT: positive: ENT inspection nml, No signs of dehydration Neck: positive: Nml inspection, Other (Cannot eval JVP due to morbid obesity.) Respiratory: positive: No respiratory distress, Breath sounds nml Cardiovascular: positive: Irregularly irregular (Distant heart sounds due to morbid obesity and large breasts) Abdomen: positive: Non-tender, No distention, Other (Obese with a pannus) Skin: positive: Warm, Dry Extremities: positive: Non-tender, Other (Trace pedal edema) Neurologic/Psychiatric: positive: Oriented x3, Motor nml - LABS Result Diagrams: 01/05/23 07:20 01/05/23 07:20 - DIAGNOSTIC IMAGING Diagnostic Imaging Results: Final report reviewed - FOLLOW UP Follow Up: See PCP and Cardiology after stay at SNF. - TIME SPENT Time Spent in Discharge (Minutes): 60
[2023-01-05 14:50] VITALS: BP 162/72
== END 2023-01-05 14:50 | DRG 281 ==
LOC: EDUNIT# → ED 11:53 → MS2 20:01
PROVIDERS: ADMIT Specialist; ATTEND Internal Medicine
DX: I21.4 Non-ST elevation (NSTEMI) myocardial infarction (principal); E66.2 Morbid (severe) obesity with alveolar hypoventilation; S62.032A Displaced fracture of proximal third of navicular [scaphoid] bone of left wrist, initial encounter for closed fracture; S52.202A Unspecified fracture of shaft of left ulna, initial encounter for closed fracture; M62.82 Rhabdomyolysis; S52.502A Unspecified fracture of the lower end of left radius, initial encounter for closed fracture; E86.0 Dehydration; E11.9 Type 2 diabetes mellitus without complications; R00.0 Tachycardia, unspecified; S80.212A Abrasion, left knee, initial encounter; S80.211A Abrasion, right knee, initial encounter; S09.90XA Unspecified injury of head, initial encounter; S50.312A Abrasion of left elbow, initial encounter; S50.311A Abrasion of right elbow, initial encounter; R32 Unspecified urinary incontinence; S52.602A Unspecified fracture of lower end of left ulna, initial encounter for closed fracture; Z68.43 Body mass index [BMI] 50.0-59.9, adult; N39.0 Urinary tract infection, site not specified; N17.9 Acute kidney failure, unspecified; M54.50 Low back pain, unspecified; W18.30XA Fall on same level, unspecified, initial encounter; E78.00 Pure hypercholesterolemia, unspecified; R53.1 Weakness; I27.81 Cor pulmonale (chronic); E11.65 Type 2 diabetes mellitus with hyperglycemia; E11.40 Type 2 diabetes mellitus with diabetic neuropathy, unspecified; B96.20 Unspecified Escherichia coli [E. coli] as the cause of diseases classified elsewhere; D64.9 Anemia, unspecified; B37.2 Candidiasis of skin and nail; E03.9 Hypothyroidism, unspecified; R06.02 Shortness of breath; S00.31XA Abrasion of nose, initial encounter; K21.9 Gastro-esophageal reflux disease without esophagitis; S00.511A Abrasion of lip, initial encounter; R60.0 Localized edema; I10 Essential (primary) hypertension; E78.2 Mixed hyperlipidemia; H40.10X1 Unspecified open-angle glaucoma, mild stage; M19.032 Primary osteoarthritis, left wrist; Z91.81 History of falling; Y92.009 Unspecified place in unspecified non-institutional (private) residence as the place of occurrence of the external cause; Z79.4 Long term (current) use of insulin; Z79.84 Long term (current) use of oral hypoglycemic drugs; Z66 Do not resuscitate; Z20.822 Contact with and (suspected) exposure to COVID-19; M54.9 Dorsalgia, unspecified
CPT/HCPCS: 36415; 70450; 71045; 71100; 71250; 72128; 73030; 73110; 74176; 80048; 80053; 80061; 80076; 81001; 82550; 82553; 82607; 82728; 83036; 83540; 83615; 83690; 83880; 84466; 84484; 85025; 85045; 85379; 87086; 87181; 87635; 93005; 93306; 96365; 96375; 96376; 97110; 97163; 97166; 97530; 97535; 99284; 99285; A9270; J1650; J1815; 81003; 83721

== ENCOUNTER 2023-01-05 14:57 | Outpatient (CLI) | payer MEDICARE, OTHER | END 2023-01-05 14:58 | LOC: EMS 14:57 | PROVIDERS: ATTEND Internal Medicine | DX: I21.4 Non-ST elevation (NSTEMI) myocardial infarction (principal); E11.9 Type 2 diabetes mellitus without complications; E66.01 Morbid (severe) obesity due to excess calories; M62.82 Rhabdomyolysis; Z74.01 Bed confinement status; Z91.81 History of falling | CPT/HCPCS: A0425; A0428 ==

== ENCOUNTER 2023-01-11 16:02 | Outpatient (CLI) | payer MEDICARE, OTHER ==
[2023-01-11 16:08] LABS: BASOPHILS # (AUTO) 0.1 10^3/uL (0.0-0.1); BASOPHILS % (AUTO) 0.7 %; EOSINOPHILS # (AUTO) 0.3 10^3/uL (0.0-0.7); EOSINOPHILS % (AUTO) 2.3 %; HCT - HEMATOCRIT 32.9 % (37.0-47.0); HGB - HEMOGLOBIN 9.5 g/dL (12.0-16.0); LYMPHOCYTES # (AUTO) 1.2 10^3/uL (1.5-3.5); LYMPHOCYTES % (AUTO) 9.7 %; MEAN CORPUSCULAR HEMOGLOBIN 26.7 pg (27.0-31.0); MEAN CORPUSCULAR HGB CONC 28.9 g/dL (32.0-36.0); MEAN CORPUSCULAR VOLUME 92.4 fL (81.0-99.0); MEAN PLATELET VOLUME 9.5 fL (7.9-10.8); MONOCYTES # (AUTO) 0.6 10^3/uL (0.0-1.0); MONOCYTES % (AUTO) 5.3 %; NEUTROPHILS # (AUTO) 9.6 10^3/uL (1.5-6.6); NEUTROPHILS % (AUTO) 81.4 %; PLT - PLATELET COUNT 568 10^3/uL (130-450); RED BLOOD COUNT 3.56 10^6/uL (4.20-5.40); RED CELL DISTRIBUTION WIDTH 15.9 % (12.0-15.0); WHITE BLOOD COUNT 11.8 x10^3/uL (4.8-10.8)
[2023-01-11 16:14] LABS: CALCIUM 8.6 mg/dL (8.5-10.3); CREATININE 2.2 mg/dL (0.4-1.0); POTASSIUM 5.9 mmol/L (3.5-5.0)
[2023-01-11 16:26] LABS: SLIDE REVIEW? Indicated
[2023-01-11 16:27] LABS: PLATELET ESTIMATE, MANUAL INCREASED (>450,000) (NORMAL); PLATELET MORPHOLOGY NORMAL APPEARANCE (NORMAL)
== END 2023-01-11 16:03 | disposition home or self-care (01) ==
LOC: LAB.R 16:02
PROVIDERS: ATTEND Student in an Organized Health Care Education/Training Program
DX: I11.9 Hypertensive heart disease without heart failure (principal); D64.9 Anemia, unspecified
CPT/HCPCS: 80048; 85025

== ENCOUNTER 2023-01-17 07:22 | Outpatient (CLI) | payer MEDICARE, OTHER | END 2023-01-17 07:23 | disposition critical access hospital (66) | LOC: EMS 07:22 | DX: R07.9 Chest pain, unspecified (principal) | CPT/HCPCS: A0425; A0429 ==

== ENCOUNTER 2023-01-17 07:31 | Emergency (ER) | payer MEDICARE, OTHER ==
--- NOTE | 2023-01-17 07:57 | ED Physician Documentation ---
PD HPI CHEST PAIN - Stated complaint Stated Complaint: CP - Chief complaint Chief Complaint: Cardiac - History obtained from History obtained from: Patient - History of Present Illness Timing - onset: Today Timing - onset during: Rest (onset at rest in bed of some chest tightness and discomfort on right side. IMproved after about 45 minutes without particular treatment. Has had some cough the past few days. Has had this tightness feeling intermittently the past 2 days.) Timing - duration: Minutes Timing - details: Abrupt onset, Now resolved Quality: Tightness Location: Right chest Radiation: No: Jaw, Neck, Back Improved by: Other (seemed to just fade without intervention after several minutes each time. This morning was longer.) Worsened by: Movement, Other (she has been nonambulatory and so not really having exertion.). No: Inspiration, Eating Associated symptoms: Shortness of air, Cough Recently seen: Admitted (had been admitted recently for chest discomfort and had elevated troponin without ECg change. Had ECHO that was good with 60% EF and no wall motion abnormality.) Review of Systems Constitutional: reports: Fatigue. denies: Fever, Myalgias Nose: denies: Rhinorrhea / runny nose, Congestion Throat: denies: Sore throat Cardiac: reports: Chest pain / pressure. denies: Palpitations, Pedal edema, Calf pain Respiratory: reports: Dyspnea, Cough. denies: Wheezing GI: denies: Abdominal Pain, Nausea, Vomiting, Diarrhea Musculoskeletal: denies: Extremity swelling PD PAST MEDICAL HISTORY - Past Medical History Cardiovascular: None (Diabetes GERD hypertension obesity neuropathy), Hypertension, High cholesterol, Atrial fibrillation, Murmur Respiratory: None Neuro: Peripheral neuropathy Endocrine/Autoimmune: Type 2 diabetes, HyPOthyroidism, Other GI: GERD, Ulcers, Other BUCKLE SEWER: Other : Incontinence, Frequency HEENT: Chronic vision loss (With cataracts. Right now just being observed), Glaucoma, Chronic sinusitis, Chronic hearing loss, Other Psych: Depression Musculoskeletal: Osteoarthritis, Osteoporosis, Osteopenia, Chronic back pain Derm: Eczema, Other - Past Surgical History Past Surgical History: Yes General: Cholecystectomy, Colonoscopy, EGD Ortho: Hip replacement, Spine surgery /BUCKLE SEWER: Hysterectomy, Other HEENT: Cataracts, Myringotomy (tubes), Other - Present Medications Home Medications: Ambulatory Orders Medication Instructions Recorded Confirmed Latanoprost [Xalatan] 1 drops EACHEYE QPM 06/27/15 12/31/22 Levothyroxine Sodium [Synthroid] 125 mcg PO QDAC 06/27/15 12/31/22 Multivitamin [Multivitamins] 1 cap PO DAILY 06/27/15 12/31/22 Omeprazole [PriLOSEC] 20 mg PO QPM 06/27/15 12/31/22 lisinopriL [Lisinopril] 40 mg PO QPM 06/27/15 12/31/22 metFORMIN [Glucophage] 1,000 mg PO BIDWM 06/27/15 12/31/22 Calcium Carb (Oyster Shell) 500 mg PO DAILY 12/31/22 12/31/22 [Oysco-500] Cholecalciferol (Vitamin D3) 125 mcg PO DAILY 12/31/22 12/31/22 [D3-5000] Nifedipine [Procardia Xl] 60 mg PO DAILY 12/31/22 12/31/22 Acetaminophen [Tylenol] 650 mg PO Q4HR PRN tab 01/05/23 Aspirin Chewable [St Jose J 81 mg PO DAILY #30 tab 01/05/23 Aspirin] Atorvastatin [Lipitor] 40 mg PO QPM #30 tab 01/05/23 Furosemide [Lasix] 20 mg PO DAILY PRN #15 tab 01/05/23 Insulin Glargine-Yfgn [Semglee] 10 unit SUBQ QDBREAKFAST #1 ea 01/05/23 Insulin Glargine-Yfgn [Semglee] 40 unit SUBQ QPM #1 ea 01/05/23 Insulin Lispro [Humalog Kwikpen 1 - 5 unit SUBQ 01/05/23 U-100] 0800,1200,1700,2100 #1 ea Insulin Lispro [Humalog Kwikpen 5 unit SUBQ TIDWM #1 ea 01/05/23 U-100] LORazepam [Ativan] 0.5 mg PO Q6H PRN #60 tablet 01/05/23 Latanoprost 0.005% Ophth Drops 1 drops EACHEYE QPM each 01/05/23 [Xalatan Ophth Drops] Metoprolol Succinate [Toprol Xl] 50 mg PO BID #60 tab 01/05/23 Nitroglycerin [Nitrostat] 0.4 mg SL Q5MIN PRN #100 tab 01/05/23 Nystatin Cream [Mycostatin Cream] 1 applic TOP BID #1 each 01/05/23 methocarbamoL [Robaxin] 500 mg PO Q6HR PRN #12 tab 01/05/23 oxyCODONE [Roxicodone] 5 mg PO Q4HR PRN #12 tab 01/05/23 traMADol [Ultram] 50 mg PO Q4HR PRN #12 tab 01/05/23 Albuterol Sulf [Ventolin Hfa 2 puffs INH QID 10 Days #1 each 01/17/23 Inhaler] Amoxicillin 500 mg PO TID #15 cap 01/17/23 Benzonatate [Tessalon] 100 mg PO TID PRN #14 cap 01/17/23 Clotrimazole/Betamethasone Crm 1 applic TOP BID 10 Days #30 gm 01/17/23 [Lotrisone Cream] Isosorbide Mononitrate ER [Imdur] 30 mg PO DAILY #15 tablet 01/17/23 - Allergies Allergies/Adverse Reactions: Allergies Allergy/AdvReac Type Severity Reaction Status Date / Time adhesive Allergy Rash Verified 04/01/21 13:07 manganese Allergy Rash Verified 04/01/21 13:07 niacin Allergy Rash Verified 04/01/21 13:07 Sllmxfr-CFJ-NxM Reductase AdvReac increased Verified 04/01/21 13:07 Inhibitor liver [Pacazkw-Nsb-Jss Reductase enzymes Inhibitor] - Social History Does the pt smoke?: No Smoking Status: Never smoker Does the pt drink ETOH?: No Does the pt have substance abuse?: No - Immunizations Immunizations are current?: Yes - POLST Patient has POLST: No POLST Status: DNR PD ED PE NORMAL - Vitals Vital signs reviewed: Yes - General General: Alert and oriented X 3, Well developed/nourished - HEENT HEENT: Pharynx benign - Neck Neck: Supple, no meningeal sign, No adenopathy - Cardiac Cardiac: RRR, No murmur - Respiratory Respiratory: No: Clear bilaterally (some coarse sounds right upper area with local wheezing. ) - Abdomen Abdomen: Soft, Non tender, Other (obese) - Derm Derm: Normal color, Warm and dry - Extremities Extremities: No edema, No calf tenderness / cord - Neuro Neuro: Alert and oriented X 3, Normal speech, Other (general weakness) Results - Vitals Vitals: Vital Signs - 24 hr 01/17/23 01/17/23 01/17/23 10:30 11:03 11:33 Heart Rate 97 102 H 107 H Respiratory 20 18 18 Rate Blood Pressure 133/60 H 150/71 H 119/59 L O2 Saturation 98 98 95 If not protocol 2 2 2 : Oxygen Flow, liters/minute 01/17/23 12:32 Heart Rate 97 Respiratory 18 Rate Blood Pressure 119/59 L O2 Saturation 97 If not protocol : Oxygen Flow, liters/minute Oxygen O2 Source Nasal cannula - EKG (time done) 07:43 Rate: Rate (enter#) (86) Rhythm: Atrial fibrillation [place]: Normal QRS: Normal Ischemia: Normal ST segments. No: ST elevation c/w ischemia, ST depression Compare to prior EKG: Unchanged from prior EKG - Labs Labs: Laboratory Tests 01/17/23 01/17/23 01/17/23 08:30 08:30 08:30 WBC 7.8 RBC 3.80 L Hgb 9.9 L Hct 34.1 L MCV 89.7 MCH 26.1 L MCHC 29.0 L RDW 15.0 Plt Count 516 H MPV 8.8 Neut # (Auto) 5.9 Lymph # (Auto) 1.3 L [place] # (Auto) 0.4 Eos # (Auto) 0.2 Baso # (Auto) 0.1 Absolute Nucleated RBC 0.00 Nucleated RBC % 0.0 Sodium 133 L Potassium 5.2 H Chloride 102 Carbon Dioxide 25 Anion Gap 6.0 BUN 44 H Creatinine 1.4 H Estimated GFR (MDRD) 36 L Glucose 138 H Calcium 9.1 Magnesium 1.5 L Total Bilirubin 0.9 AST 16 ALT 17 Alkaline Phosphatase 85 Troponin I High Sens 10.6 B-Natriuretic Peptide Total Protein 5.9 L Albumin 2.7 L Globulin 3.2 Albumin/Globulin Ratio 0.8 L Lipase 64 H 01/17/23 08:30 WBC RBC Hgb Hct MCV MCH MCHC RDW Plt Count MPV Neut # (Auto) Lymph # (Auto) [place] # (Auto) Eos # (Auto) Baso # (Auto) Absolute Nucleated RBC Nucleated RBC % Sodium Potassium Chloride Carbon Dioxide Anion Gap BUN Creatinine Estimated GFR (MDRD) Glucose Calcium Magnesium Total Bilirubin AST ALT Alkaline Phosphatase Troponin I High Sens B-Natriuretic Peptide 274 H Total Protein Albumin Globulin Albumin/Globulin Ratio Lipase - Rads (name of study) chest xray Radiology: Prelim report reviewed, EMP read indepedently (some rotational jhonathan fact but does appear infiltrate RUL. no effusion. ), See rad report PD Medical Decision Making - ED course Reviewed Lab Results: I reviewed the ecHO report and ECG from recent admission 01/06/23: pt had been admitted recently for chest discomfort and had elevated troponin without ECg change. Had ECHO that was good with 55% EF and no wall motion abnormality. Mildly dilated RV. ECG now is unchanged and her troponin here is normal. ED course: She has recent normal ECHO with having had Troponin elevation. Consider type 2 injury earlier this month. Treated medically. Having right chest tightness intermittent without exertion the past couple of days. Some cough and has pneumonic infiltrate on CXR. No leg swelling nor edema. no calf tenderness. Seems low probability of PE and more likely pneumonia. The location right upper lobe corresponds to her area of discomfort and so I believe accounts for the symptoms. Departure - Departure Disposition: 01 Home, Self Care Clinical Impression: Chest pain at rest, Infiltrate of right lung present on chest x-ray, Yeast infection of the skin CAD (coronary artery disease) Qualifiers: Coronary Disease-Associated Artery/Lesion type: unspecified vessel or lesion type [place] vs. transplanted heart: [place] heart Associated angina: unspecified whether angina present Qualified Code(s): I25.10 - Atherosclerotic heart disease of [place] coronary artery without angina pectoris Condition: Stable Record reviewed to determine appropriate education?: Yes Prescriptions: Amoxicillin 500 mg PO TID #15 cap Isosorbide Mononitrate ER [Imdur] 30 mg PO DAILY #15 tablet Clotrimazole/Betamethasone Crm [Lotrisone Cream] 1 applic TOP BID 10 Days #30 gm Benzonatate [Tessalon] 100 mg PO TID PRN #14 cap PRN Reason: Cough Albuterol Sulf [Ventolin Hfa Inhaler] 2 puffs INH QID 10 Days #1 each Comments: It is unclear the cause of your chest pain this morning. No signs of heart muscle injury/heart attack. You did have the recent heart event a few weeks ago so consideration could be for some angina. Until you are seen by your budget report clerk, it could be reasonable to add another anti angina medication called Imdur daily which would help with angina and heart function. Your chest x-ray does show an infiltrate in the upper right lobe. This may be from inadequate breathing and therefore some shrinkage of the lung (atelectasis) versus a developing infection/pneumonia. We can treat it for both with use of amoxicillin 3 times daily for the next 5 days as well as albuterol inhaler 2 puffs 4 times daily for the next 10 days. In addition I would urge you to be using the incentive spirometer you had been given on prior admission. Use it 4 times daily to help expand the lungs and improve airflow. You do have a little bit of a cough so you can use benzonatate if needed for that. I sent prescriptions for your medications to your preferred pharmacy, [facility] IN [place]. The rash on the underside of the chin and upper chest looks likely to be a yeast infection with inflammation. I ordered Lotrisone cream to be applied twice daily for the next 10 days to help with that. Forms: Activity restrictions Discharge Date/Time: 01/17/23 12:35
[2023-01-17 08:37] LABS: BASOPHILS # (AUTO) 0.1 10^3/uL (0.0-0.1); EOSINOPHILS # (AUTO) 0.2 10^3/uL (0.0-0.7); HCT - HEMATOCRIT 34.1 % (37.0-47.0); HGB - HEMOGLOBIN 9.9 g/dL (12.0-16.0); LYMPHOCYTES # (AUTO) 1.3 10^3/uL (1.5-3.5); LYMPHOCYTES % (AUTO) 16.2 %; MEAN CORPUSCULAR HEMOGLOBIN 26.1 pg (27.0-31.0); MEAN CORPUSCULAR VOLUME 89.7 fL (81.0-99.0); MEAN PLATELET VOLUME 8.8 fL (7.9-10.8); MONOCYTES # (AUTO) 0.4 10^3/uL (0.0-1.0); MONOCYTES % (AUTO) 5.1 %; NEUTROPHILS # (AUTO) 5.9 10^3/uL (1.5-6.6); NEUTROPHILS % (AUTO) 75.4 %; PLT - PLATELET COUNT 516 10^3/uL (130-450); WHITE BLOOD COUNT 7.8 x10^3/uL (4.8-10.8)
--- NOTE | 2023-01-17 08:42 | XRAY Report ---
PROCEDURE: Chest 1 View X-Ray INDICATIONS: Chest Pain TECHNIQUE: One view of the chest was acquired. COMPARISON: 12/30/2022 FINDINGS: Rotated exam which limits evaluation. Heart size grossly normal. Right upper lobe airspace opacity wh ich is predominantly perihilar/central. Diffusely increased interstitial markings in both lungs with mild cephalization of pulmonary vessels. Small right pleural effusion. No definite pleural effusion o n the left. IMPRESSION: Rotated exam which limits evaluation. However, there appears to be right upper lobe airspace opacity which could represent infection or flash pulmonary edema in the setting of acute mitral valve failure . Diffusely increased interstitial markings in both lungs with mild cephalization of pulmonary vessels indicating at least some element of cardiogenic pulmonary edema. Reviewed by: Wan Segundo MD on 01/17/2023 8:41 AM PST Approved by: Wan Segundo MD on 01/17/2023 8:41 AM PST Station ID: [id number]
[2023-01-17 08:49] LABS: ALBUMIN 2.7 g/dL (3.2-5.5); ALBUMIN/GLOBULIN RATIO 0.8 (1.0-2.2); BILIRUBIN,TOTAL 0.9 mg/dL (0.2-1.0); CALCIUM 9.1 mg/dL (8.5-10.3); CREATININE 1.4 mg/dL (0.4-1.0); MAGNESIUM 1.5 mg/dL (1.7-2.8); POTASSIUM 5.2 mmol/L (3.5-5.0); TOTAL PROTEIN 5.9 g/dL (6.7-8.2)
[2023-01-17] MEDS ORDERED: ALBUTEROL 1 PUFF INH STA (09:27)
[2023-01-17] MEDS ORDERED: AMOXICILLIN 250 MG CAPSULE PO STA (09:28)
[2023-01-17] MEDS ORDERED: ISOSORBIDE MONONITRATE ER 30 MG TABLET PO STA (10:09)
[2023-01-17 11:34] VITALS: BP 119/59
== END 2023-01-17 12:35 | disposition home or self-care (01) ==
LOC: EDUNIT# → EDBD → ED 07:31
DX: I25.10 Atherosclerotic heart disease of native coronary artery without angina pectoris (principal); R07.9 Chest pain, unspecified; R91.8 Other nonspecific abnormal finding of lung field; B37.2 Candidiasis of skin and nail; E66.01 Morbid (severe) obesity due to excess calories; Z68.43 Body mass index [BMI] 50.0-59.9, adult; Z74.01 Bed confinement status; Z66 Do not resuscitate
CPT/HCPCS: 36415; 71045; 80053; 83690; 83735; 83880; 84484; 85025; 93005; 94640; 94664; 99284; A9270

== ENCOUNTER 2023-01-17 11:57 | Outpatient (CLI) | payer MEDICARE, OTHER | END 2023-01-17 23:59 | LOC: EMS 11:57 | PROVIDERS: ATTEND Emergency Medicine | DX: R07.9 Chest pain, unspecified (principal); R53.1 Weakness; E66.01 Morbid (severe) obesity due to excess calories; Z74.01 Bed confinement status | CPT/HCPCS: A0425; A0428 ==

== ENCOUNTER 2023-03-17 11:13 | Outpatient (CLI) | payer MEDICARE, OTHER ==
--- NOTE | 2023-03-17 14:46 | XRAY Report ---
PROCEDURE: Wrist 3 View LT INDICATIONS: PAIN IN LT WRIST TECHNIQUE: 3 views of the wrist were acquired. COMPARISON: 01/03/2023. FINDINGS: Bones: Interval healing at patient's known impacted distal radial fracture site is seen with exubera nt callus formation. Ulnar styloid fracture is again seen and unchanged. Osteoarthritic changes are n oted throughout wrist joints. No new fracture or dislocation is seen.. No suspicious bony lesions. Soft tissues: No suspicious soft tissue calcifications or masses. IMPRESSION: Interval healing at comminuted distal radial impacted fracture site with stable wrist alignment. Ulna r styloid fracture. No new fracture or dislocation. Diffuse osteopenia and extensive wrist joint oste oarthritis. Reviewed by: Isma Carranza MD on 03/17/2023 2:45 PM PDT Approved by: Isma Carranza MD on 03/17/2023 2:45 PM PDT Station ID: [id number]
== END 2023-03-17 11:14 | disposition home or self-care (01) ==
LOC: DI 11:13
PROVIDERS: ATTEND Registered Nurse
DX: S52.502D Unspecified fracture of the lower end of left radius, subsequent encounter for closed fracture with routine healing (principal); S52.602D Unspecified fracture of lower end of left ulna, subsequent encounter for closed fracture with routine healing

== ENCOUNTER 2023-04-17 23:34 | Outpatient (CLI) | payer MEDICARE, OTHER | END 2023-04-17 23:35 | disposition critical access hospital (66) | LOC: EMS 23:34 | DX: R11.2 Nausea with vomiting, unspecified (principal); R19.7 Diarrhea, unspecified | CPT/HCPCS: A0425; A0429 ==

== ENCOUNTER 2023-04-17 23:39 | Emergency (ER) | payer MEDICARE, OTHER ==
[2023-04-18 00:14] LABS: BASOPHILS # (AUTO) 0.1 10^3/uL (0.0-0.1); BASOPHILS % (AUTO) 0.9 %; EOSINOPHILS # (AUTO) 0.1 10^3/uL (0.0-0.7); EOSINOPHILS % (AUTO) 0.7 %; HCT - HEMATOCRIT 33.3 % (37.0-47.0); HGB - HEMOGLOBIN 10.5 g/dL (12.0-16.0); LYMPHOCYTES # (AUTO) 1.1 10^3/uL (1.5-3.5); LYMPHOCYTES % (AUTO) 16.3 %; MEAN CORPUSCULAR HEMOGLOBIN 27.6 pg (27.0-31.0); MEAN CORPUSCULAR HGB CONC 31.5 g/dL (32.0-36.0); MEAN CORPUSCULAR VOLUME 87.4 fL (81.0-99.0); MEAN PLATELET VOLUME 9.3 fL (7.9-10.8); MONOCYTES # (AUTO) 0.5 10^3/uL (0.0-1.0); MONOCYTES % (AUTO) 7.8 %; NEUTROPHILS % (AUTO) 74.2 %; PLT - PLATELET COUNT 451 10^3/uL (130-450); RED BLOOD COUNT 3.81 10^6/uL (4.20-5.40); RED CELL DISTRIBUTION WIDTH 17.5 % (12.0-15.0); WHITE BLOOD COUNT 6.8 x10^3/uL (4.8-10.8)
[2023-04-18 00:24] LABS: ALBUMIN/GLOBULIN RATIO 0.9 (1.0-2.2); BILIRUBIN,TOTAL 0.7 mg/dL (0.2-1.0); CALCIUM 8.3 mg/dL (8.5-10.3); CREATININE 1.4 mg/dL (0.4-1.0); POTASSIUM 4.1 mmol/L (3.5-5.0); TOTAL PROTEIN 6.5 g/dL (6.7-8.2)
[2023-04-18] MEDS ORDERED: MORPHINE 2 MG/ML CARPUJECT IVP STA (00:50)
[2023-04-18] MEDS ORDERED: SODIUM CHLORIDE 0.9% 1,000 ML IV STA (00:50)
--- NOTE | 2023-04-18 01:10 | ED Physician Documentation ---
History of Present Illness - Stated complaint Stated Complaint: N/V/D - Chief complaint Chief Complaint: General - History obtained from History obtained from: Patient - Additonal information Additional information: Patient is a 77-year-old female who is currently residing at [facility] and acute follow-up presenting for evaluation of 3-day history of nausea and vomiting. Patient states that her symptoms started 3 days ago. She has been on Zofran.She reported feeling that her symptoms had been improving as she has had less frequency of the nausea. She had also had diarrhea when her initial symptoms started but that has stopped. However she had another episode of emesis this afternoon and the staff at [facility] was concerned that her symptoms were not getting better and would like her evaluated in the emergency department. Patient denies fever, chest pain, difficulty breathing, abdominal pain. She is incontinent of urine At baseline. Review of Systems Constitutional: denies: Fever Cardiac: denies: Chest pain / pressure Respiratory: denies: Dyspnea GI: reports: Nausea, Vomiting. denies: Abdominal Pain : reports: Incontinent PD PAST MEDICAL HISTORY - Past Medical History Cardiovascular: None, Hypertension, High cholesterol, Atrial fibrillation, Murmur Respiratory: None Neuro: Peripheral neuropathy Endocrine/Autoimmune: Type 2 diabetes, HyPOthyroidism, Other GI: GERD, Ulcers, Other [employer]: Other : Incontinence, Frequency HEENT: Chronic vision loss, Glaucoma, Chronic sinusitis, Chronic hearing loss, Other Psych: Depression Musculoskeletal: Osteoarthritis, Osteoporosis, Osteopenia, Chronic back pain Derm: Eczema, Other - Past Surgical History Past Surgical History: Yes General: Cholecystectomy, Colonoscopy, EGD Ortho: Hip replacement, Spine surgery /[employer]GER [employer]TELLIGENCE: Hysterectomy, Other HEENT: Cataracts, Myringotomy (tubes), Other - Present Medications Home Medications: Ambulatory Orders Medication Instructions Recorded Confirmed Latanoprost [Xalatan] 1 drops EACHEYE QPM 06/27/15 12/31/22 Levothyroxine Sodium [Synthroid] 125 mcg PO QDAC 06/27/15 12/31/22 Multivitamin [Multivitamins] 1 cap PO DAILY 06/27/15 12/31/22 Omeprazole [PriLOSEC] 20 mg PO QPM 06/27/15 12/31/22 lisinopriL [Lisinopril] 40 mg PO QPM 06/27/15 12/31/22 metFORMIN [Glucophage] 1,000 mg PO BIDWM 06/27/15 12/31/22 Calcium Carb (Oyster Shell) 500 mg PO DAILY 12/31/22 12/31/22 [[place]-500] Cholecalciferol (Vitamin D3) 125 mcg PO DAILY 12/31/22 12/31/22 [D3-5000] Nifedipine [Procardia Xl] 60 mg PO DAILY 12/31/22 12/31/22 Acetaminophen [Tylenol] 650 mg PO Q4HR PRN tab 01/05/23 Aspirin Chewable [[place] 81 mg PO DAILY #30 tab 01/05/23 Aspirin] Atorvastatin [Lipitor] 40 mg PO QPM #30 tab 01/05/23 Furosemide [Lasix] 20 mg PO DAILY PRN #15 tab 01/05/23 Insulin Glargine-Yfgn [Semglee] 10 unit SUBQ QDBREAKFAST #1 ea 01/05/23 Insulin Glargine-Yfgn [Semglee] 40 unit SUBQ QPM #1 ea 01/05/23 Insulin Lispro [Humalog Kwikpen 1 - 5 unit SUBQ 01/05/23 U-100] 0800,1200,1700,2100 #1 ea Insulin Lispro [Humalog Kwikpen 5 unit SUBQ TIDWM #1 ea 01/05/23 U-100] LORazepam [Ativan] 0.5 mg PO Q6H PRN #60 tablet 01/05/23 Latanoprost 0.005% Ophth Drops 1 drops EACHEYE QPM each 01/05/23 [Xalatan Ophth Drops] Metoprolol Succinate [Toprol Xl] 50 mg PO BID #60 tab 01/05/23 Nitroglycerin [Nitrostat] 0.4 mg SL Q5MIN PRN #100 tab 01/05/23 Nystatin Cream [Mycostatin Cream] 1 applic TOP BID #1 each 01/05/23 methocarbamoL [Robaxin] 500 mg PO Q6HR PRN #12 tab 01/05/23 oxyCODONE [Roxicodone] 5 mg PO Q4HR PRN #12 tab 01/05/23 traMADol [Ultram] 50 mg PO Q4HR PRN #12 tab 01/05/23 Albuterol Sulf [Ventolin Hfa 2 puffs INH QID 10 Days #1 each 01/17/23 Inhaler] Amoxicillin 500 mg PO TID #15 cap 01/17/23 Benzonatate [Tessalon] 100 mg PO TID PRN #14 cap 01/17/23 Clotrimazole/Betamethasone Crm 1 applic TOP BID 10 Days #30 gm 01/17/23 [Lotrisone Cream] Isosorbide Mononitrate ER [Imdur] 30 mg PO DAILY #15 tablet 01/17/23 cephALEXin [Keflex] 500 mg PO Q6H #28 cap 04/18/23 - Allergies Allergies/Adverse Reactions: Allergies Allergy/AdvReac Type Severity Reaction Status Date / Time adhesive Allergy Rash Verified 04/17/23 23:51 manganese Allergy Rash Verified 04/17/23 23:51 niacin Allergy Rash Verified 04/17/23 23:51 Narftxy-JTS-OlM Reductase AdvReac increased Verified 04/17/23 23:51 Inhibitor liver [Aidufqy-Rpe-Vav Reductase enzymes Inhibitor] - Social History Does the pt smoke?: No Smoking Status: Never smoker Does the pt drink ETOH?: No Does the pt have substance abuse?: No - Immunizations Immunizations are current?: Yes - POLST Patient has POLST: No POLST Status: DNR PD ED PE NORMAL - General General: Alert and oriented X 3, No acute distress, Well developed/nourished - HEENT HEENT: Atraumatic - Neck Neck: Supple, no meningeal sign - Cardiac Cardiac: RRR, No murmur - Respiratory Respiratory: No respiratory distress, Clear bilaterally - Abdomen Abdomen: Normal bowel sounds, Soft, Non tender, Non distended - Derm Derm: Warm and dry - Neuro Neuro: Normal speech Results - Vitals Vitals: Vital Signs - 24 hr 04/17/23 04/18/23 04/18/23 23:47 03:15 04:49 Temperature 37.0 C Heart Rate 100 100 103 H Respiratory 20 20 19 Rate Blood Pressure 139/104 H 134/71 H 129/109 H O2 Saturation 97 98 97 Oxygen O2 Source Room air - Labs Labs: Microbiology 04/18/23 02:01 Urine Culture - Preliminary Urine,Clean Catch CULTURE IN PROGRESS. RESULTS TO FOLLOW. Laboratory Tests 04/18/23 04/18/23 04/18/23 00:00 00:00 02:01 WBC 6.8 RBC 3.81 L Hgb 10.5 L Hct 33.3 L MCV 87.4 MCH 27.6 MCHC 31.5 L RDW 17.5 H Plt Count 451 H MPV 9.3 Neut # (Auto) 5.0 Lymph # (Auto) 1.1 L [place] # (Auto) 0.5 Eos # (Auto) 0.1 Baso # (Auto) 0.1 Absolute Nucleated RBC 0.00 Nucleated RBC % 0.0 Sodium 130 L Potassium 4.1 Chloride 91 L Carbon Dioxide 22 Anion Gap 17.0 H BUN 32 H Creatinine 1.4 H Estimated GFR (MDRD) 36 L Glucose 161 H Calcium 8.3 L Total Bilirubin 0.7 AST 18 ALT 16 Alkaline Phosphatase 114 Total Protein 6.5 L Albumin 3.0 L Globulin 3.5 Albumin/Globulin Ratio 0.9 L Lipase 29 Urine Color YELLOW Urine Clarity CLOUDY Urine pH 8.5 H Ur Specific [place] 1.015 Urine Protein 100 H Urine Glucose (UA) NEGATIVE Urine Ketones NEGATIVE Urine Occult Blood MODERATE H Urine Nitrite NEGATIVE Urine Bilirubin NEGATIVE Urine Urobilinogen 0.2 (NORMAL) Ur Leukocyte Esterase LARGE H Urine RBC 6-10 H Urine WBC >25 H Ur Squamous Epith Cells RARE Squamous Urine Bacteria Many H Ur Microscopic Review INDICATED Urine Culture Comments INDICATED PD Medical Decision Making - ED course Complexity details: reviewed results, re-evaluated patient Procedural Risk Factors Specific to Patient: Pt with N/V/D x 3 days. Diarrhea has improved but still having some episodes of N/V - non bloody. Abdominal exam is benign. Labs including CBC and chemistries reviewed. Mild anemia (imrproved from prior) and mildly low Na and Cl. Crea tinine at 1.4 appears stable. U/A concerning for infection and pt is incontinent at baseline so will treat. Repeat abdominal exam is benign. Pt feeling better with IV fluids and zofran. She would like to go back to [facility] where she has been rehabbing. Pt given rocephin here and antibiotic Rx sent. pt counseled on concerning symptoms to return for. Departure - Departure Disposition: 01 Home, Self Care Clinical Impression: UTI (urinary tract infection), Nausea & vomiting, Hyponatremia Condition: Stable Instructions: ED UTI Cystitis Female, ED Nausea Vomiting Prescriptions: cephALEXin [Keflex] 500 mg PO Q6H #28 cap Comments: Your testing today shows that you have a urine infection. Your sodium levels were slightly low. You are given IV fluids. Your nausea has appeared to improve. I have sent a prescription for an antibiotic to treat your urine infection to [facility] in [place]. Please make sure to complete the course of the antibiotic. Return to the emergency department with any worsening symptoms. Discharge Date/Time: 04/18/23 05:00
[2023-04-18 02:41] LABS: BILIRUBIN,URINE NEGATIVE (NEGATIVE); GLUCOSE, URINE (UA) NEGATIVE (NEGATIVE); KETONES,URINE (UA) NEGATIVE (NEGATIVE); LEUKOCYTE ESTERASE, URINE LARGE (NEGATIVE); NITRITE,URINE NEGATIVE (NEGATIVE); OCCULT BLOOD,URINE MODERATE (NEGATIVE); PH,URINE 8.5 PH (5.0-7.5); PROTEIN,URINE 100 mg/dL (NEGATIVE); UROBILINOGEN,URINE 0.2 (NORMAL) E.U./dL (NORMAL)
[2023-04-18 02:48] LABS: BACTERIA,URINE Many /HPF (None Seen); CLARITY,URINE CLOUDY (CLEAR); SQUAMOUS EPITHELIAL CELL,UR RARE Squamous (<= Few); WBC,URINE >25 /HPF (0-5)
[2023-04-18] MEDS ORDERED: cefTRIAXone 1 GM VIAL IVP STA (03:15)
[2023-04-18 04:52] VITALS: BP 129/109
== END 2023-04-18 05:00 | disposition home or self-care (01) ==
LOC: EDUNIT# → ED 23:39
DX: N39.0 Urinary tract infection, site not specified (principal); R11.2 Nausea with vomiting, unspecified; E87.1 Hypo-osmolality and hyponatremia; Z66 Do not resuscitate
CPT/HCPCS: 36415; 80053; 81001; 81003; 83690; 85025; 87086; 96361; 96374; 99283

== ENCOUNTER 2023-04-18 05:04 | Outpatient (CLI) | payer MEDICARE, OTHER | END 2023-04-18 05:05 | disposition home or self-care (01) | LOC: EMS 05:04 | PROVIDERS: ATTEND Emergency Medicine | DX: N39.0 Urinary tract infection, site not specified (principal); R53.1 Weakness; Z74.01 Bed confinement status | CPT/HCPCS: A0425; A0428 ==

== ENCOUNTER 2023-04-21 08:00 | Outpatient (CLI) | payer MEDICARE, OTHER | END 2023-04-21 23:59 | disposition home or self-care (01) | LOC: LAB.R 08:00 | PROVIDERS: ATTEND Registered Nurse | DX: A04.72 Enterocolitis due to Clostridium difficile, not specified as recurrent (principal) | CPT/HCPCS: 87493 ==

== ENCOUNTER 2023-05-08 08:00 | Outpatient (CLI) | payer MEDICARE, OTHER ==
[2023-05-08 18:47] LABS: BILIRUBIN,URINE NEGATIVE (NEGATIVE); GLUCOSE, URINE (UA) NEGATIVE (NEGATIVE); KETONES,URINE (UA) NEGATIVE (NEGATIVE); LEUKOCYTE ESTERASE, URINE SMALL (NEGATIVE); NITRITE,URINE NEGATIVE (NEGATIVE); OCCULT BLOOD,URINE NEGATIVE (NEGATIVE); PROTEIN,URINE NEGATIVE (NEGATIVE); UROBILINOGEN,URINE 0.2 (NORMAL) E.U./dL (NORMAL)
[2023-05-08 18:54] LABS: CLARITY,URINE HAZY (CLEAR)
[2023-05-08 19:05] LABS: BACTERIA,URINE Few /HPF (None Seen); RBC,URINE 0-5 /HPF (0-5); SQUAMOUS EPITHELIAL CELL,UR NONE SEEN (<= Few)
== END 2023-05-08 23:59 | disposition home or self-care (01) ==
LOC: LAB.R 08:00
DX: N39.0 Urinary tract infection, site not specified (principal)
CPT/HCPCS: 81001; 81003; 87086

== ENCOUNTER 2023-05-09 12:39 | Outpatient (CLI) | payer MEDICARE, OTHER ==
[2023-05-09 13:27] LABS: BILIRUBIN,URINE NEGATIVE (NEGATIVE); GLUCOSE, URINE (UA) NEGATIVE (NEGATIVE); KETONES,URINE (UA) NEGATIVE (NEGATIVE); LEUKOCYTE ESTERASE, URINE LARGE (NEGATIVE); NITRITE,URINE NEGATIVE (NEGATIVE); OCCULT BLOOD,URINE MODERATE (NEGATIVE); PROTEIN,URINE 100 mg/dL (NEGATIVE); UROBILINOGEN,URINE 0.2 (NORMAL) E.U./dL (NORMAL)
[2023-05-09 13:39] LABS: CLARITY,URINE SL. CLOUDY (CLEAR); SQUAMOUS EPITHELIAL CELL,UR RARE Squamous (<= Few); WBC,URINE >25 /HPF (0-5)
[2023-05-09 13:40] LABS: BACTERIA,URINE Few /HPF (None Seen); WBC CLUMPS,URINE PRESENT
== END 2023-05-09 12:40 | disposition home or self-care (01) ==
LOC: LAB.R 12:39
PROVIDERS: ATTEND Registered Nurse
DX: N39.0 Urinary tract infection, site not specified (principal)
CPT/HCPCS: 81001; 87086

== ENCOUNTER 2023-06-13 11:01 | Outpatient (CLI) | payer OTHER ==
[2023-06-13 11:16] LABS: ESTIMATED AVERAGE GLUCOSE 131 mg/dL (70-100); HEMOGLOBIN A1c% 6.2 % (4.27-6.07)
== END 2023-06-13 11:02 | disposition home or self-care (01) ==
LOC: LAB 11:01
PROVIDERS: ATTEND Registered Nurse
DX: E11.40 Type 2 diabetes mellitus with diabetic neuropathy, unspecified (principal); E03.9 Hypothyroidism, unspecified
CPT/HCPCS: 36415; 83036; 84443

== ENCOUNTER 2023-08-09 13:43 | Outpatient (CLI) | payer OTHER ==
[2023-08-09 14:28] LABS: THYROID STIMULATING HORMONE 2.12 uIU/mL (0.34-5.60)
== END 2023-08-09 13:44 | disposition home or self-care (01) ==
LOC: LAB.R 13:43
PROVIDERS: ATTEND Registered Nurse
DX: E03.9 Hypothyroidism, unspecified (principal)
CPT/HCPCS: 84436; 84443

== ENCOUNTER 2023-10-14 09:53 | Outpatient (CLI) | payer OTHER ==
[2023-10-14 10:06] LABS: BASOPHILS # (AUTO) 0.1 10^3/uL (0.0-0.1); BASOPHILS % (AUTO) 0.7 %; EOSINOPHILS # (AUTO) 0.2 10^3/uL (0.0-0.7); EOSINOPHILS % (AUTO) 2.2 %; HCT - HEMATOCRIT 34.9 % (37.0-47.0); HGB - HEMOGLOBIN 11.1 g/dL (12.0-16.0); LYMPHOCYTES # (AUTO) 2.1 10^3/uL (1.5-3.5); LYMPHOCYTES % (AUTO) 20.3 %; MEAN CORPUSCULAR HEMOGLOBIN 28.8 pg (27.0-31.0); MEAN CORPUSCULAR HGB CONC 31.8 g/dL (32.0-36.0); MEAN CORPUSCULAR VOLUME 90.4 fL (81.0-99.0); MEAN PLATELET VOLUME 9.8 fL (7.9-10.8); MONOCYTES # (AUTO) 0.4 10^3/uL (0.0-1.0); MONOCYTES % (AUTO) 4.2 %; NEUTROPHILS # (AUTO) 7.3 10^3/uL (1.5-6.6); NEUTROPHILS % (AUTO) 72.3 %; PLT - PLATELET COUNT 416 10^3/uL (130-450); RED BLOOD COUNT 3.86 10^6/uL (4.20-5.40); RED CELL DISTRIBUTION WIDTH 12.7 % (12.0-15.0); WHITE BLOOD COUNT 10.1 x10^3/uL (4.8-10.8)
[2023-10-14 10:23] LABS: CALCIUM 9.5 mg/dL (8.5-10.3); CREATININE 1.2 mg/dL (0.6-1.3); POTASSIUM 4.1 mmol/L (3.5-4.5)
== END 2023-10-14 09:54 | disposition home or self-care (01) ==
LOC: LAB.R 09:53
PROVIDERS: ATTEND Registered Nurse
DX: Z13.0 Encounter for screening for diseases of the blood and blood-forming organs and certain disorders involving the immune mechanism (principal)
CPT/HCPCS: 80048; 85025

== ENCOUNTER 2023-11-14 12:37 | Outpatient (CLI) | payer OTHER ==
[2023-11-14 12:47] LABS: BASOPHILS # (AUTO) 0.1 10^3/uL (0.0-0.1); BASOPHILS % (AUTO) 0.5 %; EOSINOPHILS # (AUTO) 0.2 10^3/uL (0.0-0.7); EOSINOPHILS % (AUTO) 1.5 %; HCT - HEMATOCRIT 31.9 % (37.0-47.0); HGB - HEMOGLOBIN 10.3 g/dL (12.0-16.0); LYMPHOCYTES # (AUTO) 2.5 10^3/uL (1.5-3.5); LYMPHOCYTES % (AUTO) 22.1 %; MEAN CORPUSCULAR HEMOGLOBIN 29.3 pg (27.0-31.0); MEAN CORPUSCULAR HGB CONC 32.3 g/dL (32.0-36.0); MEAN CORPUSCULAR VOLUME 90.6 fL (81.0-99.0); MONOCYTES # (AUTO) 0.5 10^3/uL (0.0-1.0); MONOCYTES % (AUTO) 4.2 %; NEUTROPHILS # (AUTO) 7.9 10^3/uL (1.5-6.6); NEUTROPHILS % (AUTO) 71.4 %; PLT - PLATELET COUNT 374 10^3/uL (130-450); RED BLOOD COUNT 3.52 10^6/uL (4.20-5.40); RED CELL DISTRIBUTION WIDTH 13.1 % (12.0-15.0); WHITE BLOOD COUNT 11.1 x10^3/uL (4.8-10.8)
[2023-11-14 13:06] LABS: CALCIUM 9.3 mg/dL (8.5-10.3); CREATININE 1.1 mg/dL (0.6-1.3); POTASSIUM 4.1 mmol/L (3.5-4.5)
== END 2023-11-14 12:38 | disposition home or self-care (01) ==
LOC: LAB.R 12:37
PROVIDERS: ATTEND Registered Nurse
DX: I21.4 Non-ST elevation (NSTEMI) myocardial infarction (principal); D50.8 Other iron deficiency anemias
CPT/HCPCS: 80048; 85025

== ENCOUNTER 2024-01-14 08:00 | Outpatient (CLI) | payer OTHER ==
[2024-01-14 19:49] LABS: BASOPHILS # (AUTO) 0.1 10^3/uL (0.0-0.1); BASOPHILS % (AUTO) 0.8 %; EOSINOPHILS # (AUTO) 0.1 10^3/uL (0.0-0.7); EOSINOPHILS % (AUTO) 1.4 %; HCT - HEMATOCRIT 38.7 % (37.0-47.0); HGB - HEMOGLOBIN 12.3 g/dL (12.0-16.0); LYMPHOCYTES # (AUTO) 2.4 10^3/uL (1.5-3.5); LYMPHOCYTES % (AUTO) 24.1 %; MEAN CORPUSCULAR HEMOGLOBIN 28.6 pg (27.0-31.0); MEAN CORPUSCULAR HGB CONC 31.8 g/dL (32.0-36.0); MEAN PLATELET VOLUME 11.6 fL (7.9-10.8); MONOCYTES # (AUTO) 0.4 10^3/uL (0.0-1.0); MONOCYTES % (AUTO) 4.3 %; NEUTROPHILS # (AUTO) 6.8 10^3/uL (1.5-6.6); NEUTROPHILS % (AUTO) 68.9 %; RED CELL DISTRIBUTION WIDTH 13.1 % (12.0-15.0); WHITE BLOOD COUNT 9.9 x10^3/uL (4.8-10.8)
[2024-01-14 19:57] LABS: CALCIUM 9.1 mg/dL (8.5-10.3); CREATININE 1.1 mg/dL (0.6-1.3); POTASSIUM 4.6 mmol/L (3.5-4.5)
[2024-01-14 20:11] LABS: PLATELET ESTIMATE, MANUAL NORMAL (130-450,000) (NORMAL); PLATELET MORPHOLOGY PLATELET CLUMPING (NORMAL); RBC MORPHOLOGY (MULTIPLE) NORMAL APPEARANCE (NORMAL)
== END 2024-01-14 23:58 | disposition home or self-care (01) ==
LOC: LAB.R 08:00
PROVIDERS: ATTEND Registered Nurse
DX: I11.9 Hypertensive heart disease without heart failure (principal); Z79.82 Long term (current) use of aspirin
CPT/HCPCS: 36415; 80048; 85025

== ENCOUNTER 2024-02-12 08:00 | Outpatient (CLI) | payer OTHER ==
[2024-02-12 20:08] LABS: BASOPHILS # (AUTO) 0.1 10^3/uL (0.0-0.1); BASOPHILS % (AUTO) 0.7 %; EOSINOPHILS # (AUTO) 0.1 10^3/uL (0.0-0.7); EOSINOPHILS % (AUTO) 1.4 %; HCT - HEMATOCRIT 36.6 % (37.0-47.0); HGB - HEMOGLOBIN 11.6 g/dL (12.0-16.0); LYMPHOCYTES # (AUTO) 3.3 10^3/uL (1.5-3.5); LYMPHOCYTES % (AUTO) 32.1 %; MEAN CORPUSCULAR HEMOGLOBIN 28.4 pg (27.0-31.0); MEAN CORPUSCULAR HGB CONC 31.7 g/dL (32.0-36.0); MEAN CORPUSCULAR VOLUME 89.7 fL (81.0-99.0); MEAN PLATELET VOLUME 10.6 fL (7.9-10.8); MONOCYTES # (AUTO) 0.5 10^3/uL (0.0-1.0); MONOCYTES % (AUTO) 4.7 %; NEUTROPHILS # (AUTO) 6.3 10^3/uL (1.5-6.6); NEUTROPHILS % (AUTO) 60.9 %; PLT - PLATELET COUNT 376 10^3/uL (130-450); RED BLOOD COUNT 4.08 10^6/uL (4.20-5.40); RED CELL DISTRIBUTION WIDTH 13.2 % (12.0-15.0); WHITE BLOOD COUNT 10.3 x10^3/uL (4.8-10.8)
[2024-02-12 20:21] LABS: CALCIUM 9.2 mg/dL (8.5-10.3); POTASSIUM 4.6 mmol/L (3.5-4.5)
== END 2024-02-12 23:59 | disposition home or self-care (01) ==
LOC: LAB.R 08:00
PROVIDERS: ATTEND Registered Nurse
DX: I11.9 Hypertensive heart disease without heart failure (principal); E11.40 Type 2 diabetes mellitus with diabetic neuropathy, unspecified
CPT/HCPCS: 36415; 80048; 85025

== ENCOUNTER 2024-04-12 08:00 | Outpatient (CLI) | payer OTHER ==
[2024-04-12 17:20] LABS: BASOPHILS # (AUTO) 0.1 10^3/uL (0.0-0.1); BASOPHILS % (AUTO) 0.7 %; EOSINOPHILS # (AUTO) 0.1 10^3/uL (0.0-0.7); EOSINOPHILS % (AUTO) 1.3 %; HCT - HEMATOCRIT 34.6 % (37.0-47.0); HGB - HEMOGLOBIN 10.9 g/dL (12.0-16.0); LYMPHOCYTES # (AUTO) 3.1 10^3/uL (1.5-3.5); MEAN CORPUSCULAR HEMOGLOBIN 28.9 pg (27.0-31.0); MEAN CORPUSCULAR HGB CONC 31.5 g/dL (32.0-36.0); MEAN CORPUSCULAR VOLUME 91.8 fL (81.0-99.0); MONOCYTES # (AUTO) 0.5 10^3/uL (0.0-1.0); MONOCYTES % (AUTO) 4.8 %; NEUTROPHILS # (AUTO) 7.2 10^3/uL (1.5-6.6); NEUTROPHILS % (AUTO) 64.8 %; PLT - PLATELET COUNT 378 10^3/uL (130-450); RED BLOOD COUNT 3.77 10^6/uL (4.20-5.40); RED CELL DISTRIBUTION WIDTH 13.2 % (12.0-15.0)
[2024-04-12 17:40] LABS: CREATININE 1.1 mg/dL (0.6-1.3); POTASSIUM 4.1 mmol/L (3.5-4.5)
== END 2024-04-12 23:59 | disposition home or self-care (01) ==
LOC: LAB.R 08:00
DX: I11.9 Hypertensive heart disease without heart failure (principal); D50.8 Other iron deficiency anemias
CPT/HCPCS: 80048; 85025

== ENCOUNTER 2024-05-13 08:00 | Outpatient (CLI) | payer OTHER ==
[2024-05-13 15:30] LABS: BASOPHILS # (AUTO) 0.1 10^3/uL (0.0-0.1); BASOPHILS % (AUTO) 0.6 %; EOSINOPHILS # (AUTO) 0.2 10^3/uL (0.0-0.7); EOSINOPHILS % (AUTO) 1.9 %; HCT - HEMATOCRIT 34.8 % (37.0-47.0); LYMPHOCYTES # (AUTO) 3.1 10^3/uL (1.5-3.5); LYMPHOCYTES % (AUTO) 25.8 %; MEAN CORPUSCULAR HGB CONC 31.6 g/dL (32.0-36.0); MEAN CORPUSCULAR VOLUME 91.8 fL (81.0-99.0); MEAN PLATELET VOLUME 10.4 fL (7.9-10.8); MONOCYTES # (AUTO) 0.5 10^3/uL (0.0-1.0); MONOCYTES % (AUTO) 4.1 %; NEUTROPHILS % (AUTO) 67.3 %; PLT - PLATELET COUNT 390 10^3/uL (130-450); RED BLOOD COUNT 3.79 10^6/uL (4.20-5.40); RED CELL DISTRIBUTION WIDTH 12.8 % (12.0-15.0); WHITE BLOOD COUNT 11.9 x10^3/uL (4.8-10.8)
[2024-05-13 15:40] LABS: CALCIUM 9.1 mg/dL (8.5-10.3); CREATININE 1.2 mg/dL (0.6-1.3); POTASSIUM 4.2 mmol/L (3.5-4.5)
== END 2024-05-13 23:52 | disposition home or self-care (01) ==
LOC: LAB.R 08:00
PROVIDERS: ATTEND Family Medicine
DX: I11.9 Hypertensive heart disease without heart failure (principal); D50.8 Other iron deficiency anemias
CPT/HCPCS: 80048; 85025

== ENCOUNTER 2024-08-14 08:00 | Outpatient (CLI) | payer OTHER ==
[2024-08-14 06:06] LABS: BASOPHILS # (AUTO) 0.1 10^3/uL (0.0-0.1); BASOPHILS % (AUTO) 0.8 %; EOSINOPHILS # (AUTO) 0.2 10^3/uL (0.0-0.7); EOSINOPHILS % (AUTO) 1.9 %; HCT - HEMATOCRIT 36.8 % (37.0-47.0); HGB - HEMOGLOBIN 11.3 g/dL (12.0-16.0); LYMPHOCYTES # (AUTO) 3.1 10^3/uL (1.5-3.5); LYMPHOCYTES % (AUTO) 35.5 %; MEAN CORPUSCULAR HEMOGLOBIN 29.7 pg (27.0-31.0); MEAN CORPUSCULAR HGB CONC 30.7 g/dL (32.0-36.0); MEAN CORPUSCULAR VOLUME 96.8 fL (81.0-99.0); MEAN PLATELET VOLUME 10.6 fL (7.9-10.8); MONOCYTES # (AUTO) 0.4 10^3/uL (0.0-1.0); MONOCYTES % (AUTO) 4.4 %; NEUTROPHILS % (AUTO) 57.2 %; PLT - PLATELET COUNT 335 10^3/uL (130-450); WHITE BLOOD COUNT 8.8 x10^3/uL (4.8-10.8)
[2024-08-14 06:15] LABS: ALBUMIN 3.4 g/dL (3.2-5.5); ALBUMIN/GLOBULIN RATIO 1.5 (1.0-2.2); BILIRUBIN,TOTAL 0.4 mg/dL (0.2-1.0); CALCIUM 9.1 mg/dL (8.5-10.3); CREATININE 1.1 mg/dL (0.6-1.3); POTASSIUM 4.4 mmol/L (3.5-4.5); TOTAL PROTEIN 5.6 g/dL (6.4-8.9)
== END 2024-08-14 23:59 | disposition home or self-care (01) ==
LOC: LAB.R 08:00
PROVIDERS: ATTEND Family Medicine
DX: E03.9 Hypothyroidism, unspecified (principal); D50.8 Other iron deficiency anemias
CPT/HCPCS: 80053; 85025

== ENCOUNTER 2024-08-18 08:00 | Outpatient (CLI) | payer OTHER ==
[2024-08-18 19:29] LABS: BILIRUBIN,URINE NEGATIVE (NEGATIVE); GLUCOSE, URINE (UA) 100 mg/dL (NEGATIVE); KETONES,URINE (UA) NEGATIVE (NEGATIVE); LEUKOCYTE ESTERASE, URINE LARGE (NEGATIVE); NITRITE,URINE NEGATIVE (NEGATIVE); OCCULT BLOOD,URINE SMALL (NEGATIVE); PROTEIN,URINE NEGATIVE (NEGATIVE); UROBILINOGEN,URINE 0.2 (NORMAL) E.U./dL (NORMAL)
[2024-08-18 19:43] LABS: CLARITY,URINE CLOUDY (CLEAR)
[2024-08-18 19:44] LABS: BACTERIA,URINE Many /HPF (None Seen); SQUAMOUS EPITHELIAL CELL,UR FEW Squamous (<= Few); WBC,URINE >25 /HPF (0-5)
== END 2024-08-18 23:59 | disposition home or self-care (01) ==
LOC: LAB.R 08:00
PROVIDERS: ATTEND Family Medicine
DX: R30.0 Dysuria (principal)
CPT/HCPCS: 81001; 81003; 87086